=== PATIENT | male | born 1960 | race Two or more races ===

== ENCOUNTER → 2020-02-02 08:39 | Outpatient (BNVA) | payer BC, SELFPAY | PROVIDERS: PCP Family Medicine; Referring Provider Family Medicine; Visit Provider Physician Assistant | DX: Z76.89 Persons encountering health services in other specified circumstances (principal) ==

== ENCOUNTER 2020-03-22 09:52 | Day surgery (SDC) | payer BC, SELFPAY ==
[2020-02-05 10:26] VITALS: BMI 26.4
--- NOTE | 2020-03-21 10:20 | HO.ANESPROP2 ---
Documented by User: Alicia Portillo 03/21/20 10:21 HPI - Anesthesia Eval Consult details Narrative: 59yo M for Upper Endoscopy and Colonoscopy [facility] Past Medical History Medical History Acid reflux Diabetes Dyslipidemia HTN (hypertension) Family History Family History Father No problems noted. Social History Social History Household Members: Children Alcohol intake: never Smoking Status: Never smoker Second Hand Smoke Exposure: No Use of substances other than those prescribed or required for medical reasons: No Advance Directives: No Advance Directives Information Provided: No Advance Directives on File: No Meds Allergies Allergy/AdvReac Type Severity Reaction Status Date / Time No Known Allergies Allergy Unverified 11/19/19 16:14 Home Medications Medication Instructions Recorded Confirmed Type aspirin 81 mg tablet,delayed 81 mg PO DAILY 02/02/20 02/05/20 History release atorvastatin 40 mg tablet 40 mg PO DAILY 02/02/20 02/05/20 History glipizide 10 mg tablet 10 mg PO BID 02/02/20 02/05/20 History hydrochlorothiazide 25 mg tablet 25 mg PO DAILY 02/02/20 02/05/20 History lisinopril 10 mg tablet 10 mg PO DAILY 02/02/20 02/05/20 History metformin 1,000 mg tablet 1,000 mg PO BID 02/02/20 02/05/20 History Exam Exam Date and Time: March 21, 2020 1020 Height,Weight and Vital Signs: Height 5 ft 3 in Weight 67.585 kg Assessment and Plan Assessment Anesthesia Assessment: Chart Reviewed Documented by User: Patricia Fallon 03/22/20 12:11 [facility] Past Medical History Medical History Acid reflux Diabetes Dyslipidemia HTN (hypertension) Family History Family History Father No problems noted. Social History Social History Household Members: Children Alcohol intake: never Smoking Status: Never smoker Second Hand Smoke Exposure: No Use of substances other than those prescribed or required for medical reasons: No Advance Directives: No Advance Directives Information Provided: No Advance Directives on File: No Meds Allergies Allergy/AdvReac Type Severity Reaction Status Date / Time No Known Allergies Allergy Unverified 11/19/19 16:14 Home Medications Medication Instructions Recorded Confirmed Type aspirin 81 mg tablet,delayed 81 mg PO DAILY 02/02/20 02/05/20 History release atorvastatin 40 mg tablet 40 mg PO DAILY 02/02/20 02/05/20 History glipizide 10 mg tablet 10 mg PO BID 02/02/20 02/05/20 History hydrochlorothiazide 25 mg tablet 25 mg PO DAILY 02/02/20 02/05/20 History lisinopril 10 mg tablet 10 mg PO DAILY 02/02/20 02/05/20 History metformin 1,000 mg tablet 1,000 mg PO BID 02/02/20 02/05/20 History Exam Airway Mallampati Class: II TM Dist: >3cm Loose/Missing/Broken Teeth: No Heart: RRR Lungs: CTA Assessment and Plan Assessment Anesthesia Assessment: Anesthesia Plan Discussed and Chart Reviewed Final Anesthetic Review NPO: Yes ASA Class: II Final Preanesthetic Review: Meds/Allgs Chart Reviewed, Consent Obtained/Reviewed and Anes Risks/Benef Reviewed Patient Risk: Low Procedure Risk: Intermediate Anesthetic Plan Anesthetic Plan: MAC:
--- NOTE | 2020-03-22 12:10 | MHC.SHP ---
Pre-Procedural Eval Section B Chief Complaint: Tubular Adenoma Details of Present Illness: CHRONIC GERD/COLON CANCER SCREENING, HX TUBULAR ADENOMA No changes clinical since visit in February. Relevant Family History (Specify if Yes): No Relevant Social History: None Present Medications: see Short Stay Collaborative assessment Medical History: Significant History (GERD, Diabetes, Hypertension) History of Previous Operations: No relevant previous surgery Allergies: Allergies Allergy/AdvReac Type Severity Reaction Status Date / Time No Known Allergies Allergy Unverified 11/19/19 16:14 Review of Systems Sugical H&P ROS: Negative: Constitution, Cardiovascular, Respiratory and Gastrointestinal and Yes, Specify: Endocrine (Diabetes) Exam Surgical H&P Exam: Normal: HEENT, Normal: Heart, Normal: Lungs and Normal: Abdomen Plan Diagnosis/Plan: Unchanged I have reviewed the history and physical and performed a pertinent physical examination on my patient. No changes have occurred unless specified.yes
[2020-03-22 12:18] VITALS: BP 112/63; PULSE 95; RESP 18; TEMP 36.2; O2SAT 99
[2020-03-22] MEDS: Lactated Ringers 1,000 ML 100 ML IVCONT (12:21)
[2020-03-22 13:11] LABS: Glucose, Whole Blood 103 mg/dL (60-115)
[2020-03-22 13:13] VITALS: BP 94/59; PULSE 82; RESP 18; TEMP 36.3; O2SAT 99
--- NOTE | 2020-03-22 13:26 | PM.PROC ---
Brief Operative Note Date of procedure: 03/22/20 Pre-op diagnosis: chronic GERD, Nausea, Rectal bleeding Post-op diagnosis: other (EGD: Hiatal hernia, erosvive duodenitis; Colon poor prep-Internal hemorrhoids.) Procedure: EGD wtih bx, [place]coe to hepatic flexure--poor prep. Anesthesia: MAC (MD Vasyl) Surgeon: Julissa Eubanks Estimated blood loss (mL): 0 Pathology: other (Random gastric bx) Condition: stable Disposition: PACU
[2020-03-22 13:28] VITALS: BP 112/76; PULSE 85; RESP 18; TEMP 36.3; O2SAT 99
--- NOTE | 2020-03-22 14:00 | HO.POSTANES ---
Post Anesthesia Evaluation Post Anesthesia Evaluation Vital Signs: Vital Signs Temp Pulse Resp BP Pulse Ox 03/22/20 13:28 97.4 F 85 18 112/76 99 03/22/20 13:13 97.4 F 82 18 94/59 L 99 03/22/20 12:18 97.1 F 95 18 112/63 99 Anesthesia: Monitored Mental Status: Awake Pain Control: Satisfactory Nausea/Vomiting: None Hydration: Adequate Anesthesia-Related Issues: No Anes. Related Issues
--- NOTE | 2020-03-24 08:31 | OP_ITS ---
SURGEON: Julissa Eubanks MD ESTIMATED BLOOD LOSS: Less than 5 cc. COMPLICATIONS: No complications. ANESTHESIA: Monitored ANESTHESIOLOGIST: Patricia Fallon M.D. ASSISTANTS: No medical assistant supervisor. SPECIMENS: Specimens removed, random gastric. PREOPERATIVE DIAGNOSES: Chronic gastroesophageal reflux disease, evaluate for underlying premalignant condition such as Estrada's. Colon cancer screening. POSTOPERATIVE DIAGNOSES: Erosive duodenitis, hiatal hernia, and history of gastroesophageal reflux disease. Colonoscopy, incomplete to the hepatic flexure, 1+ internal hemorrhoids. STREET CAR MECHANIC: Julissa Eubanks M.D. PROCEDURES PERFORMED: Esophagogastroduodenoscopy with biopsy; Colonoscopy to the level of the hepatic flexure. CONDITION: Postop, stable. ESOPHAGOGASTRODUODENOSCOPY FINDINGS: Video endoscope was introduced without difficulty. It was navigated into the posterior pharynx and into the esophagus. Esophageal mucosa was normal down to the level of the GE junction. Distal to this, was a small hiatal hernia. On entering the stomach, there was no residual dietary fragments present. No blood was visible. Slight bilious tinge to the fluid present. Distal erythema of the antrum. Duodenal bulb and duodenum had generalized erythema, slight friability, and multiple small erosive lesions. Random gastric biopsies were obtained to assess for the presence of H pylori. COLONOSCOPY FINDINGS: On digital rectal exam, prostate was normal to digital palpation. The video colonoscope was introduced without difficulty. From the beginning, the prep was poor with a lot of residual turbid and slightly fibrous material. The left side of the colon was redundant and there was angulation at several levels. At least 700 cc was used to flush the areas observed. Due to the amount of stool containing residue, decision was made to withdraw the scope and re-prep the patient within a 12-month period of time and do colonoscopy as a separate procedure. The patient has had previous exams with suboptimal preps. This is going to be a challenge. However, he has had previous colonoscopy in which a diminutive tubular adenoma had been removed. The patient has been seen in the past by Dr. Gilbert and might best be scheduled with Dr. Gilbert on his followup exam. TYPE OF ANESTHESIA: Monitored. GRAFT OR IMPLANTS: No grafts or implants. Julissa Eubanks MD MEN/MODL / [id number] [place]
== END 2020-03-22 14:21 | disposition home or self-care (01) ==
PROVIDERS: PCP Internal Medicine; Visit Provider Internal Medicine Gastroenterology
PROC: (CPT 45378; principal; 2020-03-22 11:30)
DX: Z12.11 Encounter for screening for malignant neoplasm of colon (principal); Z86.010 Personal history of colon polyps; K64.8 Other hemorrhoids; Q43.8 Other specified congenital malformations of intestine; K21.9 Gastro-esophageal reflux disease without esophagitis; K29.50 Unspecified chronic gastritis without bleeding; K29.80 Duodenitis without bleeding; K44.9 Diaphragmatic hernia without obstruction or gangrene; E11.9 Type 2 diabetes mellitus without complications; I10 Essential (primary) hypertension; Z79.82 Long term (current) use of aspirin; Z79.84 Long term (current) use of oral hypoglycemic drugs; Z79.899 Other long term (current) drug therapy
CPT/HCPCS: 45378; 43239; 82947; 88305; 88342

== ENCOUNTER 2020-04-10 | Outpatient (REF) | payer BC, SELFPAY | END 2020-04-10 00:01 | disposition home or self-care (01) | LOC: HO.LNP | PROVIDERS: Visit Provider Internal Medicine Gastroenterology | DX: Z12.11 Encounter for screening for malignant neoplasm of colon (principal) | CPT/HCPCS: 82274 ==

== ENCOUNTER 2023-03-20 08:56 | Outpatient (REF) | payer BC, SELFPAY ==
[2023-03-20 14:30] LABS: MANUAL DIFF FLAG NO
[2023-03-20 14:34] LABS: Basophils Absolute Auto 0.1 X10*3/uL (0.0-0.2); Eosinophils Absolute Auto 0.3 X10*3/uL (0.0-0.4); Eosinophils Percent Auto 4.8 % (0-4); Hematocrit 43.9 % (42.0-52.0); Hemoglobin 14.2 g/dl (14.0-18.0); Imm Gran Abs Auto 0.01 X10*3/uL (0.00-0.03); Imm Gran Pct Auto 0.2 % (0.0-0.4); Lymphocytes Absolute Auto 1.3 X10*3/uL (1.2-4.9); Lymphocytes Percent Auto 20.7 % (20-40); Mean Corpuscular HGB Conc 32.3 g/dl (31.0-36.0); Mean Corpuscular Hemoglobin 29.5 pg (27.0-33.0); Mean Corpuscular Volume 91.1 fL (80.0-98.0); Mean Platelet Volume 10.7 fL (9.4-12.4); Monocytes Absolute Auto 0.4 X10*3/uL (0.1-1.2); Monocytes Percent Auto 6.4 % (2-11); Neutrophils Absolute Auto 4.1 x10*3/uL (2.0-8.3); Neutrophils Percent Auto 66.9 % (45-73); Platelet Count 342 X10*3/uL (160-400); Red Blood Count 4.82 X10*6/uL (4.60-5.80); Red Cell Distribution Width 11.9 % (11.0-16.0); White Blood Count 6.1 X10*3/uL (4.8-10.8)
[2023-03-20 14:45] LABS: Estimated Average Glucose 206 mg/dL; Hemoglobin A1c % 8.8 % (<6.0)
[2023-03-20 14:50] LABS: Alanine Aminotransferase 14 U/L (0-40); Albumin Level 3.4 g/dL (3.5-5.0); Alkaline Phosphatase 84 U/L (39-117); Anion Gap 14 (12-20); Aspartate Amino Transferase 17 U/L (5-37); Bilirubin Total 0.5 mg/dL (0.0-1.0); Blood Urea Nitrogen 26 mg/dL (9-16); Calcium 9.4 mg/dL (8.4-10.2); Carbon Dioxide 27 mmol/L (22-29); Chloride 105 mmol/L (96-108); Cholesterol 371 mg/dL (<200); Estimated Glomerular Filt Rate 40; Glucose Random 246 mg/dL (60-115); HDL Cholesterol 43 mg/dL (>40); LDL Cholesterol Calculated 291 mg/dL (<100); Potassium 4.6 mmol/L (3.3-5.1); Sodium 141 mmol/L (135-145); Total Protein 7.2 g/dL (6.5-8.0); Triglycerides 186 mg/dL (<150)
[2023-03-20 15:02] LABS: Creatinine Urine 158.88 mg/dL
[2023-03-20 15:04] LABS: Prostate Specific Antigen 0.41 ng/mL (<0.05-4.0)
[2023-03-20 15:11] LABS: TSH reflex Free T4 2.21 uIU/mL (0.32-4.0)
[2023-03-20 15:13] LABS: Microalbum/Creatinine Ratio Ur 1258.8 ug/mg cr (<30); Microalbumin Urine > 2000.0 mg/L
[2023-03-21 04:23] LABS: ~HepC Num1 0.12 S/CO (0.00-0.79); ~Hepatitis C Antibody Nonreactive (Nonreactive)
[2023-03-23 17:13] LABS: HIV RNA PCR Qn Copies Not Detected Copies/mL; HIV RNA PCR Qn Log Copies Not Detected Log cps/mL
== END 2023-03-20 08:57 | disposition home or self-care (01) ==
LOC: HO.CHCLDS 08:56
PROVIDERS: Visit Provider Internal Medicine
DX: Z12.5 Encounter for screening for malignant neoplasm of prostate (principal); I10 Essential (primary) hypertension; E11.9 Type 2 diabetes mellitus without complications
CPT/HCPCS: 36415; 80053; 80061; 82043; 82570; 83036; 84153; 84443; 85025; 86803; 87536; 87900

== ENCOUNTER 2023-06-20 09:51 | Outpatient (REF) | payer BC, SELFPAY ==
[2023-06-20 14:57] LABS: Alanine Aminotransferase 15 U/L (0-40); Albumin Level 3.7 g/dL (3.5-5.0); Alkaline Phosphatase 73 U/L (39-117); Anion Gap 11 (12-20); Aspartate Amino Transferase 21 U/L (5-37); Bilirubin Total 0.6 mg/dL (0.0-1.0); Blood Urea Nitrogen 58 mg/dL (9-16); Calcium 8.8 mg/dL (8.4-10.2); Carbon Dioxide 27 mmol/L (22-29); Chloride 104 mmol/L (96-108); Cholesterol 242 mg/dL (<200); Estimated Glomerular Filt Rate 25; Glucose Random 197 mg/dL (60-115); HDL Cholesterol 39 mg/dL (>40); LDL Cholesterol Calculated 169 mg/dL (<100); Potassium 5.1 mmol/L (3.3-5.1); Sodium 137 mmol/L (135-145); Total Protein 7.4 g/dL (6.5-8.0); Triglycerides 170 mg/dL (<150)
[2023-06-20 16:06] LABS: Estimated Average Glucose 189 mg/dL; Hemoglobin A1c % 8.2 % (<6.0)
== END 2023-06-20 09:52 | disposition home or self-care (01) ==
LOC: HO.CHCLDS 09:51
PROVIDERS: Visit Provider Internal Medicine
DX: E11.9 Type 2 diabetes mellitus without complications (principal); I10 Essential (primary) hypertension
CPT/HCPCS: 36415; 80053; 80061; 83036

== ENCOUNTER 2023-07-08 14:08 | Outpatient (AMB) | payer BC, SELFPAY ==
--- NOTE | 2023-07-08 14:17 | MHC.OFFVIS ---
Vital Signs 07/08/23 14:25 Height 5 ft 1 in Weight 146 lb BMI 27.6 BP 101/55 L Blood Pressure Location Lt brachial Position Sitting Pulse 109 H Intake Visit Reasons: colo screening Intake Note: New consult for 3rd pre colonoscopy screening. Patient cc: acid reflex on and off, denies any otehr GI issues. Nuclear Criticality Safety Engineer Required: No Accompanied by: Self / Same As Patient Allergies No Known Allergies Allergy (Verified 07/08/23 14:22) HPI HPI colo screening: Details: LAST UPPER ENDOSCOPY AND COLONOSCOPY MARCH [address] Eubanks ESOPHAGOGASTRODUODENOSCOPY FINDINGS: Video endoscope was introduced without difficulty. It was navigated into the posterior pharynx and into the esophagus. Esophageal mucosa was normal down to the level of the GE junction. Distal to this, was a small hiatal hernia. On entering the stomach, there was no residual dietary fragments present. No blood was visible. Slight bilious tinge to the fluid present. Distal erythema of the antrum. Duodenal bulb and duodenum had generalized erythema, slight friability, and multiple small erosive lesions. Random gastric biopsies were obtained to assess for the presence of H pylori. COLONOSCOPY FINDINGS: On digital rectal exam, prostate was normal to digital palpation. The video colonoscope was introduced without difficulty. From the beginning, the prep was poor with a lot of residual turbid and slightly fibrous material. The left side of the colon was redundant and there was angulation at several levels. At least 700 cc was used to flush the areas observed. Due to the amount of stool containing residue, decision was made to withdraw the scope and re-prep the patient within a 12-month period of time and do colonoscopy as a separate procedure. The patient has had previous exams with suboptimal preps. This is going to be a challenge. However, he has had previous colonoscopy in which a diminutive tubular adenoma had been removed. The patient has been seen in the past by Dr. Gilbert and might best be scheduled with Dr. Gilbert on his followup exam. 62 year old? female here today for pre colonoscopy screening.? Patient was sent to us by his PCP.? ? Patient denies any gastrointestinal symptoms in the past or at present. However patient does have acid reflux at times depending on what he eats. Denies any personal or family history of gastrointestinal disease, colon polyps, or CRC.? Denies history of difficulty with sedation or anesthesia in the past.? Negative for history of sleep apnea.? Denies any history of cardiac, renal, pulmonary, or hepatic disease.?? No history of infectious? diseases like hepatitis A, B, C, HIV or tuberculosis.? Patient is on low-dose aspirin. Patient no longer is taking omeprazole. His symptoms are controlled with diet. [facility] Medical History (Updated 07/25/23 @ 19:05 by Vivien Pierson [facility]) Dyslipidemia HTN (hypertension) Acid reflux Diabetes Surgical History (Updated 07/08/23 @ 14:27 by Martha Reza) Hx of colonoscopy Hx of appendectomy Family History Father No problems noted. Social History Household Members: Children Alcohol intake: never Second Hand Smoke Exposure: No Review of Systems Const Denies weight gain and Denies weight loss ENT Reports no additional complaints, Denies dysphagia and Denies odynophagia Card Reports no additional complaints Resp Reports no additional complaints GI Denies abdominal pain, Denies belching, Denies melena, Denies bloating, Denies change in bowel habits, Denies dysphagia, Denies excessive flatus, Denies dyspepsia, Reports heartburn (Occasional), Denies diarrhea, Denies loose stools, Denies nausea, Denies odynophagia and Denies vomiting Reports no additional complaints Musc Reports no additional complaints Neuro Reports no additional complaints Psych Reports no additional complaints Endo Reports no additional complaints Physical Exam Vital Signs: Last Vital Signs Pulse 109 H 07/08/23 14:25 BP 101/55 L 07/08/23 14:25 BMI result Body Mass Index 27.6 Const General: healthy appearing, no acute distress and well developed Nutritional Appearance: well nourished Orientation/consciousness: patient oriented x3 Resp Effort & Inspection: normal respiratory effort, able to speak in complete sentences, no tracheal deviation and symmetric chest movement Auscultation: clear to auscultation bilaterally Cardio Rate: regular rate GI Inspection: Yes normal to inspection and No distended Palpation (GI): Soft to palpation, not firm, nontender and No hepatosplenomegaly present Auscultation: normal bowel sounds General: Yes no CVA tenderness Back/Spine/Pelvis Back: no CVA tenderness Skin General skin exam: elasticity normal, turgor normal and dry skin Neuro General: patient oriented x3 Psych Appearance: grossly normal Mental Status: mental status grossly normal Assessment & Plan Assessment & Plan (1) Encounter for screening colonoscopy: Code(s): Z12.11 - Encounter for screening for malignant neoplasm of colon Category: Medical (2) Acid reflux: Code(s): K21.9 - Gastro-esophageal reflux disease without esophagitis Category: Medical Qualifiers: Esophagitis presence: esophagitis presence not specified Qualified Code(s): K21.9 - Gastro-esophageal reflux disease without esophagitis Plan Patient denies any GI, cardiac or respiratory symptoms.? Occasional acid reflux, however patient is trying to control his diet. Denies any issues with anesthesia in the past.? Denies any history of sleep apnea.? No history infectious diseases in the past or present.? Patient is on low-dose aspirin.? No family or personal history of colon cancer or polyps.? Patient denies melena, hematochezia, unintentional weight loss or ribbon like stools.? Discussed at length the pre-procedure,? prep, diet & medications as well as what to expect prior, during and after the procedure.?? Stressed the importance of good bowel prep. ?Recommended the use of Vaseline or Calmoseptine OTC & baby wipes with bowel movements to promote comfort.? ?Patient verbalizes understanding and agrees to plan of care.? He was given the opportunity to ask questions and all questions answered.? We will see him after the procedure.? Medications: New bisacodyl (Dulcolax (bisacodyl)) Start taking 2 tablet every night 7 days before the procedure and 1 day before procedure take 4 tablets at noon time followed by MiraLax prep 10 mg (2 x 5 mg) PO BEDTIME 16 tabs 0RF Z12.11 - Encounter for screening for malignant neoplasm of colon polyethylene glycol 3350 (Miralax) As directed by gastro[facility]ology department at [facility] 238 grams PO ONCE 238 grams 0RF Z12.11 - Encounter for screening for malignant neoplasm of colon Discontinued omeprazole Discontinued Reason: Patient no longer taking 20 mg PO DAILY 30 caps 5RF omeprazole Discontinued Reason: Patient no longer taking 20 mg PO DAILY 30 caps 5RF bisacodyl Take 2 tablets at 12:00pm the day before your procedure, bowel prep Discontinued Reason: Patient no longer taking 10 mg (2 x 5 mg) PO ONCE 1 day 2 tabs 0RF Bowel Preparation Coding Level of Care Code New Pt Level 3 (28624) Diagnoses Encounter for screening colonoscopy Z12.11 Gastroesophageal reflux disease, unspecified whether esophagitis present K21.9 Esophagitis presence: esophagitis presence not specified Time Spent (min) 40 Comment 30 minutes spent with patient and additional 10 minutes spent reviewing his records
[2023-07-08 14:25] VITALS: BP 101/55; PULSE 109; BMI 27.6
== END 2023-07-08 15:23 | disposition home or self-care (01) ==
PROVIDERS: PCP Internal Medicine; Referring Provider Internal Medicine; Visit Provider Nurse Practitioner Family
DX: Z01.818 Encounter for other preprocedural examination (principal); Z12.11 Encounter for screening for malignant neoplasm of colon; K21.9 Gastro-esophageal reflux disease without esophagitis
CPT/HCPCS: S0285

== ENCOUNTER → 2023-07-08 14:08 | Outpatient (BNVA) | payer BC, SELFPAY | PROVIDERS: PCP Internal Medicine; Referring Provider Internal Medicine; Visit Provider Nurse Practitioner Family ==

== ENCOUNTER 2023-07-23 09:01 | Outpatient (REF) | payer BC, SELFPAY ==
[2023-07-23 15:03] LABS: Anion Gap 16 (12-20); Blood Urea Nitrogen 40 mg/dL (9-16); Calcium 9.5 mg/dL (8.4-10.2); Carbon Dioxide 24 mmol/L (22-29); Chloride 106 mmol/L (96-108); Estimated Glomerular Filt Rate 37; Glucose Random 117 mg/dL (60-115); Potassium 4.9 mmol/L (3.3-5.1); Sodium 141 mmol/L (135-145)
== END 2023-07-23 09:02 | disposition home or self-care (01) ==
LOC: HO.CHCLDS 09:01
PROVIDERS: Visit Provider Internal Medicine
DX: E11.9 Type 2 diabetes mellitus without complications (principal)
CPT/HCPCS: 36415; 80048

== ENCOUNTER 2023-08-01 15:19 | Outpatient (AMB) | payer BC, SELFPAY ==
[2023-08-01 15:17] VITALS: BP 118/80; PULSE 110; O2SAT 98; BMI 28.3
--- NOTE | 2023-08-01 15:17 | HO.NEPHOV ---
Vital Signs 08/01/23 15:17 Height 5 ft 1 in Weight 150 lb BMI 28.3 BP 118/80 Blood Pressure Location Lt brachial Position Sitting Pulse 110 H Pulse Source Pulse Oximeter Pulse Oximetry (%) 98 Oxygen Delivery Method Room Air Intake Visit Reasons: CKD STG 3B/ Confirmed Road Test Examiner Required: No Accompanied by: Self / Same As Patient Allergies No Known Allergies Allergy (Verified 08/01/23 15:20) HPI Comments Details: . Jame is a middle-aged man with a history of diabetes mellitus for more than 30 years. He has chronic kidney disease with a baseline creatinine around 2.5 mg/dL. He was found to have significant proteinuria of around 1200 mg and hence this consultation. Currently he is on losartan 100 mg for renal protection. He has history of hypertension and is also on amlodipine. As for the diabetes mellitus he is on Trulicity. He tells me that his blood sugar was poorly controlled in the past while he was in [place]. Today has no specific complaints. No headache nausea vomiting. No shortness of breath. No polyuria polydipsia. No edema no rash no fever. No joint pains. [facility] Medical History (Updated 08/01/23 @ 15:32 by Gene Stout MD) Dyslipidemia HTN (hypertension) Acid reflux Diabetes Surgical History Hx of colonoscopy Hx of appendectomy Family History Father No problems noted. Social History Household Members: Children Alcohol intake: never Second Hand Smoke Exposure: No Physical Exam Vital Signs: Last Vital Signs Pulse 110 H 08/01/23 15:17 BP 118/80 08/01/23 15:17 Pulse Ox 98 08/01/23 15:17 Oxygen Delivery Method Room Air 08/01/23 15:17 BMI result Body Mass Index 28.3 Const General: comfortable Nutritional Appearance: well nourished Orientation/consciousness: patient oriented x3 HEENT Head: No normal to inspection Mouth: moist mucous membranes Neck Neck: Yes supple and Yes no JVD Resp Auscultation: clear to auscultation bilaterally, no rales and rub present Cardio Jugular venous distension: no JVD Palpation: no palpable S3 and no palpable S4 Heart sounds: no rubs GI Palpation (GI): Soft to palpation and nontender Percussion: No Fluid wave present General: Yes no CVA tenderness Back/Spine/Pelvis Back: no CVA tenderness Skin General skin exam: no rashes or lesions noted Neuro General: patient oriented x3 Extrem General: Yes no pedal edema and No clubbing Results Reviewed Nephrology Results: Hgb 14.2 g/dl (14.0-18.0) 03/20/23 WBC 6.1 X10*3/uL (4.8-10.8) 03/20/23 Plt Count 342 X10*3/uL (160-400) 03/20/23 Sodium 141 mmol/L (135-145) 07/23/23 Potassium 4.9 mmol/L (3.3-5.1) 07/23/23 Chloride 106 mmol/L (96-108) 07/23/23 Carbon Dioxide 24 mmol/L (22-29) 07/23/23 BUN 40 mg/dL (9-16) H 07/23/23 Creatinine 1.85 mg/dL (0.5-1.4) H 07/23/23 Calcium 9.5 mg/dL (8.4-10.2) 07/23/23 Urine Creatinine 158.88 mg/dL 03/20/23 Assessment & Plan Assessment & Plan (1) HTN (hypertension): Code(s): I10 - Essential (primary) hypertension Category: Medical (2) CKD (chronic kidney disease) stage 3, GFR 30-59 ml/min: Code(s): N18.30 - Chronic kidney disease, stage 3 unspecified Category: Medical Plan . 62-year-old man with chronic kidney disease in the setting of longstanding diabetes mellitus and hypertension with non nephrotic range proteinuria. 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 The proteinuria is due to underlying diabetic kidney disease. However nondiabetic causes should be considered. Hypertension. Blood pressure is well controlled. He has mild tachycardia. This may be due to reflex tachycardia secondary to the use of amlodipine. Recommendations Ordered baseline workup for the proteinuria to screen for nondiabetic causes. Obtain renal ultrasonogram to assess echogenicity of the kidneys. Agree with KENDRICK inhibition for renal protection. He will benefit from SGLT2 inhibitors. Discussed importance of tight control of blood sugar and blood pressure. Goal A1c of less than 7% and blood pressure less than 130/80 mm Hg. Encouraged him to stand low-sodium diet Increase p.o. fluid intake. Continue overt nephrotoxic agents including NSAIDs. As for the reflex tachycardia I would suggest lowering amlodipine by 50%. Next step would be to add a beta farrah. If needed Once the baseline workup is completed returned to the office. . Orders: Orders US renal BI Today I10 - Essential (primary) hypertension, N18.30 - Chronic kidney disease, stage 3 unspecified Protein Electrophoresis, Serum Today I10 - Essential (primary) hypertension, N18.30 - Chronic kidney disease, stage 3 unspecified Complement C4 Today I10 - Essential (primary) hypertension, N18.30 - Chronic kidney disease, stage 3 unspecified UA and rflx microscopic Today I10 - Essential (primary) hypertension, N18.30 - Chronic kidney disease, stage 3 unspecified Complement C3 Today I10 - Essential (primary) hypertension, N18.30 - Chronic kidney disease, stage 3 unspecified Coding Level of Care Code New Pt Level 4 (26015) Diagnoses HTN (hypertension) I10 CKD (chronic kidney disease) stage 3, GFR 30-59 ml/min N18.30
--- NOTE | 2023-08-01 16:19 | HO.NEPHOV ---
Vital Signs 08/01/23 15:17 Height 5 ft 1 in Weight 150 lb BMI 28.3 BP 118/80 Blood Pressure Location Lt brachial Position Sitting Pulse 110 H Pulse Source Pulse Oximeter Pulse Oximetry (%) 98 Oxygen Delivery Method Room Air Intake Visit Reasons: CKD STG 3B/ Confirmed Allergies No Known Allergies Allergy (Verified 08/01/23 15:20) PFSH Medical History (Updated 08/01/23 @ 15:32 by Gene Stout MD) Dyslipidemia HTN (hypertension) Acid reflux Diabetes Surgical History Hx of colonoscopy Hx of appendectomy Family History Father No problems noted. Social History Household Members: Children Alcohol intake: never Second Hand Smoke Exposure: No Physical Exam Vital Signs: Last Vital Signs Pulse 110 H 08/01/23 15:17 BP 118/80 08/01/23 15:17 Pulse Ox 98 08/01/23 15:17 Oxygen Delivery Method Room Air 08/01/23 15:17 BMI result Body Mass Index 28.3 Results Reviewed Nephrology Results: Hgb 14.2 g/dl (14.0-18.0) 03/20/23 WBC 6.1 X10*3/uL (4.8-10.8) 03/20/23 Plt Count 342 X10*3/uL (160-400) 03/20/23 Sodium 141 mmol/L (135-145) 07/23/23 Potassium 4.9 mmol/L (3.3-5.1) 07/23/23 Chloride 106 mmol/L (96-108) 07/23/23 Carbon Dioxide 24 mmol/L (22-29) 07/23/23 BUN 40 mg/dL (9-16) H 07/23/23 Creatinine 1.85 mg/dL (0.5-1.4) H 07/23/23 Calcium 9.5 mg/dL (8.4-10.2) 07/23/23 Urine Creatinine 158.88 mg/dL 03/20/23 Assessment & Plan Assessment & Plan (1) HTN (hypertension): Code(s): I10 - Essential (primary) hypertension Category: Medical (2) CKD (chronic kidney disease) stage 3, GFR 30-59 ml/min: Code(s): N18.30 - Chronic kidney disease, stage 3 unspecified Category: Medical Orders: Orders US renal BI Today I10 - Essential (primary) hypertension, N18.30 - Chronic kidney disease, stage 3 unspecified Protein Electrophoresis, Serum Today I10 - Essential (primary) hypertension, N18.30 - Chronic kidney disease, stage 3 unspecified Complement C4 Today I10 - Essential (primary) hypertension, N18.30 - Chronic kidney disease, stage 3 unspecified UA and rflx microscopic Today I10 - Essential (primary) hypertension, N18.30 - Chronic kidney disease, stage 3 unspecified Complement C3 Today I10 - Essential (primary) hypertension, N18.30 - Chronic kidney disease, stage 3 unspecified Coding Diagnoses HTN (hypertension) I10 CKD (chronic kidney disease) stage 3, GFR 30-59 ml/min N18.30
== END 2023-08-01 15:36 | disposition home or self-care (01) ==
PROVIDERS: PCP Internal Medicine; Referring Provider Internal Medicine; Visit Provider Internal Medicine Hypertension Specialist
DX: I10 Essential (primary) hypertension (principal); N18.30 Chronic kidney disease, stage 3 unspecified
CPT/HCPCS: 99204

== ENCOUNTER → 2023-08-01 15:19 | Outpatient (BNVA) | payer BC, SELFPAY | PROVIDERS: PCP Internal Medicine; Referring Provider Internal Medicine; Visit Provider Internal Medicine Hypertension Specialist ==

== ENCOUNTER 2023-08-12 13:05 | Outpatient (REF) | payer BC, SELFPAY ==
--- NOTE | ~2023-08-12 | US_ITS ---
EXAMINATION: US RETROPERITONEAL LIMITED (RENAL ONLY) CLINICAL INFORMATION: Chronic kidney disease, stage 3 unspecified. COMPARISON: None available. TECHNIQUE: Real-time ultrasound images of the kidneys. Limited visualization due to bowel gas. FINDINGS: RIGHT KIDNEY: 10.4 x 5.4 x 4.2 cm (SAG x AP x TRV). No hydronephrosis. No renal calculi. Renal cortical thickness is normal. Limited visualization. LEFT KIDNEY: 11.1 x 5.7 x 4.6 cm (SAG x AP x TRV). No hydronephrosis. No renal calculi. Renal cortical thickness is normal. Limited visualization. US/US renal BI IMPRESSION: No hydronephrosis. No renal calculi. Limited visualization.
== END 2023-08-12 13:06 | disposition home or self-care (01) ==
LOC: HO.US 13:05
PROVIDERS: PCP Internal Medicine; Visit Provider Internal Medicine Hypertension Specialist
DX: I12.9 Hypertensive chronic kidney disease with stage 1 through stage 4 chronic kidney disease, or unspecified chronic kidney disease (principal); N18.30 Chronic kidney disease, stage 3 unspecified
CPT/HCPCS: 76775

== ENCOUNTER 2023-08-26 07:17 | Outpatient (REF) | payer BC, SELFPAY ==
[2023-08-26 09:06] LABS: Appearance Urine Clear; Color Urine Yellow; Glucose Urine UA Negative (Negative); Leukocyte Esterase Urine Negative (Negative); Nitrite Urine Negative (Negative); PH 5.5 (5.0-9.0); Specific Gravity - Urine 1.015 (1.005-1.025); UMIC TRIGGER UA YES; Urine Blood Trace (Negative); Urine Ketones Negative (Negative); Urine Protein 300 (3+) mg/dL (Neg-Trace)
[2023-08-26 09:08] LABS: Bacteria Urine None Seen (None Seen); Hyaline Casts Urine 0-2 /LPF (0-2); RBC Urine 0-2 /HPF (0-2); Squamous Epithelial Cell Urine 0-2 /HPF (0-2); WBC Urine 0-5 /HPF (0-5)
[2023-08-27 10:38] LABS: Complement C3 50 mg/dL (82-185)
[2023-08-28 11:33] LABS: Prot Elec - Albumin 4.2 g/dL (3.8-4.8); Prot Elec - Alpha1 0.3 g/dL (0.2-0.3); Prot Elec - Alpha2 0.9 g/dL (0.5-0.9); Prot Elec - Beta 1 0.5 g/dL (0.4-0.6); Prot Elec - Beta 2 0.5 g/dL (0.2-0.5); Prot Elec - Total Protein 7.4 g/dL (6.1-8.1)
== END 2023-08-26 07:18 | disposition home or self-care (01) ==
LOC: HO.LAB 07:17
PROVIDERS: PCP Internal Medicine; Visit Provider Internal Medicine Hypertension Specialist
DX: I12.9 Hypertensive chronic kidney disease with stage 1 through stage 4 chronic kidney disease, or unspecified chronic kidney disease (principal); N18.30 Chronic kidney disease, stage 3 unspecified
CPT/HCPCS: 36415; 81001; 81003; 84165; 86160

== ENCOUNTER 2023-08-29 12:14 | Outpatient (AMB) | payer BC, SELFPAY ==
[2023-08-29 12:14] VITALS: BP 96/72; PULSE 105; O2SAT 98; BMI 28.5
--- NOTE | 2023-08-29 12:14 | HO.NEPHOV_ITS ---
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 Jame is a middle-aged man with a history of diabetes mellitus for more than 30 years. He has chronic kidney disease with a baseline creatinine around 2.5 mg/dL. He was found to have significant proteinuria of around 1200 mg and hence this consultation. Currently he is on losartan 100 mg for renal protection. He has history of hypertension and is also on amlodipine. As for the diabetes mellitus he is on Trulicity. He tells me that his blood sugar was poorly controlled in the past while he was in [place]. Today has no specific complaints. No headache nausea vomiting. No shortness of breath. No polyuria polydipsia. No edema no rash no fever. No joint pains. 08/29/23 Home BP has been good. HR is in the 100s [facility] Medical History (Updated 08/01/23 @ 15:32 by Gene Stout MD) Dyslipidemia HTN (hypertension) Acid reflux Diabetes Surgical History Hx of colonoscopy Hx of appendectomy Family History Father No problems noted. Social History Household Members: Children Alcohol intake: never Second Hand Smoke Exposure: No Physical Exam Vital Signs: Last Vital Signs Pulse 105 H 08/29/23 12:14 BP 96/72 08/29/23 12:14 Pulse Ox 98 08/29/23 12:14 Oxygen Delivery Method Room Air 08/29/23 12:14 BMI result Body Mass Index 28.5 Const General: comfortable; No acute distress Orientation/consciousness: patient oriented x3 Eyes General: appearance normal, both eyes and all related structures Visual Dupont: normal visual dupont by confrontation Neck Neck: Yes supple and Yes no JVD Resp Effort & Inspection: normal respiratory effort and respiratory effort not decreased Auscultation: rhonchi Cardio Palpation: no palpable S3 and no palpable S4 Heart sounds: no rubs GI Inspection: Yes normal to inspection Palpation (GI): Soft to palpation Percussion: Yes normal to percussion Auscultation: normal bowel sounds General: Yes no CVA tenderness Back/Spine/Pelvis Back: no CVA tenderness Skin General skin exam: no petechiae and no purpura Neuro General: patient oriented x3 and no focal motor deficits Extrem General: No clubbing and No edema Results Reviewed Nephrology Results: Hgb 14.2 g/dl (14.0-18.0) 03/20/23 WBC 6.1 X10*3/uL (4.8-10.8) 03/20/23 Plt Count 342 X10*3/uL (160-400) 03/20/23 Sodium 141 mmol/L (135-145) 07/23/23 Potassium 4.9 mmol/L (3.3-5.1) 07/23/23 Chloride 106 mmol/L (96-108) 07/23/23 Carbon Dioxide 24 mmol/L (22-29) 07/23/23 BUN 40 mg/dL (9-16) H 07/23/23 Creatinine 1.85 mg/dL (0.5-1.4) H 07/23/23 Calcium 9.5 mg/dL (8.4-10.2) 07/23/23 Urine Protein 300 (3+) mg/dL (Neg-Trace) H 08/26/23 Urine Creatinine 158.88 mg/dL 03/20/23 Renal US 08/12/23 Assessment & Plan Assessment & Plan (1) HTN (hypertension): Code(s): I10 - Essential (primary) hypertension Category: Medical (2) CKD (chronic kidney disease) stage 3, GFR 30-59 ml/min: Code(s): N18.30 - Chronic kidney disease, stage 3 unspecified Category: Medical Plan . 62-year-old man with chronic kidney disease in the setting of longstanding diabetes mellitus and hypertension with non nephrotic range proteinuria. 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 Creatinine is better The proteinuria is due to underlying diabetic kidney disease. However nondiabetic causes should be considered. Hypertension. Blood pressure is well controlled. He has mild tachycardia. This may be due to reflex tachycardia secondary to the use of amlodipine. Recommendations Continue workup for the proteinuria to screen for nondiabetic causes. C3,C4 were low; SPEP did not show MCGP ordered more serologies Agree with KENDRICK inhibition for renal protection. He will benefit from SGLT2 inhibitors. Discussed importance of tight control of blood sugar and blood pressure. Goal A1c of less than 7% and blood pressure less than 130/80 mm Hg. Encouraged him to stay on a low-sodium diet Increase p.o. fluid intake. Continue to avoid nephrotoxic agents including NSAIDs. As for the reflex tachycardia , IF HR stays > 100/mt ,I would suggest lowering amlodipine by 50%. Next step would be to add a beta farrah. If needed Today the BP was low in office However, home BP was 130/70 He has been taking Amlodipine and Losartan in the morning. I have asked him to take LOSARTAN in the evening , instead of morning. Same dose. . Orders: Orders Myeloperoxidase Antibody 7 Weeks I10 - Essential (primary) hypertension, N18.30 - Chronic kidney disease, stage 3 unspecified Phospholipase A2 Receptor Pnl 7 Weeks I10 - Essential (primary) hypertension, N18.30 - Chronic kidney disease, stage 3 unspecified Total Protein Urine Random 7 Weeks I10 - Essential (primary) hypertension, N18.30 - Chronic kidney disease, stage 3 unspecified UA and rflx microscopic 7 Weeks I10 - Essential (primary) hypertension, N18.30 - Chronic kidney disease, stage 3 unspecified Creatinine Urine 7 Weeks I10 - Essential (primary) hypertension, N18.30 - C hronic kidney disease, stage 3 unspecified ZAKI Reflex Titer and Pattern 7 Weeks I10 - Essential (primary) hypertension, N18.30 - Chronic kidney disease, stage 3 unspecified Anti DNA DS Antibody 7 Weeks I10 - Essential (primary) hypertension, N18.30 - Chronic kidney disease, stage 3 unspecified Neutrophil Cytoplasma Ab 7 Weeks I10 - Essential (primary) hypertension, N18.30 - Chronic kidney disease, stage 3 unspecified Proteinase 3 PR3 Antibodies 7 Weeks I10 - Essential (primary) hypertension, N18.30 - Chronic kidney disease, stage 3 unspecified Basic Metabolic Panel 7 Weeks I10 - Essential (primary) hypertension, N18.30 - Chronic kidney disease, stage 3 unspecified Coding Level of Care Code Est Pt Level 4 (39759) Diagnoses HTN (hypertension) I10 CKD (chronic kidney disease) stage 3, GFR 30-59 ml/min N18.30
== END 2023-08-29 15:41 | disposition home or self-care (01) ==
LOC: HO.HKA 12:14
PROVIDERS: PCP Internal Medicine; Visit Provider Internal Medicine Hypertension Specialist
DX: I10 Essential (primary) hypertension (principal); N18.30 Chronic kidney disease, stage 3 unspecified
CPT/HCPCS: 99214

== ENCOUNTER → 2023-08-29 12:14 | Outpatient (BNVA) | payer BC, SELFPAY | PROVIDERS: PCP Internal Medicine; Visit Provider Internal Medicine Hypertension Specialist ==

== ENCOUNTER 2023-09-19 08:42 | Outpatient (REF) | payer BC, SELFPAY ==
[2023-09-19 14:16] LABS: Estimated Average Glucose 151 mg/dL; Hemoglobin A1c % 6.9 % (<6.0)
[2023-09-19 14:23] LABS: Alanine Aminotransferase 14 U/L (0-40); Albumin Level 4.3 g/dL (3.5-5.0); Alkaline Phosphatase 83 U/L (39-117); Anion Gap 15 (12-20); Aspartate Amino Transferase 18 U/L (5-37); Bilirubin Total 0.7 mg/dL (0.0-1.0); Blood Urea Nitrogen 60 mg/dL (9-16); Calcium 9.9 mg/dL (8.4-10.2); Carbon Dioxide 21 mmol/L (22-29); Chloride 107 mmol/L (96-108); Cholesterol 221 mg/dL (<200); Estimated Glomerular Filt Rate 34; Glucose Random 162 mg/dL (60-115); HDL Cholesterol 40 mg/dL (>40); LDL Cholesterol Calculated 154 mg/dL (<100); Potassium 4.7 mmol/L (3.3-5.1); Sodium 138 mmol/L (135-145); Triglycerides 138 mg/dL (<150)
== END 2023-09-19 08:43 | disposition home or self-care (01) ==
LOC: HO.CHCLDS 08:42
PROVIDERS: Visit Provider Internal Medicine
DX: E11.9 Type 2 diabetes mellitus without complications (principal)
CPT/HCPCS: 36415; 80053; 80061; 83036

== ENCOUNTER 2023-10-30 08:56 | Outpatient (REF) | payer BC, SELFPAY ==
[2023-10-30 10:56] LABS: Appearance Urine Clear; Color Urine Yellow; Glucose Urine UA >=1000 mg/dL (Negative); Leukocyte Esterase Urine Negative (Negative); Nitrite Urine Negative (Negative); UMIC TRIGGER UA YES; Urine Blood Negative (Negative); Urine Ketones Negative (Negative); Urine Protein 100 (2+) mg/dL (Neg-Trace)
[2023-10-30 11:05] LABS: Bacteria Urine None Seen (None Seen); Hyaline Casts Urine 0-2 /LPF (0-2); RBC Urine 0-2 /HPF (0-2); Squamous Epithelial Cell Urine 0-2 /HPF (0-2); WBC Urine 0-5 /HPF (0-5)
[2023-10-30 11:24] LABS: Anion Gap 18 (12-20); Blood Urea Nitrogen 76 mg/dL (9-16); Carbon Dioxide 20 mmol/L (22-29); Chloride 106 mmol/L (96-108); Estimated Glomerular Filt Rate 24; Glucose Random 174 mg/dL (60-115); Potassium 4.5 mmol/L (3.3-5.1); Sodium 139 mmol/L (135-145)
[2023-10-30 11:59] LABS: Creatinine Urine 73.35 mg/dL; Total Protein Urine Random 82 mg/dL (<12)
[2023-11-01 15:04] LABS: Neutrophil Cyto Ab Screen NEGATIVE (NEGATIVE)
[2023-11-04 11:18] LABS: Anti Nuclear Antibody Screen NEGATIVE (NEGATIVE)
[2023-11-05 08:44] LABS: Anti DNA DS Antibody <1 IU/mL; Myeloperoxidase Antibody <1.0 AI; Proteinase 3 PR3 Antibodies <1.0 AI
[2023-11-08 17:58] LABS: Phospholipase A2 IgG ELISA <4 RU/mL; Phospholipase A2 IgG IFA NEGATIVE (NEGATIVE)
== END 2023-10-30 08:57 | disposition home or self-care (01) ==
LOC: HO.LAB 08:56
PROVIDERS: PCP Internal Medicine; Visit Provider Internal Medicine Hypertension Specialist
DX: I12.9 Hypertensive chronic kidney disease with stage 1 through stage 4 chronic kidney disease, or unspecified chronic kidney disease (principal); N18.30 Chronic kidney disease, stage 3 unspecified
CPT/HCPCS: 36415; 80048; 81001; 82570; 83520; 84156; 86021; 86036; 86038; 86225; 86255

== ENCOUNTER 2023-10-31 09:49 | Outpatient (AMB) | payer BC, SELFPAY ==
[2023-10-31 09:52] VITALS: BP 124/88; PULSE 99; O2SAT 97; BMI 28.2
--- NOTE | 2023-10-31 09:52 | HO.NEPHOV_ITS ---
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: No Accompanied by: Self / Same As Patient Allergies No Known Allergies Allergy (Verified 10/31/23 09:54) Medication List - Last Reconciled 10/31/23 by Gene Stout MD amlodipine 10 mg PO DAILY aspirin 81 mg PO DAILY atorvastatin 40 mg PO DAILY bisacodyl (Dulcolax (bisacodyl)) 10 mg (2 x 5 mg) PO BEDTIME brimonidine-timolol 0.2-0.5 % drps ophthalmic (eye) chlorthalidone 25 mg PO DAILY clotrimazole 1% appl topical DAILY dapagliflozin propanediol (Farxiga) 10 mg PO DAILY dulaglutide (Trulicity) mg subcut QWEEK latanoprost 0.005% drps ophthalmic (eye) losartan 100 mg PO .evening HPI Comments Details: . Jame is a middle-aged man with a history of diabetes mellitus for more than 30 years. He has chronic kidney disease with a baseline creatinine around 2.5 mg/dL. He was found to have significant proteinuria of around 1200 mg and hence this consultation. Currently he is on losartan 100 mg for renal protection. He has history of hypertension and is also on amlodipine. As for the diabetes mellitus he is on Trulicity. He tells me that his blood fernandes gar was poorly controlled in the past while he was in [place]. Today has no specific complaints. No headache nausea vomiting. No shortness of breath. No polyuria polydipsia. No edema no rash no fever. No joint pains. 08/29/23 Home BP has been good. HR is in the 100s 10/31/23 Farxiga and Chlorthalidone have been added Creatinine up to 2.6 No new issues [facility] Medical History (Updated 08/01/23 @ 15:32 by Gene Stout MD) Dyslipidemia HTN (hypertension) Acid reflux Diabetes Surgical History Hx of colonoscopy Hx of appendectomy Family History Father No problems noted. Social History Household Members: Children Alcohol intake: never Second Hand Smoke Exposure: No Physical Exam Vital Signs: Last Vital Signs Pulse 99 10/31/23 09:52 BP 124/88 10/31/23 09:52 Pulse Ox 97 10/31/23 09:52 Oxygen Delivery Method Room Air 10/31/23 09:52 BMI result Body Mass Index 28.2 Const General: comfortable; No acute distress Orientation/consciousness: patient oriented x3 Eyes General: appearance normal, both eyes and all related structures Visual Dupont: normal visual dupont by confrontation Neck Neck: Yes supple and Yes no JVD Resp Effort & Inspection: normal respiratory effort and respiratory effort not decreased Auscultation: rhonchi Cardio Palpation: no palpable S3 and no palpable S4 Heart sounds: no rubs GI Inspection: Yes normal to inspection Palpation (GI): Soft to palpation Percussion: Yes normal to percussion Auscultation: normal bowel sounds General: Yes no CVA tenderness Back/Spine/Pelvis Back: no CVA tenderness Skin General skin exam: no petechiae and no purpura Neuro General: patient oriented x3 and no focal motor deficits Extrem General: No clubbing and No edema Results Reviewed Nephrology Results: Hgb 14.2 g/dl (14.0-18.0) 03/20/23 WBC 6.1 X10*3/uL (4.8-10.8) 03/20/23 Plt Count 342 X10*3/uL (160-400) 03/20/23 Sodium 139 mmol/L (135-145) 10/30/23 Potassium 4.5 mmol/L (3.3-5.1) 10/30/23 Chloride 106 mmol/L (96-108) 10/30/23 Carbon Dioxide 20 mmol/L (22-29) L 10/30/23 BUN 76 mg/dL (9-16) H 10/30/23 Creatinine 2.67 mg/dL (0.5-1.4) H 10/30/23 Calcium 10.0 mg/dL (8.4-10.2) 10/30/23 Urine Protein 100 (2+) mg/dL (Neg-Trace) H 10/30/23 Urine Creatinine 73.35 mg/dL 10/30/23 Renal US 08/12/23 Assessment & Plan Assessment & Plan (1) HTN (hypertension): Code(s): I10 - Essential (primary) hypertension Category: Medical (2) CKD (chronic kidney disease) stage 3, GFR 30-59 ml/min: Code(s): N18.30 - Chronic kidney disease, stage 3 unspecified Category: Medical Plan . 62-year-old man with chronic kidney disease in the setting of longstanding diabetes mellitus and hypertension with non nephrotic range proteinuria. 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 Creatinine is better The proteinuria is due to underlying diabetic kidney disease. However nondiabetic causes should be considered. Hypertension. Blood pressure is well controlled. He has mild tachycardia. This may be due to reflex tachycardia secondary to the use of amlodipine. Recommendations Continue workup for the proteinuria to screen for nondiabetic causes. C3,C4 were low; SPEP did not show MCGP ordered more serologies - pending Agree with KENDRICK inhibition for renal protection. He will benefit from SGLT2 inhibitors. Catherinega has been added! Discussed importance of tight control of blood sugar and blood pressure. Goal A1c of less than 7% and blood pressure less than 130/80 mm Hg. Encouraged him to stay on a low-sodium diet Increase p.o. fluid intake. Continue to avoid nephrotoxic agents including NSAIDs. As for the reflex tachycardia , IF HR stays > 100/mt ,I would suggest lowering amlodipine by 50%. Next step would be to add a beta farrah. If needed Bump in BUN and creatinine after adding Chlorthalidone. Recheck and may need to decrease by 50 % IF serologies are positive, i would obtain a kidney biopsy . Orders: Orders Basic Metabolic Panel 6 Weeks N18.30 - Chronic kidney disease, stage 3 unspecified Coding Level of Care Code Est Pt Level 4 (16319) Diagnoses HTN (hypertension) I10 CKD (chronic kidney disease) stage 3, GFR 30-59 ml/min N18.30
== END 2023-10-31 10:10 | disposition home or self-care (01) ==
LOC: HO.HKA 09:50
PROVIDERS: PCP Internal Medicine; Visit Provider Internal Medicine Hypertension Specialist
DX: I10 Essential (primary) hypertension (principal); N18.30 Chronic kidney disease, stage 3 unspecified
CPT/HCPCS: 99214

== ENCOUNTER → 2023-10-31 09:49 | Outpatient (BNVA) | payer BC, SELFPAY | PROVIDERS: PCP Internal Medicine; Visit Provider Internal Medicine Hypertension Specialist ==

== ENCOUNTER 2023-11-19 07:52 | Day surgery (SDC) | payer BC, SELFPAY ==
[2023-11-15 15:40] VITALS: BMI 28.2
--- NOTE | 2023-11-18 13:01 | HO.ANESPROP2 ---
HPI - Anesthesia Eval Consult details Narrative: 63yo M for Colonoscopy Follows [facility] Nephro for CKD. Baseline creat ~ 2.5 Anesthesia Pre-Procedure Meds Is the patient on any of the following meds?: GLP1/DPP4 and SGLT2 Inhib PMFSH Active Problems Active Problems: All Active Problems CKD (chronic kidney disease) stage 3, GFR 30-59 ml/min (Acute) Dyslipidemia (Acute) HTN (hypertension) (Acute) Acid reflux (Acute) Encounter for screening colonoscopy (Acute) Diabetes (Acute) Past Medical History Medical History Dyslipidemia HTN (hypertension) Acid reflux Diabetes Family History Family History Father No problems noted. Surgical History Surgical History Hx of colonoscopy Hx of appendectomy Social History Social History Household Members: Children Alcohol intake: never Patient Tobacco Use Status: Never used Tobacco Second Hand Smoke Exposure: No Meds Allergies Allergy/AdvReac Type Severity Reaction Status Date / Time No Known Allergies Allergy Verified 10/31/23 09:54 Home Medications ?Medication ?Instructions ?Recorded ?Confirmed ?Last Taken ?Type aspirin 81 mg tablet,delayed 81 mg PO DAILY 02/02/20 10/31/23 Unknown History release atorvastatin 40 mg tablet 40 mg PO DAILY 02/02/20 10/31/23 Unknown History amlodipine 10 mg tablet 10 mg PO DAILY 08/01/23 10/31/23 Unknown History brimonidine 0.2 %-timolol 0.5 % drp ophthalmic (eye) 08/01/23 10/31/23 Unknown History eye drops clotrimazole 1 % topical cream appl topical DAILY 08/01/23 10/31/23 Unknown History dulaglutide 0.75 mg/0.5 mL mg subcut QWEEK 08/01/23 10/31/23 11/10/23 History subcutaneous pen injector (Trulicity) latanoprost 0.005 % eye drops drp ophthalmic (eye) 08/01/23 10/31/23 Unknown History losartan 100 mg tablet 100 mg PO .evening 08/29/23 10/31/23 Unknown History chlorthalidone 25 mg tablet 25 mg PO DAILY 10/31/23 10/31/23 Unknown History dapagliflozin propanediol 10 mg 10 mg PO DAILY 10/31/23 10/31/23 11/16/23 History tablet ([facility]) Exam Height,Weight and Vital Signs: Height 5 ft 1 in Weight 67.585 kg Assessment and Plan Assessment Anesthesia Assessment: Chart Reviewed
[2023-11-19 08:36] VITALS: BP 121/77; PULSE 110; RESP 18; TEMP 37.1; O2SAT 97; BMI 28.0
--- NOTE | 2023-11-19 08:50 | HO.ANESPROP2 ---
[facility] Active Problems Active Problems: All Active Problems CKD (chronic kidney disease) stage 3, GFR 30-59 ml/min (Acute) Dyslipidemia (Acute) HTN (hypertension) (Acute) Acid reflux (Acute) Encounter for screening colonoscopy (Acute) Diabetes (Acute) Past Medical History Medical History Dyslipidemia HTN (hypertension) Acid reflux Diabetes Functional capacity: independent ambulation Family History Family History Father No problems noted. Family history of problems with anesthesia: No Surgical History Surgical History Hx of colonoscopy Hx of appendectomy History of Problems with Anesthesia: No Social History Social History Household Members: Children Alcohol intake: never Second Hand Smoke Exposure: No Advance Directives: No Advance Directives Information Provided: Yes Meds Allergies Allergy/AdvReac Type Severity Reaction Status Date / Time No Known Allergies Allergy Verified 10/31/23 09:54 Active Medications: Current Medications Lactated Ringer's (Lr) 1,000 mls @ 100 mls/hr IVCONT .Q10H MARK Home Medications ?Medication ?Instructions ?Recorded ?Confirmed ?Last Taken ?Type aspirin 81 mg tablet,delayed 81 mg PO DAILY 02/02/20 10/31/23 Unknown History release atorvastatin 40 mg tablet 40 mg PO DAILY 02/02/20 10/31/23 Unknown History amlodipine 10 mg tablet 10 mg PO DAILY 08/01/23 10/31/23 Unknown History brimonidine 0.2 %-timolol 0.5 % drp ophthalmic (eye) 08/01/23 10/31/23 Unknown History eye drops clotrimazole 1 % topical cream appl topical DAILY 08/01/23 10/31/23 Unknown History dulaglutide 0.75 mg/0.5 mL mg subcut QWEEK 08/01/23 10/31/23 11/10/23 History subcutaneous pen injector (Trulicity) latanoprost 0.005 % eye drops drp ophthalmic (eye) 08/01/23 10/31/23 Unknown History losartan 100 mg tablet 100 mg PO .evening 08/29/23 10/31/23 Unknown History chlorthalidone 25 mg tablet 25 mg PO DAILY 10/31/23 10/31/23 Unknown History dapagliflozin propanediol 10 mg 10 mg PO DAILY 10/31/23 10/31/23 11/16/23 History tablet (Farxiga) Exam Height,Weight and Vital Signs: Height 5 ft 1 in Weight 67.585 kg Airway Mallampati Class: II TM Dist: >3cm Neck ROM: Full Heart: RRR Lungs: CTA Assessment and Plan Assessment Anesthesia Assessment: Anesthesia Plan Discussed Final Anesthetic Review Family History of Problems with Anesthesia: No History of Problems with Anesthesia: No NPO: Yes ASA Class: II Final Preanesthetic Review: Meds/Allgs Chart Reviewed, Consent Obtained/Reviewed and Anes Risks/Benef Reviewed Patient Risk: Low Procedure Risk: Low Anesthetic Plan Anesthetic Plan: MAC: Disposition: Standard PACU
[2023-11-19 08:53] LABS: Glucose, Whole Blood 108 mg/dL (60-115)
[2023-11-19] MEDS: Lactated Ringers 1,000 ML 100 ML IVCONT (08:56)
--- NOTE | 2023-11-19 08:59 | P.HPSUR_ITS ---
Pre-Procedural Eval Section A - 24 Hr Update-Section A only Date of Service: 11/19/23 Section B - Complete if H&P > 30 days Chief Complaint: screening Relevant Family History (Specify if Yes): No Relevant Social History: None Present Medications: see Short Stay Collaborative assessment Medical History: Significant History (Dyslipidemia HTN (hypertension) Acid reflux Diabetes) History of Previous Operations: Relevant previous surgery/procedure and date(s) (Hx of colonoscopy Hx of appendectomy) Allergies: Allergies Allergy/AdvReac Type Severity Reaction Status Date / Time No Known Allergies Allergy Verified 10/31/23 09:54 Review of Systems Sugical H&P ROS: Negative: Constitution, Cardiovascular, Respiratory, Neurological, Psychiatric, Hem-Onc, Allergic/Immunologic, Gastrointestinal, Genitourinary, Musculoskeletal, Integumentary, Endocrine and Eyes /Ears/Nose/Throat Exam Surgical H&P Exam: Normal: HEENT, Normal: Heart, Normal: Lungs, Normal: Extremities, Normal: Abdomen, Normal: Skin and Normal: Neurological Plan Diagnosis/Plan: Unchanged I have reviewed the history and physical and performed a pertinent physical examination on my patient. No changes have occurred unless specified. Time Spent With Patient Time: Total time managing care of this patient today ____ minutes.
--- NOTE | 2023-11-19 09:30 | P.OP_ITS ---
Operative Note Operative Note Date of Service: 11/19/23 Narrative: Operative Information Procedure Description: Colonoscopy Indication: screening Anesthesia: MAC COLONOSCOPY Instrument: Olympus variable stiffness pediatric scope 190L Colonoscopy Monitoring: Vital signs and clinical assessment, continuous EKG monitoring, Pulse oximetry, Carbon Dioxide monitoring and blood pressure monitoring were done throughout the procedure. Colon withdrawal time was 6 minutes. Procedure: The patient was placed in the left lateral decubitis position and pre-procedure medications were administered. After a digital rectal examination of the ano-rectum, the video colonoscope was inserted into the rectum and advanced through the colon to the cecum/TI. The colonoscope was slowly withdrawn in a retrograde panoramic fashion and the colon mucosa was carefully examined including a retroflexed view of the rectum. Findings and interventions are described below. Procedure Difficulty: moderate due to tortuous colon Findings: Terminal Ileum-not intubated due to looping Cecum:normal Ascending Colon: normal Transverse Colon -normal Descending Colon:normal Sigmoid Colon: normal Rectum: Retroflexion with small internal hemorrhoids seen, grade I Anorectum - normal Intervention: none Colon preparation: [place] Bowel Preparation Scale Right colon; 2 Transverse colon: 2 Left colon; 1-2 (0 = Unprepared colon segment with mucosa not seen due to solid stool that cannot be cleared. 1 = Portion of mucosa of the colon segment seen, but other areas of the colon segment not well seen due to staining, residual stool and/or opaque liquid. 2 = Minor amount of residual staining, small fragments of stool and/or opaque liquid, but mucosa of colon segment seen well. 3 = Entire mucosa of colon segment seen well with no residual staining, small fragments of stool or opaque liquid) Impression and Post Procedure Diagnosis: tortuous colon internal hemorrhoids Plan: High fiber diet leaflet Avoid straining at stool, epsom salts and sitz bath, anusol supps or cream Repeat Colonoscopy in 1-2 years due to fair left sided prep or earlier if clinically indicated --next time use adult scope Above findings were reviewed with the patient and relevant handouts were provided if indicated.
[2023-11-19 10:05] VITALS: BP 86/45; PULSE 86; RESP 16; TEMP 36; O2SAT 95
[2023-11-19 10:20] VITALS: BP 94/41; PULSE 86; RESP 18; TEMP 36.1; O2SAT 99
--- NOTE | 2023-11-19 14:33 | HO.POSTANES ---
Post Anesthesia Evaluation Post Anesthesia Evaluation Date of Service: 11/19/23 Vital Signs: Vital Signs Temp Pulse Resp BP Pulse Ox O2 Del Method 11/19/23 10:20 97 F 86 18 94/41 L 99 Room Air 11/19/23 10:05 96.8 F 86 16 86/45 L 95 Room Air 11/19/23 08:36 98.7 F 110 H 18 121/77 97 Room Air Anesthesia: Monitored Mental Status: Awake Pain Control: Satisfactory Nausea/Vomiting: None Hydration: Adequate Anesthesia-Related Issues: No Anes. Related Issues
== END 2023-11-19 10:56 | disposition home or self-care (01) ==
PROVIDERS: PCP Internal Medicine; Visit Provider Internal Medicine Gastroenterology
PROC: 0DJD8ZZ Inspection of Lower Intestinal Tract, Via Natural or Artificial Opening Endoscopic (ICD-10-PCS; CPT 45378; principal; 2023-11-19 09:40)
DX: Z12.11 Encounter for screening for malignant neoplasm of colon (principal); K56.2 Volvulus; K64.0 First degree hemorrhoids; E11.9 Type 2 diabetes mellitus without complications; I10 Essential (primary) hypertension; E78.5 Hyperlipidemia, unspecified; Z79.02 Long term (current) use of antithrombotics/antiplatelets; Z79.82 Long term (current) use of aspirin; Z79.85 Long-term (current) use of injectable non-insulin antidiabetic drugs; Z79.899 Other long term (current) drug therapy
CPT/HCPCS: 45378; 82947; J2704

== ENCOUNTER → 2023-11-19 07:52 | Outpatient (BNV) | payer BC, SELFPAY | PROVIDERS: PCP Internal Medicine; Visit Provider Internal Medicine Gastroenterology | DX: Z12.11 Encounter for screening for malignant neoplasm of colon (principal); K64.8 Other hemorrhoids; K63.89 Other specified diseases of intestine | CPT/HCPCS: 45378 ==

== ENCOUNTER 2023-12-09 08:20 | Outpatient (REF) | payer BC, SELFPAY ==
[2023-12-09 09:23] LABS: Appearance Urine Clear; Color Urine Yellow; Glucose Urine UA >=1000 mg/dL (Negative); Leukocyte Esterase Urine Negative (Negative); Nitrite Urine Negative (Negative); PH 5.5 (5.0-9.0); Specific Gravity - Urine 1.025 (1.005-1.025); UMIC TRIGGER UA YES; Urine Blood Negative (Negative); Urine Ketones Negative (Negative); Urine Protein 100 (2+) mg/dL (Neg-Trace)
[2023-12-09 09:27] LABS: Bacteria Urine None Seen (None Seen); Hyaline Casts Urine 0-2 /LPF (0-2); RBC Urine 0-2 /HPF (0-2); Squamous Epithelial Cell Urine 0-2 /HPF (0-2); WBC Urine 0-5 /HPF (0-5)
[2023-12-09 09:47] LABS: Anion Gap 12 (12-20); Blood Urea Nitrogen 49 mg/dL (9-16); Calcium 9.7 mg/dL (8.4-10.2); Carbon Dioxide 27 mmol/L (22-29); Chloride 103 mmol/L (96-108); Estimated Glomerular Filt Rate 28; Glucose Random 242 mg/dL (60-115); Potassium 4.6 mmol/L (3.3-5.1); Sodium 137 mmol/L (135-145)
== END 2023-12-09 08:21 | disposition home or self-care (01) ==
LOC: HO.LAB 08:20
PROVIDERS: PCP Internal Medicine; Visit Provider Internal Medicine Hypertension Specialist
DX: N18.30 Chronic kidney disease, stage 3 unspecified (principal)
CPT/HCPCS: 36415; 80048; 81001

== ENCOUNTER 2023-12-13 11:04 | Outpatient (AMB) | payer BC, SELFPAY ==
--- NOTE | 2023-12-13 11:03 | HO.NEPHOV ---
Vital Signs 12/13/23 11:04 12/13/23 11:32 12/13/23 11:33 Height 5 ft 1 in Weight 148 lb BMI 28.0 BP 130/90 H 120/80 100/50 L Blood Pressure Location Rt brachial Rt brachial Lt brachial Position Sitting Sitting Sitting Pulse 112 H Pulse Source Pulse Oximeter Pulse Oximetry (%) 99 Oxygen Delivery Method Room Air Intake Visit Reasons: CKD Accompanied by: Self / Same As Patient Allergies No Known Allergies Allergy (Verified 12/13/23 11:11) Medication List - Last Reconciled 12/13/23 by Gene Stout MD amlodipine 10 mg PO DAILY aspirin 81 mg PO DAILY atorvastatin 40 mg PO DAILY bisacodyl (Dulcolax (bisacodyl)) 10 mg (2 x 5 mg) PO BEDTIME brimonidine-timolol 0.2-0.5 % drps ophthalmic (eye) chlorthalidone 25 mg PO DAILY clotrimazole 1% appl topical DAILY dapagliflozin propanediol (Farxiga) 10 mg PO DAILY dulaglutide (Trulicity) mg subcut QWEEK latanoprost 0.005% drps ophthalmic (eye) losartan 100 mg PO .evening HPI Comments Details: . Jame is a middle-aged man with a history of diabetes mellitus for more than 30 years. He has chronic kidney disease with a baseline creatinine around 2.5 mg/dL. He was found to have significant proteinuria of around 1200 mg and hence this consultation. Currently he is on losartan 100 mg for renal protection. He has history of hypertension and is also on amlodipine. As for the diabetes mellitus he is on Trulicity. He tells me that his blood sugar was poorly controlled in the past while he was in [place]. Today has no specific complaints. No headache nausea vomiting. No shortness of breath. No polyuria polydipsia. No edema no rash no fever. No joint pains. 08/29/23 Home BP has been good. HR is in the 100s 10/31/23 Farxiga and Chlorthalidone have been added Creatinine up to 2.6 No new issues 12/13/23 Doing well differential BP in both [facility] Medical History Dyslipidemia HTN (hypertension) Acid reflux Diabetes Surgical History Hx of colonoscopy Hx of appendectomy Family History Father No problems noted. Social History Household Members: Children Alcohol intake: never Patient Tobacco Use Status: Never used Tobacco Second Hand Smoke Exposure: No Physical Exam Vital Signs: Last Vital Signs Pulse 112 H 12/13/23 11:04 BP 130/90 H 12/13/23 11:04 Pulse Ox 99 12/13/23 11:04 Oxygen Delivery Method Room Air 12/13/23 11:04 BMI result Body Mass Index 28.0 Awake. Comfortable. Neck is supple. Mucosa moist. Lungs AE equal Heart S1-S2 heard no gallop. Abdomen soft. Extremities no edema. No involuntary movements. No myoclonus. Results Reviewed Nephrology Results: Sodium 137 mmol/L (135-145) 12/09/23 Potassium 4.6 mmol/L (3.3-5.1) 12/09/23 Chloride 103 mmol/L (96-108) 12/09/23 Carbon Dioxide 27 mmol/L (22-29) 12/09/23 BUN 49 mg/dL (9-16) H 12/09/23 Creatinine 2.35 mg/dL (0.5-1.4) H 12/09/23 Calcium 9.7 mg/dL (8.4-10.2) 12/09/23 Urine Protein 100 (2+) mg/dL (Neg-Trace) H 12/09/23 Urine Creatinine 73.35 mg/dL 10/30/23 Renal US 08/12/23 Assessment & Plan Assessment & Plan (1) HTN (hypertension): Code(s): I10 - Essential (primary) hypertension Category: Medical (2) CKD (chronic kidney disease) stage 3, GFR 30-59 ml/min: Code(s): N18.30 - Chronic kidney disease, stage 3 unspecified Category: Medical Plan . 62-year-old man with chronic kidney disease in the setting of longstanding diabetes mellitus and hypertension with non nephrotic range proteinuria. 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 Creatinine is better The proteinuria is due to underlying diabetic kidney disease. However nondiabetic causes should be considered. Hypertension. Blood pressure is well controlled. He has mild tachycardia. This may be due to reflex tachycardia secondary to the use of amlodipine. Recommendations Continue workup for the proteinuria to screen for nondiabetic causes. C3,C4 were low; SPEP did not show MCGP ordered more serologies - pending Agree with KENDRICK inhibition for renal protection. He will benefit from SGLT2 inhibitors. Darleen has been added! Discussed importance of tight control of blood sugar and blood pressure. Goal A1c of less than 7% and blood pressure less than 130/80 mm Hg. Encouraged him to stay on a low-sodium diet Increase p.o. fluid intake. Continue to avoid nephrotoxic agents including NSAIDs. As for the reflex tachycardia ,Stop amlodipine Start Diltiazem ER 180 mg QD and titrate dose . Bump in BUN and creatinine after adding Chlorthalidone. and has now improved and stabilized Serologies are unremarkable- will hold off on kidney biopsy . Medications: New diltiazem HCl CD 180 mg PO DAILY 90 caps 1RF Coding Level of Care Code Est Pt Level 4 (56226) Diagnoses HTN (hypertension) I10 CKD (chronic kidney disease) stage 3, GFR 30-59 ml/min N18.30
[2023-12-13 11:04] VITALS: BP 130/90; PULSE 112; O2SAT 99; BMI 28.0
[2023-12-13 11:32] VITALS: BP 120/80
[2023-12-13 11:33] VITALS: BP 100/50
== END 2023-12-13 11:41 | disposition home or self-care (01) ==
PROVIDERS: PCP Internal Medicine; Visit Provider Internal Medicine Hypertension Specialist
DX: I12.9 Hypertensive chronic kidney disease with stage 1 through stage 4 chronic kidney disease, or unspecified chronic kidney disease (principal); E11.22 Type 2 diabetes mellitus with diabetic chronic kidney disease; N18.30 Chronic kidney disease, stage 3 unspecified
CPT/HCPCS: 99213

== ENCOUNTER → 2023-12-13 11:04 | Outpatient (BNVA) | payer BC, SELFPAY | PROVIDERS: PCP Internal Medicine; Visit Provider Internal Medicine Hypertension Specialist ==

== ENCOUNTER 2024-01-28 13:55 | Outpatient (AMB) | payer BC, SELFPAY ==
--- NOTE | 2024-01-28 14:12 | HO.NEPHOV ---
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 Jame is a middle-aged man with a history of diabetes mellitus for more than 30 years. He has chronic kidney disease with a baseline creatinine around 2.5 mg/dL. He was found to have significant proteinuria of around 1200 mg and hence this consultation. Currently he is on losartan 100 mg for renal protection. He has history of hypertension and is also on amlodipine. As for the diabetes mellitus he is on Trulicity. He tells me that his blood sugar was poorly controlled in the past while he was in [place]. Today has no specific complaints. No headache nausea vomiting. No shortness of breath. No polyuria polydipsia. No edema no rash no fever. No joint pains. 08/29/23 Home BP has been good HR is in the 100s 10/31/23 Farxiga and Chlorthalidone have been added Creatinine up to 2.6 ; No new issues 12/13/23 Doing well;differential BP in both UE 01/28/2024. Tolerating diltiazem. No edema PFSH Medical History Dyslipidemia HTN (hypertension) Acid reflux Diabetes Surgical History Hx of colonoscopy Hx of appendectomy Family History Father No problems noted. Social History Household Members: Children Alcohol intake: never Patient Tobacco Use Status: Never used Tobacco Second Hand Smoke Exposure: No Physical Exam Vital Signs: Last Vital Signs Pulse 97 01/28/24 14:13 BP 142/92 H 01/28/24 14:13 Pulse Ox 94 01/28/24 14:13 Oxygen Delivery Method Room Air 01/28/24 14:13 BMI result Body Mass Index 28.5 Results Reviewed Nephrology Results: Sodium 137 mmol/L (135-145) 12/09/23 Potassium 4.6 mmol/L (3.3-5.1) 12/09/23 Chloride 103 mmol/L (96-108) 12/09/23 Carbon Dioxide 27 mmol/L (22-29) 12/09/23 BUN 49 mg/dL (9-16) H 12/09/23 Creatinine 2.35 mg/dL (0.5-1.4) H 12/09/23 Calcium 9.7 mg/dL (8.4-10.2) 12/09/23 Urine Protein 100 (2+) mg/dL (Neg-Trace) H 12/09/23 Urine Creatinine 73.35 mg/dL 10/30/23 Renal US 08/12/23 Assessment & Plan Assessment & Plan (1) HTN (hypertension): Code(s): I10 - Essential (primary) hypertension Category: Medical (2) CKD (chronic kidney disease) stage 3, GFR 30-59 ml/min: Code(s): N18.30 - Chronic kidney disease, stage 3 unspecified Category: Medical Plan . 62-year-old man with chronic kidney disease in the setting of longstanding diabetes mellitus and hypertension with non nephrotic range proteinuria. 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 Creatinine is better The proteinuria is due to underlying diabetic kidney disease. However nondiabetic causes should be considered. Hypertension. Blood pressure is well controlled. He has mild tachycardia. This may be due to reflex tachycardia secondary to the use of amlodipine. Recommendations Continue workup for the proteinuria to screen for nondiabetic causes. C3,C4 were low; SPEP did not show MCGP ordered more serologies - pending Agree with KENDRICK inhibition for renal protection. He will benefit from SGLT2 inhibitors. Darleen has been added! Discussed importance of tight control of blood sugar and blood pressure. Goal A1c of less than 7% and blood pressure less than 130/80 mm Hg. Encouraged him to stay on a low-sodium diet Increase p.o. fluid intake. Continue to avoid nephrotoxic agents including NSAIDs. As for the reflex tachycardia ,Stopped amlodipine Started Diltiazem ER 180 mg QD in dec 2023 Increase to 240 mg ( 01/28/24) . Bump in BUN and creatinine after adding Chlorthalidone. and has now improved and stabilized Serologies are unremarkable- will hold off on kidney biopsy . Orders: Orders Basic Metabolic Panel 6 Weeks N18.30 - Chronic kidney disease, stage 3 unspecified Medications: Changed From diltiazem HCl CD 180 mg PO DAILY 90 caps 1RF To diltiazem HCl CD 240 mg PO DAILY 90 caps 1RF Coding Level of Care Code Est Pt Level 4 (32189) Diagnoses HTN (hypertension) I10 CKD (chronic kidney disease) stage 3, GFR 30-59 ml/min N18.30
[2024-01-28 14:13] VITALS: BP 142/92; PULSE 97; O2SAT 94; BMI 28.5
== END 2024-01-28 14:29 | disposition home or self-care (01) ==
PROVIDERS: PCP Internal Medicine; Visit Provider Internal Medicine Hypertension Specialist
DX: I12.9 Hypertensive chronic kidney disease with stage 1 through stage 4 chronic kidney disease, or unspecified chronic kidney disease (principal); N18.30 Chronic kidney disease, stage 3 unspecified
CPT/HCPCS: 99214

== ENCOUNTER 2024-03-09 09:47 | Outpatient (REF) | payer OTHER, SELFPAY ==
[2024-03-09 11:27] LABS: Anion Gap 13 (12-20); Blood Urea Nitrogen 52 mg/dL (9-16); Calcium 9.7 mg/dL (8.4-10.2); Carbon Dioxide 29 mmol/L (22-29); Chloride 102 mmol/L (96-108); Estimated Glomerular Filt Rate 31; Glucose Random 230 mg/dL (60-115); Sodium 140 mmol/L (135-145)
== END 2024-03-09 09:48 | disposition home or self-care (01) ==
LOC: HO.LAB 09:47
PROVIDERS: PCP Internal Medicine; Visit Provider Internal Medicine Hypertension Specialist
DX: N18.30 Chronic kidney disease, stage 3 unspecified (principal)
CPT/HCPCS: 36415; 80048

== ENCOUNTER 2024-03-16 11:14 | Outpatient (AMB) | payer BC, SELFPAY ==
[2024-03-16 11:32] VITALS: BP 124/86; PULSE 124; O2SAT 98; BMI 27.6
--- NOTE | 2024-03-16 11:32 | HO.NEPHOV ---
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 Jame is a middle-aged man with a history of diabetes mellitus for more than 30 years. He has chronic kidney disease with a baseline creatinine around 2.5 mg/dL. He was found to have significant proteinuria of around 1200 mg and hence this consultation. Currently he is on losartan 100 mg for renal protection. He has history of hypertension and is also on amlodipine. As for the diabetes mellitus he is on Trulicity. He tells me that his blood sugar was poorly controlled in the past while he was in [place]. Today has no specific complaints. No headache nausea vomiting. No shortness of breath. No polyuria polydipsia. No edema no rash no fever. No joint pains. 08/29/23 Home BP has been good HR is in the 100s 10/31/23 Farxiga and Chlorthalidone have been added Creatinine up to 2.6 ; No new issues 12/13/23 Doing well;differential BP in both UE 01/28/2024. Tolerating diltiazem. No edema PFSH Medical History Dyslipidemia HTN (hypertension) Acid reflux Diabetes Surgical History Hx of colonoscopy Hx of appendectomy Family History Father No problems noted. Social History Household Members: Children Alcohol intake: never Patient Tobacco Use Status: Never used Tobacco Second Hand Smoke Exposure: No Physical Exam Vital Signs: Last Vital Signs Pulse 124 H 03/16/24 11:32 BP 124/86 03/16/24 11:32 Pulse Ox 98 03/16/24 11:32 Oxygen Delivery Method Room Air 03/16/24 11:32 BMI result Body Mass Index 27.6 Comfortable Neck supple no JVD. Lungs entry equal no rales. Heart S1-S2 heard no gallop or rub. Abdomen soft nontender. Neuro alert awake oriented. No asterixis. Extremities no edema. Results Reviewed Nephrology Results: Sodium 140 mmol/L (135-145) 03/09/24 Potassium 4.0 mmol/L (3.3-5.1) 03/09/24 Chloride 102 mmol/L (96-108) 03/09/24 Carbon Dioxide 29 mmol/L (22-29) 03/09/24 BUN 52 mg/dL (9-16) H 03/09/24 Creatinine 2.15 mg/dL (0.5-1.4) H 03/09/24 Calcium 9.7 mg/dL (8.4-10.2) 03/09/24 Urine Protein 100 (2+) mg/dL (Neg-Trace) H 12/09/23 Urine Creatinine 73.35 mg/dL 10/30/23 Assessment & Plan Assessment & Plan (1) HTN (hypertension): Code(s): I10 - Essential (primary) hypertension Category: Medical (2) CKD (chronic kidney disease) stage 3, GFR 30-59 ml/min: Code(s): N18.30 - Chronic kidney disease, stage 3 unspecified Category: Medical Plan . 62-year-old man with chronic kidney disease in the setting of longstanding diabetes mellitus and hypertension with non nephrotic range proteinuria. 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 Creatinine is better The proteinuria is due to underlying diabetic kidney disease. However nondiabetic causes should be considered. Hypertension. Blood pressure is well controlled. He has mild tachycardia. This may be due to reflex tachycardia secondary to the use of amlodipine. Recommendations Continue workup for the proteinuria to screen for nondiabetic causes. C3,C4 were low; SPEP did not show MCGP ordered more serologies - pending Agree with KENDRICK inhibition for renal protection. He will benefit from SGLT2 inhibitors. Darleen has been added! Discussed importance of tight control of blood sugar and blood pressure. Goal A1c of less than 7% and blood pressure less than 130/80 mm Hg. Encouraged him to stay on a low-sodium diet Increase p.o. fluid intake. Continue to avoid nephrotoxic agents including NSAIDs. As for the reflex tachycardia ,Stopped amlodipine Started Diltiazem ER 180 mg QD in dec 2023 Increased to 240 mg ( 01/28/24) . Bump in BUN and creatinine after adding Chlorthalidone. and has now improved and stabilized Cr is better at 2.1 Serologies are unremarkable- will hold off on kidney biopsy BP is better controlled HR is at 104 and asymptomatic. . Coding Level of Care Code Est Pt Level 4 (69801) Diagnoses HTN (hypertension) I10 CKD (chronic kidney disease) stage 3, GFR 30-59 ml/min N18.30
[2024-03-16 11:39] VITALS: PULSE 108
== END 2024-03-16 11:43 | disposition home or self-care (01) ==
PROVIDERS: PCP Internal Medicine; Visit Provider Internal Medicine Hypertension Specialist
DX: I12.9 Hypertensive chronic kidney disease with stage 1 through stage 4 chronic kidney disease, or unspecified chronic kidney disease (principal); N18.30 Chronic kidney disease, stage 3 unspecified
CPT/HCPCS: 99214

== ENCOUNTER 2024-06-18 09:42 | Outpatient (AMB) | payer OTHER, SELFPAY ==
[2024-06-18 10:16] VITALS: BP 120/80; PULSE 95; O2SAT 97; BMI 26.6
--- NOTE | 2024-06-18 10:16 | HO.NEPHOV_ITS ---
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 Accompanied by: Self / Same As Patient Allergies No Known Allergies Allergy (Verified 06/18/24 10:18) Medication List - Last Reconciled 06/18/24 by Gene Stout MD aspirin 81 mg PO DAILY atorvastatin 40 mg PO DAILY bisacodyl (Dulcolax (bisacodyl)) 10 mg (2 x 5 mg) PO BEDTIME brimonidine-timolol 0.2-0.5 % drps ophthalmic (eye) chlorthalidone 25 mg PO DAILY clotrimazole 1% appl topical DAILY dapagliflozin propanediol (Farxiga) 10 mg PO DAILY diltiazem HCl CD 240 mg PO DAILY dulaglutide (Trulicity) mg subcut QWEEK latanoprost 0.005% drps ophthalmic (eye) losartan 100 mg PO .evening Do you need a note to return to daycare/school/sports/work: No HPI Comments Details: . Jame is a middle-aged man with a history of diabetes mellitus for more than 30 years. He has chronic kidney disease with a baseline creatinine around 2.5 mg/dL. He was found to have significant proteinuria of around 1200 mg and hence this consultation. Currently he is on losartan 100 mg for renal protection. He has history of hypertension and is also on amlodipine. As for the diabetes mellitus he is on Trulicity. He tells me that his blood sugar was poorly controlled in the past while he was in [place]. Today has no specific complaints. No headache nausea vomiting. No shortness of breath. No polyuria polydipsia. No edema no rash no fever. No joint pains. 08/29/23;Home BP has been good ;HR is in the 100s 10/31/23 ;Farxiga and Chlorthalidone have been added ;Creatinine up to 2.6 ; No new issues 12/13/23 ;Doing well;differential BP in both UE 01/28/2024. Tolerating diltiazem. No edema 06/18/24 : Overall doing well. No new issues [facility] Medical History Dyslipidemia HTN (hypertension) Acid reflux Diabetes Surgical History Hx of colonoscopy Hx of appendectomy Family History Father No problems noted. Social History Household Members: Children Alcohol intake: never Patient Tobacco Use Status: Never used Tobacco Second Hand Smoke Exposure: No Physical Exam Vital Signs: Last Vital Signs Pulse 95 06/18/24 10:16 BP 120/80 06/18/24 10:16 Pulse Ox 97 06/18/24 10:16 Oxygen Delivery Method Room Air 06/18/24 10:16 BMI result Body Mass Index 26.6 Comfortable Neck supple no JVD. Lungs entry equal no rales. Heart S1-S2 heard no gallop or rub. Abdomen soft nontender. Neuro alert awake oriented. No asterixis. Extremities no edema. Results Reviewed Nephrology Results: Sodium 140 mmol/L (135-145) 03/09/24 Potassium 4.0 mmol/L (3.3-5.1) 03/09/24 Chloride 102 mmol/L (96-108) 03/09/24 Carbon Dioxide 29 mmol/L (22-29) 03/09/24 BUN 52 mg/dL (9-16) H 03/09/24 Creatinine 2.15 mg/dL (0.5-1.4) H 03/09/24 Calcium 9.7 mg/dL (8.4-10.2) 03/09/24 Urine Protein 100 (2+) mg/dL (Neg-Trace) H 12/09/23 Urine Creatinine 73.35 mg/dL 10/30/23 Assessment & Plan Assessment & Plan (1) HTN (hypertension): Code(s): I10 - Essential (primary) hypertension Category: Medical (2) CKD (chronic kidney disease) stage 3, GFR 30-59 ml/min: Code(s): N18.30 - Chronic kidney disease, stage 3 unspecified Category: Medical Plan . 62-year-old man with chronic kidney disease in the setting of longstanding diabetes mellitus and hypertension with non nephrotic range proteinuria. 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 Creatinine is better The proteinuria is due to underlying diabetic kidney disease. However nondiabetic causes should be considered. Hypertension. Blood pressure is well controlled. He has mild tachycardia. This may be due to reflex tachycardia secondary to the use of amlodipine. Recommendations Continue workup for the proteinuria to screen for nondiabetic causes. C3,C4 were low; SPEP did not show MCGP ordered more serologies - pending Agree with KENDRICK inhibition for renal protection. He will benefit from SGLT2 inhibitors. Farxiga has been added! Discussed importance of tight control of blood sugar and blood pressure. Goal A1c of less than 7% and blood pressure less than 130/80 mm Hg. Encouraged him to stay on a low-sodium diet Increase p.o. fluid intake. Continue to avoid nephrotoxic agents including NSAIDs. As for the reflex tachycardia ,Stopped amlodipine Started Diltiazem ER 180 mg QD in dec 2023 Increased to 240 mg ( 01/28/24) . Bump in BUN and creatinine after adding Chlorthalidone. and has now improved and stabilized Cr is better at 2.1 Serologies are unremarkable- will hold off on kidney biopsy BP is better controlled HR is at 94 and asymptomatic. . Orders: Orders Basic Metabolic Panel Today N18.30 - Chronic kidney disease, stage 3 unspecified Total Protein Urine Random Today N18.30 - Chronic kidney disease, stage 3 unspecified Creatinine Urine Today N18.30 - Chronic kidney disease, stage 3 unspecified UA and rflx microscopic Today N18.30 - Chronic kidney disease, stage 3 unspecified Coding Level of Care Code Est Pt Level 4 (96686) Diagnoses HTN (hypertension) I10 CKD (chronic kidney disease) stage 3, GFR 30-59 ml/min N18.30
--- OUTSIDE RECORDS SUMMARY | 2024-06-18 11:09 | XMS_ITS | Encounter Summary ---
Author Organization [employer] Address [address] [place] [address] Care Team Providers Care Drapery Head Former Name Role Phone Tanmay Gore MD Primary Care Prov ider Reason for Visit * Reason Comments Med Refill Encounter Details Date Type Department Care Team ([facility] st Contact Info) Description 02/27/2024 Refill [facility] [address] [place], [place] [phone] Tanmay Gore MD [address] [place] [address] Social History Tobacco Use Types Packs/Day Years Used Date Smoking Tobacco: Former Cigarettes 0.3 20 1 981 - 2000 Smokeless Tobacco: Never Alcohol Use Standard Drinks/Week Comments Yes 0 (1 standard drink = 0.6 oz pur e alcohol) social beer Housing Stability Answer Date Recorded What is your housing situation today? I have ronald anand 06/06/[address] you li ve. Do you have problems with any of the following? None of the above 06/06/2023 Food Insecurity Answer Date Recorded Within the past 12 months, y ou worried that your food would run out before you got money to buy more: Never True 06/06/2023 Within the past 12 months,th e food you bought just didn't last and you didn't have enough money to get more: Never True 06/2023 Transportation Answer Date Recorded In the past 12 months, has l ack of transportation kept you from medical appts, meetings, work or from getting things needed for daily living? No 06/06/2023 Utilities Answer Date Recorded In the past 12 months, has t he electric, gas, oil or water company threatened to shut off services in your home? No 06/06/2023 Depression Answer Date Recorded Patient Health Questionnaire-2 Score 0 04/17/2023 Sex and Gender Information Value Date Recorded Sex Assigned at Male 01/01/2022 10:18 AM EDT Legal Sex Male 10:18 AM EDT Gender Identity Male 03/19/2023 9:09 AM EST Sexual Orientation Don't know 03/19/2023 9: 09 AM EST documented as of this encounter Plan of Treatment Not on file documented as of this encounter Visit Diagnoses Not on filedocumented in this encounter Care Teams Drapery Head Former Relationship Specialty Start Date End Date Tanmay Gore MD [address] [place] [id number] PCP - General Internal Medicine 03/19/23 documented as of this encounter
--- OUTSIDE RECORDS SUMMARY | 2024-06-18 11:09 | XMS_ITS | Encounter Summary ---
Author Organization [employer] Address [address] [place] [address] [address] [place] [address] Care Team Providers Care Honing Job Setter Name Role Phone Tanmay Gore MD Primary Care Prov ider Tanmay Gore MD Primary Care Prov ider Reason for Visit * Reason Comments Med Refill Encounter Details Date Type Department Care Team (Late st Contact Info) Description 06/12/2022 Refill [facility] [address] [place] [address] Tanmay Gore MD [address] [place] [address] Social History Tobacco Use Types Packs/Day Years Used Date Smoking Tobacco: Never Assessed Sex and Gender Information Value Date Recorded Sex Assigned at Male 01/01/2022 10:18 AM EDT Legal Sex Male 10:18 AM EDT Gender Identity Male 03/19/2023 9:09 AM EST Sexual Orientation Don't know 03/19/2023 9: 09 AM EST documented as of this encounter Plan of Treatment Not on file documented as of this encounter Visit Diagnoses Not on filedocumented in this encounter Care Teams Honing Job Setter Relationship Specialty Start Date End Date Tanmay Gore MD [address] [place] [address] PCP - General Internal Medicine 07/29/19 03/10/23 Tanmay Gore MD [address] [place] [address] PCP - General Internal Medicine 03/19/23 documented as of this encounter
--- OUTSIDE RECORDS SUMMARY | 2024-06-18 11:09 | XMS_ITS | Encounter Summary ---
Author Organization [employer] Address [address] [place] [address] Care Team Providers Care Pressure Tester Operator Name Role Phone Tanmay Gore MD Primary Care Prov ider Reason for Visit * Reason Onset Date Comments Medication Question 01/13/2024 Encounter Details Date Type Department Care Team ([facility] st Contact Info) Description 01/13/2024 Telephone [facility] MEDICINE [address] [place] [address] Tanmay Gore MD [address] [place], [place] [phone] Medication Question Social History Tobacco Use Types Packs/Day Years Used Date Smoking Tobacco: Former Cigarettes 0.3 20 1 981 - 2000 Smokeless Tobacco: Never Alcohol Use Standard Drinks/Week Comments Yes 0 (1 standard drink = 0.6 oz pur e alcohol) social beer Housing Stability Answer Date Recorded What is your housing situation today? I have [employer] 06/06/[address] you [...] the past 12 months, has t he [employer], gas, oil or water company threatened to [...] AM EST documented as of this encounter Miscellaneous Notes * Telephone Encounter - Asad Manriquez - 01/13/2024 8:56 AM EST Tc from surendra with [facility] stating that pt would like to switch med dulaglutide (Trulicity) 3 MG/0.5ML solution pen-injector for a alternative Cheaper option the med Victoza. If any questions Contact Surendra at documented in this encounter Plan of Treatment Not on file documented as of this encounter Visit Diagnoses Not on filedocumented in this encounter Care Teams Pressure Tester Operator Relationship Specialty Start Date End Date Tanmay Gore MD [address] [place] [phone] PCP - General Internal Medicine 03/19/23 documented as of this encounter
--- OUTSIDE RECORDS SUMMARY | 2024-06-18 11:09 | XMS_ITS | Encounter Summary ---
Author Organization [employer] Address [address] [place] [address] Care Team Providers Care Aircraft Fuselage Framer Name Role Phone Tanmay Gore MD Primary Care Prov ider Reason for Visit * Reason Onset Date Comments Medication Problem 06/11/2023 Encounter Details Date Type Department Care Team ([facility] st Contact Info) Description 06/11/2023 Telephone [facility] MEDICINE [address] [place] [address] Tanmay Gore MD [address] [place], [place] [phone] Medication Problem Social History Tobacco Use Types Packs/Day Years [...] the past 12 months, has t he [employer], gas, oil or water company threatened to [...] encounter Miscellaneous Notes * Telephone Encounter - Olivia Guadarrama RN - 06/19/2023 9:39 AM EDT Noted. Thank you. * Telephone Encounter - Shanti Toure - 06/18/2023 1:25 PM EDT Tc from pt calling again in regards below... * Telephone Encounter - Jabari Franco - 06/11/2023 4:40 PM EDT Tc from pt calling in regards to message prior stating he spoke with insurance and they let him know that they cannot cover script for 30 days they're only able to cover scripts for 90 days. * Telephone Encounter - Wing Suraj RN - 06/11/2023 12:28 PM EDT Tc to pt regarding Trulicity. Called prescribing pharmacy who stated that the cost was $285 for co-pay. Called [facility] to see if there was a way to reduce the cost. Stated pt needed to call insurance to deduce reason for co-pay cost. Explained to pt that he should contact insurance to obtain reason for high co-pay and that this messaged would be forwards to PCP to see if there are alternatives. Pt verbalized understanding and agreement with plan. * Telephone Encounter - Shanti Toure - 06/11/2023 10:32 AM EDT Tc from pt requesting help with dulaglutide (Trulicity) 0.75 MG/0.5ML solution pen-injector stated in pharmacy they told him will cost $500 documented in this encounter Plan of Treatment Not on file documented as of this encounter Visit Diagnoses Not on filedocumented in this encounter Care Teams Aircraft Fuselage Framer Relationship Specialty Start Date End Date Tanmay Gore MD [address] [place] [phone] PCP - General Internal Medicine 03/19/23 documented as of this encounter
--- OUTSIDE RECORDS SUMMARY | 2024-06-18 11:09 | XMS_ITS | Encounter Summary ---
Author Organization [employer] Address [address] [place] [address] Care Team Providers Care Forming Department End Finder Name Role Phone Tanmay Gore MD Primary Care Prov ider Reason for Visit * Reason Comments Med Refill Encounter Details Date Type Department Care Team ([facility] st Contact Info) Description 02/22/2024 Refill [facility]S [address] [place], [place] [phone] Tanmay Gore MD [address] [place] [address] Social History Tobacco Use Types Packs/Day Years [...] on filedocumented in this encounter Care Teams Forming Department End Finder Relationship Specialty Start Date End Date Tanmay Gore MD [address] [place] [phone] PCP - General Internal Medicine 03/19/23 documented as of this encounter
--- OUTSIDE RECORDS SUMMARY | 2024-06-18 11:09 | XMS_ITS | Clinical Summary ---
Author Organization [employer] Address [address] 7[address] [place] [address] Care Team Providers Care Centrifugal Supervisor Name Role Phone Tanmay Gore MD Primary Care Prov ider Allergies No known active allergies Medications aspirin 81 MG EC tablet take 1 tablet by oral route every day 05/04/2021 Active Blood Glucose Monitoring Suppl (FreeStyle Lite) w/Device kit 1 kit in the morning. 1 kit 04/17/2023 Active glucose blood (FREESTYLE LITE) test strip USE TO TEST BLOOD SUGAR TWICE A DAY 100 strip 12 04/17/2023 Active dapagliflozin (Farxiga) 10 MG Take 1 tablet (10 mg) by mouth Once per day. 90 tablet 3 09/18/2023 5 Active chlorthalidone (Hygroton) 25 MG tablet Take 1 tablet (25 mg) by mouth Once per day. 90 tablet 3 09/18/2023 5 Active dulaglutide (Trulicity) 3 MG/0.5ML solution pen-injector Inject 3 mg under the skin 1 (one) time per week. 6 mL 3 09/18/2023 5 Active dilTIAZem CD (Cardizem CD) 120 MG 24 hr capsule Take 120 mg by mouth Once per day. Active Dulaglutide (Trulicity) 4.5 MG/0.5ML solution auto-injectorIn dications:Type 2 diabetes mellitus with diabetic microalbuminuri a, without long-term current use of insulin ([facility]) Inject 0.5 mL (4.5 mg) under the skin 1 (one) time per week. 3 mL 3 01/22/2024 Active Continuous Glucose Lead Driver (FreeStyle Antionette 2 [place]) device Scan sensor every 8 hours 1 each 01/22/2024 Active Continuous Glucose Sensor (FreeStyle Antionette 2 Sensor) mis Apply 1 sensor every 14 days 2 each 3 01/22/2024 Active losartan (Cozaar) 100 MG tablet TAKE 1 TABLET BY MOUTH EVERY DAY IN THE MORNING 90 tablet 3 04/03/2024 Active atorvastatin (Lipitor) 40 MG tablet TAKE 1 TABLET BY MOUTH EVERY DAY IN THE MORNING 90 tablet 3 05/15/2024 Active Active Problems Problem Noted Date Diagnosed Date Stage 3b chronic kidney disease 07/18/2023 Assessment & Plan (07/18/2023 2:57 PM EDT): 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 due to DM/poor hypertension control, he is on ARB and SGLT, will refer to nephrology for evaluation Mixed hyperlipidemia 06/06/2023 Assessment & Plan (09/18/2023 10:02 AM EDT): On atorvastatin 40mg, new labs will be ordered for guidance of therapy Assessment & Plan (06/06/2023 10:28 AM EDT): On atorvastatin 40mg, new labs will be ordered Type 2 diabetes mellitus wit h diabetic microalbuminuria, without long-term current use of insulin 03/19/2023 Assessment & Plan (01/22/2024 11:01 AM EST): Will increase trulicity to 4.5, continue farxiga, keep low carb/no sugar diet, follow up in 3 months Assessment & Plan (09/18/2023 10:01 AM EDT): Will increase trulicity to 3mg, continue farxiga for renal protection, new labs ordered Eye exam done 09/2023 Assessment & Plan (07/18/2023 2:56 PM EDT): Improving, A1c not at target, will increase trulicity to 1.5, follow up in 2 months Eye exam done Assessment & Plan (06/06/2023 10:22 AM EDT): Improving, he was not able to get the empagliflozin (not covered by insurance), will send cody to our pharmacy, continue trulicity, refers has been ranging from 98-142. New labs will be ordered Assessment & Plan (05/20/2023 10:37 PM EDT): Will start on trulicity and jardiance, continue low carb/no sugar diet, follow up in 1 month Will refer for eye exam Foot exam unremarkable, no lesions, no callous Assessment & Plan (03/19/2023 10:05 AM EST): Has been off medication for over 6 months, will order labs and will follow up in 2 weeks Primary hypertension 03/19/2023 Assessment & Plan (01/22/2024 11:00 AM EST): Controlled, on losartan/chlorthalidone and diltiazem, no changes will be done, keep low sodium diet and exercise as tolerated Assessment & Plan (09/18/2023 10:00 AM EDT): Will decrease amlodipine due to tachycardia and will add chlorthalidone, continue losartan 100mg, target <130/80. Assessment & Plan (07/18/2023 2:54 PM EDT): Not at target, will increase amlodipine to 10mg continue with rest of treatment, target bp <130/80, will follow up in 2 months Assessment & Plan (06/06/2023 10:20 AM EDT): Not at target, will add amlodipine, cotninue losartan, low sodium diet, follow up in 1 month Assessment & Plan (05/20/2023 10:36 PM EDT): Not at target, will increase losartan to 100mg daily, keep bp log, follow up in 1 month Assessment & Plan (03/19/2023 10:04 AM EST): Has bp monitor at home, he used to be taking bp control meds, he has been off medication for over 6 months, will follow up in 2 weeks with bp log and labs Screening for malignant neoplasm of prostate Assessment & Plan (03/19/2023 10:04 AM EST): Will send prostate cancer screenign Screening for colon cancer 03/19/2023 Assessment & Plan (04/17/2023 11:05 AM EST): Screening colon cancer Assessment & Plan (03/19/2023 10:03 AM EST): Will place refer for screening colonoscopy, last was poor prep Encounters Date Type Department Care Team Description 05/15/2024 Refill [facility] [address] [place] [address] Tanmay Gore MD 04/03/2024 Refill [facility] [address] [place] [address] Tanmay Gore MD from Last 3 Months Immunizations Name Administration Dates Next Due Pneumococcal Conjugate PCV 20 04/17/2023 Family History Medical History Relation Name Comments Diabetes Brother Diabetes Father Hypertension Father Hyperlipidemia Mother Stroke Mother Relation Name Status Comments Brother Father Mother Social History Tobacco Use Types Packs/Day Years [...] Don't know 03/19/2023 9: 09 AM EST Last Filed Vital Signs Vital Sign Reading Time Taken Comments Blood Pressure 135/85 01/22/2024 9:47 AM EST Pulse 100 09/18/2023 9:32 AM EDT Temperature 36.4 ??C (97.5 ??F) 04/17/2023 10:[address] Respiratory Rate 20 04/17/2023 10:30 AM EST Oxygen Saturation - - Inhaled Oxygen Concentration - - Weight 67.6 kg (149 lb) 04/17/2023 10:30 AM EST Height 160 cm (5' 3 ) 04/17/2023 10:30 AM EST Body Mass Index 26.39 04/17/2023 10:30 AM EST Plan of Treatment Health Maintenance Due Date Last Done Comments CT Colonography 1960 FIT DNA/Cologuard 1960 FOBT 1960 Sigmoidoscopy 1960 Alcohol/Substance Use Screening 1972 RSV Patients and Patients Aged 60 years or older (1 - Risk 60-74 years 1-dose series) 2020 FIT 04/10/2021 04/10/2020 Zoster Vaccines (2 of 2) 06/18/2022 04/23/2022 COVID-19 Vaccine ( season) 2023 08/09/2020, 07/19/2020 Diabetes: Hemoglobin A1C 03/21/2024 024, 06/20/2023, 03/20/2023, Additional history exists Depression Screening 04/17/2024 04/17/2023, 04/17/19 24 Diabetes: Foot Exam 04/17/2024 04/17/2023, 04/17/2023, 04/17/2023, Additional history exists SDOH Screening 06/05/2024 06/06/2023 Eye Exam 06/12/2024 Tobacco Screening 09/17/2024 09/18/2023 Lipid Panel 09/18/2024 09/19/2023, 06/02, 03/20/2023 DTaP/Tdap/Td Vaccines (3 - Td or Tdap) 06/11/2027 06/10/2017, 07/19/2014 HIV Screening 03/20/2033 Colonoscopy 11/18/2033 Colorectal Cancer Screening 11/18/2033 Hepatitis C Screening Completed 03/20/2023 Pneumococcal Vaccine: 50+ Years Completed 04/17/2023, 06/10/2017 Influenza Vaccine Completed 10/16/2023, , 12/06/2021, Additional history exists HIB Vaccines Aged Out No longer eligi ble based on patient's age to complete this topic HPV Vaccines Aged Out No longer eligi ble based on patient's age to complete this topic Hepatitis A Vaccines Aged Out No long er eligible based on patient's age to complete this topic Hepatitis B Vaccines Aged Out No long er eligible based on patient's age to complete this topic IPV Vaccines Aged Out No longer eligi ble based on patient's age to complete this topic Meningococcal Vaccine Aged Out No chacorta matthias eligible based on patient's age to complete this topic RSV under 20 months Aged Out No longe r eligible based on patient's age to complete this topic Rotavirus Vaccines Aged Out No longer eligible based on patient's age to complete this topic Procedures Procedure Name Priority Date/Time Associated Diagnosis Comments HEMOGLOBIN A1C Routine 09/19/2023 12:00 AM EDT Type 2 diabetes mellitus without complication, without long-term current use of insulin (CMS/HCC) LIPID PANEL, STANDARD Routine 09/19/2023 12:00 AM EDT Type 2 diabetes mellitus without complication, without long-term current use of insulin (CMS/HCC) HEPATITIS C AB W/REFL TO HCV RNA, QN, PCR Routine 03/20/2023 9:00 AM EST Primary hypertension ZZZ HISTORICAL FECAL IMMUNOCHEMICAL TEST X1 (FIT) Routine 04/10/2020 10:58 AM EST from Last 3 Months or Most Recently Relevant to Health Maintenance Results * (ABNORMAL) Hemoglobin A1c (09/19/2023 12:00 AM EDT) Hemoglobin A1c 6.9(H) <6.0 % [facility] Comment:Hemoglobin A1C Refer ence Range Adults: 4.8 - 6.0 % Non diabetic: < 6.0 % Goal: < 7.0 %Additional Action Suggested: > 8.0 %Note: Hemoglobin A1c results are invalid for patients with abnormal amounts of HbF. Blood transfusions may impact the HbA1c concentration in the patient sample. Estimated Average Glucose 151 mg/dL [facility] Comment:eAG = Estimated ave rage glucose which is %A1C expressed asaverage glucose, using the formula of the [id number] Glucose study (ADAG), Diabetes Care, Vol.31,#8,Oct. 2007 Blood Venous blood specimen / Unknown 09/19/2023 09/19/2023 us Tanmay Mello MD LAB BLOOD ORDERABL ES Final Result [facility] [address] [place] [phone] * (ABNORMAL) Lipid Panel, Standard (09/19/2023 12:00 AM EDT) Triglycerides 138 <150 mg/dL [facility] Comment:Desirable Triglyceri de: less than 150 mg/dLBorderline High Triglyceride 150-199 mg/dLHigh Triglyceride: 200-499 mg/dLVery High Triglyceride: greater than or equal to 5OO mg/dL Cholesterol 221(H) <200 mg/dL [facility] Comment:Desirable Cholestero l: less than 200 mg/dLBorderline High Cholesterol: 200-239 mg/dLHigh Cholesterol: greater than 239 mg/dL LDL Cholesterol Calculated 154(H) <100 mg/dL [facility] Comment:Desirable LDL: less than 100 mg/dLNear Optimal/Above Optimal LDL: 110- 129 mg/dLBorderline High LDL: 130-159 mg/dLHigh LDL: 160-189 mg/dLVery High LDL: greater than or equal to 190 mg/dL HDL Cholesterol 40(L) >40 mg/dL [facility] Comment:Desirable HDL: great er than 40 mg/dL Note: This HDL assay may give artificially low results in patients with liver disease. Blood Venous blood specimen / Unknown 09/19/2023 09/19/2023 Tanmay Mello MD LAB BLOOD ORDERABL ES Final Result Performing Organization Address [facility] Co de Phone Number [facility] [address] [place] [phone] * Hepatitis C Antibody with Reflex to HCV, RNA, Quantitative, Real-Time PCR (03/20/2023 9:00 AM EST) Hepatitis C Antibody Nonreactive Nonreactive [facility] Comment:Antibodies to HCV no t detected; does not exclude early acuteHCV infection. Blood Venous blood specimen / Unknown 03/20/2023 9:00 AM EST 03/20/2023 2:26 PM EST Tanmay Mello MD LAB BLOOD ORDERABL ES Final Result Performing Organization Address [facility] de Phone Number [facility] [address] [place] [phone] * Fecal immunochemical test x1 (FIT) (04/10/2020 10:58 AM EST) FIT Date 1 [facility] FIT Date 2 [facility] FIT Lot [facility] FIT1 TNP NEGATIVE [facility] Comment:NO SPECIMEN ON CARD FIT2 TNP NEGATIVE [facility] 04/10/2020 10:5 8 AM EST Renu Early MD HISTORICAL/NON ORDERABLE LABS Final Result Performing Organization Address City/[facility]/ZIP Co de Phone Number [facility] [address] [place] [address], from Last 3 Months or Most Recently Relevant to Health Maintenance Insurance [employer] * Guarantor: Ricardo Jame Account Type Relation to Patient Date of Phone Billing Address Personal/Family Self [facility] [address] [address] Care Teams Centrifugal Supervisor Relationship Specialty Start Date End Date Tanmay Gore MD [address] [place] [phone] PCP - General Internal Medicine 03/19/23
== END 2024-06-18 10:33 | disposition home or self-care (01) ==
PROVIDERS: PCP Internal Medicine; Visit Provider Internal Medicine Hypertension Specialist
DX: I10 Essential (primary) hypertension (principal); N18.30 Chronic kidney disease, stage 3 unspecified
CPT/HCPCS: 99214

== ENCOUNTER → 2024-06-18 09:42 | Outpatient (BNVA) | payer OTHER, SELFPAY | PROVIDERS: PCP Internal Medicine; Visit Provider Internal Medicine Hypertension Specialist ==

== ENCOUNTER 2024-07-31 13:49 | Outpatient (REF) | payer OTHER, SELFPAY ==
--- OUTSIDE RECORDS SUMMARY | 2024-07-31 13:57 | XMS_ITS | Encounter Summary ---
Author Organization [employer] Address [address]t [place] [address] Care Team Providers Care Physicist Cryogenics Name Role Phone Tanmay Gore MD Primary Care Prov ider Reason for Visit * Reason Comments Med Refill Encounter Details Date Type Department Care Team ([facility] st Contact Info) Description 02/22/2024 Refill [facility]S [address] [place], [place] [phone] Tanmay Gore MD [address] [place] [address] Social History Tobacco Use Types Packs/Day Years [...] on filedocumented in this encounter Care Teams Physicist Cryogenics Relationship Specialty Start Date End Date Tanmay Gore MD [address] [place] [phone] PCP - General Internal Medicine 03/19/23 documented as of this encounter
[2024-07-31 17:02] LABS: MANUAL DIFF FLAG NO
[2024-07-31 17:20] LABS: Basophils Percent Auto 0.4 % (0-2); Eosinophils Percent Auto 0.3 % (0-4); Hematocrit 53.4 % (42.0-52.0); Hemoglobin 18.3 g/dl (14.0-18.0); Imm Gran Abs Auto 0.05 X10*3/uL (0.00-0.03); Imm Gran Pct Auto 0.5 % (0.0-0.4); Lymphocytes Absolute Auto 1.1 X10*3/uL (1.2-4.9); Lymphocytes Percent Auto 10.1 % (20-40); Mean Corpuscular HGB Conc 34.3 g/dl (31.0-36.0); Mean Corpuscular Hemoglobin 29.6 pg (27.0-33.0); Mean Corpuscular Volume 86.4 fL (80.0-98.0); Mean Platelet Volume 11.2 fL (9.4-12.4); Monocytes Absolute Auto 0.5 X10*3/uL (0.1-1.2); Monocytes Percent Auto 4.4 % (2-11); Neutrophils Absolute Auto 9.3 x10*3/uL (2.0-8.3); Neutrophils Percent Auto 84.3 % (45-73); Platelet Count 371 X10*3/uL (160-400); Red Blood Count 6.18 X10*6/uL (4.60-5.80); Red Cell Distribution Width 11.8 % (11.0-16.0); White Blood Count 11.1 X10*3/uL (4.8-10.8)
[2024-07-31 17:52] LABS: Amylase 133 U/L (28-100)
[2024-07-31 18:24] LABS: Alanine Aminotransferase 15 U/L (0-40); Albumin Level 4.2 g/dL (3.5-5.0); Alkaline Phosphatase 158 U/L (39-117); Anion Gap 23 (12-20); Aspartate Amino Transferase 23 U/L (5-37); Bilirubin Total 1.2 mg/dL (0.0-1.0); Blood Urea Nitrogen 49 mg/dL (9-16); Calcium 12.1 mg/dL (8.4-10.2); Carbon Dioxide 30 mmol/L (22-29); Chloride 89 mmol/L (96-108); Estimated Glomerular Filt Rate 19; Glucose Random 396 mg/dL (60-115); Potassium 5.6 mmol/L (3.3-5.1); Sodium 136 mmol/L (135-145); Total Protein 8.8 g/dL (6.5-8.0)
== END 2024-07-31 13:50 | disposition home or self-care (01) ==
LOC: HO.HHCL 13:49
PROVIDERS: Internal Medicine Hypertension Specialist; Visit Provider Nurse Practitioner Family
DX: R10.9 Unspecified abdominal pain (principal); R11.10 Vomiting, unspecified
CPT/HCPCS: 36415; 80053; 82150; 85025

== ENCOUNTER 2024-07-31 19:07 | Emergency (ER) | payer OTHER, SELFPAY ==
[2024-07-31 19:09] VITALS: BP 125/93; PULSE 132; RESP 16; TEMP 36.2; O2SAT 97; BMI 23.9
--- NOTE | 2024-07-31 19:12 | ECG_ITS ---
Test Reason : HYPERKALEMIA Blood Pressure : */* mmHG Vent. Rate : 129 BPM Atrial Rate : 129 BPM P-R Int : 142 ms QRS Dur : 82 ms QT Int : 308 ms P-R-T Axes : 56 -22 124 degrees QTcB Int : 451 ms Sinus tachycardia Left ventricular hypertrophy with repolarization abnormality ( R in aVL ) Inferior infarct , age undetermined Abnormal ECG No previous ECGs available Referred By: Andrés Bower Electronically Signed By: JIN ARNOLD MD
--- NOTE | 2024-07-31 19:15 | ED_ITS ---
HPI - General Adult General Chief complaint: Recheck/Abnormal Lab/Rx Stated complaint: Kidney check, sent by [facility] Time Seen by Provider: 07/31/24 20:37 Source: patient Mode of arrival: ambulatory Limitations: no limitations History of Present Illness ED Provider: HPI narrative: 63-year-old male with history of stage III kidney disease, states that for the past 2 days he has had nausea and vomiting, went to see for this complaint blood work was obtained and he was told to come to the ER for abnormal blood work. He denies abdominal pain he states prior to that he has had left lower quadrant pain it was quick on quick cough and has since subsided. No chest pain or shortness of breath Reported, no dysuria, no diarrhea. Related Data Home Medications ?Medication ?Instructions ?Recorded ?Confirmed aspirin 81 mg tablet,delayed 81 mg PO DAILY 02/02/20 06/18/24 release atorvastatin 40 mg tablet 40 mg PO DAILY 02/02/20 06/18/24 brimonidine 0.2 %-timolol 0.5 % drp ophthalmic (eye) 08/01/23 06/18/24 eye drops clotrimazole 1 % topical cream appl topical DAILY 08/01/23 06/18/24 dulaglutide 0.75 mg/0.5 mL mg subcut QWEEK 08/01/23 06/18/24 [facility] latanoprost 0.005 % eye drops drp ophthalmic (eye) 08/01/23 06/18/24 losartan 100 mg tablet 100 mg PO .evening 08/29/23 06/18/24 chlorthalidone 25 mg tablet 25 mg PO DAILY 10/31/23 06/18/24 dapagliflozin propanediol 10 mg 10 mg PO DAILY 10/31/23 06/18/24 tablet (Farxiga) Previous Rx's ?Medication ?Instructions ?Recorded bisacodyl 5 mg tablet,delayed 10 mg (2 x 5 mg) PO BEDTIME #16 07/08/23 release (Dulcolax (bisacodyl)) tabs spironolactone 25 mg tablet 25 mg PO DAILY #90 tabs 06/18/24 diltiazem HCl 240 mg 240 mg PO DAILY #90 caps 07/13/24 capsule,extended release 24 hr Allergies Allergy/AdvReac Type Severity Reaction Status Date / Time No Known Allergies Allergy Verified 07/31/24 19:13 Review of Systems 2 Constitutional: Constitutional: Reports as per [facility] Past Medical History Medical History Dyslipidemia HTN (hypertension) Acid reflux Diabetes Surgical History Hx of colonoscopy Hx of appendectomy Family History Family History Father No problems noted. Social History Social History Household Members: Children Alcohol intake: never Patient Tobacco Use Status: Never used Tobacco Smoked in Last 30 Days: No Second Hand Smoke Exposure: No Use of substances other than those prescribed or required for medical reasons: No Advance Directives: No Advance Directives Information Provided: Yes Do you have a plan to hurt others: No Plan Physical Exam ED Vital Signs: Vital Signs - 24 hr 08/01/24 00:13 08/01/24 01:04 08/01/24 02:33 Temperature 0 F L Pulse Rate 116 H 115 H 115 H Respiratory Rate 14 14 Blood Pressure 159/105 H 167/108 H 167/108 H Pulse Oximetry 95 95 Oxygen Delivery Method Room Air BMI result Body Mass Index 23.9 Const Other: ? Gen: Overall well-appearing patient ? HEENT: no scleral icterus, dry oral mucosa ? Neck: Supple, no LAD ? CV: fasting regular rhythm no obvious murmurs appreciated ? Resp: No wheezing rales rhonchi no stridor moving air well ? Abd: Bowel sounds are present, no tenderness no rebound no rigidity, no CVA tenderness ? MSK: FROM, strength 5/5 all extremities ? Skin: Warm, dry, intact, ? Neuro: Alert and oriented x3, moving upper and lower extremities symmetrically, no obvious facial asymmetry noted Course Course Course Narrative: RME: 63-year-old male presents to ED for abnormal labs. Patient was sent for hyperkalemia and increasing creatinine. Potassium 5.6 creatinine 3.35. Patient also states abdominal pain will do repeat labs including EKG and troponin. Medications Administered Discontinued Medications Generic Name Dose Route Start Last Admin Trade Name Freq PRN Reason Stop Dose Admin Diltiazem HCl 240 mg 07/31/24 23:53 08/01/24 00:13 Diltiazem Hcl Cd 240 Mg Cap.Er.Deg PO 07/31/24 23:54 240 mg ONCE ONE Administration Protocol Lactated Ringer's 1,000 mls @ 999 mls/hr 07/31/24 20:45 08/01/24 00:58 Lr IV 07/31/24 21:45 Infused .Q1H1M MARK Infusion Wide Open Sodium Chloride 1,000 mls @ 999 mls/hr 07/31/24 21:00 08/01/24 00:58 Ns IV 07/31/24 22:00 Infused .Q1H1M MARK Infusion Insulin Human Regular 5 unit 07/31/24 21:38 07/31/24 21:42 Insulin Regular, Human 100 Unit/Ml 10 Ml Vial IVPUSH 07/31/24 21:39 5 unit ONCE ONE Administration Ondansetron HCl 4 mg 07/31/24 20:49 07/31/24 21:44 Ondansetron Hcl 4 Mg/2 Ml Vial IVPUSH 07/31/24 20:50 4 mg ONCE ONE Administration Sodium Zirconium Cyclosilicate 5 gm 07/31/24 20:45 07/31/24 21:44 Sodium Zirconium Cyclosilicate 5 Gm Powd.Pack PO 07/31/24 20:46 5 gm ONCE ONE Administration Medical Decision Making Medical Decision Making [facility] Narrative: patient is presenting with worsening renal function and hyperkalemia without EKG changes, potassium 5.6, no EKG changes, however he is tachycardic, I do not feel further imaging such as CT is indicated he has a overall benign abdominal exam, we will provide fluids as his baseline creatinine 2.5 he is up to 3.6, we will provide insulin which will help with hypoglycemia as well as hyperkalemia. We will repeat creatinine and a potassium just to make sure he is moving in a right direction and anticipating discharge unless something else changes In his presentation. He did not have any chest pain or palpitations or PE risk factors elicit at the suspect the tachycardia is related to underlying cardiac dysrhythmia or PE. 1153: Patient's heart rate remained elevated I went to reexamine him, he still has no complaints but I reviewed his medications and he is supposed to be on Cardizem and he states that he did not take his medication today so he is going to get his dosage. Differential Diagnosis Differential Diagnoses: The differential diagnosis associated with the presentation includes gastroenteritis, pancreatitis, cholecystitis, SBO, diverticulitis, colitis, DKA Admission/Observation Consideration of admission/observation: Escalation of care including admission/observation considered Lab Data MDM Lab Attestation statement: I reviewed the patient's lab results. 07/31/24 19:21 08/01/24 01:08 Labs: Lab Results 07/31/24 07/31/24 07/31/24 Range/Units 19:21 21:04 23:44 WBC 11.9 H (4.8-10.8) X10*3/uL RBC 5.92 H (4.60-5.80) X10*6/uL Hgb 17.7 (14.0-18.0) g/dl Hct 50.3 (42.0-52.0) % MCV 85.0 (80.0-98.0) fL MCH 29.9 (27.0-33.0) pg MCHC 35.2 (31.0-36.0) g/dl RDW 11.7 (11.0-16.0) % Plt Count 372 (160-400) X10*3/uL MPV 10.0 (9.4-12.4) fL Immature Gran % (Auto) 0.3 (0.0-0.4) % Neut % (Auto) 80.8 H (45-73) % Lymph % (Auto) 13.0 L (20-40) % [place] % (Auto) 5.4 (2-11) % Eos % (Auto) 0.2 (0-4) % Baso % (Auto) 0.3 (0-2) % Lymph # (Auto) 1.5 (1.2-4.9) X10*3/uL [place] # (Auto) 0.6 (0.1-1.2) X10*3/uL Eos # (Auto) 0.0 (0.0-0.4) X10*3/uL Baso # (Auto) 0.0 (0.0-0.2) X10*3/uL Abs Immat Gran (auto) 0.03 (0.00-0.03) X10*3/uL Absolute Neuts (auto) 9.6 H (2.0-8.3) x10*3/uL Absolute Nucleated RBC 0.000 (0.0-0.012) X10*3/uL Nucleated RBC % (auto) 0.0 (0.0-0.2) /100WBC PT 11.1 (10.9-12.4) SEC INR 1.0 (0.9-1.1) APTT 30.8 (26.0-36.8) SEC Sodium 136 (135-145) mmol/L Potassium 5.5 H (3.3-5.1) mmol/L Chloride 88 L (96-108) mmol/L Carbon Dioxide 34 H (22-29) mmol/L Anion Gap 20 (12-20) BUN 54 H (9-16) mg/dL Creatinine 3.66 H (0.5-1.4) mg/dL Estim Creat Clear Calc 16.6 Estimated GFR 17 POC Glucose 366 H* 298 H (60-115) mg/dL Random Glucose 403 H* (60-115) mg/dL Calcium 11.5 H (8.4-10.2) mg/dL Total Bilirubin 1.1 H (0.0-1.0) mg/dL AST 25 (5-37) U/L ALT 15 (0-40) U/L Alkaline Phosphatase 156 H (39-117) U/L Troponin I High Sens 20.6 (<3.5-35.0) ng/L Total Protein 8.5 H (6.5-8.0) g/dL Albumin 4.0 (3.5-5.0) g/dL Lipase 232 H (8-78) U/L 08/01/24 Range/Units 01:08 WBC (4.8-10.8) X10*3/uL RBC (4.60-5.80) X10*6/uL Hgb (14.0-18.0) g/dl Hct (42.0-52.0) % MCV (80.0-98.0) fL MCH (27.0-33.0) pg MCHC (31.0-36.0) g/dl RDW (11.0-16.0) % Plt Count (160-400) X10*3/uL MPV (9.4-12.4) fL Immature Gran % (Auto) (0.0-0.4) % Neut % (Auto) (45-73) % Lymph % (Auto) (20-40) % [place] % (Auto) (2-11) % Eos % (Auto) (0-4) % Baso % (Auto) (0-2) % Lymph # (Auto) (1.2-4.9) X10*3/uL [place] # (Auto) (0.1-1.2) X10*3/uL Eos # (Auto) (0.0-0.4) X10*3/uL Baso # (Auto) (0.0-0.2) X10*3/uL Abs Immat Gran (auto) (0.00-0.03) X10*3/uL Absolute Neuts (auto) (2.0-8.3) x10*3/uL Absolute Nucleated RBC (0.0-0.012) X10*3/uL Nucleated RBC % (auto) (0.0-0.2) /100WBC PT (10.9-12.4) SEC INR (0.9-1.1) APTT (26.0-36.8) SEC Sodium (135-145) mmol/L Potassium 4.1 D (3.3-5.1) mmol/L Chloride (96-108) mmol/L Carbon Dioxide (22-29) mmol/L Anion Gap (12-20) BUN (9-16) mg/dL Creatinine 2.80 H (0.5-1.4) mg/dL Estim Creat Clear Calc 21.7 Estimated GFR 23 POC Glucose (60-115) mg/dL Random Glucose (60-115) mg/dL Calcium (8.4-10.2) mg/dL Total Bilirubin (0.0-1.0) mg/dL AST (5-37) U/L ALT (0-40) U/L Alkaline Phosphatase (39-117) U/L Troponin I High Sens (<3.5-35.0) ng/L Total Protein (6.5-8.0) g/dL Albumin (3.5-5.0) g/dL Lipase (8-78) U/L Independent Interpretation I performed an independent interpretation of an: EKG ( 129 sinus tachycardia, no changes consistent with hyperkalemia) Discharge Plan Discharge Clinical Impression: Acute kidney injury superimposed on chronic kidney disease, Acute hyperkalemia, Poorly controlled diabetes mellitus Patient Disposition: Home, Self-Care Additional Instructions: Please make sure to take her medications regular basis, you received fluids, medications for potassium, your kidney function improved and potassium went down, continue staying well hydrated, will follow up with the PCP, any other issues or concerns come back to the ER. Prescriptions: No Action diltiazem HCl 240 mg capsule,extended release 24hr 240 mg PO DAILY Qty: 90 1RF atorvastatin 40 mg tablet 40 mg PO DAILY aspirin 81 mg tablet,delayed release (DR/EC) 81 mg PO DAILY spironolactone 25 mg tablet 25 mg PO DAILY Qty: 90 0RF bisacodyl [Dulcolax (bisacodyl)] 5 mg tablet,delayed release (DR/EC) 10 mg PO BEDTIME Qty: 16 0RF Rx Instructions: Start taking 2 tablet every night 7 days before the procedure and 1 day before procedure take 4 tablets at noon time followed by MiraLax prep Trulicity 0.75 mg/0.5 mL pen injector subcut QWEEK clotrimazole 1 % cream topical DAILY brimonidine-timolol 0.2-0.5 % drops ophthalmic (eye) latanoprost 0.005 % drops ophthalmic (eye) losartan 100 mg tablet 100 mg PO .evening chlorthalidone 25 mg tablet 25 mg PO DAILY dapagliflozin propanediol [Farxiga] 10 mg tablet 10 mg PO DAILY Interventions: ED Discharge Assessment Last Done: 08/01/24 02:33 Discharge Date/Time: 08/01/24 02:51 Print Language: Malay
[2024-07-31 19:33] LABS: MANUAL DIFF FLAG NO
[2024-07-31 19:34] LABS: Basophils Percent Auto 0.3 % (0-2); Eosinophils Percent Auto 0.2 % (0-4); Hematocrit 50.3 % (42.0-52.0); Hemoglobin 17.7 g/dl (14.0-18.0); Imm Gran Abs Auto 0.03 X10*3/uL (0.00-0.03); Imm Gran Pct Auto 0.3 % (0.0-0.4); Lymphocytes Absolute Auto 1.5 X10*3/uL (1.2-4.9); Mean Corpuscular HGB Conc 35.2 g/dl (31.0-36.0); Mean Corpuscular Hemoglobin 29.9 pg (27.0-33.0); Monocytes Absolute Auto 0.6 X10*3/uL (0.1-1.2); Monocytes Percent Auto 5.4 % (2-11); Neutrophils Absolute Auto 9.6 x10*3/uL (2.0-8.3); Neutrophils Percent Auto 80.8 % (45-73); Platelet Count 372 X10*3/uL (160-400); Red Blood Count 5.92 X10*6/uL (4.60-5.80); Red Cell Distribution Width 11.7 % (11.0-16.0); White Blood Count 11.9 X10*3/uL (4.8-10.8)
[2024-07-31 19:46] LABS: Prothrombin Time 11.1 SEC (10.9-12.4)
[2024-07-31 19:49] LABS: Partial Thromboplastin Time 30.8 SEC (26.0-36.8)
[2024-07-31 19:54] LABS: Troponin-I High Sensitivity 20.6 ng/L (<3.5-35.0)
[2024-07-31 19:57] LABS: Alanine Aminotransferase 15 U/L (0-40); Alkaline Phosphatase 156 U/L (39-117); Anion Gap 20 (12-20); Aspartate Amino Transferase 25 U/L (5-37); Bilirubin Total 1.1 mg/dL (0.0-1.0); Blood Urea Nitrogen 54 mg/dL (9-16); Calcium 11.5 mg/dL (8.4-10.2); Carbon Dioxide 34 mmol/L (22-29); Chloride 88 mmol/L (96-108); Creatinine Clr Calc Pharmacy 16.6; Estimated Glomerular Filt Rate 17; Lipase 232 U/L (8-78); Potassium 5.5 mmol/L (3.3-5.1); Sodium 136 mmol/L (135-145); Total Protein 8.5 g/dL (6.5-8.0)
[2024-07-31 20:41] VITALS: BP 146/107; PULSE 128; RESP 16; TEMP 36.3; O2SAT 96
[2024-07-31 21:07] LABS: Glucose, Whole Blood 366 mg/dL (60-115)
[2024-07-31] MEDS: Lactated Ringers 1,000 ML 999 ML IV (21:36)
[2024-07-31] MEDS: Insulin Regular, Human 100 UNIT/ML 10 ML VIAL IVPUSH (21:42)
[2024-07-31] MEDS: ondansetron HCL 4 MG/2 ML VIAL IVPUSH (21:44)
[2024-07-31] MEDS: Sodium Zirconium Cyclosilicate 5 GM POWD.PACK PO (21:44)
--- NOTE | 2024-07-31 21:49 | PC.NURSE ---
delay in medication admin due to difficult iv placement. this rn , additional rn, and dr patterson attempt with multiple failed attempts. final placement 20g L hand pt medicated according to mar
[2024-07-31 22:00] VITALS: BP 154/107; PULSE 123; RESP 19; TEMP 36.6; O2SAT 96
[2024-07-31] MEDS: 0.9 % Sodium Chloride 1,000 ML 999 ML IV (22:45)
[2024-07-31 23:31] LABS: Glucose Random 403 mg/dL (60-115)
[2024-07-31 23:48] LABS: Glucose, Whole Blood 298 mg/dL (60-115)
[2024-08-01 00:13] VITALS: BP 159/105; PULSE 116
[2024-08-01] MEDS: dilTIAZem HCL CD 240 MG CAP.ER.DEG PO (00:13)
[2024-08-01 01:04] VITALS: BP 167/108; PULSE 115; RESP 14; O2SAT 95
--- NOTE | 2024-08-01 01:04 | PC.NURSE ---
late entry- this rn made dr turner aware of hr continuing in 120s rn and md to bedside per pt did not take home diltiazem. pt medicated according to mar
--- NOTE | 2024-08-01 01:07 | PC.NURSE ---
ivf infused integrated circuit design engineer drawing repeat labs at thistime
[2024-08-01 01:32] LABS: Creatinine Clr Calc Pharmacy 21.7; Estimated Glomerular Filt Rate 23; Potassium 4.1 mmol/L (3.3-5.1)
[2024-08-01 02:33] VITALS: BP 167/108; PULSE 115; RESP 14; TEMP -17.7; TEMP 0; O2SAT 95
== END 2024-08-01 02:51 | disposition home or self-care (01) ==
PROVIDERS: Physician Assistant; Emergency Provider Emergency Medicine
DX: N17.9 Acute kidney failure, unspecified (principal); E11.22 Type 2 diabetes mellitus with diabetic chronic kidney disease; I12.9 Hypertensive chronic kidney disease with stage 1 through stage 4 chronic kidney disease, or unspecified chronic kidney disease; N18.30 Chronic kidney disease, stage 3 unspecified; E87.5 Hyperkalemia; R11.2 Nausea with vomiting, unspecified; R00.0 Tachycardia, unspecified; Z79.899 Other long term (current) drug therapy
CPT/HCPCS: 36415; 80053; 82565; 82947; 83690; 84132; 84484; 85025; 85610; 85730; 93005; 96361; 96374; 96375; 99285; J2405; J7120

== ENCOUNTER → 2024-07-31 19:12 | Outpatient (BNV) | payer OTHER, SELFPAY | PROVIDERS: Emergency Provider Emergency Medicine; Visit Provider Internal Medicine Cardiovascular Disease | DX: I51.7 Cardiomegaly (principal); R00.0 Tachycardia, unspecified | CPT/HCPCS: 93010 ==

== ENCOUNTER 2024-08-06 09:15 | Outpatient (REF) | payer OTHER, SELFPAY ==
[2024-08-06 14:45] LABS: Anion Gap 11 (12-20); Blood Urea Nitrogen 39 mg/dL (9-16); Calcium 9.7 mg/dL (8.4-10.2); Carbon Dioxide 27 mmol/L (22-29); Chloride 105 mmol/L (96-108); Cholesterol 246 mg/dL (<200); Estimated Glomerular Filt Rate 34; Glucose Random 138 mg/dL (60-115); HDL Cholesterol 42 mg/dL (>40); LDL Cholesterol Calculated 168 mg/dL (<100); Potassium 4.2 mmol/L (3.3-5.1); Sodium 139 mmol/L (135-145); Triglycerides 181 mg/dL (<150)
[2024-08-06 14:49] LABS: Estimated Average Glucose 324 mg/dL; Hemoglobin A1c % 12.9 % (<6.0); Total Hemoglobin (HGBA1C) 3742.6961 umol/L
[2024-08-06 14:57] LABS: Appearance Urine Clear; Color Urine Yellow; Glucose Urine UA 250 mg/dL (Negative); Leukocyte Esterase Urine Negative (Negative); Nitrite Urine Negative (Negative); PH 6.5 (5.0-9.0); Urine Blood Negative (Negative); Urine Ketones Negative (Negative); Urine Protein >=1000 (4+) mg/dL (Neg-Trace)
[2024-08-06 17:19] LABS: Total Protein Urine Random 726 mg/dL (<12)
== END 2024-08-06 09:16 | disposition home or self-care (01) ==
LOC: HO.CHCLDS 09:15
PROVIDERS: PCP Internal Medicine; Referring Provider Internal Medicine Hypertension Specialist; Visit Provider Internal Medicine
DX: I12.9 Hypertensive chronic kidney disease with stage 1 through stage 4 chronic kidney disease, or unspecified chronic kidney disease (principal); N18.30 Chronic kidney disease, stage 3 unspecified; E78.2 Mixed hyperlipidemia; E11.29 Type 2 diabetes mellitus with other diabetic kidney complication; R80.9 Proteinuria, unspecified
CPT/HCPCS: 36415; 80048; 80061; 81003; 82570; 83036; 84156

== ENCOUNTER 2024-09-03 09:47 | Outpatient (AMB) | payer OTHER, SELFPAY ==
--- NOTE | 2024-09-03 09:55 | HO.NEPHOV_ITS ---
Vital Signs 09/03/24 09:58 Height 5 ft 3 in Weight 146 lb 2 oz BMI 25.9 BP 110/80 Blood Pressure Location Rt brachial Position Sitting Pulse 95 Pulse Source Pulse Oximeter Pulse Oximetry (%) 100 Oxygen Delivery Method Room Air Intake Visit Reasons: FU-Conf Bundle Tier And Labeler Required: No Accompanied by: Self / Same As Patient Allergies No Known Allergies Allergy (Verified 09/03/24 09:58) Medication List - Last Reconciled 09/03/24 by Gene Stout MD aspirin 81 mg PO DAILY atorvastatin 80 mg PO QAM brimonidine 0.2% 1 drp ophthalmic (eye) BID chlorthalidone 25 mg PO DAILY clotrimazole 1% appl topical DAILY dapagliflozin propanediol (Farxiga) 10 mg PO DAILY diltiazem HCl CD 240 mg PO DAILY dulaglutide (Trulicity) mg subcut QWEEK glipizide 10 mg PO BID latanoprost 0.005% drps ophthalmic (eye) losartan 100 mg PO .evening omeprazole 20 mg PO DAILY spironolactone 25 mg PO DAILY timolol maleate 0.5% 1 drp ophthalmic (eye) BID HPI Comments Details: . Jame is a middle-aged man with a history of diabetes mellitus for more than 30 years. He has chronic kidney disease with a baseline creatinine around 2.5 mg/dL. He was found to have significant proteinuria of around 1200 mg and hence this consultation. Currently he is on losartan 100 mg for renal protection. He has history of hypertension and is also on amlodipine. As for the diabetes mellitus he is on Trulicity. He tells me that his blood sugar was poorly controlled in the past while he was in [place]. Today has no specific complaints. No headache nausea vomiting. No shortness of breath. No polyuria polydipsia. No edema no rash no fever. No joint pains. 08/29/23;Home BP has been good ;HR is in the 100s 10/31/23 ;Farxiga and Chlorthalidone have been added ; Creatinine up to 2.6 ; No new issues 12/13/23 ;Doing well;differential BP in both UE 01/28/2024. Tolerating diltiazem. No edema 06/18/24 : Overall doing well. No new issues 09/03/24_ recently hospitalzied. Sustained ORACIO due to hypoperfusion ORACIO resolved PFS Medical History Dyslipidemia HTN (hypertension) Acid reflux Diabetes Surgical History Hx of colonoscopy Hx of appendectomy Family History Father No problems noted. Social History Household Members: Children Alcohol intake: never Patient Tobacco Use Status: Never used Tobacco Second Hand Smoke Exposure: No Physical Exam Vital Signs: Last Vital Signs Pulse 95 09/03/24 09:58 BP 110/80 09/03/24 09:58 Pulse Ox 100 09/03/24 09:58 Oxygen Delivery Method Room Air 09/03/24 09:58 BMI result Body Mass Index 25.9 Comfortable Neck supple no JVD. Lungs entry equal no rales. Heart S1-S2 heard no gallop or rub. Abdomen soft nontender. Neuro alert awake oriented. No asterixis. Extremities no edema. Results Reviewed Nephrology Results: Hgb, (14.0-18.0) 17.7 g/dl 07/31/24 WBC, (4.8-10.8) 11.9 X10*3/uL H 07/31/24 Plt Count, (160-400) 372 X10*3/uL 07/31/24 Sodium, (135-145) 139 mmol/L 08/06/24 Potassium, (3.3-5.1) 4.2 mmol/L 08/06/24 Chloride, (96-108) 105 mmol/L 08/06/24 Carbon Dioxide, (22-29) 27 mmol/L 08/06/24 BUN, (9-16) 39 mg/dL H 08/06/24 Creatinine, (0.5-1.4) 1.99 mg/dL H 08/06/24 Calcium, (8.4-10.2) 9.7 mg/dL Δ 08/06/24 Urine Protein, (Neg-Trace) >=1000 (4+) mg/dL H 08/06/24 Urine Creatinine 117.80 mg/dL 08/06/24 Renal US 08/12/23 Assessment & Plan Assessment & Plan (1) HTN (hypertension): Code(s): I10 - Essential (primary) hypertension Category: Medical (2) CKD (chronic kidney disease) stage 3, GFR 30-59 ml/min: Code(s): N18.30 - Chronic kidney disease, stage 3 unspecified Category: Medical Plan 64-year-old man with chronic kidney disease in the setting of longstanding diabetes mellitus and hypertension with non nephrotic range proteinuria. 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 Creatinine is better - down to 1.9 The proteinuria is due to underlying diabetic kidney disease. However nondiabetic causes should be considered. Hypertension. Blood pressure is well controlled. He has mild tachycardia. This may be due to reflex tachycardia secondary to the use of amlodipine. Recommendations Continue workup for the proteinuria to screen for nondiabetic causes. C3,C4 were low; SPEP did not show MCGP ordered more serologies - pending Agree with KENDRICK inhibition for renal protection. He will benefit from SGLT2 inhibitors. Darleen has been added! Discussed importance of tight control of blood sugar and blood pressure. Goal A1c of less than 7% and blood pressure less than 130/80 mm Hg. Encouraged him to stay on a low-sodium diet Increase p.o. fluid intake. Continue to avoid nephrotoxic agents including NSAIDs. As for the reflex tachycardia ,Stopped amlodipine Started Diltiazem ER 180 mg QD in dec 2023 Increased to 240 mg ( 01/28/24) . Bump in BUN and creatinine after adding Chlorthalidone. and has now improved and stabilized Cr is better at 2.1 Serologies are unremarkable- will hold off on kidney biopsy BP is better controlled HR is at 95 and asymptomatic. Serologies negative thus far. Repeat C3/C4 Oredered prior to next visit . Orders: Orders Hepatitis B Surface Antibody 3 Months N18.30 - Chronic kidney disease, stage 3 unspecified Hepatitis B Core Antibody 3 Months N18.30 - Chronic kidney disease, stage 3 unspecified Complement C4 3 Months N18.30 - Chronic kidney disease, stage 3 unspecified Complement C3 3 Months N18.30 - Chronic kidney disease, stage 3 unspecified Basic Metabolic Panel 3 Months N18.30 - Chronic kidney disease, stage 3 un specified Hepatitis C Antibody Reflex 3 Months N18.30 - Chronic kidney disease, stage 3 unspecified Hepatitis B Surface Antigen 3 Months N18.30 - Chronic kidney disease, stage 3 unspecified Coding Level of Care Code Est Pt Level 4 (21915) Diagnoses HTN (hypertension) I10 CKD (chronic kidney disease) stage 3, GFR 30-59 ml/min N18.30
[2024-09-03 09:58] VITALS: BP 110/80; PULSE 95; O2SAT 100; BMI 25.9
--- OUTSIDE RECORDS SUMMARY | 2024-09-03 10:18 | XMS_ITS | Encounter Summary ---
Author Organization [employer] Address [address] [facility] [address] [place] [address] Care Team Providers Care Bar Assistant Name Role Phone Tanmay Gore MD Primary Care Prov ider Reason for Visit * Reason Comments Med Refill Encounter Details Date Type Department Care Team ([facility] st Contact Info) Description 02/22/2024 Refill [facility] CH[facility] MED & PEDS [address] [place], [place] [phone] Tanmay Gore MD [address] [place] [address] Social History Tobacco Use Types Packs/Day Years [...] as of this encounter Plan of Treatment Upcoming Encounters Date Type Department Care Team (Late st Contact Info) Description 10/12/2024 8:45 AM EDT Telemedicine [facility] MED & PEDS [address] [place] [address] Tanmay Gore MD [address] [place] [address] documented as of this encounter Visit Diagnoses Not on filedocumented in this encounter Care Teams Bar Assistant Relationship Specialty Start Date End Date Tanmay Gore MD [address] [place] [address] PCP - General Internal Medicine 03/19/23 documented as of this encounter
== END 2024-09-03 10:06 | disposition home or self-care (01) ==
LOC: HO.HKA 09:47
PROVIDERS: PCP Internal Medicine; Visit Provider Internal Medicine Hypertension Specialist
DX: I10 Essential (primary) hypertension (principal); N18.30 Chronic kidney disease, stage 3 unspecified
CPT/HCPCS: 99214

== ENCOUNTER 2024-11-30 13:11 | Outpatient (REF) | payer OTHER, SELFPAY ==
--- OUTSIDE RECORDS SUMMARY | 2024-11-30 14:29 | XMS_ITS | Encounter Summary ---
Author Organization [employer] Address [address] [facility] [address] [place] [address] Care Team Providers Care Technology Analyst Name Role Phone Tanmay Gore MD Primary Care Prov ider Reason for Visit * Reason Comments Med Refill Encounter Details Date Type Department Care Team ([facility] Contact Info) Description 02/27/2024 Refill [facility] CHC MED & PEDS [address] [place], [place] [phone] Tanmay Gore MD [address] [place] [address] Social History Tobacco Use Types Packs/Day Years [...] Care Team (Late st Contact Info) Description 02/23/2025 1:00 PM EST Telemedicine [facility] MED & PEDS [address] [place] [address] Tanmay Gore MD [address] [place] [address] documented as of this encounter Visit Diagnoses Not on filedocumented in this encounter Care Teams Technology Analyst Relationship Specialty Start Date End Date Tanmay Gore MD [address] [place] [address] PCP - General Internal Medicine 03/19/23 documented as of this encounter
--- OUTSIDE RECORDS SUMMARY | 2024-11-30 14:29 | XMS_ITS | Encounter Summary ---
Author Organization [employer] Address [address] [facility] [address] [place] [address] Care Team Providers Care Paper Stripper Name Role Phone Tanmay Gore MD Primary Care Prov ider Tanmay Gore MD Primary Care Prov ider Reason for Visit * Reason Comments Med Refill Encounter Details Date Type Department Care Team (Late Contact Info) Description 06/12/2022 Refill [facility] CHC MED & PEDS [address] [place] [address] Tanmay Gore MD [address] [place] [address] Social History Tobacco Use Types Packs/Day Years [...] Upcoming Encounters Date Type Department Care Team ([facility] Contact Info) Description 02/23/2025 1:00 PM EST Telemedicine [facility] CHC MED & PEDS [address] [place] [address] Tanmay Gore MD [address] [place] [address] documented as of this encounter Visit Diagnoses Not on filedocumented in this encounter Care Teams Paper Stripper Relationship Specialty Start Date End Date Tanmay Gore MD [address] [place] [address] PCP - General Internal Medicine 07/29/19 03/10/23 Tanmay Gore MD [address] [place] [address] PCP - General Internal Medicine 03/19/23 documented as of this encounter
--- OUTSIDE RECORDS SUMMARY | 2024-11-30 14:29 | XMS_ITS | Encounter Summary ---
Author Organization [employer] Address [address] [facility] [address] [place] [address] Care Team Providers Care Anesthesiologists' Assistant Name Role Phone Tanmay Gore MD Primary Care Prov ider Reason for Visit * Reason Comments Med Refill Encounter Details Date Type Department Care Team ([facility] Contact Info) Description 02/22/2024 Refill [facility] CHC MED & PEDS [address] [place], [place] [phone] Tanmay Gore MD [address] [place] [address] Social History Tobacco Use Types Packs/Day Years [...] Info) Description 02/23/2025 1:00 PM EST Telemedicine [facility] MED & PEDS [address] [place] [address] Tanmay Gore MD [address] [place] [address] documented as of this encounter Visit Diagnoses Not on filedocumented in this encounter Care Teams Anesthesiologists' Assistant Relationship Specialty Start Date End Date Tanmay Gore MD [address] [place] [address] PCP - General Internal Medicine 03/19/23 documented as of this encounter
--- OUTSIDE RECORDS SUMMARY | 2024-11-30 14:29 | XMS_ITS | Encounter Summary ---
Author Organization [employer] Address [address] [facility] [address] [place] [address] Care Team Providers Care Finance Controller Name Role Phone Tanmay Gore MD Primary Care Prov ider Reason for Visit * Reason Onset Date Comments Medication Problem 06/11/2023 Encounter Details Date Type Department Care Team (Late st Contact Info) Description 06/11/2023 Telephone [facility] MEDICINE [address] [place] [address] Tanmay Gore MD [address] [place], [place] [phone] Medication Problem Social History Tobacco Use Types [...] the past 12 months, has t he [employer], [employer], oil [id number] threatened to shut off services in your [...] documented in this encounter Plan of Treatment Upcoming Encounters Date Type Department Care Team (Late st Contact Info) Description 02/23/2025 1:00 PM EST Telemedicine [facility] MED & PEDS [address] [place] [address] Tanmay Gore MD [address] [place] [address] documented as of this encounter Visit Diagnoses Not on filedocumented in this encounter Care Teams Finance Controller Relationship Specialty Start Date End Date Tanmay Gore MD [address] [place] [address] PCP - General Internal Medicine 03/19/23 documented as of this encounter
--- OUTSIDE RECORDS SUMMARY | 2024-11-30 14:29 | XMS_ITS | Encounter Summary ---
Author Organization [employer] Address [address] [facility] 7t [place] [address] Care Team Providers Care Television Production Clerk Name Role Phone Tanmay Gore MD Primary Care Prov ider Reason for Visit * Reason Comments Med Refill Encounter Details Date Type Department Care Team ([facility] st Contact Info) Description 11/24/[address] [facility] [address] [place], [place] [phone] Otilia Mancia FNP [address] [place] [address] Social History Tobacco Use Types Packs/Day Years Used Date Smoking Tobacco: Former Cigarettes 0.3 20 1 981 - 2000 Smokeless Tobacco: Never Alcohol Use Standard Drinks/Week Comments Yes 0 (1 standard drink = 0.6 oz pur e alcohol) social beer Depression Answer Date Recorded Patient Health Questionnaire-9 Score 0 10/12/2024 Patient Health Questionnaire-9 Score 0 10/12/2024 Last PHQ-9: Questionnaire Data Not on file 0 10/12/2024 Housing Stability Answer Date Recorded What is your housing situation today? I have ronald anand 10/12/[address] you li ve. Do you have problems with any of the following? None of the above 10/12/2024 Food Insecurity Answer Date Recorded Within the past 12 months, y ou worried that your food would run out before you got money to buy more: Never True 10/12/2024 Within the past 12 months,th e food you bought just didn't last and you didn't have enough money to get more: Never True 01/2025 Transportation Answer Date Recorded In the past 12 months, has l ack of transportation kept you from medical appts, meetings, work or from getting things needed for daily living? No 10/12/2024 Utilities Answer Date Recorded In the past 12 months, has t he electric, gas, oil or water company threatened to shut off services in your home? No 10/12/2024 Depression Answer Date Recorded Patient Health Questionnaire-2 Score 0 10/12/2024 Internet Access Answer Date Recorded Internet Access Q1 Yes 10/12/2024 Internet Access Q2 Not on file 10/12/2024 Sex and Gender Information Value Date Recorded Sex Assigned at Male 01/01/2022 10:18 AM EDT Legal Sex Male 10:18 AM EDT Gender Identity Male 03/19/2023 9:09 AM EST Sexual Orientation Don't know 03/19/2023 9: 09 AM EST documented as of this encounter Plan of Treatment Upcoming Encounters Date Type Department Care Team ([facility] st Contact Info) Description 02/23/2025 1:00 PM EST Telemedicine [facility] [address] [place] [address] Tanmay Gore MD [address] [place] [address] documented as of this encounter Visit Diagnoses Not on filedocumented in this encounter Additional Health Concerns Assessment Noted Time PHQ-9 Depression Total Score: 0 10/13/19 25 8:53 AM EDT documented as of this encounter Care Teams Television Production Clerk Relationship Specialty Start Date End Date Tanmay Gore MD [address] [place] [address] PCP - General Internal Medicine 03/19/23 documented as of this encounter
--- OUTSIDE RECORDS SUMMARY | 2024-11-30 14:29 | XMS_ITS | Encounter Summary ---
Author Organization [employer] Address [address] [facility] [address] 7[address] [place] [address] Care Team Providers Care Wan Support Specialist Name Role Phone Tanmay Gore MD Primary Care Prov ider Reason for Visit * Reason Onset Date Comments Medication Question 01/13/2024 Encounter Details Date Type Department Care Team (Late st Contact Info) Description 01/13/2024 Telephone [facility] [address] [place] [address] Tanmay Gore MD [address] [place], [place] [phone] Medication Question Social History Tobacco Use Types [...] the past 12 months, has t he [email or web address], [employer], oil or water company threatened to shut [...] Info) Description 02/23/2025 1:00 PM EST Telemedicine [facility] [address] [place] [address] Tanmay Gore MD [address] [place] [address] documented as of this encounter Visit Diagnoses Not on filedocumented in this encounter Care Teams Wan Support Specialist Relationship Specialty Start Date End Date Tanmay Gore MD [address] [place] [address] PCP - General Internal Medicine 03/19/23 documented as of this encounter
--- OUTSIDE RECORDS SUMMARY | 2024-11-30 14:29 | XMS_ITS | Clinical Summary ---
Author Organization [employer] Address [address] [facility] 7[address] [place] [address] Care Team Providers Care Grounds Caretaker Name Role Phone Tanmay Gore MD Primary Care Prov ider Allergies No known active allergies Medications aspirin 81 MG EC tablet take 1 tablet by oral route every day 05/05/19 22 Active Blood Glucose Monitoring Suppl (FreeStyle Lite) w/Device kit 1 kit in the morning. 1 kit 04/17/19 24 Active glucose blood (FREESTYLE LITE) test strip USE TO TEST BLOOD SUGAR TWICE A DAY 100 strip 12 04/17/19 24 Active dapagliflozin (Farxiga) 10 MG Take 1 tablet (10 mg) by mouth Once per day. 90 tablet 3 09/18/19 24 Active dilTIAZem CD (Cardizem CD) 120 MG 24 hr capsule Take 240 mg by mouth Once per day. Active losartan (Cozaar) 100 MG tablet TAKE 1 TABLET BY MOUTH EVERY DAY IN THE MORNING 90 tablet 3 04/03/19 25 Active empagliflozin (Jardiance) 25 MG Take 1 tablet (25 mg) by mouth Once per day. 30 tablet 08/06/192025 Active Dulaglutide (Trulicity) 4.5 MG/0.5ML solution auto-injector Indications:T ype 2 diabetes mellitus with diabetic microalbuminu wayne, without long-term current use of insulin (HCC) Inject 4.5 mg under the skin 1 (one) time per week. 3 mL 08/06/19 25 Active glipiZIDE (Glucotrol) 10 MG tablet Take 1 tablet (10 mg) by mouth before breakfast and before evening meal. 60 tablet 11 06/13/20 25 06/13/ 2026 Active Insulin Syringe 31G X 5/16 0.3 ML misc For administering insulin daily 100 each 1 08/15/19 25 Active atorvastatin (Lipitor) 80 MG tablet Take 1 tablet (80 mg) by mouth in the morning. 90 tablet 1 08/28/19 25 Active Continuous Glucose Library Clerk [employer] (FreeStyle Antionette 3 Campus) device 1 each Once per day. Use as directed for CGM 1 each 09/08/19 25 Active Continuous Glucose Sensor (FreeStyle Antionette 3 Plus Sensor) misc 1 each every 15 days. Apply 1 every 15 days as directed for CGM 2 each 09/08/19 25 Active omeprazole (PriLOSEC) [address] capsuleIndica tions:Abdomin al pain with vomiting TAKE 1 CAPSULE BY MOUTH EVERY DAY 30 capsule 2 11/18/19 25 Active chlorthalidon e (Hygroton) 25 MG tablet TAKE 1 TABLET BY MOUTH EVERY DAY 30 tablet 2 11/26/19 25 Active traZODone (Desyrel) 50 MG tablet TAKE 1 TABLET BY MOUTH AT BEDTIME 30 tablet 2 11/26/19 25 Active Insulin Glargine-yfgn 100 UNIT/ML solution Inject 30 Units under the skin Once per day. 3 mL 11/25/19 25 Active omeprazole (PriLOSEC) [address] capsuleIndica tions:Abdomin al pain with vomiting TAKE 1 CAPSULE BY MOUTH ONCE A DAY 90 capsule 08/25/19 25 2024 Discontinued traZODone (Desyrel) 50 MG tablet TAKE 1 TABLET BY MOUTH AT BEDTIME 90 tablet 09/01/19 25 2024 Discontinued(R eorder (will not trigger notification to Pharmacy)) chlorthalidon e (Hygroton) 25 MG tablet TAKE 1 TABLET BY MOUTH EVERY DAY 90 tablet 09/01/19 25 2024 Discontinued Insulin Glargine-yfgn 100 UNIT/ML solution Inject 20 Units under the skin Once per day. 3 mL 10/13/19 25 2024 Discontinued Active Problems Problem Noted Date Diagnosed Date Abdominal pain with vomiting 07/31/2024 Assessment & Plan (08/01/2024 5:47 PM EDT): Pt endorses vague intermittent upper abdominal pain with associated acid symptoms and nausea. Reviewed low acid diet, resume omeprazole. Will order lab work due to hx of pain and emesis, monitor renal function and check pancreatic enzymes Update: critical labs, pt advised to go to ER at time of call pt had been contacted by technical publications writer team and was en route to er Stage 3b chronic kidney disease (CMS/HCC) 2023 Assessment & Plan (07/18/2023 2:57 PM EDT): 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 due to DM/poor hypertension control, he is on ARB and SGLT, will refer to nephrology for evaluation Mixed hyperlipidemia 06/06/2023 Assessment & Plan (10/12/2024 9:33 AM EDT): On statin therapy, no side effect reported, will continue current treatment Assessment & Plan (08/27/2024 12:37 PM EDT): Not at target, will increase atorvastatin to 80mg, keep low cholesterol diet, exercise as tolerated, follow up in 3 months Assessment & Plan (08/05/2024 3:23 PM EDT): On atorvastatin, new labs ordered for guidance of therapy Assessment & Plan (09/18/2023 10:02 AM EDT): On atorvastatin 40mg, new labs will be ordered for guidance of therapy Assessment & Plan (06/06/2023 10:28 AM EDT): On atorvastatin 40mg, new labs will be ordered Type 2 diabetes mellitus wit h diabetic microalbuminuria, without long-term current use of insulin 03/19/2023 Assessment & Plan (11/24/2024 5:32 PM EDT): Not at target , will increase lantus to 30 units, continue with glipizide, encouraged lifestyle modifications Assessment & Plan (10/12/2024 9:34 AM EDT): Not at target, will increase lantus to 20 units, keep low carb/no sugar diet Assessment & Plan (08/27/2024 12:46 PM EDT): Improving, he has not picked up lantus, he is doing glipizide, not on trulicity or sglt2 ( not covered by insurance), he understand the risk. Assessment & Plan (08/05/2024 3:24 PM EDT): On trulicity 4.5mg, will add jardiance for renal protection, he refers farxiga was denied Assessment & Plan (01/22/2024 11:01 AM EST): [...] empagliflozin (not covered by insurance), will send farxiga to our pharmacy, continue trulicity, refers has [...] weeks Primary hypertension 03/19/2023 Assessment & Plan (10/12/2024 9:34 AM EDT): Controlled, keep low sodium diet and exercise as tolerated, keep bp log Assessment & Plan (08/27/2024 12:37 PM EDT): Controlled although today was on the lower end, he is asyptomatic, told to keep bp log, will follow up in 3 months Assessment & Plan (08/05/2024 3:25 PM EDT): Controlled, refers at home has remained below 140/90, followed by nephrology, on losartan chlorthalidone and amlodipine Assessment & Plan (08/01/2024 5:43 PM EDT): Above goal today, Will repeat bp at home Assessment & Plan (01/22/2024 11:00 AM EST): [...] Encounters Date Type Department Care Team Description 11/24/2024 3:30 PM EDT Office Visit [facility] [address] [place] [address] Tanmay Gore MD Chest pain, unspecified type (Primary Dx); Type 2 diabetes mellitus with diabetic microalbuminuria, without long-term current use of insulin (CMS/[facility]) 11/24/2024 Travel 11/24/2024 Refill [facility] [address] [place] [address] Otilia Mancia FNP 11/24/2024 Refill [facility] [address] [place] [address] Tanmay Gore MD 11/23/2024 Telephone [facility] [address] [place] [address] Tanmay Gore MD chart prep 11/14/2024 Refill [facility] [address] [place] [address] Tanmay Gore MD Abdominal pain with vomiting 10/12/2024 8:45 AM EDT Telemedicine [facility] [address] [place] [address] Tanmay Gore MD Mixed hyperlipidemia (Primary Dx); Primary hypertension; Type 2 diabetes mellitus with diabetic microalbuminuria, without long-term current use of insulin (CMS/HCC) 10/12/2024 Travel 09/07/2024 Orders Only [facility] [address] [place] [address] Tanmay Gore MD 09/02/2024 Telephone [facility] [address] [place] [address] Tanmay Gore MD Durable Medical Equipment 08/31/2024 Refill [facility] [address] [place] [address] Tanmay Gore MD from Last 3 Months Immunizations Immunization Administration Dates Next Due Pneumococcal Conjugate PCV 20 04/17/2023 Family History Medical History Relation Name Comments Diabetes Brother Diabetes Father Hypertension Father Hyperlipidemia Mother Stroke Mother Relation Name Status Comments Brother Father Mother Social History Tobacco Use Types Packs/Day Years Used Date Smoking Tobacco: Former Cigarettes 0.3 20 1 981 - 1999 Smokeless Tobacco: Never Alcohol Use Standard Drinks/Week [...] Sign Reading Time Taken Comments Blood Pressure 122/76 11/24/2024 3:18 PM EDT Pulse 96 11/24/2024 3:18 PM EDT Temperature 36.8 C (98.3 F) 11/24/2024 3:18 PM EDT Respiratory Rate 20 11/24/2024 3:18 PM EDT Oxygen Saturation 98% 07/31/2024 1:00 PM EDT Inhaled Oxygen Concentration - - Weight 68 kg (150 lb) 11/24/2024 3:18 PM EDT Height 160 cm (5' 3 ) 11/24/2024 3:18 PM EDT Body Mass Index 26.57 11/24/2024 3:18 PM EDT Plan of Treatment Upcoming Encounters Date Type Department Care Team (Late st Contact Info) Description 02/23/2025 1:00 PM EST Telemedicine [facility] [address] [place] [address] Tanmay Gore MD [address] [place] [address] Health Maintenance Due Date Last Done Comments CT Colonography 1960 FIT DNA/Cologuard 1960 FOBT 1960 Sigmoidoscopy 1960 Disability Screening 1960 RSV Patients and Patients Aged 60 years or older (1 - Risk 60-74 years 1-dose series) 2020 FIT 04/10/2021 04/10/2020 Zoster Vaccines (2 of 2) 06/18/2022 04/23/2022 Diabetes: Foot Exam 04/17/2024 04/17/2023, 04/17/2023, 04/17/2023, Additional history exists Eye Exam 06/12/2024 Tobacco Screening 09/17/2024 09/18/2023 COVID-19 Vaccine (3 season) 2024 08/09/2020, 07/19/2020 Influenza Vaccine (#1) 2024 , 11/15/2022, 12/06/2021, Additional history exists Diabetes: Hemoglobin A1C 02/23/2025 025, 08/06/2024, 09/19/2023, Additional history exists Lipid Panel 08/06/2025 08/06/2024, 09/01, 06/20/2023, Additional history exists Alcohol/Substance Use Screening 10/12/2025 10/12/2024 Depression Screening 10/12/2025 10/12/2024, 10/13/19 25 SDOH Screening 10/12/2025 10/12/2024 Colonoscopy 11/18/2025 11/19/2023 Colorectal Cancer Screening 11/18/2025 DTaP/Tdap/Td Vaccines (3 - Td or Tdap) 06/11/2027 06/10/2017, 07/19/2014 HIV Screening 03/20/2033 Hepatitis C Screening Completed 03/20/2023 Pneumococcal Vaccine: 50+ Years Completed 04/17/2023, 06/10/2017 HIB Vaccines Aged Out No longer eligi [...] patient's age to complete this topic Meningococcal B Vaccine Aged Out No l onger eligible based on patient's age to complete [...] Procedure Name Priority Date/Time Associated Diagnosis Comments POCT GLYCATED HEMOGLOBIN, TOTAL Routine 11/24/2024 3:29 PM EDT Type 2 diabetes mellitus with diabetic microalbuminuria, without long-term current use of insulin (CMS/HCC) POCT GLUCOSE Routine 11/24/2024 3:28 PM EDT Type 2 diabetes mellitus with diabetic microalbuminuria, without long-term current use of insulin (CMS/HCC) LIPID PANEL, STANDARD Routine 08/06/2024 9:21 AM EDT Mixed hyperlipidemia HM COLONOSCOPY Routine 11/19/2023 HEPATITIS C AB W/REFL TO HCV RNA, QN, PCR Routine 03/20/2023 9:00 AM EST Primary hypertension ZZZ HISTORICAL FECAL IMMUNOCHEMICAL TEST X1 (FIT) Routine 04/10/2020 10:58 AM EST from Last 3 Months or Most Recently Relevant to Health Maintenance Results * (ABNORMAL) POCT Hgb A1c (11/24/2024 3:29 PM EDT) Pathologist [facility] Hemoglobin A1C 8.8(A) 4.0 - 5.7 % QC Media Lot # [id number] Lot# Expiration Date Blood 11/24/2024 3:29 PM EDT Tanmay Mello MD POINT OF CARE TEST ENTER/EDIT ORDERABLES Final Result * POCT Glucose (11/24/2024 3:28 PM EDT) Pathologist [facility] Glucose Blood, POC 131 60 - 200 mg/dL QC Media Lot # [id number] Lot# Expiration Date Blood Capillary blood specimen / Unknown 11/24/2024 3:28 PM EDT Tanmay Mello MD POINT OF CARE TEST ENTER/EDIT ORDERABLES Final Result * (ABNORMAL) Lipid Panel, Standard (08/06/2024 9:21 AM EDT) Triglycerides 181(H) <150 mg/dL [facility] Comment:Desirable Triglyceri de: less than 150 mg/dLBorderline High Triglyceride 150-199 mg/dLHigh Triglyceride: 200-499 mg/dLVery High Triglyceride: greater than or equal to 5OO mg/dL Cholesterol 246(H) <200 mg/dL [facility] Comment:Desirable Cholestero l: less than 200 mg/dLBorderline High Cholesterol: 200-239 mg/dLHigh Cholesterol: greater than 239 mg/dL LDL Cholesterol Calculated 168(H) <100 mg/dL [facility] Comment:Desirable LDL: less than 100 mg/dLNear Optimal/Above Optimal LDL: 110- 129 mg/dLBorderline High LDL: 130-159 mg/dLHigh LDL: 160-189 mg/dLVery High LDL: greater than or equal to 190 mg/dL HDL Cholesterol 42 >40 mg/dL [facility] Comment:Desirable HDL: great er than 40 mg/dL Note: This HDL assay may give artificially low results in patients with liver disease. Blood Venous blood specimen / Unknown 08/06/2024 9:21 AM EDT 08/06/2024 2:08 PM EDT Tanmay Mello MD LAB BLOOD ORDERABL ES Final Result [facility] [address] [place] [phone] * Colonoscopy (11/19/2023) Pathologist [facility] Colonoscopy Normal Normal Narrative Radha Angela - 11/19/2023 Colonoscopy order added per GI office note Repeat Colonoscopy in 1-2 years due to fair left sided prep or earlier if clinically indicated --next time use adult scope Renu Provider HEALTH MAINTENANCE Final Result * Hepatitis C Antibody with Reflex to HCV, RNA, Quantitative, Real-Time PCR (03/20/2023 9:00 AM EST) Pathologist [facility] Hepatitis C Antibody Nonreactive Nonreactive [facility] Comment:Antibodies to HCV no t detected; does not exclude early acuteHCV infection. Blood Venous blood specimen / Unknown 03/20/2023 9:00 AM EST 03/20/2023 2:26 PM EST us Tanmay Mello MD LAB BLOOD ORDERABL ES Final Result [facility] [address] [place] [address] [phone] * Fecal immunochemical test x1 (FIT) (04/10/2020 10:58 AM EST) FIT Date 1 [facility] FIT Date 2 [facility] FIT Lot [facility] FIT1 [facility] Comment:NO SPECIMEN ON CARD FIT2 [facility] 04/10/2020 10:5 8 AM EST us Historical Provider HISTORICAL/NON ORDERABLE LABS Final Result [facility] [address] from Last 3 Months or Most Recently Relevant to Health Maintenance Insurance [id number] CHOICE * Guarantor: Jame Silva Account Type Relation to Patient Date of Phone Billing Address Personal/Family Self [address] [id number] Care Teams Grounds Caretaker Relationship Specialty Start Date End Date KeithTanmay Cantrell MD [address] [place] [phone] PCP - General Internal Medicine 03/19/23
[2024-11-30 14:40] LABS: Alanine Aminotransferase 24 U/L (0-40); Albumin Level 4.7 g/dL (3.5-5.0); Alkaline Phosphatase 122 U/L (39-117); Anion Gap 17 (12-20); Aspartate Amino Transferase 27 U/L (5-37); Blood Urea Nitrogen 60 mg/dL (9-16); Calcium 10.1 mg/dL (8.4-10.2); Carbon Dioxide 26 mmol/L (22-29); Chloride 107 mmol/L (96-108); Cholesterol 290 mg/dL (<200); Estimated Glomerular Filt Rate 24; HDL Cholesterol 37 mg/dL (>40); Potassium 4.8 mmol/L (3.3-5.1); Sodium 145 mmol/L (135-145); Total Protein 8.7 g/dL (6.5-8.0); Triglycerides 208 mg/dL (<150)
[2024-12-01 05:53] LABS: HBS Num1 0.93 mIU/mL (0-7.99); HBc Num1 0.13 S/CO (0.00-0.79); HBsAGNum1 0.38 S/CO (0.00-0.99); Hepatitis B Surface Antigen Negative (Negative); ~HepC Num1 0.14 S/CO (0.00-0.79); ~Hepatitis B Surface Antibody NONREACTIVE (Nonreactive); ~Hepatitis C Antibody Nonreactive (Nonreactive)
== END 2024-11-30 13:12 | disposition home or self-care (01) ==
LOC: HO.CHCLDS 13:11
PROVIDERS: PCP Internal Medicine; Visit Provider Internal Medicine Hypertension Specialist
DX: E11.22 Type 2 diabetes mellitus with diabetic chronic kidney disease (principal); N18.30 Chronic kidney disease, stage 3 unspecified; E11.29 Type 2 diabetes mellitus with other diabetic kidney complication; R80.9 Proteinuria, unspecified
CPT/HCPCS: 36415; 80053; 80061; 86160; 86704; 86706; 86803; 87340

== ENCOUNTER → 2024-12-03 10:50 | Outpatient (AMB) | payer OTHER, SELFPAY ==
[2024-12-03 10:55] VITALS: BP 98/74; PULSE 72; O2SAT 98; BMI 27.1
--- NOTE | 2024-12-03 10:55 | HO.NEPHOV_ITS ---
Vital Signs 12/03/24 10:55 Height 5 ft 3 in Weight 153 lb BMI 27.1 BP 98/74 Blood Pressure Location Rt brachial Position Sitting Pulse 72 Pulse Source Pulse Oximeter Pulse Oximetry (%) 98 Oxygen Delivery Method Room Air Intake Visit Reasons: 3mon follow-up w/labs Packing Room Inspector Required: No Accompanied by: Self / Same As Patient Allergies No Known Allergies Allergy (Verified 12/03/24 10:57) Medication List - Last Reconciled 12/03/24 by Gene Stout MD aspirin 81 mg PO DAILY atorvastatin 80 mg PO QAM brimonidine 0.2% 1 drp ophthalmic (eye) BID chlorthalidone 25 mg PO DAILY clotrimazole 1% appl topical DAILY dapagliflozin propanediol (Farxiga) 10 mg PO DAILY diltiazem HCl CD 240 mg PO DAILY dulaglutide (Trulicity) mg subcut QWEEK glipizide 10 mg PO BID latanoprost 0.005% drps ophthalmic (eye) losartan 100 mg PO .evening omeprazole 20 mg PO DAILY spironolactone 25 mg PO DAILY timolol maleate 0.5% 1 drp ophthalmic (eye) BID HPI Comments Details: . Jame is a middle-aged man with a history of diabetes mellitus for more than 30 years. He has chronic kidney disease with a baseline creatinine around 2.5 mg/dL. He was found to have significant proteinuria of around 1200 mg and hence this consultation. Currently he is on losartan 100 mg for renal protection. He has history of hypertension and is also on amlodipine. As for the diabetes mellitus he is on Trulicity. He tells me that his blood sugar was poorly controlled in the past while he was in [place]. Today has no specific complaints. No headache nausea vomiting. No shortness of breath. No polyuria polydipsia. No edema no rash no fever. No joint pains. 08/29/23;Home BP has been good ;HR is in the 100s 10/31/23 ;Farxiga and Chlorthalidone have been added ; Creatinine up to 2.6 ; No new issues 12/13/23 ;Doing well;differential BP in both UE 01/28/2024. Tolerating diltiazem. No edema 06/18/24 : Overall doing well. No new issues 09/03/24_ recently hospitalzied. Sustained ORACIO due to hypoperfusion ORACIO resolved 12/03/24 - The patient is a 64-year-old male presenting with chronic kidney disease. - Significant proteinuria noted, possibly related to diabetes mellitus. - Recent labs showed 7,000 mg of proteinuria, - Experiencing hypotension, likely due to chlorthalidone, PFSH Medical History Dyslipidemia HTN (hypertension) Acid reflux Diabetes Surgical History Hx of colonoscopy Hx of appendectomy Family History Father No problems noted. Social History Household Members: Children Alcohol intake: never Patient Tobacco Use Status: Never used Tobacco Second Hand Smoke Exposure: No Physical Exam Vital Signs: Last Vital Signs Pulse 72 12/03/24 10:55 BP 98/74 12/03/24 10:55 Pulse Ox 98 12/03/24 10:55 Oxygen Delivery Method Room Air 12/03/24 10:55 BMI result Body Mass Index 27.1 Comfortable Neck supple no JVD. Lungs entry equal no rales. Heart S1-S2 heard no gallop or rub. Abdomen soft nontender. Neuro alert awake oriented. No asterixis. Extremities no edema. Results Reviewed Nephrology Results: Hgb, (14.0-18.0) 17.7 g/dl 07/31/24 WBC, (4.8-10.8) 11.9 X10*3/uL H 07/31/24 Plt Count, (160-400) 372 X10*3/uL 07/31/24 Sodium, (135-145) 145 mmol/L 11/30/24 Potassium, (3.3-5.1) 4.8 mmol/L 11/30/24 Chloride, (96-108) 107 mmol/L 11/30/24 Carbon Dioxide, (22-29) 26 mmol/L 11/30/24 BUN, (9-16) 60 mg/dL H 11/30/24 Creatinine, (0.5-1.4) 2.66 mg/dL H 11/30/24 Calcium, (8.4-10.2) 10.1 mg/dL 11/30/24 Urine Protein, (Neg-Trace) >=1000 (4+) mg/dL H 08/06/24 Urine Creatinine 117.80 mg/dL 08/06/24 Renal US 08/12/23 Assessment & Plan Assessment & Plan (1) HTN (hypertension): Code(s): I10 - Essential (primary) hypertension Category: Medical (2) CKD (chronic kidney disease) stage 3, GFR 30-59 ml/min: Code(s): N18.30 - Chronic kidney disease, stage 3 unspecified Category: Medical Plan 64-year-old man with chronic kidney disease in the setting of longstanding diabetes mellitus and hypertension with non nephrotic range proteinuria. 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 Creatinine bumped up to 2.66 ? due to hypoperfsuion form LOW BP STOP Chlorthalidone ( 12/03/24) The proteinuria is due to underlying diabetic kidney disease. However nondiabetic causes should be ruled out Will arrange for kidney biopsy due to significant protienuria h/o Hypertension. As for the reflex tachycardia ,Stopped amlodipine Started Diltiazem ER 180 mg QD in dec 2023 Increased to 240 mg ( 01/28/24) Blood pressure is rather low today- DC Chlorthalidone Agree with KENDRICK inhibition for renal protection. He will benefit from SGLT2 inhibitors. Darleen has been added! Discussed importance of tight control of blood sugar and blood pressure. Goal A1c of less than 7% and blood pressure less than 130/80 mm Hg. Encouraged him to stay on a low-sodium diet Increase p.o. fluid intake. Continue to avoid nephrotoxic agents including NSAIDs. . Orders: Orders Prothrombin Time INR Today N18.30 - Chronic kidney disease, stage 3 unspecified Partial Thromboplastin Time Today N18.30 - Chronic kidney disease, stage [address] biopsy renal RT Today N18.30 - Chronic kidney disease, stage 3 unspecified Complete Blood Count Auto Diff 6 Weeks N18.30 - Chronic kidney disease, stage 3 unspecified Basic Metabolic Panel Today N18.30 - Chronic kidney disease, stage 3 unspecified Protein Electrophoresis, Serum Today N18.30 - Chronic kidney disease, stage 3 unspecified Complete Blood Count Auto Diff Today N18.30 - Chronic kidney disease, stage 3 unspecified Coding Level of Care Code Est Pt Level 4 (42310) Diagnoses HTN (hypertension) I10 CKD (chronic kidney disease) stage 3, GFR 30-59 ml/min N18.30
--- OUTSIDE RECORDS SUMMARY | 2024-12-03 12:44 | XMS_ITS | Clinical Summary ---
Author Organization [employer] Address [address] [facility] [address] [place] [address] Care Team Providers Care Automotive Technician Instructor Name Role Phone Tanmay Gore MD Primary [...] tablet 1 08/28/19 25 Active Continuous Glucose Capacity Planning Engineer (FreeStyle Antionette 3 [place]) device 1 each Once per day. Use [...] of call pt had been contacted by sales agent pest control service team and was en route to er [...] Encounters Date Type Department Care Team Description 11/30/2024 Orders Only GENERIC EXTERNAL DATA DEPARTMENT Provider, Generic External Data 11/24/2024 3:30 PM EDT Office Visit [facility] [address] [place] [address] Tanmay Gore MD Chest pain, unspecified type (Primary Dx); Type 2 diabetes mellitus with diabetic microalbuminuria, without long-term current use of insulin (CMS/HCC) 11/24/2024 Travel 11/24/2024 Refill [facility] [address] [place] [address] Otilia Mancia FNP 11/24/2024 Refill [facility] [address] [place] [address] Tanmay Gore MD 11/23/2024 Telephone [facility] [address] [place] [address] Tanmay Gore MD chart prep 11/14/2024 Refill [facility] [address] [place] [address] Tanmay Gore MD Abdominal pain with vomiting 10/12/2024 8:45 AM EDT Telemedicine [facility] [address] [place] [address] Tanmay Gore MD Mixed hyperlipidemia (Primary Dx); Primary hypertension; Type 2 diabetes mellitus with diabetic microalbuminuria, without long-term current use of insulin (CMS/HCC) 10/12/2024 Travel 09/07/2024 Orders Only [facility] [address] [place] [address] Tanmay Gore MD 09/02/2024 Telephone [facility] [address] [place] [address] Tanmay Gore MD Durable Medical Equipment from Last 3 Months Immunizations Immunization Administration [...] Info) Description 02/23/2025 1:00 PM EST Telemedicine [facility] [address] [place] [address] Tanmay Gore MD [address] [place] [address] Health Maintenance Due Date Last Done Comments [...] 06/12/2024 Tobacco Screening 09/17/2024 09/18/2023 COVID-19 Vaccine ( season) 2024 08/09/2020, 07/19/2020 Influenza Vaccine (#1) 2024 , 11/15/2022, 12/06/2021, Additional history exists Diabetes: Hemoglobin A1C 02/23/2025 025, 08/06/2024, 09/19/2023, Additional history exists Alcohol/Substance Use Screening 10/12/2025 10/12/2024 Depression Screening 10/12/2025 10/12/2024, 10/13/19 25 SDOH Screening 10/12/2025 10/12/2024 Colonoscopy 11/18/2025 11/19/2023 Colorectal Cancer Screening 11/18/2025 Lipid Panel 11/30/2025 11/30/2024, 07/2024, 09/19/2023, Additional history exists DTaP/Tdap/Td Vaccines (3 - Td or Tdap) 06/11/2027 06/10/2017, 07/19/2014 HIV Screening 03/20/2033 Pneumococcal Vaccine: 50+ Years Completed 04/17/2023, 06/10/2017 Hepatitis C Screening Completed 11/30/2024, 024 HIB Vaccines Aged Out No longer eligi [...] Procedure Name Priority Date/Time Associated Diagnosis Comments COMPLEMENT COMPONENT C4C Routine 11/30/2024 1:19 PM EDT COMPLEMENT COMPONENT C3C Routine 11/30/2024 1:19 PM EDT HEPATITIS B SURFACE ANTIGEN, EIA Routine 11/30/2024 1:19 PM EDT HEPATITIS C AB W/REFL TO HCV RNA, QN, PCR Routine 11/30/2024 1:19 PM EDT HEPATITIS B CORE AB TOTAL Routine 11/30/2024 1:19 PM EDT HEPATITIS B SURFACE ANTIBODY, QUALITATIVE Routine 11/30/2024 1:19 PM EDT LIPID PANEL, STANDARD Routine 11/30/2024 1:19 PM EDT Type 2 diabetes mellitus with diabetic microalbuminuria, without long-term current use of insulin (CMS/HCC) COMPREHENSIVE METABOLIC PANEL Routine 11/30/2024 1:19 PM EDT Type 2 diabetes mellitus with diabetic microalbuminuria, without long-term current use of insulin (CMS/HCC) POCT GLYCATED HEMOGLOBIN, TOTAL Routine 11/24/2024 3:29 PM EDT Type 2 diabetes mellitus with diabetic microalbuminuria, without long-term current use of insulin (CMS/HCC) POCT GLUCOSE Routine 11/24/2024 3:28 PM EDT Type 2 diabetes mellitus with diabetic microalbuminuria, without long-term current use of insulin (CMS/HCC) HM COLONOSCOPY Routine 11/19/2023 ZZZ HISTORICAL FECAL IMMUNOCHEMICAL TEST X1 (FIT) Routine 04/10/2020 10:58 AM EST from Last 3 Months or Most Recently Relevant to Health Maintenance Results * Hepatitis C Antibody with Reflex to HCV, RNA, Quantitative, Real-Time PCR (11/30/2024 1:19 PM EDT) Hepatitis C Antibody Nonreactive Nonreactive [facility] Comment:Antibodies to HCV no t detected; does not exclude early acuteHCV infection. 11/30/2024 1:19 PM EDT 11/30/2024 5:32 PM EDT Generic External Data Provider LAB BLOOD ORDERAB LES Final Result Performing Organization Address [facility] [facility] Co de Phone Number [facility] [address] [place] [phone] * Hepatitis B surface antigen, EIA (11/30/2024 1:19 PM EDT) Hepatitis B Surface Ag Negative Negative [facility] 11/30/2024 1:19 PM EDT 11/30/2024 5:32 PM EDT Generic External Data Provider LAB BLOOD ORDERAB LES Final Result Performing Organization Address [facility] Co de Phone Number [facility] [address] [place] [phone] * Hepatitis B Core Antibody, Total (11/30/2024 1:19 PM EDT) Hepatitis B Core Antibody Nonreactive Nonreactive [facility] 11/30/2024 1:19 PM EDT 11/30/2024 5:32 PM EDT Generic External Data Provider LAB BLOOD ORDERAB LES Final Result Performing Organization Address [facility] Co de Phone Number [facility] [address] [place] [phone] * Hepatitis B Surface Antibody, Qualitative (11/30/2024 1:19 PM EDT) ~Hepatitis B Surface Antibody NONREACTIVE Nonreactive [facility] Comment:Nonreactive: < 8.00 mIU/mL 11/30/2024 1:19 PM EDT 11/30/2024 5:32 PM EDT Generic External Data Provider LAB BLOOD ORDERAB LES Final Result Performing Organization Address City/[facility] Co de Phone Number [facility] [address] [place] [phone] * (ABNORMAL) Complement Component C3c (11/30/2024 1:19 PM EDT) Complement C3 194(A) 82 - 185 mg/dL [facility] Comment:THIS TEST WAS PERFOR MED AT:[facility] [address] [id number] ALFORD MD 11/30/2024 1:19 PM EDT 11/30/2024 5:32 PM EDT Generic External Data Provider LAB BLOOD ORDERAB LES Final Result Performing Organization Address [facility] Co de Phone Number [facility] [address] [place] [phone] * Complement Component C4c (11/30/2024 1:19 PM EDT) Complement C4 44 15 - 53 mg/dL [facility] Comment:THIS TEST WAS PERFOR MED AT:[facility] [address] [id number] ALFORD MD 11/30/2024 1:19 PM EDT 11/30/2024 5:32 PM EDT us Generic External Data Provider LAB BLOOD ORDERAB LES Final Result Performing Organization Address [facility] Co de Phone Number [facility] [address] [place] [address] [phone] * (ABNORMAL) Lipid Panel, Standard (11/30/2024 1:19 PM EDT) Triglycerides 208(H) <150 mg/dL [facility] Comment:Desirable Triglyceri de: less than 150 mg/dLBorderline High Triglyceride 150-199 mg/dLHigh Triglyceride: 200-499 mg/dLVery High Triglyceride: greater than or equal to 5OO mg/dL Cholesterol 290(H) <200 mg/dL [facility] Comment:Desirable Cholestero l: less than 200 mg/dLBorderline High Cholesterol: 200-239 mg/dLHigh Cholesterol: greater than 239 mg/dL LDL Cholesterol Calculated 212(H) <100 mg/dL [facility] Comment:Desirable LDL: less than 100 mg/dLNear Optimal/Above Optimal LDL: 110- 129 mg/dLBorderline High LDL: 130-159 mg/dLHigh LDL: 160-189 mg/dLVery High LDL: greater than or equal to 190 mg/dL HDL Cholesterol 37(L) >40 mg/dL [facility] Comment:Desirable HDL: great er than 40 mg/dL Note: This HDL assay may give artificially low results in patients with liver disease. Blood Venous blood specimen / Unknown 11/30/2024 1:19 PM EDT 11/30/2024 2:07 PM EDT Tanmay Mello MD LAB BLOOD ORDERABL ES Final Result [facility] [address] [place] [address] [phone] * (ABNORMAL) Comprehensive Metabolic Panel (11/30/2024 1:19 PM EDT) Sodium 145 135 - 145 mmol/L [facility] Potassium 4.8 3.3 - 5.1 mmol/L [facility] Chloride 107 96 - 108 mmol/L [facility] Carbon Dioxide 26 22 - 29 mmol/L [facility] Anion Gap 17 12 - 20 [facility] Urea Nitrogen (BUN) 60(H) 9 - 16 mg/dL [facility] Creatinine, Serum 2.66(H) 0.5 - 1.4 mg/dL [facility] Estimated Glomerular Filt Rate 24 [facility] Comment:Chronic Kidney Disea se: Estimated GFR < 60 mL/min/[id number] Kidney Disease: Estimated GFR < 15 mL/min/1.73m2 Glucose 138(H) 60 - 115 mg/dL [facility] Calcium 10.1 8.4 - 10.2 mg/dL [facility] Bilirubin, Total 0.8 0.0 - 1.0 mg/dL [facility] Aspartate Amino Transferase 27 5 - 37 U/L [facility] Alanine Aminotransferase 24 0 - 40 U/L [facility] Total Protein 8.7(H) 6.5 - 8.0 g/dL [facility] Albumin Level 4.7 3.5 - 5.0 g/dL [facility] Alkaline Phosphatase 122(H) 39 - 117 U/L [facility] Blood Venous blood specimen / Unknown 11/30/2024 1:19 PM EDT 11/30/2024 2:07 PM EDT Tanmay Mello MD LAB BLOOD ORDERABL ES Final Result Performing Organization Address City/State/[facility] Co de Phone Number [facility] [address] [place] [phone] * (ABNORMAL) POCT Hgb A1c (11/24/2024 3:29 PM EDT) Hemoglobin A1C 8.8(A) 4.0 - 5.7 % QC Media Lot # [id number] Lot# Expiration Date Blood 11/24/2024 3:29 PM EDT Tanmay Mello MD POINT OF CARE TEST ENTER/EDIT ORDERABLES Final Result * POCT Glucose (11/24/2024 3:28 PM EDT) Glucose Blood, POC 131 60 - 200 mg/dL QC Media Lot # [id number] Lot# Expiration Date Blood Capillary blood specimen / Unknown 11/24/2024 3:28 PM EDT Tanmay Mello MD POINT OF CARE TEST ENTER/EDIT ORDERABLES Final Result * Hm Colonoscopy (11/19/2023) Colonoscopy Normal Normal Narrative Radha Angela - 11/19/2023 Colonoscopy order added per GI office note Repeat Colonoscopy in 1-2 years due to fair left sided prep or earlier if clinically indicated --next time use adult scope us Historical Provider HEALTH MAINTENANCE Final Result * Fecal immunochemical test x1 (FIT) (04/10/2020 10:58 AM EST) FIT Date 1 [facility] FIT Date 2 [facility] FIT Lot [facility] FIT1 [facility]NP NE[facility]IVE [facility] Comment:NO SPECIMEN ON CARD FIT2 [facility]NP NEGATIVE [facility] 04/10/2020 10:5 8 AM EST us Historical Provider HISTORICAL/NON ORDERABLE LABS Final Result Performing Organization Address City/State/[facility] de Phone Number [facility] [address] from Last 3 Months or Most Recently Relevant to [place] [id number] Care Teams Automotive Technician Instructor Relationship Specialty Start Date End Date Tanmay Gore MD [address] [place] [phone] PCP - General Internal Medicine 03/19/23
--- OUTSIDE RECORDS SUMMARY | 2024-12-03 12:44 | XMS_ITS | Encounter Summary ---
Author Organization [employer] Address [address] [facility] [address] [place] [address] Care Team Providers Care Document Manager Name Role Phone Tanmay Gore MD Primary Care Prov ider Reason for Visit * Reason Comments Med Refill Encounter Details Date Type Department Care Team ([facility] Contact Info) Description 02/27/2024 Refill [facility] [address] [place], [place] [phone] Tanmay Gore MD [address] [place] [address] Social History Tobacco Use Types Packs/Day Years [...] Info) Description 02/23/2025 1:00 PM EST Telemedicine [facility] [address] [place] [address] Tanmay Gore MD [address] [place] [address] documented as of this encounter Visit Diagnoses Not on filedocumented in this encounter Care Teams Document Manager Relationship Specialty Start Date End Date Tanmay Gore MD [address] [place] [address] PCP - General Internal Medicine 03/19/23 documented as of this encounter
--- OUTSIDE RECORDS SUMMARY | 2024-12-03 12:44 | XMS_ITS | Encounter Summary ---
Author Organization [employer] Address [address] [facility] [address] [place] [address] Care Team Providers Care Glass Forming Engineer Name Role Phone Tanmay Gore MD Primary Care Prov ider Reason for Visit * Reason Onset Date Comments Medication Question 01/13/2024 Encounter Details Date Type Department Care Team (Late st Contact Info) Description 01/13/2024 Telephone [facility] [address] [place] [address] Tanmay Gore MD [address] [place], [place] [phone] Medication Question Social History Tobacco Use Types [...] the past 12 months, has t he [employer], oil or water company threatened to shut [...] Info) Description 02/23/2025 1:00 PM EST Telemedicine [facility] [address] [place] [address] Tanmay Gore MD [address] [place] [address] documented as of this encounter Visit Diagnoses Not on filedocumented in this encounter Care Teams Glass Forming Engineer Relationship Specialty Start Date End Date Tanmay Gore MD [address] [place] [address] PCP - General Internal Medicine 03/19/23 documented as of this encounter
--- OUTSIDE RECORDS SUMMARY | 2024-12-03 12:44 | XMS_ITS | Encounter Summary ---
Author Organization [employer] Address [address] [facility] [address] [place] [address] Care Team Providers Care Sport Intern Name Role Phone Tanmay Gore MD Primary Care Prov ider Reason for Visit * Reason Comments Med Refill Encounter Details Date Type Department Care Team ([facility] Contact Info) Description 02/22/2024 Refill [facility] [address] [place], [place] [phone] Tanmay Gore MD [address] [place] [address] Social History Tobacco Use Types Packs/Day Years [...] [facility] [address] [place] [address] Tanmay Gore MD [address] [place] [address] documented as of this encounter Visit Diagnoses Not on filedocumented in this encounter Care Teams Sport Intern Relationship Specialty Start Date End Date Tanmay Goer MD [address] [place] [address] PCP - General Internal Medicine 03/19/23 documented as of this encounter
--- OUTSIDE RECORDS SUMMARY | 2024-12-03 12:44 | XMS_ITS | Encounter Summary ---
Author Organization [employer] Address [address] 7[address] [place] [address] Care Team Providers Care Funeral Workers Name Role Phone Tanmay Gore MD Primary Care Prov ider Encounter Details Date Type Department Care Team (Late st Contact Info) Description 11/30/2024 Orders Only GENERIC EXTERNAL DATA DEPARTMENT Provider, Generic External Data Social History Tobacco Use Types Packs/Day Years [...] Info) Description 02/23/2025 1:00 PM EST Telemedicine [facility] MED & PEDS [address] [place] [address] Tanmay Gore MD [address] [place] [address] documented as of this encounter Procedures Procedure Name Priority Date/Time Associated Diagnosis Comments HEPATITIS C AB W/REFL TO HCV RNA, QN, PCR Routine 11/30/2024 1:19 PM EDT HEPATITIS B SURFACE ANTIGEN, EIA Routine 11/30/2024 1:19 PM EDT HEPATITIS B CORE AB TOTAL Routine 11/30/2024 1:19 PM EDT HEPATITIS B SURFACE ANTIBODY, QUALITATIVE Routine 11/30/2024 1:19 PM EDT COMPLEMENT COMPONENT C3C Routine 11/30/2024 1:19 PM EDT COMPLEMENT COMPONENT C4C Routine 11/30/2024 1:19 PM EDT documented in this encounter Results * Complement Component C4c (11/30/2024 1:19 PM EDT) Complement C4 44 15 - 53 mg/dL [facility] Comment:THIS TEST WAS PERFOR MED AT:[facility] [place] [id number] ALFORD MD 11/30/2024 1:19 PM EDT 11/30/2024 5:32 PM EDT Generic External Data Provider LAB BLOOD ORDERAB LES Final Result Performing Organization Address [facility] Co de Phone Number [facility] [address] [place] [phone] * (ABNORMAL) Complement Component C3c (11/30/2024 1:19 PM EDT) Complement C3 194(A) 82 - 185 mg/dL [facility] Comment:THIS TEST WAS PERFOR MED AT:[facility] [place] [id number] ALFORD MD 11/30/2024 1:19 PM EDT 11/30/2024 5:32 PM EDT Generic External Data Provider LAB BLOOD ORDERAB LES Final Result Performing Organization Address [facility] Co de Phone Number [facility] [address] [place] [phone] * Hepatitis B surface antigen, EIA (11/30/2024 1:19 PM EDT) Pathologist [facility] Hepatitis B Surface Ag Negative Negative [facility] 11/30/2024 1:19 PM EDT 11/30/2024 5:32 PM EDT Generic External Data Provider LAB BLOOD ORDERAB LES Final Result Performing Organization Address [facility] Co de Phone Number [facility] [address] [place] [phone] * Hepatitis C Antibody with Reflex to HCV, RNA, Quantitative, Real-Time PCR (11/30/2024 1:19 PM EDT) Hepatitis C Antibody Nonreactive Nonreactive [facility] Comment:Antibodies to HCV no t detected; does not exclude early acuteHCV infection. 11/30/2024 1:19 PM EDT 11/30/2024 5:32 PM EDT us Generic External Data Provider LAB BLOOD ORDERAB LES Final Result Performing Organization Address [facility]/ZIP Co de Phone Number [facility] [address] [place] [phone] [phone] * Hepatitis B Core Antibody, Total (11/30/2024 1:19 PM EDT) Hepatitis B Core Antibody Nonreactive Nonreactive [facility] 11/30/2024 1:19 PM EDT 11/30/2024 5:32 PM EDT Generic External Data Provider LAB BLOOD ORDERAB LES Final Result Performing Organization Address [facility] Co de Phone Number [facility] [address] [place] [phone] * Hepatitis B Surface Antibody, Qualitative (11/30/2024 1:19 PM EDT) ~Hepatitis B Surface Antibody NONREACTIVE Nonreactive [facility] Comment:Nonreactive: < 8.00 mIU/mL 11/30/2024 1:19 PM EDT 11/30/2024 5:32 PM EDT Generic External Data Provider LAB BLOOD ORDERAB LES Final Result Performing Organization Address [facility] Co de Phone Number [facility] [address] [place] [phone] documented in this encounter Visit Diagnoses Not on filedocumented in this encounter Additional Health Concerns Assessment Noted Time PHQ-9 Depression Total Score: 0 10/13/19 25 8:53 AM EDT documented as of this encounter Care Teams Funeral Workers Relationship Specialty Start Date End Date Tanmay Gore MD [address] [place] [phone] PCP - General Internal Medicine 03/19/23 documented as of this encounter
--- OUTSIDE RECORDS SUMMARY | 2024-12-03 12:44 | XMS_ITS | Encounter Summary ---
Author Organization [employer] Address [address] [facility] 7t [place] [address] Care Team Providers Care Bid Manager Name Role Phone Tanmay Gore MD Primary Care Prov ider Tanmay Gore MD Primary Care Prov ider Reason for Visit * Reason Comments Med Refill Encounter Details Date Type Department Care Team (Late Contact Info) Description 06/12/2022 Refill [facility] MED & PEDS [address] [place] [address] Tanmay Gore MD 505 [place] [address] Social History Tobacco Use Types Packs/Day Years [...] Upcoming Encounters Date Type Department Care Team ([facility] Contact Info) Description 02/23/2025 1:00 PM EST Telemedicine [facility] MED & PEDS [address] [place] [address] Tanmay Gore MD 505 [place] [address] documented as of this encounter Visit Diagnoses Not on filedocumented in this encounter Care Teams Bid Manager Relationship Specialty Start Date End Date Tanmay Gore MD 505 [place] [address] PCP - General Internal Medicine 07/29/19 03/10/23 Tanmay Gore MD 505 [place] [address] PCP - General Internal Medicine 03/19/23 documented as of this encounter
--- OUTSIDE RECORDS SUMMARY | 2024-12-03 12:44 | XMS_ITS | Encounter Summary ---
Author Organization [employer] Address [address] [place] [address] Care Team Providers Care Roguer Name Role Phone Tanmay Gore MD Primary Care Prov ider Reason for Visit * Reason Onset Date Comments Medication Problem 06/11/2023 Encounter Details Date Type Department Care Team (Late st Contact Info) Description 06/11/2023 Telephone [facility] MEDICINE [address] [place] [address] Tanmay Gore MD 505 [place], [place] [phone] Medication Problem Social History Tobacco Use Types [...] the past 12 months, has t he [employer], [employer], oil or water [employer] threatened to shut off services in your [...] Info) Description 02/23/2025 1:00 PM EST Telemedicine [facility] MED & PEDS 505 [place] [address] Tanmay Gore MD 505 [place] [address] documented as of this encounter Visit Diagnoses Not on filedocumented in this encounter Care Teams Roguer Relationship Specialty Start Date End Date Tanmay Gore MD 505 [place] [address] PCP - General Internal Medicine 03/19/23 documented as of this encounter
== END ==
LOC: HO.HKA 10:51
PROVIDERS: PCP Internal Medicine; Visit Provider Internal Medicine Hypertension Specialist
DX: I10 Essential (primary) hypertension (principal); N18.30 Chronic kidney disease, stage 3 unspecified
CPT/HCPCS: 99214

== ENCOUNTER 2024-12-29 08:55 | Day surgery (SDC) | payer OTHER, SELFPAY ==
--- OUTSIDE RECORDS SUMMARY | 2024-12-18 16:14 | XMS_ITS | Encounter Summary ---
Author Organization [employer] Address [address] [facility] 7t [place] [address] Care Team Providers Care Magnetic Prospecting Operator Name Role Phone Tanmay Gore MD Primary Care Prov ider Reason for Visit * Reason Comments Med Refill Encounter Details Date Type Department Care Team ([facility] Contact Info) Description 02/22/2024 Refill [facility] MED & PEDS [address] [place], [place] [phone] Tanmay Gore MD [address] [place] [address] Social History Tobacco Use Types Packs/Day Years [...] Info) Description 02/23/2025 1:00 PM EST Telemedicine [facility] MED & PEDS [address] [place] [address] Tanmay Gore MD [address] [place] [address] documented as of this encounter Visit Diagnoses Not on filedocumented in this encounter Care Teams Magnetic Prospecting Operator Relationship Specialty Start Date End Date Tanmay Gore MD [address] [place] [address] PCP - General Internal Medicine 03/19/23 documented as of this encounter
--- OUTSIDE RECORDS SUMMARY | 2024-12-18 16:15 | XMS_ITS | Encounter Summary ---
Author Organization [employer] Address [address] 7[address] [place] [address] Care Team Providers Care Preflight Inspector Name Role Phone Tanmay Gore MD Primary Care Prov ider Reason for Visit * Reason Onset Date Comments Medication Question 01/13/2024 Encounter Details Date Type Department Care Team (Late st Contact Info) Description 01/13/2024 Telephone [facility] MEDICINE [address] [place] [address] Tanmay Gore MD [address] [place], [place] [phone] Medication Question Social History Tobacco Use Types [...] the past 12 months, has t he [employer], [employer], oil or water company threatened to shut [...] Info) Description 02/23/2025 1:00 PM EST Telemedicine [facility] MED & PEDS [address] [place] [address] Tanmay Gore MD [address] [place] [address] documented as of this encounter Visit Diagnoses Not on filedocumented in this encounter Care Teams Preflight Inspector Relationship Specialty Start Date End Date Tanmay Gore MD 505 [place] [address] PCP - General Internal Medicine 03/19/23 documented as of this encounter
--- OUTSIDE RECORDS SUMMARY | 2024-12-18 16:15 | XMS_ITS | Encounter Summary ---
Author Organization [employer] Address [address] [facility] 7t [place] [address] Care Team Providers Care Public Relations Specialist Name Role Phone Tanmay Gore MD Primary Care Prov ider Tanmay Gore MD Primary Care Prov ider Reason for Visit * Reason Comments Med Refill Encounter Details Date Type Department Care Team (Late Contact Info) Description 06/12/2022 Refill [facility] MED & PEDS 505 [place] [address] Tanmay Gore MD 505 [place] [address] Social History Tobacco Use Types Packs/Day Years [...] Upcoming Encounters Date Type Department Care Team ([facility] Contact Info) Description 02/23/2025 1:00 PM EST Telemedicine [facility] MED & PEDS [address] [place] [address] Tanmay Gore MD 505 [place] [address] documented as of this encounter Visit Diagnoses Not on filedocumented in this encounter Care Teams Public Relations Specialist Relationship Specialty Start Date End Date Tanmay Gore MD 505 [place] [address] PCP - General Internal Medicine 07/29/19 03/10/23 Tanmay Gore MD [address] [place] [address] PCP - General Internal Medicine 03/19/23 documented as of this encounter
--- OUTSIDE RECORDS SUMMARY | 2024-12-18 16:15 | XMS_ITS | Encounter Summary ---
Author Organization [employer] Address [address] [facility] 7t [place] [address] Care Team Providers Care Web Engineer Name Role Phone Tanmay Gore MD Primary Care Prov ider Reason for Visit * Reason Comments Med Refill Encounter Details Date Type Department Care Team ([facility] Contact Info) Description 02/27/2024 Refill [facility] CHC MED & PEDS [address] [place], [place] [phone] Tanmay Gore MD 505 [place] [address] Social History Tobacco Use Types Packs/Day Years Used Date Smoking Tobacco: Former Cigarettes 0.3 20 1 981 - 2000 Smokeless Tobacco: Never Alcohol Use Standard Drinks/Week Comments Yes 0 (1 standard drink = 0.6 oz pur e alcohol) social beer Housing Stability Answer Date Recorded What is your housing situation today? I have ronald annad 06/06/[address] you li [...] Info) Description 02/23/2025 1:00 PM EST Telemedicine [facility] MED & PEDS [address] [place] [address] Tanmay Gore MD 505 [place] [address] documented as of this encounter Visit Diagnoses Not on filedocumented in this encounter Care Teams Web Engineer Relationship Specialty Start Date End Date Tanmay Gore MD 505 [place] [address] PCP - General Internal Medicine 03/19/23 documented as of this encounter
--- OUTSIDE RECORDS SUMMARY | 2024-12-18 16:15 | XMS_ITS | Encounter Summary ---
Author Organization [employer] Address [address] [place] [address] Care Team Providers Care Maintenance Planning Clerk Name Role Phone Tanmay Gore MD Primary Care Prov ider Reason for Visit * Reason Onset Date Comments Medication Problem 06/11/2023 Encounter Details Date Type Department Care Team (Late st Contact Info) Description 06/11/2023 Telephone [facility] MEDICINE [address] [place] [address] Tanmay Gore MD [address] [place], [place] [phone] Medication Problem Social History Tobacco Use Types [...] the past 12 months, has t he [employer], oil or water [employer] threatened to shut off services in your [...] Info) Description 02/23/2025 1:00 PM EST Telemedicine [facility] MED & PEDS [address] [place] [address] Tanmay Gore MD [address] [place] [address] documented as of this encounter Visit Diagnoses Not on filedocumented in this encounter Care Teams Maintenance Planning Clerk Relationship Specialty Start Date End Date Tanmay Gore MD [address] [place] [address] PCP - General Internal Medicine 03/19/23 documented as of this encounter
--- OUTSIDE RECORDS SUMMARY | 2024-12-18 16:15 | XMS_ITS | Clinical Summary ---
Author Organization [employer] Address [address] [facility] 7t [place] [address] Care Team Providers Care Palletizer Operator Name Role Phone Tanmay Gore MD [...] tablet 1 08/28/19 25 Active Continuous Glucose County Health Officer (FreeStyle Antionette [address] [place]) device 1 each Once per day. Use as directed for CGM 1 each 09/08/19 25 Active Continuous Glucose Sensor (FreeStyle Antionette 3 Plus Sensor) misc 1 each every 15 days. Apply 1 every 15 days as directed for CGM 2 each 09/08/19 25 Active omeprazole (PriLOSEC) [address] Venegas tions:Abdomin al pain with vomiting TAKE 1 [...] per day. 3 mL 11/25/19 25 Active traZODone (Desyrel) 50 MG tablet TAKE 1 TABLET BY MOUTH AT BEDTIME 90 tablet 09/01/19 25 2024 Discontinued(R armander (will not trigger notification to Pharmacy)) chlorthalidon [...] of call pt had been contacted by motion graphics artist team and was en route to er [...] add jardiance for renal protection, he refers cody was denied Assessment & Plan (01/22/2024 11:01 [...] Encounters Date Type Department Care Team Description 12/09/2024 Telephone [facility] MED & PEDS [address] [place] [address] Tanmay Gore MD Med Refill 12/09/2024 Refill [facility] MED & PEDS [address] [place] [address] Tanmay Gore MD 11/30/2024 Orders Only GENERIC EXTERNAL DATA DEPARTMENT Provider, Generic External Data 11/24/2024 3:30 PM EDT Office Visit [facility] MED & PEDS [address] [place] [address] Tanmay Gore MD Chest pain, unspecified type (Primary Dx); Type 2 diabetes mellitus with diabetic microalbuminuria, without long-term current use of insulin ([facility]) 11/24/2024 Travel 11/24/2024 Refill [facility] MED & PEDS [address] [place] [address] Otilia Mancia FNP 11/24/2024 Refill [facility] MED & PEDS [address] [place] [address] Tanmay Gore MD 11/23/2024 Telephone [facility] MED & PEDS [address] [place] [address] Tanmay Gore MD chart prep 11/14/2024 Refill [facility] [address] [place] [address] Tanmay Gore MD Abdominal pain with vomiting 10/12/2024 8:45 AM EDT Telemedicine [facility] MED & PEDS [address] [place] [address] Tanmay Gore MD Mixed hyperlipidemia (Primary Dx); Primary hypertension; Type 2 diabetes mellitus with diabetic microalbuminuria, without long-term current use of insulin ([facility]) 10/12/2024 Travel from Last 3 Months Immunizations Immunization Administration [...] Info) Description 02/23/2025 1:00 PM EST Telemedicine [facility] MED & PEDS [address] [place] [address] Tanmay Gore MD 505 [place] [address] Health Maintenance Due Date Last Done Comments [...] Tobacco Screening 09/17/2024 09/18/2023 COVID-19 Vaccine (3 - season) 2024 08/09/2020, 07/19/2020 Influenza Vaccine (#1) 2024 , 11/15/2022, 12/06/2021, Additional history exists Diabetes: Hemoglobin A1C 02/23/2025 025, 08/06/2024, 09/19/2023, Additional history exists Alcohol/Substance Use Screening 10/12/2025 10/12/2024 Depression Screening 10/12/2025 10/12/2024, 10/13/19 25 SDOH Screening 10/12/2025 10/12/2024 Colonoscopy 11/18/2025 11/19/2023 Colorectal Cancer Screening 11/18/2025 Lipid Panel 11/30/2025 11/30/2024, 06/0 07/2024, 09/19/2023, Additional history exists DTaP/Tdap/Td Vaccines [...] PM EDT) Hepatitis C Antibody Nonreactive Nonreactive [facility] Comment:Antibodies to HCV no t detected; does not exclude early acuteHCV infection. 11/30/2024 1:19 PM EDT 11/30/2024 5:32 PM EDT us Generic External Data Provider LAB BLOOD ORDERAB LES Final Result Performing Organization Address City/[facility]/ZIP Co de Phone Number [facility] [address] [place] [phone] * Hepatitis B surface antigen, EIA (11/30/2024 1:19 PM EDT) Hepatitis B Surface Ag Negative Negative [facility] 11/30/2024 1:19 PM EDT 11/30/2024 5:32 PM EDT Generic External Data Provider LAB BLOOD ORDERAB LES Final Result Performing Organization Address [facility] Co de Phone Number [facility] [address] [place] [address] [phone] * Hepatitis B Core Antibody, Total (11/30/2024 1:19 PM EDT) Pathologist [facility] Hepatitis B Core Antibody Nonreactive Nonreactive [facility] 11/30/2024 1:19 PM EDT 11/30/2024 5:32 PM EDT Generic External Data Provider LAB BLOOD ORDERAB LES Final Result Performing Organization Address [facility] Co de Phone Number [facility] [address] [place] [address] [phone] * Hepatitis B Surface Antibody, Qualitative (11/30/2024 1:19 PM EDT) ~Hepatitis B Surface Antibody NONREACTIVE Nonreactive [facility] Comment:Nonreactive: < 8.00 mIU/mL 11/30/2024 1:19 PM EDT 11/30/2024 5:32 PM EDT Generic External Data Provider LAB BLOOD ORDERAB LES Final Result Performing Organization Address [facility] Co de Phone Number [facility] [address] [place] [phone] * (ABNORMAL) Complement Component C3c (11/30/2024 1:19 PM EDT) Complement C3 194(A) 82 - 185 mg/dL [facility] Comment:THIS TEST WAS PERFOR MED AT:[facility] [facility] [place] [id number] ALFORD MD 11/30/2024 1:19 PM EDT 11/30/2024 5:32 PM EDT Generic External Data Provider LAB BLOOD ORDERAB LES Final Result Performing Organization Address City/[facility]/ZIP Co de Phone Number [facility] [address] [place] [phone] * Complement Component C4c (11/30/2024 1:19 PM EDT) Complement C4 44 15 - 53 mg/dL [facility] Comment:THIS TEST WAS PERFOR MED AT:[facility] [place] [id number] ALFORD MD 11/30/2024 1:19 PM EDT 11/30/2024 5:32 PM EDT Generic External Data Provider LAB BLOOD ORDERAB LES Final Result Performing Organization Address City/[facility] Co de Phone Number [facility] [address] [place] [phone] * (ABNORMAL) Lipid Panel, Standard (11/30/2024 1:19 PM EDT) Triglycerides 208(H) <150 mg/dL [facility] Comment:Desirable Triglyceri de: less than 150 mg/dLBorderline High Triglyceride 150-199 mg/dLHigh Triglyceride: 200-499 mg/dLVery High Triglyceride: greater than or equal to 5OO mg/dL Cholesterol 290(H) <200 mg/dL [facility] Comment:Desirable Cholestero l: less than 200 mg/dLBorderline High Cholesterol: 200-239 mg/dLHigh Cholesterol: greater than 239 mg/dL LDL Cholesterol Calculated 212(H) <100 mg/dL [facility] Comment:Desirable LDL: less than 100 mg/dLNear Optimal/Above Optimal LDL: 110- 129 mg/dLBorderline High LDL: 130-159 mg/dLHigh LDL: 160-189 mg/dLVery High LDL: greater than or equal to 190 mg/dL HDL Cholesterol 37(L) >40 mg/dL [facility] Comment:Desirable HDL: great er than 40 mg/dL Note: This HDL assay may give artificially low results in patients with liver disease. Blood Venous blood specimen / Unknown 11/30/2024 1:19 PM EDT 11/30/2024 2:07 PM EDT us Tanmay Mello MD LAB BLOOD ORDERABL ES Final Result [facility] [address] [place] [phone] * (ABNORMAL) Comprehensive Metabolic Panel (11/30/2024 1:19 PM EDT) Sodium 145 135 - 145 mmol/L [facility] Potassium 4.8 3.3 - 5.1 mmol/L [facility] Chloride 107 96 - 108 mmol/L [facility] Carbon Dioxide 26 22 - 29 mmol/L [facility] Anion Gap 17 12 - 20 [facility] Urea Nitrogen (BUN) 60(H) 9 - 16 mg/dL [facility] Creatinine, Serum 2.66(H) 0.5 - 1.4 mg/dL [facility] Estimated Glomerular Filt Rate 24 [facility] Comment:Chronic Kidney Disea se: Estimated GFR < 60 mL/min/1.38n6Huvkat Kidney Disease: Estimated GFR < 15 mL/min/1.73m2 Glucose 138(H) 60 - 115 mg/dL [facility] Calcium 10.1 8.4 - 10.2 mg/dL [facility] Bilirubin, Total 0.8 0.0 - 1.0 mg/dL [facility] Aspartate Amino Transferase 27 5 - 37 U/L [facility] Alanine Aminotransferase 24 0 - 40 U/L [facility] Total Protein 8.7(H) 6.5 - 8.0 g/dL [facility] Albumin Level 4.7 3.5 - 5.0 g/dL [facility] Alkaline Phosphatase 122(H) 39 - 117 U/L [facility] Blood Venous blood specimen / Unknown 11/30/2024 1:19 PM EDT 11/30/2024 2:07 PM EDT Tanmay Mello MD LAB BLOOD ORDERABL ES Final Result [facility] [address] [place] [phone] * (ABNORMAL) POCT Hgb A1c (11/24/2024 [...] CARE TEST ENTER/EDIT ORDERABLES Final Result * Colonoscopy (11/19/2023) Colonoscopy Normal Normal Narrative Radha [...] ORDERABLE LABS Final Result Performing Organization Address City/State/[facility] Co de Phone Number [facility] [address] [place] [address], from Last 3 Months or Most Recently Relevant to Health Maintenance Insurance [facility] CHOICE [facility] [employer] SAVERS Care Teams Palletizer Operator Relationship Specialty Start Date End Date Tanmay Gore MD [address] [place] [phone] PCP - General Internal Medicine 03/19/23
--- OUTSIDE RECORDS SUMMARY | 2024-12-18 16:15 | XMS_ITS | Encounter Summary ---
Author Organization [employer] Address [address] [facility] [address] [place] [address] Care Team Providers Care Process Control Engineer Name Role Phone Tanmay Gore MD Primary Care Prov ider Reason for Visit * Reason Comments Med Change Request Encounter Details Date Type Department Care Team ([facility] Contact Info) Description 12/09/2024 Refill [facility] [address] [place], [place] [phone] Tanmay Gore MD [address] [place] [address] Social History Tobacco Use Types Packs/Day Years [...] Upcoming Encounters Date Type Department Care Team ([facility] st Contact Info) Description 02/23/2025 1:00 PM EST Telemedicine [facility] MED & PEDS [address] [place] [address] Tanmay Gore MD [address] [place] [address] documented as of this encounter Visit Diagnoses Not on filedocumented in this encounter Additional Health Concerns Assessment Noted Time PHQ-9 Depression Total Score: 0 10/13/19 25 8:53 AM EDT documented as of this encounter Care Teams Process Control Engineer Relationship Specialty Start Date End Date Tanmay Gore MD [address] [place] [address] PCP - General Internal Medicine 03/19/23 documented as of this encounter
--- NOTE | 2024-12-22 16:25 | PC.NURSE ---
Called pt about holding ASA x 5days. PT understood the importance and will hold x 5 days..LD 12/23/24. Pt stated, he got a call from the MD office about this, but could not remember which md's office called him.
[2024-12-29] VITALS (14 sets, daily range): BP systolic 92–174; BP diastolic 57–92; PULSE 75–99; RESP 12–19; TEMP 36.3–36.9; O2SAT 95–100; BMI 27.3; BMI 27.5
--- NOTE | ~2024-12-29 | CT_ITS ---
PROCEDURE: CT GUIDED BIOPSY, KIDNEY CLINICAL INFORMATION: Right kidney disease, stage III COMPARISON: Ultrasound kidney 08/12/2023 TECHNIQUE: Following explaining CT fluoroscopy guided kidney biopsy procedure, benefits and risk, a written consent was obtained. Patient was placed prone on CT fluoroscopy table and preliminary CT imaging was obtained. An optimal axial slice was selected and markers placed overlying the right posterior abdomen. Repeat imaging was performed and lead marker was selected and marked on the skin. The marked site was cleaned and draped in usual sterile manner. 1% lidocaine was applied at the puncture site. Through a small skin incision a 18-gauge guide needle was advanced from the skin into the lower pole cortex right kidney . Coaxially a second needle was advanced and a 3 pass core biopsy of lower pole right kidney was performed. Post biopsy Gelfoam was introduced and the guide needle and needle withdrawn. Complete hemostasis was achieved at puncture site. Patient tolerated procedure extremely well. Conscious sedation was administered during the exam and patient monitored by IR nursing and IR physician. This CT examination was performed using dose optimization techniques as appropriate, variously including the following: *Automated exposure control *Adjustment of mA and/or kV according to patient size (this includes techniques or standardized protocols for targeted exams where dose is matched to indication/reason for exam; i.e. extremities or head) *Use of iterative reconstruction technique FINDINGS: On coronary CT imaging the lung bases are clear. Visualized liver, gallbladder, spleen, pancreas and bilateral adrenal glands are unremarkable. There are no radiopaque renal calculi or hydronephrosis. Successful CT fluoroscopy guided right renal lower pole core biopsy performed . Postprocedure imaging revealed no hematoma. CT/CT biopsy renal RT IMPRESSION: Successful CT fluoroscopy guided right renal lower pole core biopsy performed. Dose: 3 0 9 mg/centimeters square. Sedation time: 20 minutes Electronically signed by: Augie Aquino MD 12/30/2024 12:17 PM EDT
[2024-12-29 09:28] LABS: MANUAL DIFF FLAG NO
[2024-12-29 09:34] LABS: Hematocrit 40.0 % (42.0-52.0); Hemoglobin 13.3 g/dl (14.0-18.0); Imm Gran Abs Auto 0.05 X10*3/uL (0.00-0.03); Imm Gran Pct Auto 0.6 % (0.0-0.4); Lymphocytes Absolute Auto 2.1 X10*3/uL (1.2-4.9); Mean Corpuscular HGB Conc 33.3 g/dl (31.0-36.0); Mean Corpuscular Hemoglobin 30.5 pg (27.0-33.0); Mean Corpuscular Volume 91.7 fL (80.0-98.0); NRBC Abs Auto 0.000 X10*3/uL (0.0-0.012); NRBC Pct Auto 0.0 /100WBC (0.0-0.2); Platelet Count 366 X10*3/uL (160-400); Red Blood Count 4.36 X10*6/uL (4.60-5.80)
[2024-12-29 09:37] LABS: INTERNATIONAL NORM RATIO 0.9 (0.9-1.1); Prothrombin Time 10.6 SEC (10.9-12.4)
[2024-12-29 09:38] LABS: White Blood Count 8.6 X10*3/uL (4.8-10.8)
[2024-12-29 09:40] LABS: Partial Thromboplastin Time 31.6 SEC (26.7-34.1)
[2024-12-29 09:42] LABS: Anion Gap 16 (12-20); Blood Urea Nitrogen 52 mg/dL (9-16); Calcium 9.1 mg/dL (8.4-10.2); Carbon Dioxide 23 mmol/L (22-29); Chloride 107 mmol/L (96-108); Creatinine Clr Calc Pharmacy 26.3; Estimated Glomerular Filt Rate 26; Potassium 4.9 mmol/L (3.3-5.1); Sodium 141 mmol/L (135-145)
== END 2024-12-29 13:16 | disposition home or self-care (01) ==
PROVIDERS: Radiology Diagnostic Radiology; PCP Internal Medicine; Visit Provider Internal Medicine Hypertension Specialist
DX: E11.22 Type 2 diabetes mellitus with diabetic chronic kidney disease (principal); I12.9 Hypertensive chronic kidney disease with stage 1 through stage 4 chronic kidney disease, or unspecified chronic kidney disease; N18.30 Chronic kidney disease, stage 3 unspecified; R80.9 Proteinuria, unspecified; E78.5 Hyperlipidemia, unspecified; Z79.84 Long term (current) use of oral hypoglycemic drugs; Z79.85 Long-term (current) use of injectable non-insulin antidiabetic drugs; Z79.82 Long term (current) use of aspirin; Z79.899 Other long term (current) drug therapy; K21.9 Gastro-esophageal reflux disease without esophagitis
CPT/HCPCS: 36415; 50200; 77012; 80048; 85025; 85610; 85730; 86850; 86900; 86901; 88305; 99152; J2003; J2250; J3010

== ENCOUNTER → 2024-12-29 10:30 | Outpatient (BNV) | payer OTHER, SELFPAY | PROVIDERS: PCP Internal Medicine; Visit Provider Radiology Diagnostic Radiology | DX: N18.30 Chronic kidney disease, stage 3 unspecified (principal) | CPT/HCPCS: 50200; 77012 ==

== ENCOUNTER → 2025-01-12 09:26 | Outpatient (REF) | payer OTHER, SELFPAY ==
--- NOTE | 2025-01-12 09:34 | CA_ITS ---
Acquisition Time: 2025-01-12 10:12:31 Total Exercise Time: 00:04:03 Test Indications: Abnormal ECG Medications: Protocol: HUSSEIN Max HR: 155 BPM 99% of Pred: 156 BPM Max BP: 168/88 mmHG Max Work Load: 5.8 METS Exercise stress test with exercise 4 mins 3 secs of Hussein Protocol, achieving 98% MPHR, with reports of SOB, no chest pain, without any arrythmias, with normotensive response to exercise. With baseline ST- T wave abnormlaities inferolaterally and with exercise, ST- T wave abnormalities more prominent with ST depression in anerolateral leads, meeting criteria for ischemia. Will request PCP for an echo and Cardiology referral. Test reviewed with Dr. Hernández. Referred By: Tanmay Mello Electronically Signed By: Dane Peterson
--- OUTSIDE RECORDS SUMMARY | 2025-01-12 10:16 | XMS_ITS | Encounter Summary ---
Author Organization [employer] Address [address] [place] [address] Care Team Providers Care Guinea Pig Breeder Name Role Phone Tanmay Gore MD Primary Care Prov ider Reason for Visit * Reason Onset Date Comments Medication Problem 06/11/2023 Encounter Details Date Type Department Care Team (Late st Contact Info) Description 06/11/2023 Telephone [facility] [address] [place] [address] Tanmay Gore MD [address] [place], [place] [phone] Medication Problem Social History Tobacco Use Types [...] the past 12 months, has t he [employer], oil or [employer] threatened to shut off services in your [...] Info) Description 02/23/2025 1:00 PM EST Telemedicine [facility] MED & PEDS [address] [place] [address] Tanmay Gore MD [address] [place] [address] documented as of this encounter Visit Diagnoses Not on filedocumented in this encounter Care Teams Guinea Pig Breeder Relationship Specialty Start Date End Date Tanmay Gore MD [address] [place] [address] PCP - General Internal Medicine 03/19/23 documented as of this encounter
--- OUTSIDE RECORDS SUMMARY | 2025-01-12 10:16 | XMS_ITS | Clinical Summary ---
Author Organization [employer] Address [address] [place] [address] Care Team Providers Care Lithostripper Name Role Phone Tanmay Gore MD Primary [...] misc For administering insulin daily 100 each 08/15/19 Active atorvastatin (Lipitor) 80 MG tablet Take 1 tablet (80 mg) by mouth in the morning. 90 tablet 1 08/28/19 25 Active omeprazole (PriLOSEC) [address] capsuleIndica tions:Abdomin al pain with vomiting TAKE 1 CAPSULE BY MOUTH EVERY DAY 30 capsule 2 11/18/19 Active chlorthalidon e (Hygroton) 25 MG tablet TAKE 1 TABLET BY MOUTH EVERY DAY 30 tablet 2 11/26/19 25 Active traZODone (Desyrel) 50 MG tablet TAKE 1 TABLET BY MOUTH AT BEDTIME 30 tablet 2 11/26/19 Active Insulin Glargine-yfgn 100 UNIT/ML solution Inject 30 Units under the skin Once per day. 3 mL 11/25/19 Active Continuous Glucose Web Portal Developer (FreeStyle Antionette 3 [place]) device 1 each Once per day. Use as directed for CGM 1 each 12/24/19 Active Continuous Glucose Sensor (FreeStyle Antionette 3 Plus Sensor) misc 1 each every 15 days. Apply 1 every 15 days as directed for CGM 2 each 12/24/19 Active Continuous Glucose Web Portal Developer (FreeStyle Antionette 3 [place]) device 1 each Once per day. Use as directed for CGM 1 each 09/08/19 25 2024 Discontinued(R eorder (will not trigger notification to Pharmacy)) Continuous Glucose Sensor (FreeStyle Antionette 3 Plus Sensor) misc 1 each every 15 days. Apply 1 every 15 days as directed for CGM 2 each 09/08/19 25 2024 Discontinued(R eorder (will not trigger notification to Pharmacy)) Active Problems Problem Noted Date Diagnosed Date [...] of call pt had been contacted by planning consultant team and was en route to er [...] add jardiance for renal protection, he refers kileyxiga was denied Assessment & Plan (01/22/2024 11:01 [...] Encounters Date Type Department Care Team Description 01/06/2025 Refill [facility] [address] [place] [address] Tanmay Gore MD 12/29/2024 Orders Only GENERIC EXTERNAL DATA DEPARTMENT Provider, Generic External Data 12/23/2024 Orders Only [facility] [address] [place] [address] Tanmay Gore MD 12/09/2024 Telephone [facility] [address] [place] [address] Tanmay Gore MD Med Refill 12/09/2024 Refill [facility] [address] [place] [address] Tamnay Gore MD 11/30/2024 Orders Only GENERIC EXTERNAL DATA DEPARTMENT Provider, Generic External Data 11/24/2024 3:30 PM EDT Office Visit [facility] [address] [place] [address] Tanmay Gore MD Chest pain, unspecified type (Primary Dx); Type 2 diabetes mellitus with diabetic microalbuminuria, without long-term current use of insulin ([facility]) 11/24/2024 Travel 11/24/2024 Refill [facility] [address] [place] [address] Otilia Mancia FNP 11/24/2024 Refill [facility] [address] [place] [address] Tanmay Gore MD 11/23/2024 Telephone [facility] [address] [place] [address] Tanmay Gore MD chart prep 11/14/2024 Refill [facility] [address] [place] [address] Tanmay Gore MD Abdominal pain with vomiting 10/12/2024 8:45 AM EDT Telemedicine [facility] [address] [place] [address] Tanmay Gore MD Mixed hyperlipidemia (Primary Dx); Primary hypertension; Type 2 diabetes mellitus with diabetic microalbuminuria, without long-term current use of insulin ([facility]) 10/12/2024 Travel from Last 3 Months Immunizations [...] 02/23/2025 1:00 PM EST Telemedicine [facility] [address] [place] [address] Tanmay Gore MD [address] [place] [address] Health Maintenance Due Date Last Done Comments CT Colonography 1960 FIT DNA/Cologuard 1960 FOBT 1960 Sigmoidoscopy 1960 Disability Screening 1960 RSV Patients and Patients Aged 60 years or older (1 - Risk 60-74 years 1-dose series) 2020 FIT 04/10/2021 04/10/2020 Zoster Vaccines (2 of 2) 06/18/2022 04/23/2022 Diabetes: Foot Exam 04/17/2024 04/17/2023, 04/17/2023, 04/17/2023, Additional history exists Eye Exam 06/12/2024 COVID-19 Vaccine (3 - season) 2024 08/09/2020, 07/19/2020 Influenza Vaccine (#1) 2024 , 11/15/2022, 12/06/2021, Additional history exists Diabetes: Hemoglobin A1C 02/23/2025 025, 08/06/2024, 09/19/2023, Additional history exists Alcohol/Substance Use Screening 10/12/2025 10/12/2024 Depression Screening 10/12/2025 10/12/2024, 10/13/19 25 SDOH Screening 10/12/2025 10/12/2024 Colonoscopy 11/18/2025 11/19/2023 Colorectal Cancer Screening 11/18/2025 Lipid Panel 11/30/2025 11/30/2024, 06/0 07/2024, 09/19/2023, Additional history exists Tobacco Screening 12/30/2025 12/30/2024 DTaP/Tdap/Td Vaccines (3 - Td or Tdap) [...] Procedure Name Priority Date/Time Associated Diagnosis Comments HEMATOXYLIN AND EOSIN STAIN Routine 12/29/2024 11:[address] GUIDED PERCUTANEOUS BIOPSY RENAL RIGHT Routine 12/29/2024 10:31 AM EDT TYPE AND SCREEN Routine 12/29/2024 9:19 AM EDT BASIC METABOLIC PANEL Routine 12/29/2024 9:19 AM EDT CBC WITH AUTO DIFFERENTIAL Routine 12/29/2024 9:19 AM EDT COMPLEMENT COMPONENT C4C Routine 11/30/2024 1:19 [...] microalbuminuria, without long-term current use of insulin ([facility]) HM COLONOSCOPY Routine 11/19/2023 ZZZ HISTORICAL FECAL IMMUNOCHEMICAL TEST X1 (FIT) Routine 04/10/2020 10:58 AM EST from Last 3 Months or Most Recently Relevant to Health Maintenance Results * Hematoxylin and Eosin Stain (12/29/2024 11:01 AM EDT) 12/29/2024 11:0 1 AM EDT 12/29/2024 11:40 AM EDT [facility] - 12/30/2024 11:33 AM EDT ----- ------- Name: Jame Silva Age/Sex: 64/M : 1960 Unit#: [id number] Attend Dr: Gene Stout MD Re12/29/24 Status: [facility] Location: [facility] Disch: ----- ------- SPEC : [id number] RECD: 12/29/24 STATUS: DANIA IBRAHIM NUM: [id number] CESIA: 12/29/[address]: Augie Aquino MD ENTERED: 12/29/24 SP TYPE: Surgical OTHR DR: Gene Stout MD, Benjamin MD ORDERED: HE Stain/2, Gross Micro L4 Diagnosis Kidney, right cortex lower pole, core biopsy: Sent to [facility] for light microscopy, immunofluorescence, and electron microscopy. Their report is pending; addendum to follow. Clinical History CRF Material Received Right kidney cortex lower pole Gross Description Received fresh, on ice, on saline dampened Telfa, labeled right kidney cortex, lower pole are 4 cylindrical pieces of pink-rock soft tissue measuring 0.5, 0.7, 0.8 and 2.1 cm in length all with a diameter of 0.02 cm. The specimen is entirely forwarded to [facility] for further analysis. No sections taken. ([facility]) IHC S/NG Disclaimer NOTE: Unless otherwise stated, all tissue is formalin-fixed and paraffin-embedded. Some or all of the immunohistochemical tests reported herein may have been developed and their performance characteristics determined by [facility]. They have not been cleared or approved by the U.S. Food and Drug Administration (FDA). However, the FDA has determined that such clearance or approval is not necessary. This laboratory is certified under the Clinical Laboratory Improvement Amendments of 1988 (CLIA) as qualified to perform high complexity clinical laboratory testing. Copies To: Gene Stout MD [facility] [address] [place] [address] Dr [address] [place] [address] [email or web address] CONTINUED ON NEXT PAGE ----- ------- Name: Jame Silva Age/Sex: 64/M : 1960 Unit#: [id number] Attend Dr: Gene Stout MD Re12/29/24 Status: [facility] Location: [facility] Disch: ----- ------- SPEC : [id number] RECD: 12/29/24 STATUS: DANIA IBRAHIM NUM: [id number] CESIA: 12/29/24 [facility] DR: Augie Aquino MD ENTERED: 12/29/24 SP TYPE: Surgical OTHR DR: Gene Stout MD, Benjamin MD ORDERED: HE Stain/2, Gross Micro L4 Copies To: (Continued) Tanmay oGre MD [address] [id number] Augie Aquino MD [address] [place] [id number] ----- ------- Signed (signature on file) Azalia Amarillo 12/30/24 1133 ----- ------- END OF REPORT Generic External Data Provider LAB BLOOD ORDERAB LES Final Result Performing Organization Address [facility]/State/ZIP Co de Phone Number [facility] [address] [place] [phone] * CT Guided Percutaneous Biopsy renal Right (12/29/2024 10:31 AM EDT) Anatomical Region Laterality Modality Kidney Right Computed Tomogra phy 12/29/2024 10:3 1 AM EDT Narrative 12/30/2024 12:20 PM EDT [address] [address] [address] Scan Report Signed Patient: Jame Silva MR#: [id number] 1 : 1960 Acct:[id number] Age/Sex: 64 / M ADM Date: 12/29/24 Loc: [facility] Attending Dr: Gene Stout MD Ordering Physician: Gene Stout MD Date of Service: 12/29/24 Procedure(s): CT biopsy renal RT Accession Number(s): [id number] cc: Gene Stout MD; Tanmay Gore MD Report Number: [id number]: Total DLP = 309.00 mGy-cm Reason for Exam: N18.30 - Chronic kidney disease, stage 3 unspecified PROCEDURE: CT GUIDED BIOPSY, KIDNEY CLINICAL INFORMATION: Right kidney disease, stage III COMPARISON: Ultrasound kidney 08/12/2023 TECHNIQUE: Following explaining CT fluoroscopy guided kidney biopsy procedure, benefits and risk, a written consent was obtained. Patient was placed prone on CT fluoroscopy table and preliminary CT imaging was obtained. An optimal axial slice was selected and markers placed overlying the right posterior abdomen. Repeat imaging was performed and lead marker was selected and marked on the skin. The marked site was cleaned and draped in usual sterile manner. 1% lidocaine was applied at the puncture site. Through a small skin incision a 18-gauge guide needle was advanced from the skin into the lower pole cortex right kidney . Coaxially a second needle was advanced and a 3 pass core biopsy of lower pole right kidney was performed. Post biopsy Gelfoam was introduced and the guide needle and needle withdrawn. Complete hemostasis was achieved at puncture site. Patient tolerated procedure extremely well. Conscious sedation was administered during the exam and patient monitored by IR nursing and IR physician. This CT examination was performed using dose optimization techniques as appropriate, variously including the following: *Automated exposure control *Adjustment of mA and/or kV according to patient size (this includes techniques or standardized protocols for targeted exams where dose is matched to indication/reason for exam; i.e. extremities or head) *Use of iterative reconstruction technique FINDINGS: On coronary CT imaging the lung bases are clear. Visualized liver, gallbladder, spleen, pancreas and bilateral adrenal glands are unremarkable. There are no radiopaque renal calculi or hydronephrosis. Successful CT fluoroscopy guided right renal lower pole core biopsy performed . Postprocedure imaging revealed no hematoma. CT/CT biopsy renal RT IMPRESSION: Successful CT fluoroscopy guided right renal lower pole core biopsy performed. Dose: 3 0 9 mg/centimeters square. Sedation time: 20 minutes Electronically signed by: Augie Aquino MD 12/30/2024 12:17 PM EDT RP Dictated By: Augie Aquino MD Signed By: <Electronically signed by Augie Aquino MD in OV> 12/30/24 1217 DD/ 1031 TD/TT: 12/29/24 1135 Child Care Attendant: [facility] Procedure Note Donotuseinterpreter, Image - 12/30/[address] [place] [address] [address] Scan Report Signed Patient: Gillian Silva#: [id number] 1 : 1960cct:[id number] Age/Sex: 64 / MADM Date: 12/29/24 Loc: [facility] Attending Dr: Gene Stout MD Ordering Physician: Gene Stout MD Date of Service: 12/29/24 Procedure(s): CT biopsy renal RT Accession Number(s): [id number] cc: Gene Stout MD; Tanmay Gore MD Report Number: [id number]: Total DLP = 309.00 mGy-cm Reason for Exam: N18.30 - Chronic kidney disease, stage 3 unspecified PROCEDURE: CT GUIDED BIOPSY, KIDNEY CLINICAL INFORMATION: Right kidney disease, stage III COMPARISON: Ultrasound kidney 08/12/2023 TECHNIQUE: Following explaining CT fluoroscopy guided kidney biopsy procedure, benefits and risk, a written consent was obtained. Patient was placed prone on CT fluoroscopy table and preliminary CT imaging was obtained. An optimal axial slice was selected and markers placed overlying the right posterior abdomen. Repeat imaging was performed and lead marker was selected and marked on the skin. The marked site was cleaned and draped in usual sterile manner. 1% lidocaine was applied at the puncture site. Through a small skin incision a 18-gauge guide needle was advanced from the skin into the lower pole cortex right kidney . Coaxially a second needle was advanced and a 3 pass core biopsy of lower pole right kidney was performed. Post biopsy Gelfoam was introduced and the guide needle and needle withdrawn. Complete hemostasis was achieved at puncture site. Patient tolerated procedure extremely well. Conscious sedation was administered during the exam and patient monitored by IR nursing and IR physician. This CT examination was performed using dose optimization techniques as appropriate, variously including the following: *Automated exposure control *Adjustment of mA and/or kV according to patient size (this includes techniques or standardized protocols for targeted exams where dose is matched to indication/reason for exam; i.e. extremities or head) *Use of iterative reconstruction technique FINDINGS: On coronary CT imaging the lung bases are clear. Visualized liver, gallbladder, spleen, pancreas and bilateral adrenal glands are unremarkable. There are no radiopaque renal calculi or hydronephrosis. Successful CT fluoroscopy guided right renal lower pole core biopsy performed . Postprocedure imaging revealed no hematoma. CT/CT biopsy renal RT IMPRESSION: Successful CT fluoroscopy guided right renal lower pole core biopsy performed. Dose: 3 0 9 mg/centimeters square. Sedation time: 20 minutes Electronically signed by: Augie Aquino MD 12/30/2024 12:17 PM EDT RP Dictated By: Augie Aquino MD Signed By: <Electronically signed by Augie Aquino MD in OV> 12/30/24 1217 DD/ 1031 TD/TT: 12/29/24 1135 Child Care Attendant: [facility] External Provider IM CT PROCEDURES Final Result * (ABNORMAL) CBC auto differential (12/29/2024 9:19 AM EDT) White Blood Count 8.6 4.8 - 10.8 X10*3/uL [facility] Comment:CBC was verified by repeat analysis. Red Blood Count 4.36(L) 4.60 - 5.80 X10*6/uL [facility] Hemoglobin 13.3(L) 14.0 - 18.0 g/dl [facility] Hematocrit 40.0(L) 42.0 - 52.0 % [facility] Mean Corpuscular Volume 91.7 80.0 - 98.0 fL [facility] Mean Corpuscular Hemoglobin 30.5 27.0 - 33.0 pg [facility] Mean Corpuscular HGB Conc 33.3 31.0 - 36.0 g/dl [facility] Red Cell Distribution Width 11.9 11.0 - 16.0 % [facility] Platelet Count 366 160 - 400 X10*3/uL [facility] Mean Platelet Volume 10.0 9.4 - 12.4 fL [facility] Neutrophils Percent Auto 62.2 45 - 73 % [facility] Imm Gran Pct Auto 0.6(H) 0.0 - 0.4 % [facility] Lymphocytes Percent Auto 24.3 20 - 40 % [facility] Monocytes Percent Auto 7.3 2 - 11 % [facility] Eosinophils Percent Auto 5.0(H) 0 - 4 % [facility] Basophils Percent Auto 0.6 0 - 2 % [facility] NRBC Pct Auto 0.0 0.0 - 0.2 /100WBC [facility] Neutrophils Absolute Auto 5.3 2.0 - 8.3 x10*3/uL [facility] Imm Gran Abs Auto 0.05(H) 0.00 - 0.03 X10*3/uL [facility] Lymphocytes Absolute Auto 2.1 1.2 - 4.9 X10*3/uL [facility] Monocytes Absolute Auto 0.6 0.1 - 1.2 X10*3/uL [facility] Eosinophils Absolute Auto 0.4 0.0 - 0.4 X10*3/uL [facility] Basophils Absolute Auto 0.1 0.0 - 0.2 X10*3/uL [facility] NRBC Abs Auto 0.000 0.0 - 0.012 X10*3/uL [facility] 12/29/2024 9:19 AM EDT 12/29/2024 9:26 AM EDT us Generic External Data Provider LAB BLOOD ORDERAB LES Final Result Performing Organization Address [facility]/ZIP Co de Phone Number [facility] [address] [place] [phone] * Type and screen (12/29/2024 9:19 AM EDT) Blood Type ABP [facility] Antibody Screen NEGATIVE [facility] 12/29/2024 9:19 AM EDT 12/29/2024 9:29 AM EDT Generic External Data Provider LAB BLOOD BANK TE ST ORDERABLES Final Result Performing Organization Address [facility] Co de Phone Number [facility] [address] [place] [phone] * (ABNORMAL) Basic Metabolic Panel (12/29/2024 9:19 AM EDT) Sodium 141 135 - 145 mmol/L [facility] Potassium 4.9 3.3 - 5.1 mmol/L [facility] Chloride 107 96 - 108 mmol/L [facility] Carbon Dioxide 23 22 - 29 mmol/L [facility] Anion Gap 16 12 - 20 [facility] Urea Nitrogen (BUN) 52(H) 9 - 16 mg/dL [facility] Creatinine, Serum 2.50(H) 0.5 - 1.4 mg/dL [facility] Creatinine Clr Calc Pharmacy 26.3 [facility] Comment:eGFR (calculated fro m the MDRD study equation) and eCrCl(calculated from the Cockcroft-Gault equation) are based ondifferent parameters and may not yield comparable results.If eCrCl result is absurd, please check patient'sheight/weight. Estimated Glomerular Filt Rate 26 [facility] Comment:Chronic Kidney Disea se: Estimated GFR < 60 mL/min/1.56d9Bopyqw Kidney Disease: Estimated GFR < 15 mL/min/1.73m2 Glucose 141(H) 60 - 115 mg/dL [facility] Calcium 9.1 8.4 - 10.2 mg/dL [facility] 12/29/2024 9:19 AM EDT 12/29/2024 9:26 AM EDT Generic External Data Provider LAB BLOOD ORDERAB LES Final Result Performing Organization Address [facility] Co de Phone Number [facility] [address] [place] [phone] * Hepatitis C Antibody with Reflex to HCV, RNA, Quantitative, Real-Time PCR (11/30/2024 1:19 PM EDT) Hepatitis C Antibody Nonreactive Nonreactive [facility] Comment:Antibodies to HCV no t detected; does not exclude early acuteHCV infection. 11/30/2024 1:19 PM EDT 11/30/2024 5:32 PM EDT Generic External Data Provider LAB BLOOD ORDERAB LES Final Result Performing Organization Address [facility] Co de Phone Number [facility] [address] [place] [phone] * Hepatitis B surface antigen, EIA (11/30/2024 1:19 PM EDT) Hepatitis B Surface Ag Negative Negative [facility] 11/30/2024 1:19 PM EDT 11/30/2024 5:32 PM EDT us Generic External Data Provider LAB BLOOD ORDERAB LES Final Result Performing Organization Address [facility] Co de Phone Number [facility] [address] [place] [phone] * Hepatitis B Core Antibody, Total (11/30/2024 1:19 PM EDT) Hepatitis B Core Antibody Nonreactive Nonreactive [facility] 11/30/2024 1:19 PM EDT 11/30/2024 5:32 PM EDT Generic External Data Provider LAB BLOOD ORDERAB LES Final Result Performing Organization Address [facility] Co de Phone Number [facility] [address] [place] [phone] * Hepatitis B Surface Antibody, Qualitative (11/30/2024 1:19 PM EDT) ~Hepatitis B Surface Antibody NONREACTIVE Nonreactive [facility] Comment:Nonreactive: < 8.00 mIU/mL 11/30/2024 1:19 PM EDT 11/30/2024 5:32 PM EDT Generic External Data Provider LAB BLOOD ORDERAB LES Final Result Performing Organization Address [facility] Co de Phone Number [facility] [address] [place] [phone] * (ABNORMAL) Complement Component C3c (11/30/2024 1:19 PM EDT) Complement C3 194(A) 82 - 185 mg/dL [facility] Comment:THIS TEST WAS PERFOR MED AT:[facility] [place] [phone] ALFORD MD 11/30/2024 1:19 PM EDT 11/30/2024 5:32 PM EDT us Generic External Data Provider LAB BLOOD ORDERAB LES Final Result Performing Organization Address City/[facility]/ZIP Co de Phone Number [facility] [address] [place] [phone] * Complement Component C4c (11/30/2024 1:19 PM EDT) Complement C4 44 15 - 53 mg/dL [facility] Comment:THIS TEST WAS PERFOR MED AT:[facility] [place] [phone] ALFORD MD 11/30/2024 1:19 PM EDT 11/30/2024 5:32 PM EDT Generic External Data Provider LAB BLOOD ORDERAB LES Final Result Performing Organization Address [facility] Co de Phone Number [facility] [address] [place] [phone] * (ABNORMAL) Lipid Panel, Standard (11/30/2024 1:19 PM EDT) Triglycerides 208(H) <150 mg/dL [facility] Comment:Desirable Triglyceri de: less than 150 mg/dLBorderline High Triglyceride 150-199 mg/dLHigh Triglyceride: 200-499 mg/dLVery High Triglyceride: greater than or equal to 5OO mg/dL Cholesterol 290(H) <200 mg/dL [facility] Comment:Desirable Cholestero l: less than 200 mg/dLBorderline High Cholesterol: 200-239 mg/dLHigh Cholesterol: greater than 239 mg/dL LDL Cholesterol Calculated 212(H) <100 mg/dL [facility] Comment:Desirable LDL: less than 100 mg/dLNear Optimal/Above Optimal LDL: 110- 129 mg/dLBorderline High LDL: 130-159 mg/dLHigh LDL: 160-189 mg/dLVery High LDL: greater than or equal to 190 mg/dL HDL Cholesterol 37(L) >40 mg/dL [facility] Comment:Desirable HDL: great er than 40 mg/dL Note: This HDL assay may give artificially low results in patients with liver disease. Blood Venous blood specimen / Unknown 11/30/2024 1:19 PM EDT 11/30/2024 2:07 PM EDT us Tanmay Mello MD LAB BLOOD ORDERABL ES Final Result [facility] [address] [place] [phone] * (ABNORMAL) Comprehensive Metabolic Panel (11/30/2024 1:19 PM EDT) Sodium 145 135 - 145 mmol/L [facility] Potassium 4.8 3.3 - 5.1 mmol/L [facility] Chloride 107 96 - 108 mmol/L [facility] Carbon Dioxide 26 22 - 29 mmol/L [facility] Anion Gap 17 12 - 20 [facility] Urea Nitrogen (BUN) 60(H) 9 - 16 mg/dL [facility] Creatinine, Serum 2.66(H) 0.5 - 1.4 mg/dL [facility] Estimated Glomerular Filt Rate 24 [facility] Comment:Chronic Kidney Disea se: Estimated GFR < 60 mL/min/1.14t2Uvbgug Kidney Disease: Estimated GFR < 15 mL/min/1.73m2 Glucose 138(H) 60 - 115 mg/dL [facility] Calcium 10.1 8.4 - 10.2 mg/dL [facility] Bilirubin, Total 0.8 0.0 - 1.0 mg/dL [facility] Aspartate Amino Transferase 27 5 - 37 U/L [facility] Alanine Aminotransferase 24 0 - 40 U/L [facility] Total Protein 8.7(H) 6.5 - 8.0 g/dL [facility] Albumin Level 4.7 3.5 - 5.0 g/dL [facility] Alkaline Phosphatase 122(H) 39 - 117 U/L [facility] Blood Venous blood specimen / Unknown 11/30/2024 1:19 PM EDT 11/30/2024 2:07 PM EDT Tanmay Mello MD LAB BLOOD ORDERABL ES Final Result [facility] [address] [place] [phone] * (ABNORMAL) POCT Hgb A1c (11/24/2024 3:29 PM EDT) [facility] Hemoglobin A1C 8.8(A) 4.0 - 5.7 % QC Media Lot # [id number] Lot# Expiration Date Blood 11/24/2024 3:29 PM EDT Tanmay Mello MD POINT OF CARE TEST ENTER/EDIT ORDERABLES Final Result * POCT Glucose (11/24/2024 3:28 PM EDT) [facility] Glucose Blood, POC 131 60 - 200 mg/dL QC Media Lot # [id number] Lot# Expiration Date Blood Capillary blood specimen / Unknown 11/24/2024 3:28 PM EDT Tanmay Mello MD POINT OF CARE TEST ENTER/EDIT ORDERABLES Final Result * Hm Colonoscopy (11/19/2023) [facility] Colonoscopy Normal Normal Narrative Radha Angela - 11/19/2023 Colonoscopy order added per GI office note Repeat Colonoscopy in 1-2 years due to fair left sided prep or earlier if clinically indicated --next time use adult scope Renu Early MD HEALTH MAINTENANCE Final Result * Fecal immunochemical test x1 (FIT) (04/10/2020 10:58 AM EST) [facility] FIT Date 1 [facility] FIT Date 2 [facility] FIT Lot [facility] FIT1 [facility] Comment:NO SPECIMEN ON CARD FIT2 [facility] 04/10/2020 10:5 8 AM EST us Historical Provider HISTORICAL/NON ORDERABLE LABS Final Result [facility] [address] [place] [address], from Last 3 Months or Most Recently Relevant to Health [place] [address] [facility] [place] [address] [facility] Care Teams Lithostripper Relationship Specialty Start Date End Date Tanmay Gore MD [address] [place] [address] PCP - General Internal Medicine 03/19/23
--- OUTSIDE RECORDS SUMMARY | 2025-01-12 10:16 | XMS_ITS | Encounter Summary ---
Author Organization [employer] Address [address] [facility] 7t [place] [address] Care Team Providers Care Metal Bench Patternmaker Name Role Phone Tanmay Gore MD Primary Care Prov ider Reason for Visit * Reason Comments Med Refill Encounter Details Date Type Department Care Team ([facility] Contact Info) Description 02/27/2024 Refill [facility] MED & PEDS [address] [place], [place] [phone] Tanmay Gore MD [address] [place] [address] Social History Tobacco Use Types Packs/Day Years [...] Description 02/23/2025 1:00 PM EST Telemedicine [facility] MED & PEDS [address] [place] [address] Tanmay Gore MD [address] [place] [address] documented as of this encounter Visit Diagnoses Not on filedocumented in this encounter Care Teams Metal Bench Patternmaker Relationship Specialty Start Date End Date Tanmay Gore MD [address] [place] [address] PCP - General Internal Medicine 03/19/23 documented as of this encounter
--- OUTSIDE RECORDS SUMMARY | 2025-01-12 10:16 | XMS_ITS | Encounter Summary ---
Author Organization [employer] Address [address] [facility] 7t [place] [address] Care Team Providers Care Principal Systems Engineer Name Role Phone Tanmay Gore MD Primary Care Prov ider Tanmay Gore MD Primary Care Prov ider Reason for Visit * Reason Comments Med Refill Encounter Details Date Type Department Care Team (Late Contact Info) Description 06/12/2022 Refill [facility] CH[facility] MED & PEDS [address] [place] [address] Tanmay Gore MD [address] [place] [address] Social History Tobacco Use Types Packs/Day Years [...] Upcoming Encounters Date Type Department Care Team ([facility] Contact Info) Description 02/23/2025 1:00 PM EST Telemedicine [facility] MED & PEDS [address] [place] [address] Tanmay Gore MD [address] [place] [address] documented as of this encounter Visit Diagnoses Not on filedocumented in this encounter Care Teams Principal Systems Engineer Relationship Specialty Start Date End Date Tanmay Gore MD [address] [place] [address] PCP - General Internal Medicine 07/29/19 03/10/23 Tanmay Gore MD [address] [place] [address] PCP - General Internal Medicine 03/19/23 documented as of this encounter
--- OUTSIDE RECORDS SUMMARY | 2025-01-12 10:16 | XMS_ITS | Encounter Summary ---
Author Organization [employer] Address [address] [facility] 7t [place] [address] Care Team Providers Care Interactive Video Technician Name Role Phone Tanmay Gore MD Primary Care Prov ider Reason for Visit * Reason Comments Med Refill Encounter Details Date Type Department Care Team ([facility] Contact Info) Description 02/22/2024 Refill [facility] CH[facility] MED & PEDS [address] [place], [place] [phone] Tanmay Gore MD [address] [place] [address] Social History Tobacco Use Types Packs/Day Years [...] Info) Description 02/23/2025 1:00 PM EST Telemedicine [facility] MED & PEDS [address] [place] [address] Tanmay Gore MD [address] [place] [address] documented as of this encounter Visit Diagnoses Not on filedocumented in this encounter Care Teams Interactive Video Technician Relationship Specialty Start Date End Date Tanmay Gore MD [address] [place] [address] PCP - General Internal Medicine 03/19/23 documented as of this encounter
--- OUTSIDE RECORDS SUMMARY | 2025-01-12 10:16 | XMS_ITS | Encounter Summary ---
Author Organization [employer] Address [address] [facility] 7t [place] [address] Care Team Providers Care Motor Expert Name Role Phone Tanmay Gore MD Primary Care Prov ider Reason for Visit * Reason Comments Med Change Request Encounter Details Date Type Department Care Team ([facility] Contact Info) Description 12/09/2024 Refill [facility] CHC MED & PEDS [address] [place], [place] [phone] Tanmay Gore MD [address] [place] [address] Social History Tobacco Use Types Packs/Day Years [...] Upcoming Encounters Date Type Department Care Team ([facility] st Contact Info) Description 02/23/2025 1:00 PM EST Telemedicine [facility] MED & PEDS [address] [place] [address] Tanmay Gore MD [address] [place] [address] documented as of this encounter Visit Diagnoses Not on filedocumented in this encounter Additional Health Concerns Assessment Noted Time PHQ-9 Depression Total Score: 0 10/13/19 25 8:53 AM EDT documented as of this encounter Care Teams Motor Expert Relationship Specialty Start Date End Date Tanmay Gore MD [address] [place] [address] PCP - General Internal Medicine 03/19/23 documented as of this encounter
--- OUTSIDE RECORDS SUMMARY | 2025-01-12 10:16 | XMS_ITS | Encounter Summary ---
Author Organization [employer] Address [address] [facility] 7t [place] [address] Care Team Providers Care Baker Second Name Role Phone Tanmay Gore MD Primary Care Prov ider Reason for Visit * Reason Comments Med Change Request Encounter Details Date Type Department Care Team ([facility] Contact Info) Description 01/06/2025 Refill [facility] CHC MED & PEDS [address] [place], [place] [phone] Tanmay Gore MD [address] [place] [address] Social History Tobacco Use Types Packs/Day Years [...] Upcoming Encounters Date Type Department Care Team ([facility] st Contact Info) Description 02/23/2025 1:00 PM EST Telemedicine [facility] MED & PEDS [address] [place] [address] Tanmay Gore MD [address] [place] [address] documented as of this encounter Visit Diagnoses Not on filedocumented in this encounter Additional Health Concerns Assessment Noted Time PHQ-9 Depression Total Score: 0 10/13/19 25 8:53 AM EDT documented as of this encounter Care Teams Baker Second Relationship Specialty Start Date End Date Tanmay Gore MD [address] [place] [address] PCP - General Internal Medicine 03/19/23 documented as of this encounter
--- OUTSIDE RECORDS SUMMARY | 2025-01-12 10:16 | XMS_ITS | Encounter Summary ---
Author Organization [employer] Address [address] [facility] [address] 7[address] [place] [address] Care Team Providers Care Tail Dogger Name Role Phone Tanmay Gore MD Primary Care Prov ider Reason for Visit * Reason Onset Date Comments Medication Question 01/13/2024 Encounter Details Date Type Department Care Team (Late st Contact Info) Description 01/13/2024 Telephone [facility] [address] [place] [address] Tanmay Gore MD [address] [place], [place] [phone] Medication Question Social History Tobacco Use Types [...] the past 12 months, has t he [employer] oil or water company threatened to shut [...] Info) Description 02/23/2025 1:00 PM EST Telemedicine [facility] MED & PEDS [address] [place] [address] Tanmay Gore MD [address] [place] [address] documented as of this encounter Visit Diagnoses Not on filedocumented in this encounter Care Teams Tail Dogger Relationship Specialty Start Date End Date Tanmay Gore MD [address] [place] [address] PCP - General Internal Medicine 03/19/23 documented as of this encounter
== END ==
LOC: HO.CARD 09:26
PROVIDERS: PCP Internal Medicine; Visit Provider Internal Medicine
DX: R07.9 Chest pain, unspecified (principal)
CPT/HCPCS: 93017

== ENCOUNTER → 2025-01-12 09:34 | Outpatient (BNV) | payer OTHER, SELFPAY | PROVIDERS: PCP Internal Medicine | DX: R06.02 Shortness of breath (principal) | CPT/HCPCS: 93016; 93018 ==

== ENCOUNTER → 2025-01-13 12:37 | Outpatient (REF) | payer OTHER, SELFPAY ==
--- NOTE | 2025-01-13 12:41 | CA_ITS ---
Transthoracic Echocardiogram Patient (Last, First, Middle): Jame Silva, Gender: M Date of : 1960 Age: 64 Procedure Date: 01/13/2025 Procedure Type: Transthoracic Echocardiogram Location: OP Height: 157.48 cm Weight: 67.13 kg BSA: 1.68 m2 Heart Rate: 103 bpm Fur Repairer: CRYSTAL Referring MD: Tanmay Mello MD Horse Breeder: Fidel Hernández MD Symptoms: CHEST PAIN Study Quality: Adequate w contrast ECG Rhythm: Tachycardia Conclusions: - 1. Low normal LV ejection fraction 50 to 55% with regional wall motion abnormality in RCA territory with impaired relaxation filling pattern 2. Normal cardiac valvular Dopplers 3. Small pericardial effusion near the left ventricle Findings Procedure Information Contrast agent, definity, is being given per protocol without apparent complications. Left Ventricle Normal left ventricular cavity size. There is normal left ventricular wall thickness. The left ventricular systolic function is low normal. The visually estimated ejection fraction is between 50-55%. Spectral Doppler is indicative of an impaired relaxation filling pattern. E/E prime ratio is <8, consistent with normal filling pressures. There is mild septal asymmetric hypertrophy. Wall Motion Rest Echo Findings The inferoseptal wall and basal inferior segment are hypokinetic. All other scored wall segments showed normal motion. Right Ventricle Normal right ventricular cavity size and systolic function. Atria Both atria are normal in size. There is no evidence of interatrial shunt. Aortic Valve Normal aortic valve structure and function. There is no aortic valve stenosis. There is no aortic valve regurgitation. Mitral Valve There is mild anterior and posterior mitral leaflet thickening. There is trace mitral valve regurgitation. There is no mitral valve stenosis. Pulmonic Valve The pulmonic valve is likely normal. Tricuspid Valve Normal tricuspid valve structure. Tricuspid regurgitation envelope is inadequate for calculation of right ventricular systolic pressure. Normal right atrial pressure. Great Vessels All visible segments of the aorta are normal in size. The pulmonary artery was not well visualized. There is no dilatation of the ascending aorta measuring 3.10 cm. Venous The inferior vena cava is normal in size and collapses greater than 50% with inspiration. Pericardium/Pleural There is a small loculated pericardial effusion overlying the left ventricle. Prior Study Comparison No prior study available for comparison. Measurements 2D Linear Measurements IVSd: 1.19 0.6-0.9/0.6-1.0 cm LVIDd: 4.11 3.9-5.3/4.2-5.9 cm LVIDd Index: 2.45 2.4-3.2/2.2-3.1 cm/m2 LVIDs: 2.88 2.0-3.6 cm LVPWd: 0.66 0.7-1.1 cm LA Diam: 3.80 2.7-3.8/3.0-4.0 cm LAIDs Index: 2.26 1.5-2.3 cm/m2 LV Mass: 148.08 67-162/88-224 g LV Mass Index: 88.15 43-95/49-115 g/m2 LVOT Diam: 2.00 3.0+(-)1.3 cm 2D Systolic Function EF 4C: 49.10 >55% EF 2C: 51.70 >55% EF BiP: 49.90 >55% Mitral Valve MV Pk E: 0.48 MV PK A: 0.88 E/A: 0.50 E'Lateral: 7.40 E/E' Lat: 6.40 Aortic Valve AoV Pk Sergei: 0.92 AoV Pk Grad: 3.00 CRYS: 2.08 LVOT LVOT Pk Sergei: 0.61 LVOT Mn Sergei: 0.41 LVOT VTI: 0.10 LVOT Pk Grad: 1.00 LVOT Mn Grad: 1.00 LVOT Diam: 2.00 LVOT Area: 3.14 Diastolic Function MV Pk E: 0.48 MV Pk A: 0.88 E/A: 0.50 E' Laterial: 7.40 E/E' Lat: 6.40 Right Ventricle TAPSE (mm): 17.40 TVS' Sergei: 10.40 Tricuspid Valve RA Press: 3.00 Great Vessels Aorta Sinus of Valsalva: 3.00 2.0-3.5 cm Ao Asc: 3.10 2.1-3.4 cm Ao Arch: 2.50 Pulmonary Veins Pulm Vein S/D 2.20 Pulmonary Valve PV Pk Sergei: 0.77 Peak PV Grad: 2.00 Updated in Other Vendor System with Status of Final Fidel Hernández MD electronically signed on 01/13/2025 3:15:48 PM with status of Final
--- OUTSIDE RECORDS SUMMARY | 2025-01-13 15:14 | XMS_ITS | Encounter Summary ---
Author Organization [employer] Address [address] [place] [address], [place] [address] Care Team Providers Care Byproducts Extractor Name Role Phone Tanmay Gore MD Primary Care Prov ider Reason for Referral * Consultation (STAT) - Authorized Specialty Diagnoses / Procedures Referred By Ricardo alan Referred To Contact Cardiology Diagnoses Chest pain, unspecified type Tanmay Gore MD [address] [place] [address] Phone: tel: fax: Fidel Hernández MD [address] [place] [address] Phone: tel: fax: Referral ID Status Reason Start Date Expiration Date Visits Requested Visits Authorized [id number] Authorized Specialty Services Required 5 01/12/2026 1 1 * Imaging (STAT) - Authorized Specialty Diagnoses / Procedures Referred By Ricardo alan Referred To Contact Cardiology Diagnoses Chest pain, unspecified type Procedures Transthoracic Echo (TTE) Complete Tanmay Gore MD [address] [place] [address] Phone: tel: fax: [address] Phone: tel: fax: Referral ID Status Reason Start Date Expiration Date Visits Requested Visits Authorized [id number] Authorized Perform Procedure 5 01/12/2026 1 1 Encounter Details Date Type Department Care Team (Late st Contact Info) Description 01/12/2025 Orders Only [facility] MED & PEDS [address] [place] [address] Tanmay Gore MD [address] [place] [address] Chest pain, unspecified type (Primary Dx) Social History Tobacco Use Types Packs/Day Years [...] Description 02/23/2025 1:00 PM EST Telemedicine [facility] MED & PEDS [address] [place] [address] Tanmay Gore MD [address] [place] [address] Scheduled Orders Name Type Priority Associated Diagnoses Orde r Schedule Transthoracic Echo (TTE) Complete Echocardiography STAT Chest pain, unspecified type Expected: 01/12/2025 (Approximate), Expires: 01/12/2027 Scheduled Referrals Name Type Priority Associated Diagnoses Orde r Schedule Referral to Cardiology Outpatient Referral STAT Chest pain, unspecified type Expected: 01/12/2025 (Approximate), Expires: 01/12/2026 documented as of this encounter Visit Diagnoses Diagnosis Chest pain, unspecified type- Primary documented in this encounter Additional Health Concerns Assessment Noted Time PHQ-9 Depression Total Score: 0 10/13/19 25 8:53 AM EDT documented as of this encounter Care Teams Byproducts Extractor Relationship Specialty Start Date End Date Tanmay Gore MD [address] [place] [address] PCP - General Internal Medicine 03/19/23 documented as of this encounter
--- OUTSIDE RECORDS SUMMARY | 2025-01-13 15:14 | XMS_ITS | Encounter Summary ---
Author Organization [employer] Address [address] [facility] [address] [place] [address] Care Team Providers Care Rubber Attacher Name Role Phone Tanmay Gore MD Primary Care Prov ider Reason for Visit * Reason Comments Med Refill Encounter Details Date Type Department Care Team ([facility] Contact Info) Description 02/22/2024 Refill [facility] MED & PEDS [address] [place], [place] [phone] Tanmay Gore MD [address] [place] [address] Social History Tobacco Use Types Packs/Day Years [...] Description 02/23/2025 1:00 PM EST Telemedicine [facility] MED & PEDS [address] [place] [address] Tanmay Gore MD [address] [place] [address] documented as of this encounter Visit Diagnoses Not on filedocumented in this encounter Care Teams Rubber Attacher Relationship Specialty Start Date End Date Tanmay Gore MD [address] [place] [address] PCP - General Internal Medicine 03/19/23 documented as of this encounter
--- OUTSIDE RECORDS SUMMARY | 2025-01-13 15:14 | XMS_ITS | Encounter Summary ---
Author Organization [employer] Address [address] [facility] [facility] [address] [place] [address] Care Team Providers Care Job Developer Name Role Phone Tanmay Gore MD Primary Care Prov ider Reason for Visit * Reason Onset Date Comments Medication Problem 06/11/2023 Encounter Details Date Type Department Care Team (Late st Contact Info) Description 06/11/2023 Telephone [facility] [address] [place] [address] Tanmay Gore MD [address] [place], [place] [phone] Medication Problem Social History Tobacco Use Types [...] the past 12 months, has t he [employer] threatened to shut off services in your [...] Description 02/23/2025 1:00 PM EST Telemedicine [facility] MED & PEDS [address] [place] [address] Tanmay Gore MD [address] [place] [address] documented as of this encounter Visit Diagnoses Not on filedocumented in this encounter Care Teams Job Developer Relationship Specialty Start Date End Date Tanmay Gore MD [address] [place] [address] PCP - General Internal Medicine 03/19/23 documented as of this encounter
--- OUTSIDE RECORDS SUMMARY | 2025-01-13 15:14 | XMS_ITS | Encounter Summary ---
Author Organization [employer] Address [address] [facility] [address] [place] [address] Care Team Providers Care Cmo & President Name Role Phone Tanmay Gore MD Primary Care Prov ider Reason for Visit * Reason Comments Med Change Request Encounter Details Date Type Department Care Team ([facility] Contact Info) Description 01/06/[address] [facility] MED & PEDS [address] [place], [place] [phone] Tanmay Gore MD [address] [place] [address] Social History Tobacco Use Types Packs/Day Years [...] Upcoming Encounters Date Type Department Care Team ([facility] st Contact Info) Description 02/23/2025 1:00 PM EST Telemedicine [facility] MED & PEDS [address] [place] [address] Tanmay Gore MD [address] [place] [address] documented as of this encounter Visit Diagnoses Not on filedocumented in this encounter Additional Health Concerns Assessment Noted Time PHQ-9 Depression Total Score: 0 10/13/19 25 8:53 AM EDT documented as of this encounter Care Teams Cmo & President Relationship Specialty Start Date End Date Tanmay Gore MD [address] [place] [address] PCP - General Internal Medicine 03/19/23 documented as of this encounter
--- OUTSIDE RECORDS SUMMARY | 2025-01-13 15:14 | XMS_ITS | Encounter Summary ---
Author Organization [employer] Address [address] [facility] [address] [place] [address] Care Team Providers Care Procurement Professional Logistics Name Role Phone Tanmay Gore MD Primary Care Prov ider Reason for Visit * Reason Comments Med Refill Encounter Details Date Type Department Care Team ([facility] Contact Info) Description 02/27/2024 Refill [facility] MED & PEDS [address] [place], [place] [phone] Tanmay Gore MD [address] [place] [address] Social History Tobacco Use Types Packs/Day Years [...] 02/23/2025 1:00 PM EST Telemedicine [facility] MED & PEDS [address] [place] [address] Tanmay Gore MD [address] [place] [address] documented as of this encounter Visit Diagnoses Not on filedocumented in this encounter Care Teams Procurement Professional Logistics Relationship Specialty Start Date End Date Tanmay Gore MD [address] [place] [address] PCP - General Internal Medicine 03/19/23 documented as of this encounter
--- OUTSIDE RECORDS SUMMARY | 2025-01-13 15:14 | XMS_ITS | Encounter Summary ---
Author Organization [employer] Address [address] [facility] [address] [place] [address] Care Team Providers Care Real Estate Salesperson Name Role Phone Tanmay Gore MD Primary Care Prov ider Reason for Visit * Reason Comments Med Change Request Encounter Details Date Type Department Care Team ([facility] Contact Info) Description 12/09/2024 Refill [facility] CH[facility] MED & PEDS [address] [place], [place] [phone] Tanmay Gore MD [address] [place] [address] Social History Tobacco Use Types Packs/Day Years [...] Upcoming Encounters Date Type Department Care Team ([facility] st Contact Info) Description 02/23/2025 1:00 PM EST Telemedicine [facility] MED & PEDS [address] [place] [address] Tanmay Gore MD [address] [place] [address] documented as of this encounter Visit Diagnoses Not on filedocumented in this encounter Additional Health Concerns Assessment Noted Time PHQ-9 Depression Total Score: 0 10/13/19 25 8:53 AM EDT documented as of this encounter Care Teams Real Estate Salesperson Relationship Specialty Start Date End Date Tanmay Gore MD [address] [place] [address] PCP - General Internal Medicine 03/19/23 documented as of this encounter
--- OUTSIDE RECORDS SUMMARY | 2025-01-13 15:14 | XMS_ITS | Clinical Summary ---
Author Organization [employer] Address [address] [facility] 7t [place] [address] Care Team Providers Care Talent Solutions Manager Name Role Phone Tanmay Goer MD Primary Care Prov ider Allergies No [...] day. 3 mL 11/25/19 Active Continuous Glucose Enrollment Counselor (FreeStyle Antionette 3 [place]) device 1 each Once per day. Use as directed for CGM 1 each 12/24/19 Active Continuous Glucose Sensor (FreeStyle Antionette 3 Plus Sensor) misc 1 each every 15 days. Apply 1 every 15 days as directed for CGM 2 each 12/24/19 Active Continuous Glucose Enrollment Counselor (FreeStyle Antionette 3 [place]) device 1 each Once per day. Use [...] of call pt had been contacted by manager collection team and was en route to er [...] Encounters Date Type Department Care Team Description 01/12/2025 Orders Only [facility] [address] [place] [address] Tanmay Gore MD Chest pain, unspecified type (Primary Dx) 01/06/2025 Refill [facility] [address] [place] [address] Tanmay Gore MD 12/29/2024 Orders Only GENERIC EXTERNAL DATA DEPARTMENT Provider, Generic External Data 12/23/2024 Orders Only [facility] [address] [place] [address] Tanmay Gore MD 12/09/2024 Telephone [facility] [address] [place] [address] Tanmay Gore MD Med Refill 12/09/2024 Refill [facility] [address] [place] [address] Tanmay Gore MD 11/30/2024 Orders Only GENERIC EXTERNAL DATA DEPARTMENT Provider, Generic External Data 11/24/2024 3:30 PM EDT Office Visit [facility] [address] [place] [address] Tanmay Gore MD Chest pain, unspecified type (Primary Dx); Type 2 diabetes mellitus with diabetic microalbuminuria, without long-term current use of insulin ([facility]) 11/24/2024 Travel 11/24/2024 Refill [facility] [address] [place] [address] Otilia Mancia FNP 11/24/2024 Refill [facility] [address] [place] [address] Tanmay Gore MD 11/23/2024 Telephone [facility] [address] [place] [address] Tanmay Gore MD chart prep 11/14/2024 Refill [facility] [address] [facility] [address] Tanmay Gore MD Abdominal pain with vomiting from Last 3 Months Immunizations Immunization Administration [...] your housing situation today? I have ronald kika 10/12/[address] you li [...] Info) Description 02/23/2025 1:00 PM EST Telemedicine [facility] [address] [place] [address] Tanmay Gore MD [address] [place] [address] Health Maintenance Due Date Last Done Comments CT Colonography 1960 FIT DNA/Cologuard 1960 FOBT 1960 Sigmoidoscopy 1960 Disability Screening 1960 HIB Vaccines (1 of 1 - Risk 1-dose series) 11/13/1961 Meningococcal Vaccine (1 - Risk 2-dose series) 1962 Meningococcal B Vaccine (1 of 4 - Increased Risk) 1970 RSV Patients and Patients Aged 60 years or older (1 - Risk 50-74 years 1-dose series) 2010 FIT 04/10/2021 04/10/2020 Zoster Vaccines (2 of 2) 06/18/2022 04/23/2022 Diabetes: Foot Exam 04/17/2024 04/17/2023, 04/17/2023, 04/17/2023, Additional history exists Eye Exam 06/12/2024 COVID-19 Vaccine ( season) 2024 08/09/2020, 07/19/2020 [...] 06/10/2017 Hepatitis C Screening Completed 11/30/2024, 024 HPV Vaccines Aged Out No longer eligi [...] Procedure Name Priority Date/Time Associated Diagnosis Comments OTHER REF TEST - MISC Routine 12/29/2024 11:01 AM EDT HEMATOXYLIN AND EOSIN STAIN Routine 12/29/2024 11:01 [...] microalbuminuria, without long-term current use of insulin ([facility]) HM COLONOSCOPY Routine 11/19/2023 ZZZ HISTORICAL FECAL IMMUNOCHEMICAL TEST X1 (FIT) Routine 04/10/2020 10:58 AM EST from Last 3 Months or Most Recently Relevant to Health Maintenance Results * Other Reference Test - Misc (12/29/2024 11:01 AM EDT) Other Ref Test Misc See Note [facility] Comment:See the report from [facility] scanned into thePathology reports section of the EMR. 12/29/2024 11:0 1 AM EDT 12/29/2024 11:42 AM EDT [facility] - 01/13/2025 8:45 AM EST RIGHT KIDNEY CORETX LOWER POLE SENT TO [facility] us Generic External Data Provider LAB BLOOD ORDERAB LES Final Result [facility] [address] [place] [phone] * Hematoxylin and Eosin Stain (12/29/2024 11:01 AM EDT) 12/29/2024 11:0 1 AM EDT 12/29/2024 11:40 AM EDT [facility] - 12/30/2024 11:33 AM EDT ----- ------- Name: Mimi Silvaibal Age/Sex: 64/M : 1960 Unit#: [id number] Attend Dr: Gene Stout MD Re12/29/24 Status: [facility] Location: [facility] Disch: ----- ------- SPEC : [id number] RECD: 12/29/24 STATUS: DANIA IBRAHIM NUM: [id number] CESIA: 12/29/[address] [facility] [address]: Augie Aquino MD ENTERED: 12/29/24 SP TYPE: Surgical OTHR DR: Gene Stout MD, Benjamin MD ORDERED: HE Stain/2, Gross Micro L4 Diagnosis Kidney, right cortex lower pole, core biopsy: Sent to [facility] for light microscopy, immunofluorescence, and electron [...] cm. The specimen is entirely forwarded to [facility] for further analysis. No sections taken. ([facility]) IHC S/NG Disclaimer NOTE: Unless otherwise stated, all tissue is formalin-fixed and paraffin-embedded. Some or all of the immunohistochemical tests reported herein may have been developed and their performance characteristics determined by [facility]. They have not been cleared or approved by the U.S. Food and Drug Administration (FDA). However, the FDA has determined that such clearance or approval is not necessary. This laboratory is certified under the Clinical Laboratory Improvement Amendments of 1988 (CLIA) as qualified to perform high complexity clinical laboratory testing. Copies To: Gene Sotut MD [facility] [address] [place] [address] Dr [address] [place] [address] [email or web address] CONTINUED ON NEXT PAGE ----- ------- Name: Jame Silva Age/Sex: 64/M : 1960 Unit#: [id number] Attend Dr: Gene Stout MD Re12/29/24 Status: [facility] Location: [facility] Disch: ----- ------- SPEC : [id number] RECD: 12/29/24 STATUS: DANIA PATRICE NUM: [id number] CESIA: 12/29/[address] [facility] [facility] [address]: Augie Aquino MD ENTERED: 12/29/24 SP TYPE: Surgical OTHR DR: Gene Stout MD, Benjamin MD ORDERED: HE Stain/2, Gross Micro L4 Copies To: (Continued) Tanmay Gore MD [address] [phone] Augie Aquino MD [address] [place] [phone] ----- ------- Signed (signature on file) Azalia Amagon 12/30/24 1133 ----- ------- END OF REPORT us Generic External Data Provider LAB BLOOD ORDERAB LES Final Result Performing Organization Address City/State/[facility] Co de Phone Number [facility] [address] [place] [address] [phone] * CT Guided Percutaneous Biopsy renal Right (12/29/2024 10:31 AM EDT) Anatomical Region Laterality Modality Kidney Right Computed Tomogra phy 12/29/2024 10:3 1 AM EDT Narrative 12/30/2024 12:20 PM EDT [place] [address] [address] Scan Report Signed Patient: Jame Silva MR#: [id number] 1 : 1960 Acct:[id number] Age/Sex: 64 / M ADM Date: 12/29/24 Loc: [facility] Attending Dr: Gene Stout MD Ordering Physician: Gene Stout MD Date of Service: 12/29/24 Procedure(s): CT biopsy renal RT Accession Number(s): [id number] cc: Gene Stout MD; Tanmay Gore MD Report Number: [id number]: Total DLP = 309.00 mGy-cm Reason for [...] Augie Aquino MD 12/30/2024 12:17 PM EDT Dictated By: Augie Aquino MD Signed By: <Electronically signed by Augie Aquino MD in OV> 12/30/24 1217 DD/ 1031 TD/TT: 12/29/24 1135 Liquor Runner: [facility] Procedure Note Donotuseinterpreter, Image - 12/30/[address] [address] [address] Scan Report Signed Patient: Gillian Silva#: [id number] 1 : 1960cct:[id number] Age/Sex: 64 / MADM Date: 12/29/24 Loc: [facility] Attending Dr: Gene Stout MD Ordering Physician: Gene Stout MD Date of Service: 12/29/24 Procedure(s): CT biopsy renal RT Accession Number(s): [id number] cc: Gene Stout MD; Tanmay Gore MD Report Number: [id number]: Total DLP = 309.00 mGy-cm Reason for [...] 12/30/24 1217 DD/ 1031 TD/TT: 12/29/24 1135 Liquor Runner: [facility] External Provider IMG CT PROCEDURES Final Result * (ABNORMAL) CBC auto differential (12/29/2024 9:19 AM EDT) White Blood Count 8.6 4.8 - 10.8 X10*3/uL [facility] Comment:CBC was verified by repeat analysis. Red Blood Count 4.36(L) 4.60 - 5.80 X10*6/uL [facility] Hemoglobin 13.3(L) 14.0 - 18.0 g/dl [facility] Hematocrit 40.0(L) 42.0 - 52.0 % [facility] Mean Corpuscular Volume 91.7 80.0 - 98.0 fL [facility] Mean Corpuscular Hemoglobin 30.5 27.0 - 33.0 pg [facility] Mean Corpuscular HGB Conc 33.3 31.0 - 36.0 g/dl [facility] Red Cell Distribution Width 11.9 11.0 - 16.0 % [facility] Platelet Count 366 160 - 400 X10*3/uL [facility] Mean Platelet Volume 10.0 9.4 - 12.4 fL [facility] Neutrophils Percent Auto 62.2 45 - 73 % [facility] Imm Gran Pct Auto 0.6(H) 0.0 - 0.4 % [facility] Lymphocytes Percent Auto 24.3 20 - 40 % [facility] Monocytes Percent Auto 7.3 2 - 11 % [facility] Eosinophils Percent Auto 5.0(H) 0 - 4 % [facility] Basophils Percent Auto 0.6 0 - 2 % [facility] NRBC Pct Auto 0.0 0.0 - 0.2 /100WBC [facility] Neutrophils Absolute Auto 5.3 2.0 - 8.3 x10*3/uL [facility] Imm Gran Abs Auto 0.05(H) 0.00 - 0.03 X10*3/uL [facility] Lymphocytes Absolute Auto 2.1 1.2 - 4.9 X10*3/uL [facility] Monocytes Absolute Auto 0.6 0.1 - 1.2 X10*3/uL [facility] Eosinophils Absolute Auto 0.4 0.0 - 0.4 X10*3/uL [facility] Basophils Absolute Auto 0.1 0.0 - 0.2 X10*3/uL [facility] NRBC Abs Auto 0.000 0.0 - 0.012 X10*3/uL [facility] 12/29/2024 9:19 AM EDT 12/29/2024 9:26 AM EDT us Generic External Data Provider LAB BLOOD ORDERAB LES Final Result Performing Organization Address [facility]ZIP Co de Phone Number [facility] [address] [place] [phone] * Type and screen (12/29/2024 9:19 AM EDT) Blood Type ABP [facility] Antibody Screen NEGATIVE [facility] 12/29/2024 9:19 AM EDT 12/29/2024 9:29 AM EDT us Generic External Data Provider LAB BLOOD BANK TE ST ORDERABLES Final Result Performing Organization Address [facility] Co de Phone Number [facility] [address] [place] [address] [phone] * (ABNORMAL) Basic Metabolic Panel (12/29/2024 9:19 AM EDT) Sodium 141 135 - 145 mmol/L [facility] Potassium 4.9 3.3 - 5.1 mmol/L [facility] Chloride 107 96 - 108 mmol/L [facility] Carbon Dioxide 23 22 - 29 mmol/L [facility] Anion Gap 16 12 - 20 [facility] Urea Nitrogen (BUN) 52(H) 9 - 16 mg/dL [facility] Creatinine, Serum 2.50(H) 0.5 - 1.4 mg/dL [facility] Creatinine Clr Calc Pharmacy 26.3 [facility] Comment:eGFR (calculated fro m the MDRD study equation) and eCrCl(calculated from the Cockcroft-Gault equation) are based ondifferent parameters and may not yield comparable results.If eCrCl result is absurd, please check patient'sheight/weight. Estimated Glomerular Filt Rate 26 [facility] Comment:Chronic Kidney Disea se: Estimated GFR < 60 mL/min/1.71k7Ipaegy Kidney Disease: Estimated GFR < 15 mL/min/1.73m2 Glucose 141(H) 60 - 115 mg/dL [facility] Calcium 9.1 8.4 - 10.2 mg/dL [facility] 12/29/2024 9:19 AM EDT 12/29/2024 9:26 AM EDT us Generic External Data Provider LAB BLOOD ORDERAB LES Final Result [facility] [address] [place] [phone] [phone] * Hepatitis C Antibody with Reflex to HCV, RNA, Quantitative, Real-Time PCR (11/30/2024 1:19 PM EDT) Hepatitis C Antibody Nonreactive Nonreactive [facility] Comment:Antibodies to HCV no t detected; does not exclude early acuteHCV infection. 11/30/2024 1:19 PM EDT 11/30/2024 5:32 PM EDT us Generic External Data Provider LAB BLOOD ORDERAB LES Final Result Performing Organization Address [facility] Co de Phone Number [facility] [address] [place] [phone] * Hepatitis B surface antigen, EIA (11/30/2024 1:19 PM EDT) Hepatitis B Surface Ag Negative Negative [facility] 11/30/2024 1:19 PM EDT 11/30/2024 5:32 PM EDT us Generic External Data Provider LAB BLOOD ORDERAB LES Final Result Performing Organization Address [facility] Co de Phone Number [facility] [address] [place] [phone] * Hepatitis B Core Antibody, Total (11/30/2024 1:19 PM EDT) Hepatitis B Core Antibody Nonreactive Nonreactive [facility] 11/30/2024 1:19 PM EDT 11/30/2024 5:32 PM EDT us Generic External Data Provider LAB BLOOD ORDERAB LES Final Result Performing Organization Address [facility] Co de Phone Number [facility] [address] [place] [phone] * Hepatitis B Surface Antibody, Qualitative (11/30/2024 1:19 PM EDT) ~Hepatitis B Surface Antibody NONREACTIVE Nonreactive [facility] Comment:Nonreactive: < 8.00 mIU/mL 11/30/2024 1:19 PM EDT 11/30/2024 5:32 PM EDT us Generic External Data Provider LAB BLOOD ORDERAB LES Final Result Performing Organization Address [facility] Co de Phone Number [facility] [address] [place] [address] [phone] * (ABNORMAL) Complement Component C3c (11/30/2024 1:19 PM EDT) Complement C3 194(A) 82 - 185 mg/dL [facility] Comment:THIS TEST WAS PERFOR MED AT:[facility] [place] [id number] ALFORD MD 11/30/2024 1:19 PM EDT 11/30/2024 5:32 PM EDT Generic External Data Provider LAB BLOOD ORDERAB LES Final Result Performing Organization Address [facility] Co de Phone Number [facility] [address] [place] [phone] * Complement Component C4c (11/30/2024 1:19 PM EDT) Complement C4 44 15 - 53 mg/dL [facility] Comment:THIS TEST WAS PERFOR MED AT:[facility] [place] [phone] ALFORD MD 11/30/2024 1:19 PM EDT 11/30/2024 5:32 PM EDT Generic External Data Provider LAB BLOOD ORDERAB LES Final Result Performing Organization Address [facility] Co de Phone Number [facility] [address] [place] [address] [phone] * (ABNORMAL) Lipid Panel, Standard (11/30/2024 1:19 PM EDT) Triglycerides 208(H) <150 mg/dL [facility] Comment:Desirable Triglyceri de: less than 150 mg/dLBorderline High Triglyceride 150-199 mg/dLHigh Triglyceride: 200-499 mg/dLVery High Triglyceride: greater than or equal to 5OO mg/dL Cholesterol 290(H) <200 mg/dL [facility] Comment:Desirable Cholestero l: less than 200 mg/dLBorderline High Cholesterol: 200-239 mg/dLHigh Cholesterol: greater than 239 mg/dL LDL Cholesterol Calculated 212(H) <100 mg/dL [facility] Comment:Desirable LDL: less than 100 mg/dLNear Optimal/Above Optimal LDL: 110- 129 mg/dLBorderline High LDL: 130-159 mg/dLHigh LDL: 160-189 mg/dLVery High LDL: greater than or equal to 190 mg/dL HDL Cholesterol 37(L) >40 mg/dL [facility] Comment:Desirable HDL: great er than 40 mg/dL Note: This HDL assay may give artificially low results in patients with liver disease. Blood Venous blood specimen / Unknown 11/30/2024 1:19 PM EDT 11/30/2024 2:07 PM EDT Tanmay Mello MD LAB BLOOD ORDERABL ES Final Result [facility] [address] [place] [phone] * (ABNORMAL) Comprehensive Metabolic Panel (11/30/2024 1:19 PM EDT) Sodium 145 135 - 145 mmol/L [facility] Potassium 4.8 3.3 - 5.1 mmol/L [facility] Chloride 107 96 - 108 mmol/L [facility] Carbon Dioxide 26 22 - 29 mmol/L [facility] Anion Gap 17 12 - 20 [facility] Urea Nitrogen (BUN) 60(H) 9 - 16 mg/dL [facility] Creatinine, Serum 2.66(H) 0.5 - 1.4 mg/dL [facility] Estimated Glomerular Filt Rate 24 [facility] Comment:Chronic Kidney Disea se: Estimated GFR < 60 mL/min/1.42x4[place]ouwa Kidney Disease: Estimated GFR < 15 mL/min/1.73m2 Glucose 138(H) 60 - 115 mg/dL [facility] Calcium 10.1 8.4 - 10.2 mg/dL [facility] Bilirubin, Total 0.8 0.0 - 1.0 mg/dL [facility] Aspartate Amino Transferase 27 5 - 37 U/L [facility] Alanine Aminotransferase 24 0 - 40 U/L [facility] Total Protein 8.7(H) 6.5 - 8.0 g/dL [facility] Albumin Level 4.7 3.5 - 5.0 g/dL [facility] Alkaline Phosphatase 122(H) 39 - 117 U/L [facility] Blood Venous blood specimen / Unknown 11/30/2024 1:19 PM EDT 11/30/2024 2:07 PM EDT Tanmay Mello MD LAB BLOOD ORDERABL ES Final Result Performing Organization Address City/State/[facility] Co de Phone Number [facility] [address] [place] [phone] * (ABNORMAL) POCT Hgb A1c (11/24/2024 [...] LAB SYSTEM 04/10/2020 10:5 8 AM EST Historical Provider HISTORICAL/NON ORDERABLE LABS Final Result Performing Organization Address City/State/[facility] de Phone Number [facility] [address] from Last 3 Months or Most Recently Relevant to Health Maintenance Insurance [facility] [employer] [facility] Care Teams Talent Solutions Manager Relationship Specialty Start Date End Date Tanmay Gore MD [address] [place] [phone] PCP - General Internal Medicine 03/19/23
--- OUTSIDE RECORDS SUMMARY | 2025-01-13 15:14 | XMS_ITS | Encounter Summary ---
Author Organization [employer] Address [address] [facility] 7t [place] [address] Care Team Providers Care Airborne Sensor Specialist Name Role Phone Tanmay Gore MD Primary Care Prov ider Tanmay Gore MD Primary Care Prov ider Reason for Visit * Reason Comments Med Refill Encounter Details Date Type Department Care Team (Late Contact Info) Description 06/12/2022 Refill [facility] [address] [place] [address] Tanmay Gore MD [address] [place] [address] Social History Tobacco Use Types Packs/Day Years [...] Upcoming Encounters Date Type Department Care Team ([facility] Contact Info) Description 02/23/2025 1:00 PM EST Telemedicine [facility] [address] [place] [address] Tanmay Gore MD [address] [place] [address] documented as of this encounter Visit Diagnoses Not on filedocumented in this encounter Care Teams Airborne Sensor Specialist Relationship Specialty Start Date End Date Tanmay Gore MD [address] [place] [address] PCP - General Internal Medicine 07/29/19 03/10/23 Tanmay Gore MD [address] [place] [address] PCP - General Internal Medicine 03/19/23 documented as of this encounter
--- OUTSIDE RECORDS SUMMARY | 2025-01-13 15:14 | XMS_ITS | Encounter Summary ---
Author Organization [employer] Address [address] [place] [address] Care Team Providers Care Clinical Laboratory Assistant Name Role Phone Tanmay Gore MD Primary Care Prov ider Reason for Visit * Reason Onset Date Comments Medication Question 01/13/2024 Encounter Details Date Type Department Care Team (Late st Contact Info) Description 01/13/2024 Telephone [facility] [address] [place] [address] Tanmay Gore MD [address] [place], [place] [phone] Medication Question Social History Tobacco Use Types [...] the past 12 months, has t he [employer], oil or water company threatened to [...] [facility] [address] [place] [address] Tanmay Gore MD [address] [place] [address] documented as of this encounter Visit Diagnoses Not on filedocumented in this encounter Care Teams Clinical Laboratory Assistant Relationship Specialty Start Date End Date Tanmay Gore MD [address] [place] [address] PCP - General Internal Medicine 03/19/23 documented as of this encounter
[2025-01-13 15:53] LABS: MANUAL DIFF FLAG NO
[2025-01-13 16:36] LABS: Hematocrit 39.5 % (42.0-52.0); Hemoglobin 13.3 g/dl (14.0-18.0); Imm Gran Abs Auto 0.04 X10*3/uL (0.00-0.03); Imm Gran Pct Auto 0.4 % (0.0-0.4); Lymphocytes Absolute Auto 1.5 X10*3/uL (1.2-4.9); Mean Corpuscular HGB Conc 33.7 g/dl (31.0-36.0); Mean Corpuscular Hemoglobin 30.5 pg (27.0-33.0); Mean Corpuscular Volume 90.6 fL (80.0-98.0); NRBC Abs Auto 0.000 X10*3/uL (0.0-0.012); NRBC Pct Auto 0.0 /100WBC (0.0-0.2); Platelet Count 393 X10*3/uL (160-400); Red Blood Count 4.36 X10*6/uL (4.60-5.80); White Blood Count 9.0 X10*3/uL (4.8-10.8)
[2025-01-13 16:40] LABS: INTERNATIONAL NORM RATIO 1.0 (0.9-1.1); Prothrombin Time 12.8 SEC (11.2-13.5)
[2025-01-13 16:43] LABS: Partial Thromboplastin Time 32.0 SEC (26.7-34.1)
[2025-01-13 17:00] LABS: Anion Gap 13 (12-20); Blood Urea Nitrogen 58 mg/dL (9-16); Calcium 9.5 mg/dL (8.4-10.2); Carbon Dioxide 25 mmol/L (22-29); Chloride 107 mmol/L (96-108); Estimated Glomerular Filt Rate 21; Potassium 5.3 mmol/L (3.3-5.1); Sodium 140 mmol/L (135-145)
[2025-01-18 22:43] LABS: Prot Elec - Albumin 4.3 g/dL (3.8-4.8); Prot Elec - Alpha1 0.3 g/dL (0.2-0.3); Prot Elec - Alpha2 1.1 g/dL (0.5-0.9); Prot Elec - Beta 1 0.5 g/dL (0.4-0.6); Prot Elec - Beta 2 0.6 g/dL (0.2-0.5); Prot Elec - Gamma 1.1 g/dL (0.8-1.7); Prot Elec - Total Protein 7.9 g/dL (6.1-8.1)
== END ==
LOC: HO.CARD 12:37
PROVIDERS: Internal Medicine Hypertension Specialist; Absent Provider Internal Medicine Cardiovascular Disease; PCP Internal Medicine; Visit Provider Internal Medicine
DX: I20.0 Unstable angina (principal); R07.9 Chest pain, unspecified; N18.30 Chronic kidney disease, stage 3 unspecified
CPT/HCPCS: 36415; 80048; 84165; 85025; 85610; 85730; 93005; 93306; Q9957

== ENCOUNTER 2025-01-13 14:52 | Outpatient (AMB) | payer OTHER, SELFPAY ==
--- NOTE | 2025-01-13 14:57 | A.OFFVIS_ITS ---
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[employer]/ Valentina/ abn stress perTN Intake Note: Sales Account Executive/ Valentina/ jose stress perTN Marketing Intelligence Manager Required: No Marketing Intelligence Manager Services: Marketing Intelligence Manager Offered & Declined Accompanied by: Self / Same As Patient Allergies No Known Allergies Allergy (Verified 01/13/25 15:03) Medication List - Last Reconciled 01/13/25 by Fidel Hernández MD aspirin 81 mg PO DAILY atorvastatin 80 mg PO QAM brimonidine 0.2% 1 drp ophthalmic (eye) BID clotrimazole 1% appl topical DAILY dapagliflozin propanediol (Farxiga) 10 mg PO DAILY diltiazem HCl CD 240 mg PO DAILY glipizide 10 mg PO BID latanoprost 0.005% drps ophthalmic (eye) losartan 100 mg PO .evening spironolactone 25 mg PO DAILY timolol maleate 0.5% 1 drp ophthalmic (eye) BID HPI Comments Details: Thank you for referring Jame in cardiology consultation today for recent onset chest discomfort with exertion. He is a 64-year-old male with prior history of chronic kidney disease, hypertension, diabetes, hyperlipidemia. He said for about 2 months whenever he goes walking he develops chest tightness which she describes as pressure which makes him stop exercising and has to rest. Symptoms then subside and 5 minutes. He denies any significant symptoms at rest although he says sometimes at nighttime he feels this pressure in his chest although he does not pay much attention to it. Patient has not come to the emergency room for the symptoms. He was referred for a stress test. His baseline EKGs abnormal suggestive of possibly hypertensive heart disease versus ischemia and with treadmill stress test she developed shortness of breath and within 2nd stage of Suman protocol at significant ST-depression suggestive of ischemia. Stress test was stopped and he was referred here for further evaluation. Patient has been taking aspirin [id number]. He was started on metoprolol after stress test which she has not taken as yet. Takes high-intensity statin therapy at 80 mg daily. He has longstanding history of hypertension. He does have family history of brother having similar issues at his age requiring stenting. He has never had prior myocardial infarction. Denies any heart failure symptoms. Denies any prolonged palpitation irregular heartbeat. [facility] Medical History Dyslipidemia HTN (hypertension) Acid reflux Diabetes Surgical History Hx of colonoscopy Hx of appendectomy Family History Father No problems noted. Brother Heart attack Paternal Uncle Heart attack Social History Household Members: Children Alcohol intake: current Alcohol intake frequency: holidays/special occasions only Patient Tobacco Use Status: Never used Tobacco Second Hand Smoke Exposure: No Review of Systems Const Denies daytime sleepiness, Denies difficulty sleeping, Denies snoring, Denies stops breathing during sleep and Denies weakness Card Denies chest pain, Denies rapid heart rate, Denies irregular heart rhythm, Denies claudication, Denies leg edema, Denies lightheadedness, Denies palpitations, Denies dyspnea, Denies dyspnea on exertion, Denies orthopnea, Denies paroxysmal nocturnal dyspnea and Denies slow heart rate Resp Denies cough, Denies dyspnea, Denies dyspnea on exertion and Denies snoring GI Reports no additional complaints, Denies hematochezia, Denies change in stool character and Denies dyspepsia Musc Denies abnormal gait, Denies muscle weakness and Denies numbness Neuro Denies abnormal gait, Denies numbness and Denies weakness Endo Denies palpitations Physical Exam Vital Signs: Last Vital Signs Pulse 107 H 01/13/25 14:58 BP 110/54 L 01/13/25 14:58 BMI result Body Mass Index 27.6 Const General: cooperative, comfortable, no acute distress, well developed, alert and awake Nutritional Appearance: well nourished and overweight Orientation/consciousness: patient oriented x3 Limitations: no limitations HEENT Head: Yes normocephalic and Yes atraumatic Neck Neck: Yes trachea midline, Yes supple and Yes no JVD Resp Effort & Inspection: normal respiratory effort Auscultation: clear to auscultation bilaterally Cardio Jugular venous distension: no JVD Palpation: normal PMI Rate: regular rate Rhythm: regular rhythm Heart sounds: S1 normal heart sound present, S2 normal heart sound present, no click, no gallops, no murmurs and no rubs GI Auscultation: normal bowel sounds Skin General skin exam: no rashes or lesions noted Neuro General: patient oriented x3 and no focal motor deficits Extrem General: Yes no clubbing, cyanosis or edema Psych Appearance: grossly normal Office Procedures EKG Details: EKG shows sinus tachycardia with diffuse ST-T wave changes which could represent ischemia versus repolarization abnormality with suggestive of LVH 22240-[id number], Complete Assessment & Plan Assessment & Plan (1) Crescendo angina: Code(s): I20.0 - Unstable angina Category: Medical Plan: Patient with significant risk factors for obstructive coronary artery disease including family history, diabetes, hypertension, hyperlipidemia as well as chronic kidney disease with recent onset progressive symptoms of chest discomfort suggestive of angina with significantly abnormal stress test suggestive of multivessel coronary artery disease. Patient is having some symptoms at rest although he is not very clear about it. I have advised him to stop any strenuous activity. He is currently on good medical therapy and I have advised him to start metoprolol therapy as prescribed. We discussed about need for cardiac catheterization to evaluate coronary anatomy to further direct care. Likelihood of severe and significant three-vessel coronary artery disease is high and this was discussed with him. Potential outcomes and management plan was discussed with him. He will need to hold his Farxiga prior to the cardiac catheterization if necessary from that perspective. He is advised to seek emergency care for sudden-onset severe chest pain at rest which is not relieved. He has underlying kidney disease and mild hyperkalemia and have asked Nephrology to help us with optimizing him prior to cardiac catheterization. Cardiac catheterization will be scheduled in near future. Will follow up in the clinic after cardiac catheterization. Thank you for allowing me to partake in his care Orders: Orders Prothrombin Time INR Today I20.0 - Unstable angina Complete Blood Count no Diff Today I20.0 - Unstable angina Basic Metabolic Panel Today I20.0 - Unstable angina Cardiac Cath LT w PCI 4 Days I20.0 - Unstable angina Coding Level of Care Code New Pt Level 4 (79896) Complex EM visit Add On G2211 Diagnoses Crescendo angina I20.0 CPT Codes EKG - CPT: 98174-[id number], Complete ([id number])
[2025-01-13 14:58] VITALS: BP 110/54; PULSE 107; BMI 27.6
== END 2025-01-13 15:32 | disposition home or self-care (01) ==
LOC: HO.HCS 14:53
PROVIDERS: PCP Internal Medicine; Visit Provider Internal Medicine Cardiovascular Disease
DX: I20.0 Unstable angina (principal); I42.2 Other hypertrophic cardiomyopathy
CPT/HCPCS: 93010; 93306; 99214; G2211

== ENCOUNTER 2025-01-14 13:40 | Outpatient (AMB) | payer OTHER, SELFPAY ==
[2025-01-14 13:51] VITALS: BP 90/64; PULSE 110; O2SAT 94; BMI 27.8
--- NOTE | 2025-01-14 13:51 | HO.NEPHOV_ITS ---
Vital Signs 01/14/25 13:51 Height 5 ft 3 in Weight 157 lb BMI 27.8 BP 90/64 Blood Pressure Location Rt brachial Position Sitting Pulse 110 H Pulse Source Pulse Oximeter Pulse Oximetry (%) 94 Oxygen Delivery Method Room Air Intake Visit Reasons: Biopsy Results Freelance Art Director Required: No Accompanied by: Self / Same As Patient Allergies No Known Allergies Allergy (Verified 01/14/25 13:52) Medication List - Last Reconciled 01/14/25 by Gene Stout MD aspirin 81 mg PO DAILY atorvastatin 80 mg PO QAM brimonidine 0.2% 1 drp ophthalmic (eye) BID clotrimazole 1% appl topical DAILY dapagliflozin propanediol (Farxiga) 10 mg PO DAILY diltiazem HCl CD 240 mg PO DAILY glipizide 10 mg PO BID latanoprost 0.005% drps ophthalmic (eye) losartan 100 mg PO .evening spironolactone 25 mg PO DAILY timolol maleate 0.5% 1 drp ophthalmic (eye) BID HPI Comments Details: . Jame is a middle-aged man with a history of diabetes mellitus for more than 30 years. He has chronic kidney disease with a baseline creatinine around 2.5 mg/dL. He was found to have significant proteinuria of around 1200 mg and hence this consultation. Currently he is on losartan 100 mg for renal protection. He has history of hypertension and is also on amlodipine. As for the diabetes mellitus he is on Trulicity. He tells me that his blood sugar was poorly controlled in the past while he was in [place]. Today has no specific complaints. No headache nausea vomiting. No shortness of breath. No polyuria polydipsia. No edema no rash no fever. No joint pains. 08/29/23;Home BP has been good ;HR is in the 100s 10/31/23 ;Farxiga and Chlorthalidone have been added ; Creatinine up to 2.6 ; No new issues 12/13/23 ;Doing well;differential BP in both UE 01/28/2024. Tolerating diltiazem. No edema 06/18/24 : Overall doing well. No new issues 09/03/24_ recently hospitalzied. Sustained ORACIO due to hypoperfusion ORACIO resolved 12/03/24 - The patient is a 64-year-old male presenting with chronic kidney disease. - Significant proteinuria noted, possibly related to diabetes mellitus. - Recent labs showed 7,000 mg of proteinuria, - Experiencing hypotension, likely due to chlorthalidone, 01/14/25 The patient is a 64-year-old male presenting with chronic kidney disease. diabetic nephropathy,- based on recent kidney biopsy showing significant damage and scarring due to diabetes. The patient has been recently evaluated by cardiology, and a coronary angiogram is planned The patient has a history of hypertension, with recent blood pressure readings noted to be very low at 90/60 mmHg, The patient is currently on losartan and spironolactone, The patient also has a history of diabetes mellitus, with recent blood sugar levels reported to be around 90 mg/dL in the morning. The patient is managing diabetes with medication and monitoring blood sugar levels regularly. [facility] Medical History Dyslipidemia HTN (hypertension) Acid reflux Diabetes Surgical History Hx of colonoscopy Hx of appendectomy Family History Father No problems noted. Brother Heart attack Paternal Uncle Heart attack Social History Household Members: Children Alcohol intake: current Alcohol intake frequency: holidays/special occasions only Patient Tobacco Use Status: Never used Tobacco Second Hand Smoke Exposure: No Physical Exam Vital Signs: Last Vital Signs Pulse 110 H 01/14/25 13:51 BP 90/64 01/14/25 13:51 Pulse Ox 94 01/14/25 13:51 Oxygen Delivery Method Room Air 01/14/25 13:51 BMI result Body Mass Index 27.8 Comfortable Neck supple no JVD. Lungs entry equal no rales. Heart S1-S2 heard no gallop or rub. Abdomen soft nontender. Neuro alert awake oriented. No asterixis. Extremities no edema. Results Reviewed Results Reviewed: Kidney Biopsy -Nodular mesangial (diabetic) glomerulosclerosis. -Moderately advanced chronic changes. -Global glomerulosclerosis: 67 % -Tubular atrophy/interstitial fibrosis: 50-60 % -Vascular sclerosis: Moderate, with arteriolar hyalinosis Note: There is significant nephron loss along with glomerular alterations indicative of diabetic renal involvement. A clear secondary proteinuric etiology is not present. ___ Nephrology Results: Hgb, (14.0-18.0) 13.3 g/dl L 01/13/25 WBC, (4.8-10.8) 9.0 X10*3/uL 01/13/25 Plt Count, (160-400) 393 X10*3/uL 01/13/25 Sodium, (135-145) 140 mmol/L 01/13/25 Potassium, (3.3-5.1) 5.3 mmol/L H 01/13/25 Chloride, (96-108) 107 mmol/L 01/13/25 Carbon Dioxide, (22-29) 25 mmol/L 01/13/25 BUN, (9-16) 58 mg/dL H 01/13/25 Creatinine, (0.5-1.4) 3.08 mg/dL H 01/13/25 Calcium, (8.4-10.2) 9.5 mg/dL 01/13/25 Urine Protein, (Neg-Trace) >=1000 (4+) mg/dL H 08/06/24 Urine Creatinine 117.80 mg/dL 08/06/24 Renal US 08/12/23 Assessment & Plan Assessment & Plan (1) HTN (hypertension): Code(s): I10 - Essential (primary) hypertension Category: Medical (2) CKD (chronic kidney disease) stage 3, GFR 30-59 ml/min: Code(s): N18.30 - Chronic kidney disease, stage 3 unspecified Category: Medical Plan 64-year-old man with chronic kidney disease in the setting of longstanding diabetes mellitus and hypertension with non nephrotic range proteinuria. Chronic kidney disease most likely due to diabetic nephropathy based on biopsy REnal functino has worsened Creatinine has incread from 1.99 in [place] to 2.5 in December nad currently at 3.08 mg/dL ? due to hypoperfsuion form LOW BP HOLD Losartan and Spironolactone due to low BP And ORACIO Currently he is at a high risk for ORACIO due to contrast nepropathy Will recheck renal function in 1 week- after holding Losartan and Spironolactone- Risk explained to patient RTC in 1 week and will revaluate. . Orders: Orders Basic Metabolic Panel 1 Week N18.30 - Chronic kidney disease, stage 3 unspecified Complete Blood Count Auto Diff 1 Week N18.30 - Chronic kidney disease, stage 3 unspecified Medications: On Hold spironolactone Hold Comment: Doctor's Order 25 mg PO DAILY 30 tabs 2RF Coding Level of Care Code Est Pt Level 4 (33775) Diagnoses HTN (hypertension) I10 CKD (chronic kidney disease) stage 3, GFR 30-59 ml/min N18.30
--- OUTSIDE RECORDS SUMMARY | 2025-01-14 17:01 | XMS_ITS | Encounter Summary ---
Author Organization [employer] Address [address] [place] [address] Care Team Providers Care Animal Husbandry Teacher Name Role Phone Tanmay Gore MD Primary Care Prov ider Reason for Visit * Reason Onset Date Comments Medication Problem 06/11/2023 Encounter Details Date Type Department Care Team (Late st Contact Info) Description 06/11/2023 Telephone [facility] [address] [place] [address] Tanmay Gore MD [address] [place], [place] [phone] Medication Problem Social History Tobacco Use Types [...] the past 12 months, has t he [employer], oil or [employer] threatened to shut off services in your [...] [facility] [address] [place] [address] Tanmay Gore MD [address] [place] [address] documented as of this encounter Visit Diagnoses Not on filedocumented in this encounter Care Teams Animal Husbandry Teacher Relationship Specialty Start Date End Date Tanmay Gore MD [address] [place] [address] PCP - General Internal Medicine 03/19/23 documented as of this encounter
--- OUTSIDE RECORDS SUMMARY | 2025-01-14 17:01 | XMS_ITS | Encounter Summary ---
Author Organization [employer] Address [address] [facility] [address] [place] [address] Care Team Providers Care Mental Health Practitioner Name Role Phone Tanmay Gore MD Primary Care Prov ider Reason for Visit * Reason Comments Med Change Request Encounter Details Date Type Department Care Team ([facility] Contact Info) Description 12/09/2024 Refill [facility] MED & PEDS [address] [place], [place] [phone] Tanmay Gore MD [address] [place] [address] Social History Tobacco Use Types Packs/Day Years [...] Upcoming Encounters Date Type Department Care Team ([facility] st Contact Info) Description 02/23/2025 1:00 PM EST Telemedicine [facility] [address] [place] [address] Tanmay Gore MD [address] [place] [address] documented as of this encounter Visit Diagnoses Not on filedocumented in this encounter Additional Health Concerns Assessment Noted Time PHQ-9 Depression Total Score: 0 10/13/19 25 8:53 AM EDT documented as of this encounter Care Teams Mental Health Practitioner Relationship Specialty Start Date End Date Tanmay Gore MD [address] [place] [address] PCP - General Internal Medicine 03/19/23 documented as of this encounter
--- OUTSIDE RECORDS SUMMARY | 2025-01-14 17:01 | XMS_ITS | Encounter Summary ---
Author Organization [employer] Address [address] [facility] [address] [place] [address] Care Team Providers Care Bacteriology Technician Name Role Phone Tanmay Gore MD Primary Care Prov ider Reason for Visit * Reason Comments Med Refill Encounter Details Date Type Department Care Team ([facility] Contact Info) Description 02/27/2024 Refill [facility] & PEDS [address] [place], [place] [phone] Tanmay Gore MD [address] [place] [address] Social History Tobacco Use Types Packs/Day Years [...] Info) Description 02/23/2025 1:00 PM EST Telemedicine [facility] MED [facility] PED[facility] [address] [place] [address] Tanmay Gore MD [address] [place] [address] documented as of this encounter Visit Diagnoses Not on filedocumented in this encounter Care Teams Bacteriology Technician Relationship Specialty Start Date End Date Tanmay Gore MD [address] [place] [address] PCP - General Internal Medicine 03/19/23 documented as of this encounter
--- OUTSIDE RECORDS SUMMARY | 2025-01-14 17:01 | XMS_ITS | Encounter Summary ---
Author Organization [employer] Address [address] [facility] [address] [place] [address] Care Team Providers Care Rack Washer Name Role Phone Tanmay Gore MD Primary Care Prov ider Tanmay Gore MD Primary Care Prov ider Reason for Visit * Reason Comments Med Refill Encounter Details Date Type Department Care Team (Late Contact Info) Description 06/12/2022 Refill [facility] MED & PEDS [address] [place] [address] Tanmay Gore MD [address] [place] [address] Social History Tobacco Use Types Packs/Day Years [...] Upcoming Encounters Date Type Department Care Team ([facility] Contact Info) Description 02/23/2025 1:00 PM EST Telemedicine [facility] MED & PEDS [address] [place] [address] Tanmay Gore MD [address] [place] [address] documented as of this encounter Visit Diagnoses Not on filedocumented in this encounter Care Teams Rack Washer Relationship Specialty Start Date End Date Tanmay Gore MD [address] [place] [address] PCP - General Internal Medicine 07/29/19 03/10/23 Tanmay Gore MD [address] [place] [address] PCP - General Internal Medicine 03/19/23 documented as of this encounter
--- OUTSIDE RECORDS SUMMARY | 2025-01-14 17:01 | XMS_ITS | Encounter Summary ---
Author Organization [employer] Address [address] [place] [address] Care Team Providers Care Hotel Sales Manager Name Role Phone Tanmay Gore MD Primary Care Prov ider Reason for Referral * Consultation (STAT) - Authorized Specialty Diagnoses / Procedures Referred By Ricardo alan Referred To Contact Cardiology Diagnoses Chest pain, unspecified type Tanmay Gore MD [address] [place] [address] Phone: tel: fax: Fidel Hernández MD [address] [place] [address] Phone: tel: fax: Referral ID Status Reason Start Date Expiration Date Visits Requested Visits Authorized [id number] Authorized Specialty Services Required 5 01/12/2026 1 1 * Imaging (STAT) - Authorized Specialty Diagnoses / Procedures Referred By Ricardo alan Referred To Contact Cardiology Diagnoses Chest pain, unspecified type Procedures Transthoracic Echo (TTE) Complete Tanmay Gore MD [address] [place] [address] Phone: tel: fax: [address] Phone: tel: fax: Referral ID Status Reason Start Date Expiration Date Visits Requested Visits Authorized [id number] Authorized Perform Procedure 5 01/12/2026 1 1 Encounter Details Date Type Department Care Team (Late st Contact Info) Description 01/12/2025 Orders Only [facility] MED & PEDS [address] [place] [address] Tanmay Gore MD [address] [place] [address] Chest pain, unspecified type (Primary Dx) Social [...] [facility] [address] [place] [address] Tanmay Gore MD [address] [place] [address] Scheduled Orders Name Type Priority Associated Diagnoses [...] documented as of this encounter Care Teams Hotel Sales Manager Relationship Specialty Start Date End Date Tanmay Gore MD [address] [place] [address] PCP - General Internal Medicine 03/19/23 documented as of this encounter
--- OUTSIDE RECORDS SUMMARY | 2025-01-14 17:01 | XMS_ITS | Encounter Summary ---
Author Organization [employer] Address [address] [facility] [address] [place] [address] Care Team Providers Care Tenoner Operator Name Role Phone Tanmay Gore MD Primary Care Prov ider Reason for Visit * Reason Comments Med Change Request Encounter Details Date Type Department Care Team ([facility] Contact Info) Description 01/06/2025 Refill [facility] MED & PEDS [address] [place], [place] [phone] Tanmay Gore MD [address] [place] [address] Social History Tobacco Use Types Packs/Day Years [...] Upcoming Encounters Date Type Department Care Team ([facility] st Contact Info) Description 02/23/2025 1:00 PM EST Telemedicine [facility] MED & PEDS [address] [place] [address] Tanmay Gore MD [address] [place] [address] documented as of this encounter Visit Diagnoses Not on filedocumented in this encounter Additional Health Concerns Assessment Noted Time PHQ-9 Depression Total Score: 0 10/13/19 25 8:53 AM EDT documented as of this encounter Care Teams Tenoner Operator Relationship Specialty Start Date End Date Tanmay Gore MD [address] [place] [address] PCP - General Internal Medicine 03/19/23 documented as of this encounter
--- OUTSIDE RECORDS SUMMARY | 2025-01-14 17:01 | XMS_ITS | Encounter Summary ---
Author Organization [employer] Address [address] [facility] [address] [place] [address] Care Team Providers Care Merchandise Stocker Name Role Phone Tanmay Gore MD Primary Care Prov ider Reason for Visit * Reason Comments Med Refill Encounter Details Date Type Department Care Team ([facility] Contact Info) Description 02/22/2024 Refill [facility] CH[facility] MED & PEDS [address] [place], [place] [phone] Tanmay Gore MD [address] [place] [address] Social History Tobacco Use Types Packs/Day Years [...] [facility] [address] [place] [address] Tanmay Gore MD [address] [place] [address] documented as of this encounter Visit Diagnoses Not on filedocumented in this encounter Care Teams Merchandise Stocker Relationship Specialty Start Date End Date Tanmay Gore MD [address] [place] [address] PCP - General Internal Medicine 03/19/23 documented as of this encounter
--- OUTSIDE RECORDS SUMMARY | 2025-01-14 17:01 | XMS_ITS | Clinical Summary ---
Author Organization [employer] Address [address] [facility] [address] [place] [address] Care Team Providers Care Qa Developer Name Role Phone Tanmay Gore MD [...] day. 3 mL 11/25/19 Active Continuous Glucose Toll Mechanic (FreeStyle Antionette 3 Green Sea) device 1 each Once per day. Use as directed for CGM 1 each 12/24/19 Active Continuous Glucose Sensor (FreeStyle Antionette 3 Plus Sensor) misc 1 each every 15 days. Apply 1 every 15 days as directed for CGM 2 each 12/24/19 Active Continuous Glucose Toll Mechanic (FreeStyle Antionette 3 Green Sea) device 1 each Once per day. Use [...] of call pt had been contacted by correspondence dictator team and was en route to er [...] Encounters Date Type Department Care Team Description 01/13/2025 Orders Only GENERIC EXTERNAL DATA DEPARTMENT Provider, Generic External Data 01/12/2025 Orders Only [facility] [address] [place] [address] Tanmay Gore MD Chest pain, unspecified type (Primary Dx) 01/06/2025 Refill [facility] [address] [place] [address] Tanmay Gore MD 12/29/2024 Orders Only GENERIC EXTERNAL DATA DEPARTMENT Provider, Generic External Data 12/23/2024 Orders Only [facility] [address] [place] [address] Tanmay Gore MD 12/09/2024 Telephone [facility] [address] [place] [address] Tanmay Gore MD Med Refill 12/09/2024 Refill [facility] [address] [place] [address] Tanmay Gore MD 11/30/2024 Orders Only GENERIC EXTERNAL DATA DEPARTMENT Provider, Generic External Data 11/24/2024 3:30 PM EDT Office Visit [facility] [address] [place] [address] Tanmay Gore MD Chest pain, unspecified type (Primary Dx); Type 2 diabetes mellitus with diabetic microalbuminuria, without long-term current use of insulin ([facility]) 11/24/2024 Travel 11/24/2024 Refill [facility] [address] [place] [address] Otilia Mancia FNP 11/24/2024 Refill [facility] [address] [place] [address] Tanmay Gore MD 11/23/2024 Telephone [facility] [address] [place] [address] Tanmay Gore MD chart prep 11/14/2024 Refill [facility] [address] [place] [address] Tanmay Gore MD Abdominal pain with vomiting [...] Info) Description 02/23/2025 1:00 PM EST Telemedicine [facility] [address] [place], [place] [phone] Tanmay Gore MD [address] [place] [address] Health Maintenance Due Date Last Done Comments [...] Eye Exam 06/12/2024 COVID-19 Vaccine (3 - 5-26 season) 2024 08/09/2020, 07/19/2020 Influenza Vaccine (#1) [...] Procedure Name Priority Date/Time Associated Diagnosis Comments BASIC METABOLIC PANEL Routine 01/13/2025 3:51 PM EST APTT Routine 01/13/2025 3:51 PM EST PROTHROMBIN TIME-INR Routine 01/13/2025 3:51 PM EST CBC WITH AUTO DIFFERENTIAL Routine 01/13/2025 3:51 PM EST OTHER REF TEST - MISC Routine 12/29/2024 [...] microalbuminuria, without long-term current use of insulin ([facility]) POCT GLYCATED HEMOGLOBIN, TOTAL Routine 11/24/2024 3:29 PM EDT Type 2 diabetes mellitus with diabetic microalbuminuria, without long-term current use of insulin ([facility]) POCT GLUCOSE Routine 11/24/2024 3:28 PM EDT Type 2 diabetes mellitus with diabetic microalbuminuria, without long-term current use of insulin ([facility]) HM COLONOSCOPY Routine 11/19/2023 ZZZ HISTORICAL FECAL IMMUNOCHEMICAL TEST X1 (FIT) Routine 04/10/2020 10:58 AM EST from Last 3 Months or Most Recently Relevant to Health Maintenance Results * (ABNORMAL) CBC auto differential (01/13/2025 3:51 PM EST) Only the most recent of2 resultswithin the time period is included. White Blood Count 9.0 4.8 - 10.8 X10*3/uL [facility] Red Blood Count 4.36(L) 4.60 - 5.80 X10*6/uL [facility] Hemoglobin 13.3(L) 14.0 - 18.0 g/dl [facility] Hematocrit 39.5(L) 42.0 - 52.0 % [facility] Mean Corpuscular Volume 90.6 80.0 - 98.0 fL [facility] Mean Corpuscular Hemoglobin 30.5 27.0 - 33.0 pg [facility] Mean Corpuscular HGB Conc 33.7 31.0 - 36.0 g/dl [facility] Red Cell Distribution Width 11.9 11.0 - 16.0 % [facility] Platelet Count 393 160 - 400 X10*3/uL [facility] Mean Platelet Volume 10.2 9.4 - 12.4 fL [facility] Neutrophils Percent Auto 74.4(H) 45 - 73 % [facility] Imm Gran Pct Auto 0.4 0.0 - 0.4 % [facility] Lymphocytes Percent Auto 16.2(L) 20 - 40 % [facility] Monocytes Percent Auto 4.7 2 - 11 % [facility] Eosinophils Percent Auto 3.7 0 - 4 % [facility] Basophils Percent Auto 0.6 0 - 2 % [facility] NRBC Pct Auto 0.0 0.0 - 0.2 /100WBC [facility] Neutrophils Absolute Auto 6.7 2.0 - 8.3 x10*3/uL [facility] Imm Gran Abs Auto 0.04(H) 0.00 - 0.03 X10*3/uL [facility] Lymphocytes Absolute Auto 1.5 1.2 - 4.9 X10*3/uL [facility] Monocytes Absolute Auto 0.4 0.1 - 1.2 X10*3/uL [facility] Eosinophils Absolute Auto 0.3 0.0 - 0.4 X10*3/uL [facility] Basophils Absolute Auto 0.1 0.0 - 0.2 X10*3/uL [facility] NRBC Abs Auto 0.000 0.0 - 0.012 X10*3/uL [facility] 01/13/2025 3:51 PM EST 01/13/2025 3:51 PM EST us Generic External Data Provider LAB BLOOD ORDERAB LES Final Result [facility] [address] [place] [address] [phone] * Partial Thromboplastin Time, Activated (APTT) (01/13/2025 3:51 PM EST) Partial Thromboplastin Time 32.0 26.7 - 34.1 SEC [facility] 01/13/2025 3:51 PM EST 01/13/2025 3:51 PM EST Generic External Data Provider LAB BLOOD ORDERAB LES Final Result Performing Organization Address [facility] Co de Phone Number [facility] [address] [place] [phone] * Prothrombin Time-INR (01/13/2025 3:51 PM EST) Prothrombin Time 12.8 11.2 - 13.5 SEC [facility] INTERNATIONAL NORM RATIO 1.0 0.9 - 1.1 [facility] Comment:INTERNATIONAL NORMAL IZED RATIO (INR) REFERENCE RANGES Reference RangeFor patients not on anticoagulant therapy: 0.9 - 1.1INR ranges for oral anticoagulanttherapy:For prevention and treatment of venous thrombosis and pulmonary embolism: 2.0 - 3.0For acute myocardial infarction with aspirin therapy: 2.0 - 3.0For acute myocardial infarction without aspirin therapy: 3.0 - 4.0For patients with mechanical prosthetic heart valves: 2.5 - 3.5 01/13/2025 3:51 PM EST 01/13/2025 3:51 PM EST Generic External Data Provider LAB BLOOD ORDERAB LES Final Result Performing Organization Address [facility] de Phone Number [facility] [address] [place] [phone] * (ABNORMAL) Basic Metabolic Panel (01/13/2025 3:51 PM EST) Only the most recent of2 resultswithin the time period is included. Sodium 140 135 - 145 mmol/L [facility] Potassium 5.3(H) 3.3 - 5.1 mmol/L [facility] Chloride 107 96 - 108 mmol/L [facility] Carbon Dioxide 25 22 - 29 mmol/L [facility] Anion Gap 13 12 - 20 [facility] Urea Nitrogen (BUN) 58(H) 9 - 16 mg/dL [facility] Creatinine, Serum 3.08(H) 0.5 - 1.4 mg/dL [facility] Estimated Glomerular Filt Rate 21 [facility] Comment:Chronic Kidney Disea se: Estimated GFR < 60 mL/min/1.41p6Yybhor Kidney Disease: Estimated GFR < 15 mL/min/1.73m2 Glucose 251(H) 60 - 115 mg/dL [facility] Calcium 9.5 8.4 - 10.2 mg/dL [facility] 01/13/2025 3:51 PM EST 01/13/2025 3:51 PM EST Generic External Data Provider LAB BLOOD ORDERAB LES Final Result Performing Organization Address City/[facility] Co de Phone Number [facility] [address] [place] [phone] * Other Reference Test - Misc (12/29/2024 11:01 AM EDT) Other Ref Test Misc See Note [facility] Comment:See the report from [facility] scanned into thePathology reports section of the EMR. 12/29/2024 11:0 1 AM EDT 12/29/2024 11:42 AM EDT Narrative [facility] - 01/13/2025 8:45 AM EST RIGHT KIDNEY CORETX LOWER POLE SENT TO [facility] Generic External Data Provider LAB BLOOD ORDERAB LES Final Result Performing Organization Address [facility] Co de Phone Number [facility] [address] [place] [phone] * Hematoxylin and Eosin Stain (12/29/2024 11:01 AM EDT) 12/29/2024 11:0 1 AM EDT 12/29/2024 11:40 AM EDT Narrative [facility] - 01/13/2025 5:31 PM EST ----- ------- Name: Jame Silva Age/Sex: 64/M : 1960 Unit#: [id number] Attend Dr: Gene Stout MD Re12/29/24 Status: [facility] Location: [facility] Disch: ----- ------- SPEC : [id number] RECD: 12/29/24 STATUS: DIANEPorsper PATRICE NUM: [id number] CESIA: 12/29/[address] [facility] [address]: Augie Aquino MD ENTERED: 12/29/24 SP TYPE: Surgical OTHR DR: Gene Stout MD, Benjamin MD ORDERED: HE Stain/2, Gross Micro L4 Addendum Addendum 1 Entered: 01/13/25 Kidney, right, core biopsy: Diagnosis by [facility] Department of Pathology: -Nodular mesangial (diabetic) glomerulosclerosis. -Moderately advanced chronic changes. -Global glomerulosclerosis: 67 % -Tubular atrophy/interstitial fibrosis: 50-60 % -Vascular sclerosis: Moderate, with arteriolar hyalinosis Note: There is significant nephron loss along with glomerular alterations indicative of diabetic renal involvement. A clear secondary proteinuric etiology is not present. See the report in its entirety in the EMR - reports/pathology section as a scanned report. Addendum Signed (signature on file) Azalia Ponce 01/13/251730 ----- ------- Diagnosis Kidney, right cortex lower pole, core biopsy: Sent to [facility] for light microscopy, immunofluorescence, and electron microscopy. Their report is pending; addendum to follow. Clinical History CRF Material Received Right kidney cortex lower pole CONTINUED ON NEXT PAGE ----- ------- Name: Jame Silva Age/Sex: 64/M : 1960 Unit#: [id number] Attend Dr: Gene Stout MD Re12/29/24 Status: [facility] Location: [facility] Disch: ----- ------- SPEC : [id number] RECD: 12/29/24 STATUS: DIANEProsper PATRICE NUM: [id number] CESIA: 12/29/[address] [facility] [address]: Augie Aquino MD ENTERED: 12/29/24 SP TYPE: Surgical OTHR DR: Gene Stout MD, Benjamin MD ORDERED: HE Stain/2, Gross Micro L4 Gross Description Received fresh, on ice, on saline dampened Telfa, labeled right kidney cortex, lower pole are 4 cylindrical pieces of pink-rock soft tissue measuring 0.5, 0.7, 0.8 and 2.1 cm in length all with a diameter of 0.02 cm. The specimen is entirely forwarded to [facility] for further analysis. No sections taken. ([facility]) IHC S/NG Disclaimer NOTE: Unless otherwise stated, all tissue is formalin-fixed and paraffin-embedded. Some or all of the immunohistochemical tests reported herein may have been developed and their performance characteristics determined by [facility]. They have not been cleared or approved by the U.S. Food and Drug Administration (FDA). However, the FDA has determined that such clearance or approval is not necessary. This laboratory is certified under the Clinical Laboratory Improvement Amendments of 1988 (CLIA) as qualified to perform high complexity clinical laboratory testing. Copies To: Gene Stout MD [facility] [address] [place] [address] Dr [address] [place] [address] [email or web address] Tanmay Gore MD [address] [phone] Augie Aquino MD [address] [place] [phone] ----- ------- Signed (signature on file) Azalia Ponce 12/30/24 1133 ----- ------- END OF REPORT us Generic External Data Provider LAB BLOOD ORDERAB LES Final Result [facility] [address] [place] [phone] * CT Guided Percutaneous Biopsy renal Right (12/29/2024 10:31 AM EDT) Anatomical Region Laterality Modality Kidney Right Computed Tomogra phy 12/29/2024 10:3 1 AM EDT Narrative 12/30/2024 12:20 PM EDT [address] [address] [address] Scan Report Signed Patient: Jame Silva MR#: [id number] 1 : 1960 Acct:[id number] Age/Sex: 64 / M ADM Date: 12/29/24 Loc: [facility] Attending Dr: Gene Stout MD Ordering Physician: Gene Stout MD Date of Service: 12/29/24 Procedure(s): CT biopsy renal RT Accession Number(s): [id number] cc: Gene Stout MD; Tanmay Gore MD Report Number: [id number]: Total DLP = 309.00 mGy-cm Reason for [...] 12/30/24 1217 DD/ 1031 TD/TT: 12/29/24 1135 Vamp Cut Out Worker: [facility] Procedure Note Donotuseinterpreter, Image - 12/30/[address] [place] [address] [address] Scan Report Signed Patient: Gillian Silva#: [id number] 1 : 1960cct:[id number] Age/Sex: 64 / MADM Date: 12/29/24 Loc: [facility] Attending Dr: Gene Stout MD Ordering Physician: Gene Stout MD Date of Service: 12/29/24 Procedure(s): CT biopsy renal RT Accession Number(s): [id number] cc: Gene Stout MD; Tanmay Gore MD Report Number: [id number]: Total DLP = 309.00 mGy-cm Reason for [...] 12/30/24 1217 DD/ 1031 TD/TT: 12/29/24 1135 Vamp Cut Out Worker: MSM us [facility] External Provider IMG CT PROCEDURES Final Result * Type and screen (12/29/2024 9:19 AM EDT) Blood Type ABP [facility] Antibody Screen NEGATIVE [facility] 12/29/2024 9:19 AM EDT 12/29/2024 9:29 AM EDT Generic External Data Provider LAB BLOOD BANK TE ST ORDERABLES Final Result Performing Organization Address [facility]/ZIP Co de Phone Number [facility] [address] [place] [phone] * Hepatitis C Antibody with Reflex to HCV, RNA, Quantitative, Real-Time PCR (11/30/2024 1:19 PM EDT) Hepatitis C Antibody Nonreactive Nonreactive [facility] Comment:Antibodies to HCV no t detected; does not exclude early acuteHCV infection. 11/30/2024 1:19 PM EDT 11/30/2024 5:32 PM EDT Generic External Data Provider LAB BLOOD ORDERAB LES Final Result Performing Organization Address [facility] Co de Phone Number [facility] [address] [place] [phone] * Hepatitis B surface antigen, EIA (11/30/2024 1:19 PM EDT) Hepatitis B Surface Ag Negative Negative [facility] 11/30/2024 1:19 PM EDT 11/30/2024 5:32 PM EDT Generic External Data Provider LAB BLOOD ORDERAB LES Final Result Performing Organization Address [facility] Co de Phone Number [facility] [address] [place] [phone] * Hepatitis B Core Antibody, Total (11/30/2024 1:19 PM EDT) Hepatitis B Core Antibody Nonreactive Nonreactive [facility] 11/30/2024 1:19 PM EDT 11/30/2024 5:32 PM EDT us Generic External Data Provider LAB BLOOD ORDERAB LES Final Result Performing Organization Address [facility]/ZIP Co de Phone Number [facility] [address] [place] [phone] * Hepatitis B Surface Antibody, Qualitative (11/30/2024 1:19 PM EDT) ~Hepatitis B Surface Antibody NONREACTIVE Nonreactive [facility] Comment:Nonreactive: < 8.00 mIU/mL 11/30/2024 1:19 PM EDT 11/30/2024 5:32 PM EDT Generic External Data Provider LAB BLOOD ORDERAB LES Final Result Performing Organization Address [facility] Co de Phone Number [facility] [address] [place] [phone] * (ABNORMAL) Complement Component C3c (11/30/2024 1:19 PM EDT) Pathologist [facility] Complement C3 194(A) 82 - 185 mg/dL [facility] Comment:THIS TEST WAS PERFOR MED AT:[employer] [address] [phone] ALFORD MD 11/30/2024 1:19 PM EDT 11/30/2024 5:32 PM EDT Generic External Data Provider LAB BLOOD ORDERAB LES Final Result Performing Organization Address [facility] Co de Phone Number [facility] [address] [place] [phone] * Complement Component C4c (11/30/2024 1:19 PM EDT) Complement C4 44 15 - 53 mg/dL [facility] Comment:THIS TEST WAS PERFOR MED AT:[email or web address] [place] [phone] ALFORD MD 11/30/2024 1:19 PM EDT 11/30/2024 5:32 PM EDT us Generic External Data Provider LAB BLOOD ORDERAB LES Final Result Performing Organization Address City/[facility]/ZIP Co de Phone Number [facility] [address] [place] [address] [phone] * (ABNORMAL) Lipid Panel, Standard (11/30/2024 1:19 PM EDT) Triglycerides 208(H) <150 mg/dL [facility] Comment:Desirable Triglyceri de: less than 150 mg/dLBorderline High Triglyceride 150-199 mg/dLHigh Triglyceride: 200-499 mg/dLVery High Triglyceride: greater than or equal to 5OO mg/dL Cholesterol 290(H) <200 mg/dL [facility] Comment:Desirable Cholestero l: less than 200 mg/dLBorderline High Cholesterol: 200-239 mg/dLHigh Cholesterol: greater than 239 mg/dL LDL Cholesterol Calculated 212(H) <100 mg/dL [facility] Comment:Desirable LDL: less than 100 mg/dLNear Optimal/Above Optimal LDL: 110- 129 mg/dLBorderline High LDL: 130-159 mg/dLHigh LDL: 160-189 mg/dLVery High LDL: greater than or equal to 190 mg/dL HDL Cholesterol 37(L) >40 mg/dL [facility] Comment:Desirable HDL: great er than 40 mg/dL Note: This HDL assay may give artificially low results in patients with liver disease. Blood Venous blood specimen / Unknown 11/30/2024 1:19 PM EDT 11/30/2024 2:07 PM EDT us Tanmay Mello MD LAB BLOOD ORDERABL ES Final Result [facility] [address] [place] [phone] * (ABNORMAL) Comprehensive Metabolic Panel (11/30/2024 1:19 PM EDT) Sodium 145 135 - 145 mmol/L [facility] Potassium 4.8 3.3 - 5.1 mmol/L [facility] Chloride 107 96 - 108 mmol/L [facility] Carbon Dioxide 26 22 - 29 mmol/L [facility] Anion Gap 17 12 - 20 [facility] Urea Nitrogen (BUN) 60(H) 9 - 16 mg/dL [facility] Creatinine, Serum 2.66(H) 0.5 - 1.4 mg/dL [facility] Estimated Glomerular Filt Rate 24 [facility] Comment:Chronic Kidney Disea se: Estimated GFR < 60 mL/min/1.24q8Rmnruo Kidney Disease: Estimated GFR < 15 mL/min/1.73m2 Glucose 138(H) 60 - 115 mg/dL [facility] Calcium 10.1 8.4 - 10.2 mg/dL [facility] Bilirubin, Total 0.8 0.0 - 1.0 mg/dL [facility] Aspartate Amino Transferase 27 5 - 37 U/L [facility] Alanine Aminotransferase 24 0 - 40 U/L [facility] Total Protein 8.7(H) 6.5 - 8.0 g/dL [facility] Albumin Level 4.7 3.5 - 5.0 g/dL [facility] Alkaline Phosphatase 122(H) 39 - 117 U/L [facility] Blood Venous blood specimen / Unknown 11/30/2024 1:19 PM EDT 11/30/2024 2:07 PM EDT us Tanmay Mello MD LAB BLOOD ORDERABL ES Final Result Performing Organization Address [facility]/ZIP Co de Phone Number [facility] [address] [place] [phone] * (ABNORMAL) POCT Hgb A1c (11/24/2024 3:29 PM EDT) [facility] Hemoglobin A1C 8.8(A) 4.0 - 5.7 % QC Media Lot # [id number] Lot# Expiration Date Blood 11/24/2024 3:29 PM EDT Tanmay Mello MD POINT OF CARE TEST ENTER/EDIT ORDERABLES Final Result * POCT Glucose (11/24/2024 3:28 PM EDT) [facility] Glucose Blood, POC 131 60 - 200 mg/dL QC Media Lot # [id number] Lot# Expiration Date Blood Capillary blood specimen / Unknown 11/24/2024 3:28 PM EDT Tanmay Mello MD POINT OF CARE TEST ENTER/EDIT ORDERABLES Final Result * Colonoscopy (11/19/2023) [facility] Colonoscopy Normal Normal Narrative Radha Angela - 11/19/2023 Colonoscopy order added per GI office note Repeat Colonoscopy in 1-2 years due to fair left sided prep or earlier if clinically indicated --next time use adult scope Historical [facility] Final Result * Fecal immunochemical test x1 (FIT) (04/10/2020 10:58 AM EST) [facility] FIT Date 1 [facility] FIT Date 2 [facility] FIT Lot [facility] FIT1 [facility]NP NEGATIVE [facility] Comment:NO SPECIMEN ON CARD FIT2 TNP NEGATIVE [facility] 04/10/2020 10:5 8 AM EST Historical Provider HISTORICAL/NON ORDERABLE LABS Final Result [facility] [address] from Last 3 Months or Most Recently Relevant to Health Maintenance Insurance [id number] CHOICE [facility] [employer] Care Teams Qa Developer Relationship Specialty Start Date End Date Tanmay Gore MD [address] [place] [phone] PCP - General Internal Medicine 03/19/23
--- OUTSIDE RECORDS SUMMARY | 2025-01-14 17:01 | XMS_ITS | Encounter Summary ---
Author Organization [employer] Address [address] [facility] [address] [place] [address] Care Team Providers Care Reverse Logistics Analyst Name Role Phone Tanmay Gore MD Primary Care Prov ider Reason for Visit * Reason Onset Date Comments Medication Question 01/13/2024 Encounter Details Date Type Department Care Team (Late st Contact Info) Description 01/13/2024 Telephone [facility] MED[facility] [address] [place] [address] Tanmay Gore MD [address], [place] [phone] Medication Question Social History Tobacco Use Types [...] the past 12 months, has t he [employer] [employer], [employer], oil or water company threatened to shut [...] Info) Description 02/23/2025 1:00 PM EST Telemedicine [facility] [address] [place] [phone] Tanmay Gore MD [address] [place] [phone] documented as of this encounter Visit Diagnoses Not on filedocumented in this encounter Care Teams Reverse Logistics Analyst Relationship Specialty Start Date End Date Tanmay Gore MD [address] [place] [address] PCP - General Internal Medicine 03/19/23 documented as of this encounter
--- OUTSIDE RECORDS SUMMARY | 2025-01-14 17:01 | XMS_ITS | Encounter Summary ---
Author Organization [employer] Address [address] [place] [address] Care Team Providers Care Solid Waste Facility Supervisor Name Role Phone Tanmay Gore MD Primary Care Prov ider Encounter Details Date Type Department Care Team (Late st Contact Info) Description 01/13/2025 Orders Only GENERIC EXTERNAL DATA [...] 02/23/2025 1:00 PM EST Telemedicine [facility] [address] [place] [address] Tanmay Gore MD [address] [place] [address] documented as of this encounter Procedures Procedure Name Priority Date/Time Associated Diagnosis Comments CBC WITH AUTO DIFFERENTIAL Routine 01/13/2025 3:51 PM EST APTT Routine 01/13/2025 3:51 PM EST PROTHROMBIN TIME-INR Routine 01/13/2025 3:51 PM EST BASIC METABOLIC PANEL Routine 01/13/2025 3:51 PM EST documented in this encounter Results * (ABNORMAL) Basic Metabolic Panel (01/13/2025 3:51 PM EST) Sodium 140 135 - 145 mmol/L [facility] Potassium 5.3(H) 3.3 - 5.1 mmol/L [facility] Chloride 107 96 - 108 mmol/L [facility] Carbon Dioxide 25 22 - 29 mmol/L [facility] Anion Gap 13 12 - 20 [facility] Urea Nitrogen (BUN) 58(H) 9 - 16 mg/dL [facility] Creatinine, Serum 3.08(H) 0.5 - 1.4 mg/dL [facility] Estimated Glomerular Filt Rate 21 [facility] Comment:Chronic Kidney Disea se: Estimated GFR < 60 mL/min/1.06j3Nsipoy Kidney Disease: Estimated GFR < 15 mL/min/1.73m2 Glucose 251(H) 60 - 115 mg/dL [facility] Calcium 9.5 8.4 - 10.2 mg/dL [facility] 01/13/2025 3:51 PM EST 01/13/2025 3:51 PM EST Generic External Data Provider LAB BLOOD ORDERAB LES Final Result Performing Organization Address [facility] Co de Phone Number [facility] [address] [place] [phone] * Partial Thromboplastin Time, Activated (APTT) (01/13/2025 3:51 PM EST) Partial Thromboplastin Time 32.0 26.7 - 34.1 SEC [facility] 01/13/2025 3:51 PM EST 01/13/2025 3:51 PM EST Generic External Data Provider LAB BLOOD ORDERAB LES Final Result Performing Organization Address [facility] Phone Number [facility] [address] [place] [phone] * Prothrombin Time-INR (01/13/2025 3:51 PM EST) Prothrombin Time 12.8 11.2 - 13.5 SEC [facility] INTERNATIONAL NORM RATIO 1.0 0.9 - 1.1 [facility] Comment:INTERNATIONAL NORMAL IZED RATIO (INR) REFERENCE [...] Provider LAB BLOOD ORDERAB LES Final Result [facility] [address] [place] [phone] * (ABNORMAL) CBC auto differential (01/13/2025 3:51 PM EST) White Blood Count 9.0 4.8 - 10.8 X10*3/uL [facility] Red Blood Count 4.36(L) 4.60 - 5.80 X10*6/uL [facility] Hemoglobin 13.3(L) 14.0 - 18.0 g/dl [facility] Hematocrit 39.5(L) 42.0 - 52.0 % [facility] Mean Corpuscular Volume 90.6 80.0 - 98.0 fL [facility] Mean Corpuscular Hemoglobin 30.5 27.0 - 33.0 pg [facility] Mean Corpuscular HGB Conc 33.7 31.0 - 36.0 g/dl [facility] Red Cell Distribution Width 11.9 11.0 - 16.0 % [facility] Platelet Count 393 160 - 400 X10*3/uL [facility] Mean Platelet Volume 10.2 9.4 - 12.4 fL [facility] Neutrophils Percent Auto 74.4(H) 45 - 73 % [facility] Imm Gran Pct Auto 0.4 0.0 - 0.4 % [facility] Lymphocytes Percent Auto 16.2(L) 20 - 40 % [facility] Monocytes Percent Auto 4.7 2 - 11 % [facility] Eosinophils Percent Auto 3.7 0 - 4 % [facility] Basophils Percent Auto 0.6 0 - 2 % [facility] NRBC Pct Auto 0.0 0.0 - 0.2 /100WBC [facility] Neutrophils Absolute Auto 6.7 2.0 - 8.3 x10*3/uL [facility] Imm Gran Abs Auto 0.04(H) 0.00 - 0.03 X10*3/uL [facility] Lymphocytes Absolute Auto 1.5 1.2 - 4.9 X10*3/uL [facility] Monocytes Absolute Auto 0.4 0.1 - 1.2 X10*3/uL [facility] Eosinophils Absolute Auto 0.3 0.0 - 0.4 X10*3/uL [facility] Basophils Absolute Auto 0.1 0.0 - 0.2 X10*3/uL [facility] NRBC Abs Auto 0.000 0.0 - 0.012 X10*3/uL [facility] 01/13/2025 3:51 PM EST 01/13/2025 3:51 PM EST us Generic External Data Provider LAB BLOOD ORDERAB LES Final Result Performing Organization Address City/State/[facility] Co de Phone Number [facility] [address] [place] [phone] documented in this encounter Visit Diagnoses Not on filedocumented in this encounter Additional Health Concerns Assessment Noted Time PHQ-9 Depression Total Score: 0 10/13/19 25 8:53 AM EDT documented as of this encounter Care Teams Solid Waste Facility Supervisor Relationship Specialty Start Date End Date Tanmay Gore MD [address] [place] [phone] PCP - General Internal Medicine 03/19/23 documented as of this encounter
== END 2025-01-14 14:06 | disposition home or self-care (01) ==
LOC: HO.HKA 13:40
PROVIDERS: PCP Internal Medicine; Visit Provider Internal Medicine Hypertension Specialist
DX: I10 Essential (primary) hypertension (principal); N18.30 Chronic kidney disease, stage 3 unspecified
CPT/HCPCS: 99214

== ENCOUNTER → 2025-01-21 23:59 | Outpatient (BNV) | payer OTHER, SELFPAY | PROVIDERS: PCP Internal Medicine; Visit Provider Internal Medicine Cardiovascular Disease | DX: I20.0 Unstable angina (principal) | CPT/HCPCS: 93458; 99152 ==

== ENCOUNTER 2025-01-25 11:47 | Outpatient (AMB) | payer OTHER, SELFPAY ==
--- OUTSIDE RECORDS SUMMARY | 2025-01-21 14:00 | XMS_ITS | Continuity of Care Document ---
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 Name Role Phone Not on Staff, PCP Primary Care Physician Unavail able [place] [facility] [place] - 01/21/[address] [address] Discharge Disposition: A-D/C Home Attending Physician: Jeovany Jurado MD Admitting Physician: Jeovany Jurado MD Referring Physician: Fidel Hernández MD Encounter Type: Disch Daystay Allergies, Adverse Reactions, Alerts No Known Allergies Immunizations Given and Recorded Vaccine Date Status Refusal Reason tetanus/diphtheria/pertussis, acel(Tdap) 07/19/14 Given influenza virus vaccine, inactivated 12/02/13 Give n Medications aspirin 81 mg oral tablet 1 tablet = 81 mg, By Mouth, Daily, # 30 tablet, 0 Refills, Maintenance, 07/19/14 4:07:03 PM EDT, Tablet Start Date: 07/19/14 Stop Date: 08/18/14 Status: Ordered Medication Dispense Status: Completed Quantity: 30.0 Unit: tablet Total Allowed Fills: 1 Fills Dispensed: 0 Colace sodium 100 mg oral capsule 200 mg, 2, capsule, By Mouth, 2 times a day, # 120 capsule, Refills 0, Tot. Refills 0, Maintenance,02/26/18 10:58:22 AM EST, Print Requisition Start Date: 02/26/18 Status: Ordered Medication Dispense Status: Completed Quantity: 120.0 Unit: capsule Total Allowed Fills: 1 Fills Dispensed: 0 DilTIAZem (Eqv-Cardizem CD) 240 mg/24 hours oral capsule, extended release 1 capsule = 240 mg, By Mouth, Daily, 0 Refills, Maintenance, 01/21/25 12:00:00 PM EST, Partial fillupon patient request if the prescription is for a schedule II opioid drug. Start Date: 01/21/25 Status: Ordered Medication Dispense Status: Completed Total Allowed Fills: 1 Fills Dispensed: 0 Farxiga 10 mg oral tablet 1 tablet = 10 mg, By Mouth, Daily, # 30 tablet, 0 Refills, Maintenance, 01/21/25 10:50:00 AM EST, Tablet, Partial fill upon patient request if the prescription is for a schedule II opioid drug. Start Date: 01/21/25 Status: Ordered Medication Dispense Status: Completed Quantity: 30.0 Unit: tablet Total Allowed Fills: 1 Fills Dispensed: 0 glipiZIDE 10 mg oral tablet 1 tablet = 10 mg, By Mouth, 2 times a day with meals, # 30 tablet, 0 Refills, Maintenance, 01/22/2512:00:00 PM EST, Tablet, Partial fill upon patient request if the prescription is for a schedule IIopioid drug. Start Date: 01/21/25 Status: Ordered Medication Dispense Status: Completed Quantity: 30.0 Unit: tablet Total Allowed Fills: 1 Fills Dispensed: 0 Glucose Test Strips See Instructions, # 1 box, Maintenance, dispence per insurance policy., 02/26/18 11:33:01 AM EST, Compound Start Date: 02/26/18 Status: Ordered Medication Dispense Status: Completed Quantity: 1.0 Unit: box Total Allowed Fills: 1 Fills Dispensed: 0 insulin glargine 100 u/ml subcutaneous solution = 12 units, Subcutaneous Injection, Daily at bedtime, 0 Refills, Maintenance, 02/26/18 11:25:40 AM EST, Injection Start Date: 02/26/18 Status: Ordered Medication Dispense Status: Completed Total Allowed Fills: 1 Fills Dispensed: 0 Insulin Syringe, BD Ultra-Fine 0.3 cc 30 G x 12.7 mm (1/2in) See Instructions, # 300 each, Refills 2, Tot. Refills 2, Maintenance, use as directed for Type 1 Diabetes Mellitus, 02/26/18 11:32:22 AM EST, Compound Start Date: 02/26/18 Stop Date: 11/23/18 Status: Ordered Medication Dispense Status: Completed Quantity: 300.0 Unit: each Total Allowed Fills: 3 Fills Dispensed: 0 Lancet Device, Penlet II Lancet Device See Instructions, # 1 box, Refills 5, Tot. Refills 5, Maintenance, use as directed for Type 1 Diabetes Mellitus, 02/26/18 11:31:15 AM EST, Compound Start Date: 02/26/18 Stop Date: 08/25/18 Status: Ordered Medication Dispense Status: Completed Quantity: 1.0 Unit: box Total Allowed Fills: 6 Fills Dispensed: 0 Lipitor 80 mg oral tablet 1 tablet = 80 mg, By Mouth, Daily, # 30 tablet, 0 Refills, Maintenance, 07/19/14 4:02:43 PM EDT, Tablet Start Date: 07/19/14 Status: Ordered Medication Dispense Status: Completed Quantity: 30.0 Unit: tablet Total Allowed Fills: 1 Fills Dispensed: 0 Losartan = 100 mg, By Mouth, Daily, 0 Refills, Maintenance, 01/21/25 12:00:00 PM EST, Partial fill upon patient request if the prescription is for a schedule II opioid drug. Start Date: 01/21/25 Status: Ordered Medication Dispense Status: Completed Total Allowed Fills: 1 Fills Dispensed: 0 Milk of Magnesia Liquid 30 mL, By Mouth, Daily, PRN Constipation, 0 Refills, Maintenance, 02/26/18 10:58:43 AM EST, Suspension Start Date: 02/26/18 Status: Ordered Medication Dispense Status: Completed Total Allowed Fills: 1 Fills Dispensed: 0 MiraLax oral powder for reconstitution = 17 Gm, By Mouth, Daily, PRN Constipation, dissolve in water before taking, # 255 Gm, 0 Refills, Maintenance, 02/26/18 10:59:04 AM EST, REC Powder Start Date: 02/26/18 Status: Ordered Medication Dispense Status: Completed Quantity: 255.0 Unit: g Total Allowed Fills: 1 Fills Dispensed: 0 spironolactone 25 mg oral tablet 25 mg, 1, tablet, By Mouth, Daily, # 30 tablet, Refills 0, Maintenance, 01/21/25 12:03:00 PM EST, Partial fill upon patient request if the prescription is for a schedule II opioid drug. Start Date: 01/21/25 Status: Ordered Medication Dispense Status: Completed Quantity: 30.0 Unit: tablet Total Allowed Fills: 1 Fills Dispensed: 0 Tylenol 325 mg oral tablet 650 mg, By Mouth, Every 4 hours, Refills 0, Maintenance, 02/26/18 10:58:15 AM EST Start Date: 02/26/18 Status: Ordered Medication Dispense Status: Completed Total Allowed Fills: 1 Fills Dispensed: 0 Problem List Condition Confirmation Course Effective Dates Status Health Status Informant Severe nonproliferative diabetic retinopathy 1 Confirmed Active Hypercholesteremia Confirmed Active HTN (hypertension) Confirmed Active Soft tissue infection/ left dennis anal. Confirmed Active Type 2 diabetes mellitus Confirmed Active 1Follows up with [facility] Dr. Baudilio morales. Status post laser photocoagulation in 2013. Vital Signs Most recent to oldest [Reference Range]: 1 2 3 Height 160.02 cm (01/21/25 10:52 AM) Weight 71.4 kg (01/21/25 10:52 AM) Oxygen Saturation [94-100 %] 98 % (01/21/25 1:16 PM) 97 % (01/21/25 1:00 PM) 97 % (01/21/25 12:45 PM) Pulse Rate [55-90 bpm] 103 bpm *H* (01/21/25 10:52 AM) Body Mass Index [18.5-24.99 kg/m2] 27.88 kg/m2 *H* (01/21/25 10:52 AM) Blood Pressure [90-138/55-84 mm Hg] 105/90mm Hg (01/21/25 1:15 PM) 107/78mm Hg (01/21/25 1:00 PM) 105/58mm Hg (01/21/25 12:45 PM) Respiratory Rate [16-30 br/min] 21 br/min (01/21/25 1:16 PM) 26 br/min (01/21/25 1:15 PM) 23 br/min (01/21/25 1:00 PM) Temperature [96.8-100.4 DegF] 98.4 DegF (01/21/25 10:52 AM) Mode of Delivery (Oxygen) Room air (01/21/25 1:15 PM) Room air (01/21/25 1:00 PM) Room air (01/21/25 12:45 PM) Blood pressure sites Arm, right (01/21/25 10:52 AM) Temperature Route Temporal (01/21/25 10:52 AM) Dry Weight 71.4 kg (01/21/25 10:52 AM) Procedure * Event Display: Hemodynamic Procedure Report Authored Date: History and physical note * Event Display: History and Physical Hospital Authored Date: Note * Majo Camejo RN: PERFORM Event Display: Discharge/Transfer Note Hospital Authored Date: [id number] Nursing Discharge Note Entered On: 01/21/2025 14:05 EST Performed On: 01/21/2025 14:05 EST by Majo Camejo RN Nursing Discharge Note 2 Discharge Level of Care at Discharge : Home/Snf/Foster Care Discharge Time : 01/21/2025 14:00 EST Facs Teacher Utilized : No Patient Left Unit Via : Wheelchair Patient Accompanied Off Unit with : Responsible adult DC Instructions Provided & Signed by Pt : Yes Patient Understands D/C Instructions : Yes Patient Instructions Discharge Signed : Yes Did Pt have Specialty Bed or Wound Vac : No Majo Camejo RN - 01/21/2025 14:05 EST Electronically Signed on 01/21/25 02:05 PM Majo Camejo RN * Majo Camejo RN: PERFORM Event Display: Patient Education/Instruction Authored Date: [id number] Inpatient Adult Discharge Instructions. [address] [address] Name: JON WHEELER : 1960?? Visit: 01/21/2025 09:28?? Current Date: 01/21/2025 12:36 ?? Account: [id number]?? Inpatient Adult Discharge Instructions We would like to thank you for allowing us to assist you with your healthcare needs. The following includes patient education materials and information regarding your injury/illness. Our entire staffstrives to provide an excellent experience for our patients and their families. PLEASE ENSURE YOU FOLLOW-UP PER THE INSTRUCTIONS BELOW! ?? YOUR OPINION IS IMPORTANT TO US! Please complete the survey you may receive by mail or email. Your feedback will be used to make improvements to the healthcare experiences of our patients and their families. Surveys are administered by [employer] ?? If further treatment with your primary care physician or another doctor is recommended, it is important for you to keep the appointment. Call your primary care physician or return to the Emergency Department immediately if your condition worsens, fails to improve, or new symptoms develop. If you need to find a doctor, you can call [facility] Link for a referral at [phone] or toll free at [phone] or log in to [email or web address].. ?? [facility], in keeping with [facility] guidance, no longer requires face masks for staff, patientsor visitors in most situations. Similiar to time spent indoors at other locations, there is the chance that you were exposed to repiratory viruses during your time with us (such as flu or COVID-19). If you develop symptoms concerning for a viral respiratory infection, please seek testing (and treatment if indicated) from your medical provider or home test kit. ?? You can view and manage your care through the patient portal or by using a health care prerna of your choosing. [employer] Out is a website that allows you to securely view your medical information including your hospital discharge summary, office visit summaries, medications and follow-up visits. You can also request appointments, renew medications, and request access to your medical information using a health care prerna of your choosing, or just ask a question. You are entitled to know the individuals who participated in your treatment. This information is available within your medical record and will be provided upon your request. You can enroll at [email or web address] or register d uring your next office visit. You have been discharged from [facility], Patient Care Unit: CARE??. If you have any questions regarding these instructions, including results of studies pending, afteryou leave, please call us and we will be happy to assist you 24/09. [facility] Nursing Unit Direct Phone Number, for 24/09 contact and results of studies pending CARE [address] [place] [address] Your Care Team Attending Physician Jeovany Jurado MD?? Consulting Providers Jeovany Jurado MD?? Discharging Providers Nirav Hanna MD Tests Performed Below is a partial list of the tests performed during your hospitalization. You may have had other tests and procedures not included in this list. Please discuss all test results with your provider. GLUCOSE POC Glucose POC?? Type and Screen?? Primary Care Provider Not on Staff, PCP?? Advance Directive Health Care Proxy on File No Discharge Vitals Temperature: 98.4 DegF Height: 160.02 cm Pulse Rate:??103 bpm??High Weight: 71.4 kg Respiratory Rate: 18 br/min Body Mass Index:??27.88 kg/m2??High Systolic Blood Pressure: 126 mm Hg Body surface area: 1.78 Diastolic Blood Pressure:??109 mm Hg??High ?? Oxygen Saturation: 94 % ?? Studies Pending All studies ordered during this hospital stay have been completed unless listed below. Please discuss all pending results with your provider listed above in these instructions. ?? Type and Screen?? What to do next Instructions From Your Doctor ?? Orders? 01/21/25 11:14:00 EST?? You Need to Schedule the Following Appointments Follow Up with??Diego WILLSON, Alexandre Bee When:Within 1 to 2 weeks Where:[address] [place] [address] [place] [address]- Follow Up with??Jeovany Jurado MD When:Within 2 to 3 weeks Where:[address] [place] [address] [place] [address]- Discharge Medications JON WHEELER :1960 Visit Date:01/21/2025 Medications: Please continue your medications until treatment is completed or stopped by your provider. Medications not listed below should be discontinued. Discuss any questions related to medications with your provider. What How Much When Instructions Next Dose Unchanged Acetaminophen (Tylenol 325 mg oral tablet) 650 Milligram Oral Every 4 hours Ordering Physician: Jd Rahman NP as needed Unchanged Aspirin (aspirin 81 mg oral tablet) 1 tab(s) Oral Daily Duration: 30 Days resume Unchanged Atorvastatin (Lipitor 80 mg oral tablet) 1 tab(s) Oral Daily resume Unchanged dapagliflozin (Farxiga 10 mg oral tablet) 1 tab(s) Oral Daily resume Unchanged Diltiazem (DilTIAZem (Eqv-Cardizem CD) 240 mg/ 24 hours oral capsule, extended release) 1 capsule Oral Daily resume Unchanged Docusate (Colace sodium 100 mg oral capsule) 2 capsule Oral Twice a day Ordering Physician: Jd Rahman NP resume Unchanged GlipiZIDE (glipiZIDE 10 mg oral tablet) 1 tab(s) Oral Two times a day with meals resume Unchanged Insulin Glargine (insulin glargine 100 u/ ml subcutaneous solution) 12 unit(s) Subcutaneous Injection Daily at Bedtime Ordering Physician: Jd Rahman NP resume your usual dose Unchanged Losartan 100 Milligram Oral Daily resume Unchanged Milk of Magnesia (Milk of Magnesia Liquid) 30 Milliliter Oral Daily as needed for Constipation Ordering Physician: Jd Rahman NP as needed Unchanged Polyethylene Glycol 3350 (MiraLax oral powder for reconstitution) 17 gram Oral Daily as needed for Constipation Special Instructions: dissolve in water before taking Ordering Physician: Jd Rahman NP ?? as needed Unchanged Spironolactone (spironolactone 25 mg oral tablet) 1 tab(s) Oral Daily resume Prescription Given During Visit No new medications prescribed at time of discharge.?? Laboratory Results Below is a partial list of the most recent Laboratory test results done prior to this discharge. You may have had other tests and procedures not included in this list. Please discuss all test resultswith your provider. GLUCOSE POC (01/21/2025) ???Glucose, POC - 137 mg/dL Allergies (NKA means No Known Allergies) NKA Problems Active Problems??(5) HTN (hypertension)?? Hypercholesteremia?? Severe nonproliferative diabetic retinopathy?? Soft tissue infection/ left dennis anal.?? Type 2 diabetes mellitus?? Education Materials Below is the list of Educational Leaflet Providered with your Discharge Instructions. [employer] Patient Education - Surgery Radial Cath Approach Discharge Instructions?? [employer] Patient Education - Procedural Sedation?? Valuables and Belongings I fully understand and agree that [facility] accepts no responsibility for all my personal property including clothing, toilet articles, radios, jewelry, dentures, hearing aids, rings, money, or any other property that is in my possession or is brought to me after admission. I understand certain valuables may be placed in a hospital safe for a short period of time. I understand that the hospital is not liable for loss or damage due to accident, fire, or other natural occurrence while said property is in the safe. I accept full responsibility for any personal property that I keep with me, and will not hold the hospital responsible in case of loss or disappearance. I acknowledge that i have been encouraged to send valuables and belongings home. ?? Date for Pt to Sign Valuables/Belongings: 01/21/25 10:52:00 ?? Valuables & Belongings ?? Clothes Electronic devices Jewelry Monetary Items Personal devices Miscellaneous Medications (Valuables) Valuables at Bedside Jacket, Pants, Shirt, Shoes, Undergarments Cell phone ? Glasses ? Valuables Sent Home ? Valuables Sent to Security ? Valuables Sent to Locker ? Other Discharge Information ? Pulmonary Rehab Status?? Pulmonary Rehab Discharge Status?? Respiratory Rate: 18 br/min ? Common Emergency Awareness Tips IS IT A STROKE? Act FAST and Check for these signs: FACE Does the face look uneven? ARM Does one arm drift down? SPEECH Does their speech sound strange? TIME Call at any sign of stroke ?? Heart Attack Signs Chest discomfort: Most heart attacks involve discomfort in the center of the chest and lasts more than a few minutes, or goes away and comes back. It can feel like uncomfortable pressure, squeezing, fullness or pain. Discomfort in upper body: Symptoms can include pain or discomfort in one or both arms, back, neck, jaw or stomach. Shortness of breath: With or without discomfort. Other signs: Breaking out in a cold sweat, nausea, or lightheaded. Remember, MINUTES DO MATTER. If you experience any of these heart attack warning signs, call to get immediate medical attention! ?? Smoking can increase your chances of developing chronic health problems and can cause harmful effects to other family members in your house. If you smoke, you are strongly encouraged to quit. Please call [facility] [employer] at [phone] or [phone] ([phone]) or log in to [email or web address] for referrals to smoking cessation programs. ?? 278 Suicide & Crisis Lifeline is available 24/09 if you or someone you know needs to find a reason to keep living. By calling 293 you'll be connected to a skilled, trained counselor at a crisis center in your area. INPATIENT DISCHARGE INSTRUCTIONS SIGNATURE PAGE JON WHEELER [facility]:[id number] Location:[facility] Registration Date and Time:01/21/2025 09:28 EST Primary Care Physician: Not on Staff, PCP Attending Physician: Adrien WILLSON, [facility], I MAIRA WHEELERL, have received the above patient education materials/instructions and have verbalized understanding. If ambulance or transport services are being used I further acknowledge being given a choice of service. ?? If you need to contact me, please call me at this number: . Patient/Robotics Application Engineer Name: Patient/Robotics Application Engineer Signature: Relationship to Patient: Witness Name/Signature: Date: * Majo Camejo RN: PERFORM Event Display: Patient Education Leaflets Authored Date: Surgery Radial Cath Approach Discharge Instructions ?? 278 Radial Cath Approach Discharge Instructions ?? Activity Take it easy the rest of the day. Limit your activity on the affected side.?? Act as if your arm is broken for 24 hours. No lifting with affected arm for 24 hours. No pushing or pulling with the affected arm. Do not reach or lift with the affected arm. Do not place excessive pressure on the wrist. ?? Precautions Due to intravenous sedation: It is recommended that someone stay with you for the first night after your procedure. Do not drive or operate hazardous machinery for 24 hours. Do not make legal decisions for 24 hours. Avoid alcohol for 24 hours. Unless directed otherwise, keep yourself hydrated. ?? Dressing/Incision Care You may remove the dressing 24 hours after your procedure. Replace with band aid for an additional 24 hours. You may shower and cleanse the site with soap & water then pat dry. Avoid submersion of site in water x 5 days. Cover the with a clean band aid daily until site is healed. If the band aid becomes soiled, replacewith a clean new one. Do not apply any ointments, lotions, gels or powders to the puncture site. ?? When to contact your doctor If any of the following signs of infection occur: Fever greater than 100 degrees F Increased pain Drainage, redness or warmth at puncture site Tingling of the fingers and hand that last longer than 3 days Slight bubble of blood or bleeding from site: apply manual pressure and notify your doctor ?? Emergency situations: Bleeding from the site that will not stop: apply manual pressure and notify your doctor Profuse bleeding streaming from the puncture site: Apply manual pressure and notify your doctor immediately If your hand becomes bluish, cold to the touch, or painful, notify your doctor immediately or go toEmergency Department. For these emergent situations: If unable to contact your physician, call 911. ?? * Majo Camejo RN: PERFORM Event Display: Patient Education Leaflets Authored Date: [id number] Procedural Sedation ?? [address] Procedural Sedation Procedural sedation is medicine to ease discomfort, pain, and anxiety during a procedure. It's often given through an I.V. (intravenous) line in your arm or hand. In some cases, the medicine may be taken by mouth or inhaled. While you are under sedation, you will likely be awake. But you may not remember it afterward. Why procedural sedation is used Sedation is used for many types of procedures. The goal is to reduce pain, anxiety, and stressful memories of a procedure. It can help your doctor treat you. For example, having a broken bone fixed may be easier if you feel relaxed. This type of sedation is used only for short, basic procedures. It's not used for complex surgery. Some procedures that use this type of sedation include: ??? Dental surgery. ??? Breast biopsy to take a sample of breast tissue. ??? Endoscopy to look at gastrointestinal problems. ??? Bronchoscopy tocheck for lung problems. ??? Bone or joint realignment to fix a broken bone or dislocated joint. ??? Minor foot or skin surgery. ??? Electrical cardioversion to restore a normal heart rhythm. ??? Lumbar puncture to check for neurological disease. ?? Risks of procedural sedation Risks and possible side effects include: ??? Headache. ??? Nausea and vomiting. ??? Bad memories of the procedure. ??? Slowed breathing. ???Changes in heart rate and blood pressure (rare). ??? Inhaling of stomach contents into your lungs (rare). Side effects will likely go away shortly after the procedure. Your health care team will watch yourheart rate and breathing during and after sedation. This is to help prevent problems. Your own risks may vary. They can be based on your age and your overall health. They also depend onthe type of sedation you get. Talk with your doctor about the risks that apply most to you. ?? Getting ready for procedural sedation Talk with your doctor about how to get ready for your procedure. Tell them about all the medicines you take. This includes [id number] medicines, such as ibuprofen. It also includes vitamins, herbs, and other supplements. You may need to stop taking some medicines beforehand, such as blood thinners and aspirin. If you smoke, you should stop. This is to reduce the chance of a lung problem. Talk with your doctor if you need help to stop smoking. Some medical conditions, such as seizure disorders, spinal cord injuries, and some metabolic conditions, may change your care needs after the procedure. If you have such a condition, be sure to talk with your doctor about whether your post-procedure care might change. Tell your doctor if you: ??? Have had any problems in the past with sedation or anesthesia. ??? Have had any recent changes in your health, such as an infection or fever. ??? Are or think you could be. Also: ??? Follow any directions you are given for not eating or drinking before procedure. ??? Ask a trusted adult to take you home after the procedure. You can???t drive on the day you have sedation. ??? Ask a trusted adult to stay with you for a few hours while you recover. ??? Don't make any important decisions, such as financial or legal, on the day after you have sedation. ??? Follow all other instructions from your doctor. ?? During your procedural sedation You may have your procedure in a hospital or a clinic. Sedation is done by a trained health care provider. In general, you can expect the following: ??? You will be given medicine through an I.V. line in your arm or hand. Or you may get a shot or take it by mouth. Or you may inhale it through a mask. ??? If you have medicine through an I.V., you may feel the effects very quickly. You will start to feel relaxed and drowsy. ??? During the procedure, your heart rate, breathing, and blood pressure will be closely watched. Your breathing and blood pressure may decrease a little. But you will likely not need help with your breathing. You may get a little extra oxygen. This is done through a mask or some soft plastic prongs under your nose. ??? You will likely be awake the whole time. If you do fall asleep, you should be easy to wake up, if needed. You should feel little or no pain. ??? When your procedure is over, the sedative medicine will be stopped. ?? After your procedural sedation As the sedation wears off, you will start to feel more awake and aware. But you will likely be drowsy for a while. You will be closely watched as you become more alert. You may have a faint memory ofthe procedure. Or you may not remember it at all. You should be able to go home within 1 to 2 hours after your procedure. Plan to have a trusted adult stay with you for a few hours. This person should make sure your condition is not getting worse. They should also watch for problems and keep you safe. You may have side effects such as nausea, fatigue, or unsteadiness for up to 24 hours. You may also feel lightheaded. Tell your doctor if they continue. Don???t drive or operate machines during the next 24 hours. Also, don't make any important businessor personal decisions. And don't drink any alcohol during the next 24 hours. Take extra care when walking and moving, You may be at a higher risk of falling. Follow any instructions you were given for eating and drinking. Be sure to follow all after-care directions. ?? When to contact your doctor Have someone call your doctor right away if: ??? You have drowsiness that gets worse. ??? Your weakness or dizziness gets worse. ??? You vomit repeatedly. ??? Your speech is slurred, and others cannot understand you. ??? You have severe or ongoing pain from the procedure that's not relieved by the pain medicine (if prescribed). ??? You have a fever of 100.4?? F (38??C) or higher, or as advised byyour doctor. ??? You have a new rash. ?? Call 911 Have someone call 911 if: ??? You have trouble breathing. ??? You have trouble swallowing. ??? Youhave chest pain. ??? You lose consciousness or you can't be woken up. ?? Last Reviewed Date: 2024 00:00:00 ?? [id number] [employer]. All rights reserved. This information is not intended as a substitute for professional medical care. Always follow your healthcare professional's instructions. ?? Patient Care team information Care Team Personnel Name: Shelia Galloway RN Position: [facility] RN Member Role: Primary Care Nurse Name: Not on Staff, PCP Position: S Physician (General Medicine) Member Role: PCP Name: Otilia Cruz RN Position: S RN Member Role: Primary Care Nurse Care Team Related Persons Name: JD REYES Name: RENY WHEELER Name: MICHELLE WHEELER Insurance Providers Guarantor name: JUSTIN Health Plan Information #: 1 Payer: [employer] Payer Identifier: NA Member Number: [id number] Group Number: [id number] Subscriber Identifier: [id number] Relationship to Subscriber: self Coverage Type: Managed Care (Private) Coverage Verification Date: JUSTIN Telecom: JUSTIN Address:
--- NOTE | 2025-01-25 11:52 | HO.NEPHOV_ITS ---
Vital Signs 01/25/25 11:54 Height 5 ft 3 in Weight 157 lb BMI 27.8 BP 102/84 Blood Pressure Location Lt brachial Position Sitting Intake Visit Reasons: 1 week f/u w labs Patient Assessment Coordinator Required: No Accompanied by: Self / Same As Patient Allergies No Known Allergies Allergy (Verified 01/25/25 11:55) Medication List - Last Reconciled 01/25/25 by Gene Stout MD aspirin 81 mg PO DAILY atorvastatin 80 mg PO QAM brimonidine 0.2% 1 drp ophthalmic (eye) BID clotrimazole 1% appl topical DAILY dapagliflozin propanediol (Farxiga) 10 mg PO DAILY diltiazem HCl CD 240 mg PO DAILY glipizide 10 mg PO BID latanoprost 0.005% drps ophthalmic (eye) spironolactone 25 mg PO DAILY Held on 01/14/25. Instructions: Doctor's Order timolol maleate 0.5% 1 drp ophthalmic (eye) BID HPI Comments Details: . Jame is a middle-aged man with a history of diabetes mellitus for more than 30 years. He has chronic kidney disease with a baseline creatinine around 2.5 mg/dL. He was found to have significant proteinuria of around 1200 mg and hence this consultation. Currently he is on losartan 100 mg for renal protection. He has history of hypertension and is also on amlodipine. As for the diabetes mellitus he is on Trulicity. He tells me that his blood sugar was poorly controlled in the past while he was in [place]. Today has no specific complaints. No headache nausea vomiting. No shortness of breath. No polyuria polydipsia. No edema no rash no fever. No joint pains. 08/29/23;Home BP has been good ;HR is in the 100s 10/31/23 ;Farxiga and Chlorthalidone have been added ; Creatinine up to 2.6 ; No new issues 12/13/23 ;Doing well;differential BP in both UE 01/28/2024. Tolerating diltiazem. No edema 06/18/24 : Overall doing well. No new issues 09/03/24_ recently hospitalzied. Sustained ORACIO due to hypoperfusion ORACIO resolved 12/03/24 - The patient is a 64-year-old male presenting with chronic kidney disease. - Significant proteinuria noted, possibly related to diabetes mellitus. - Recent labs showed 7,000 mg of proteinuria, - Experiencing hypotension, likely due to chlorthalidone, 01/14/25 The patient is a 64-year-old male presenting with chronic kidney disease. diabetic nephropathy,- based on recent kidney biopsy showing significant damage and scarring due to diabetes. The patient has been recently evaluated by cardiology, and a coronary angiogram is planned The patient has a history of hypertension, with recent blood pressure readings noted to be very low at 90/60 mmHg, The patient is currently on losartan and spironolactone, The patient also has a history of diabetes mellitus, with recent blood sugar levels reported to be around 90 mg/dL in the morning. The patient is managing diabetes with medication and monitoring blood sugar levels regularly. 01/25/25 The patient is a 64 year old individual presenting for a follow-up visit to as [facility] kidney function and response to medication changes. The patient recently stopped two medications - Losartan and Spironolactone - and reports feeling well since the change. Blood pressure has remained low despite discontinuing the medications. The patient denies any lightheadedness when standing or walking and has no trouble with urination. The patient is scheduled for a cardiology appointment on February 08. [facility] Medical History Dyslipidemia HTN (hypertension) Acid reflux Diabetes Surgical History Hx of colonoscopy Hx of appendectomy Family History Father No problems noted. Brother Heart attack Paternal Uncle Heart attack Social History Household Members: Children Alcohol intake: current Alcohol intake frequency: holidays/special occasions only Patient Tobacco Use Status: Never used Tobacco Second Hand Smoke Exposure: No Physical Exam Vital Signs: Last Vital Signs BP 102/84 01/25/25 11:54 BMI result Body Mass Index 27.8 Comfortable Neck supple no JVD. Lungs entry equal no rales. Heart S1-S2 heard no gallop or rub. Abdomen soft nontender. Neuro alert awake oriented. No asterixis. Extremities no edema. Results Reviewed Nephrology Results: Hgb, (14.0-18.0) 12.5 g/dl L Today WBC, (4.8-10.8) 9.0 X10*3/uL Today Plt Count, (160-400) 314 X10*3/uL Today Sodium, (135-145) 138 mmol/L Today Potassium, (3.3-5.1) 5.0 mmol/L Today Chloride, (96-108) 107 mmol/L Today Carbon Dioxide, (22-29) 25 mmol/L Today BUN, (9-16) 51 mg/dL H Today Creatinine, (0.5-1.4) 2.34 mg/dL H Today Calcium, (8.4-10.2) 9.5 mg/dL Today Renal US 08/12/23 Assessment & Plan Assessment & Plan (1) HTN (hypertension): Code(s): I10 - Essential (primary) hypertension Category: Medical (2) CKD (chronic kidney disease) stage 3, GFR 30-59 ml/min: Code(s): N18.30 - Chronic kidney disease, stage 3 unspecified Category: Medical Plan 64-year-old man with chronic kidney disease in the setting of longstanding diabetes mellitus and hypertension with non nephrotic range proteinuria. Chronic kidney disease most likely due to diabetic nephropathy based on biopsy REnal function worsened Creatinine has increased from 1.99 in Aug to 2.5 in December and currently at 3.08 mg/dL ? due to hypoperfsuion form LOW BP HOLD Losartan and Spironolactone due to low BP And ORACIO -since 01/04/25 As of today, Creatinine has improved and back to baseline Hyperkalemia corrected Currently he is at a high risk for ORACIO due to contrast nepropathy However, if the benefits outweigh the risk, we might have to proceed with coronary angiogram Would recommend to hydrate with NS for atleast 4 hours prior to the procedure and use minimal dye load . Orders: Orders Basic Metabolic Panel Today N18.30 - Chronic kidney disease, stage 3 unspecified Coding Level of Care Code Est Pt Level 4 (90405) Diagnoses HTN (hypertension) I10 CKD (chronic kidney disease) stage 3, GFR 30-59 ml/min N18.30
[2025-01-25 11:54] VITALS: BP 102/84; BMI 27.8
--- OUTSIDE RECORDS SUMMARY | 2025-01-25 15:42 | XMS_ITS | Encounter Summary ---
Author Organization [employer] Address [address] [facility] [address] [place] [address] Care Team Providers Care Foreclosure Field Inspector Name Role Phone Tanmay Gore MD Primary Care Prov ider Reason for Visit * Reason Comments Med Change Request Encounter Details Date Type Department Care Team ([facility] Contact Info) Description 01/06/2025 Refill [facility] MED & PEDS [address] [place], [place] [phone] Tanmay Gore MD [address] [place] [address] Social History Tobacco Use Types Packs/Day Years [...] Upcoming Encounters Date Type Department Care Team ([facility] st Contact Info) Description 02/23/2025 1:00 PM EST Telemedicine [facility] MED & PEDS [address] [place] [address] Tanmay Gore MD [address] [place] [address] documented as of this encounter Visit Diagnoses Not on filedocumented in this encounter Additional Health Concerns Assessment Noted Time PHQ-9 Depression Total Score: 0 10/13/19 25 8:53 AM EDT documented as of this encounter Care Teams Foreclosure Field Inspector Relationship Specialty Start Date End Date Tanmay Gore MD [address] [place] [address] PCP - General Internal Medicine 03/19/23 documented as of this encounter
--- OUTSIDE RECORDS SUMMARY | 2025-01-25 15:42 | XMS_ITS | Encounter Summary ---
Author Organization [employer] Address [address] [facility] [address] [place] [address] Care Team Providers Care Natural Resource Officer Name Role Phone Tanmay Gore MD Primary Care Prov ider Reason for Visit * Reason Comments Med Refill Encounter Details Date Type Department Care Team ([facility] Contact Info) Description 02/22/2024 Refill [facility] MED & PEDS [address] [place], [place] [phone] Tanmay Gore MD [address] [place] [address] Social History Tobacco Use Types Packs/Day Years [...] [facility] [address] [place] [address] Tanmay Gore MD [address] [place] [address] documented as of this encounter Visit Diagnoses Not on filedocumented in this encounter Care Teams Natural Resource Officer Relationship Specialty Start Date End Date Tanmay Gore MD [address] [place] [address] PCP - General Internal Medicine 03/19/23 documented as of this encounter
--- OUTSIDE RECORDS SUMMARY | 2025-01-25 15:42 | XMS_ITS | Encounter Summary ---
Author Organization [employer] Address [address] [facility] 7t [place] [address] Care Team Providers Care Sign Hanger Name Role Phone Tanmay Gore MD Primary Care Prov ider Reason for Visit * Reason Comments Med Refill Encounter Details Date Type Department Care Team ([facility] Contact Info) Description 02/27/2024 Refill [facility] CH[facility] MED & PEDS [address] [place], [place] [phone] Tanmay Gore MD [address] [place] [address] Social History Tobacco Use Types Packs/Day Years [...] 02/23/2025 1:00 PM EST Telemedicine [facility] MED & PEDS [address] [place] [address] Tanmay Gore MD [address] [place] [address] documented as of this encounter Visit Diagnoses Not on filedocumented in this encounter Care Teams Sign Hanger Relationship Specialty Start Date End Date Tanmay Gore MD [address] [place] [address] PCP - General Internal Medicine 03/19/23 documented as of this encounter
--- OUTSIDE RECORDS SUMMARY | 2025-01-25 15:43 | XMS_ITS | Encounter Summary ---
Author Organization [employer] Address [address] [place] [address] [address] [address] Care Team Providers Care Rivet Passer Name Role Phone Tanmay Gore MD Primary Care Prov ider Reason for Referral * Consultation (STAT) - Authorized Specialty Diagnoses / Procedures Referred By Ricardo alan Referred To Contact Cardiology Diagnoses Chest pain, unspecified type Tanmay Gore MD [address] [place] [address] Phone: tel: fax: Fidel Hernández MD [address] [place] [address] Phone: tel: fax: Referral ID Status Reason Start Date Expiration Date Visits Requested Visits Authorized [id number] Authorized Specialty Services Required 01/12/2026 1 1 * Imaging (STAT) - Closed Specialty Diagnoses / Procedures Referred By Ricardo alan Referred To Contact Cardiology Diagnoses Chest pain, unspecified type Procedures Transthoracic Echo (TTE) Complete Tanmay Gore MD [address] [place] [address] Phone: tel: fax: [address] [address] Phone: tel: fax: Referral ID Status Reason Start Date Expiration Date V isits Requested Visits Authorized [id number] Closed Perform Procedure 01/12/2025 01/12/2026 1 1 Encounter Details Date Type Department Care Team (Late st Contact Info) Description 01/12/2025 Orders Only [facility] CHC MED & PEDS [address] [place] [address] Tanmay Gore MD [address] [place] [address] Chest pain, unspecified type (Primary Dx) Social [...] Description 02/23/2025 1:00 PM EST Telemedicine [facility] MED & PEDS [address] [place] [address] Tanmay Groe MD [address] [place] [address] Scheduled Orders Name Type Priority Associated Diagnoses [...] documented as of this encounter Care Teams Rivet Passer Relationship Specialty Start Date End Date Tanmay Gore MD [address] [place] [address] PCP - General Internal Medicine 03/19/23 documented as of this encounter
--- OUTSIDE RECORDS SUMMARY | 2025-01-25 15:43 | XMS_ITS | Encounter Summary ---
Author Organization [employer] Address [address] [place] [address] Care Team Providers Care Shop Helper Name Role Phone Tanmay Gore MD Primary Care Prov ider Reason for Visit * Reason Onset Date Comments Medication Question 01/13/2024 Encounter Details Date Type Department Care Team (Late st Contact Info) Description 01/13/2024 Telephone [facility]INE [address] [place] [address] Tanmay Gore MD [address] [place], [place] [phone] Medication Question Social History Tobacco Use Types [...] the past 12 months, has t he [facility], [employer], oil or water company threatened to shut [...] [facility] MED & PEDS [address] [place] [address] Tanmay Gore MD [address] [place] [address] documented as of this encounter Visit Diagnoses Not on filedocumented in this encounter Care Teams Shop Helper Relationship Specialty Start Date End Date Tanmay Gore MD [address] [place] [address] PCP - General Internal Medicine 03/19/23 documented as of this encounter
--- OUTSIDE RECORDS SUMMARY | 2025-01-25 15:43 | XMS_ITS | Encounter Summary ---
Author Organization [employer] Address [address] [place] [address] Care Team Providers Care Hydro Pneumatic Tester Name Role Phone Tanmay Gore MD Primary Care Prov ider Reason for Visit * Reason Onset Date Comments Medication Problem 06/11/2023 Encounter Details Date Type Department Care Team (Late st Contact Info) Description 06/11/2023 Telephone [facility] MED[facility] [address] [place] [address] Tanmay Gore MD [address] [place], [place] [phone] Medication Problem Social History Tobacco Use Types [...] the past 12 months, has t he [employer], [employer], oil or water [employer] threatened to shut off services in your [...] 02/23/2025 1:00 PM EST Telemedicine [facility] MED & PEDS [address] [place] [address] Tanmay Gore MD [address] [place] [address] documented as of this encounter Visit Diagnoses Not on filedocumented in this encounter Care Teams Hydro Pneumatic Tester Relationship Specialty Start Date End Date Tanmay Gore MD [address] [place] [address] PCP - General Internal Medicine 03/19/23 documented as of this encounter
--- OUTSIDE RECORDS SUMMARY | 2025-01-25 15:43 | XMS_ITS | Encounter Summary ---
Author Organization [employer] Address [address] [facility] [address] [place] [address] Care Team Providers Care Water Main Installer Helper Name Role Phone Tanmay Gore MD Primary Care Prov ider Reason for Visit * Reason Comments Med Change Request Encounter Details Date Type Department Care Team ([facility] Contact Info) Description 12/09/2024 Refill [facility] CHC MED & PEDS [address] [place], [place] [phone] Tanmay Gore MD [address] [place] [address] Social History Tobacco Use Types Packs/Day Years [...] Upcoming Encounters Date Type Department Care Team ([facility] st Contact Info) Description 02/23/2025 1:00 PM EST Telemedicine [facility] MED & PEDS [address] [place] [address] Tanmay Gore MD [address] [place] [address] documented as of this encounter Visit Diagnoses Not on filedocumented in this encounter Additional Health Concerns Assessment Noted Time PHQ-9 Depression Total Score: 0 10/13/19 25 8:53 AM EDT documented as of this encounter Care Teams Water Main Installer Helper Relationship Specialty Start Date End Date Tanmay Gore MD [address] [place] [address] PCP - General Internal Medicine 03/19/23 documented as of this encounter
--- OUTSIDE RECORDS SUMMARY | 2025-01-25 15:43 | XMS_ITS | Encounter Summary ---
Author Organization [employer] Address [address] [facility] [address] [place] [address] Care Team Providers Care Shared Services And Outsourcing Manager Name Role Phone Tanmay Gore MD Primary Care Prov ider Tanmay Gore MD Primary Care Prov ider Reason for Visit * Reason Comments Med Refill Encounter Details Date Type Department Care Team (Late Contact Info) Description 06/12/2022 Refill [facility] CHC MED & PEDS [address] [place] [address] Tanmay Gore MD [address] [place] [address] Social History Tobacco Use Types Packs/Day Years [...] Upcoming Encounters Date Type Department Care Team ([facility] Contact Info) Description 02/23/2025 1:00 PM EST Telemedicine [facility] CHC MED & PEDS [address] [place] [address] Tanmay Gore MD [address] [place] [address] documented as of this encounter Visit Diagnoses Not on filedocumented in this encounter Care Teams Shared Services And Outsourcing Manager Relationship Specialty Start Date End Date Tanmay Gore MD [address] [place] [address] PCP - General Internal Medicine 07/29/19 03/10/23 Tanmay Gore MD [address] [place] [address] PCP - General Internal Medicine 03/19/23 documented as of this encounter
--- OUTSIDE RECORDS SUMMARY | 2025-01-25 15:43 | XMS_ITS | Clinical Summary ---
Author Organization [employer] Address [address] [place] [address] Care Team Providers Care Food Porter Name Role Phone Tanmay Gore MD Primary [...] by mouth Once per day. 30 tablet 08/06/19 25 026 Active Dulaglutide (Trulicity) 4.5 MG/0.5ML solution auto-injector Indications:T ype 2 diabetes mellitus with diabetic microalbuminu wayne, without long-term current use of insulin (HCC) Inject 4.5 mg under the skin 1 (one) time per week. 3 mL 08/06/19 25 Active glipiZIDE (Glucotrol) 10 MG tablet Take 1 tablet (10 mg) by mouth before breakfast and before evening meal. 60 tablet 08/15/19 026 Active Insulin Syringe 31G X 5/16 0.3 ML misc For administering insulin daily 100 each 1 08/15/19 25 Active atorvastatin (Lipitor) 80 MG tablet Take 1 tablet (80 mg) by mouth in the morning. 90 tablet 1 08/28/19 25 Active omeprazole (PriLOSEC) [address] Theo tions:Abdomin al pain with vomiting TAKE 1 CAPSULE BY MOUTH EVERY DAY 30 capsule 2 11/18/19 25 Active chlorthalidon e (Hygroton) 25 MG tablet TAKE 1 TABLET BY MOUTH EVERY DAY 30 tablet 2 11/26/19 25 Active Insulin Glargine-yfgn 100 UNIT/ML solution Inject 30 Units under the skin Once per day. 3 mL 11/25/19 Active Continuous Glucose Water Use Inspector (FreeStyle Antionette 3 [place]) device 1 each Once per day. Use as directed for CGM 1 each 12/24/19 Active Continuous Glucose Sensor (FreeStyle Antionette 3 Plus Sensor) misc 1 each every 15 days. Apply 1 every 15 days as directed for CGM 2 each 12/24/19 Active traZODone (Desyrel) 50 MG tablet TAKE 1 TABLET BY MOUTH EVERYDAY AT BEDTIME 90 tablet 01/19/20 25 Active traZODone (Desyrel) 50 MG tablet TAKE 1 TABLET BY MOUTH AT BEDTIME 30 tablet 2 11/26/19 25 025 Discontinued Active Problems Problem Noted Date Diagnosed [...] of call pt had been contacted by parking control officer team and was en route to er [...] Encounters Date Type Department Care Team Description 01/16/2025 Refill [facility] [address] [place] [address] Tanmay Gore MD 01/13/2025 Orders Only GENERIC EXTERNAL DATA DEPARTMENT Provider, Generic External Data 01/12/2025 Orders Only [facility] [address] [place] [address] Tanmay Gore MD Chest pain, unspecified type (Primary Dx) 01/06/2025 Refill [facility] [address] [place] [address] Tanmay Gore MD 12/29/2024 Orders Only GENERIC EXTERNAL DATA DEPARTMENT Provider, Generic External Data 12/23/2024 Orders Only [facility] [address] [place] [address] Tanmay Gore MD 12/09/2024 Telephone [facility] [address] [place] [address] Tanmay Gore MD Med Refill 12/09/2024 Refill [facility] [address] [place] [address] Tanmay Gore MD 11/30/2024 Orders Only GENERIC EXTERNAL DATA DEPARTMENT Provider, Generic External Data 11/24/2024 3:30 PM EDT Office Visit [facility] [address] [place] [address] Tanmay Gore MD Chest pain, unspecified type (Primary Dx); Type 2 diabetes mellitus with diabetic microalbuminuria, without long-term current use of insulin ([facility]) 11/24/2024 Travel 11/24/2024 Refill [facility] [address] [place] [address] Otilia Mancia FNP 11/24/2024 Refill [facility] [address] [place] [address] Tanmay Gore MD 11/23/2024 Telephone [facility] [address] [place] [address] Tanmay Gore MD chart prep 11/14/2024 Refill [facility] [address] [place] [address] Tanmay Gore MD Abdominal pain with vomiting [...] Info) Description 02/23/2025 1:00 PM EST Telemedicine [facility] [address] [place] [address] KeithTanmay Cantrell MD [address] [place] [address] Health Maintenance Due Date Last Done Comments CT Colonography 1960 FIT DNA/Cologuard 1960 FOBT 1960 Sigmoidoscopy 1960 Disability Screening 1960 RSV Patients and Patients Aged 60 years or older (1 - Risk 50-74 years 1-dose series) 2010 FIT 04/10/2021 04/10/2020 Zoster Vaccines (2 of 2) 06/18/2022 04/23/2022 Diabetes: Foot Exam 04/17/2024 04/17/2023, 04/17/2023, 04/17/2023, Additional history exists Eye Exam 06/12/2024 COVID-19 Vaccine ( - season) 2024 08/09/2020, 07/19/2020 Influenza Vaccine (#1) 2024 4, 11/15/2022, 12/06/2021, Additional history exists Diabetes: Hemoglobin [...] Procedure Name Priority Date/Time Associated Diagnosis Comments PROTEIN, TOTAL AND PROTEIN ELECTROPHORESIS Routine 01/13/2025 3:51 PM EST BASIC METABOLIC [...] microalbuminuria, without long-term current use of insulin ([facility]) POCT GLYCATED HEMOGLOBIN, TOTAL Routine 11/24/2024 3:29 PM EDT Type 2 diabetes mellitus with diabetic microalbuminuria, without long-term current use of insulin ([facility]) POCT GLUCOSE Routine 11/24/2024 3:28 PM EDT Type 2 diabetes mellitus with diabetic microalbuminuria, without long-term current use of insulin ([facility]) HM COLONOSCOPY Routine 11/19/2023 ZZZ HISTORICAL FECAL IMMUNOCHEMICAL TEST X1 (FIT) Routine 04/10/2020 10:58 AM EST from Last 3 Months or Most Recently Relevant to Health Maintenance Results * (ABNORMAL) CBC auto differential (01/13/2025 3:51 PM EST) Only the most recent of2 resultswithin the time period is included. White Blood Count 9.0 4.8 - 10.8 X10*3/uL [facility] Red Blood Count 4.36(L) 4.60 - 5.80 X10*6/uL [facility] Hemoglobin 13.3(L) 14.0 - 18.0 g/dl [facility] Hematocrit 39.5(L) 42.0 - 52.0 % [facility] Mean Corpuscular Volume 90.6 80.0 - 98.0 fL [facility] Mean Corpuscular Hemoglobin 30.5 27.0 - 33.0 pg [facility] Mean Corpuscular HGB Conc 33.7 31.0 - 36.0 g/dl [facility] Red Cell Distribution Width 11.9 11.0 - 16.0 % [facility] Platelet Count 393 160 - 400 X10*3/uL [facility] Mean Platelet Volume 10.2 9.4 - 12.4 fL [facility] Neutrophils Percent Auto 74.4(H) 45 - 73 % [facility] Imm Gran Pct Auto 0.4 0.0 - 0.4 % [facility] Lymphocytes Percent Auto 16.2(L) 20 - 40 % [facility] Monocytes Percent Auto 4.7 2 - 11 % [facility] Eosinophils Percent Auto 3.7 0 - 4 % [facility] Basophils Percent Auto 0.6 0 - 2 % [facility] NRBC Pct Auto 0.0 0.0 - 0.2 /100WBC [facility] Neutrophils Absolute Auto 6.7 2.0 - 8.3 x10*3/uL [facility] Imm Gran Abs Auto 0.04(H) 0.00 - 0.03 X10*3/uL [facility] Lymphocytes Absolute Auto 1.5 1.2 - 4.9 X10*3/uL [facility] Monocytes Absolute Auto 0.4 0.1 - 1.2 X10*3/uL [facility] Eosinophils Absolute Auto 0.3 0.0 - 0.4 X10*3/uL [facility] Basophils Absolute Auto 0.1 0.0 - 0.2 X10*3/uL [facility] NRBC Abs Auto 0.000 0.0 - 0.012 X10*3/uL [facility] 01/13/2025 3:51 PM EST 01/13/2025 3:51 PM EST us Generic External Data Provider LAB BLOOD ORDERAB LES Final Result [facility] [address] [place] [address] [phone] * Partial Thromboplastin Time, Activated (APTT) (01/13/2025 3:51 PM EST) Partial Thromboplastin Time 32.0 26.7 - 34.1 SEC [facility] 01/13/2025 3:51 PM EST 01/13/2025 3:51 PM EST Generic External Data Provider LAB BLOOD ORDERAB LES Final Result Performing Organization Address [facility] Co de Phone Number [facility] [address] [place] [phone] * Prothrombin Time-INR (01/13/2025 3:51 PM EST) Pathologist [facility] Prothrombin Time 12.8 11.2 - 13.5 SEC [facility] INTERNATIONAL NORM RATIO 1.0 0.9 - 1.1 [facility] Comment:INTERNATIONAL NORMAL IZED RATIO (INR) [...] ORDERAB LES Final Result Performing Organization Address [facility] de Phone Number [facility] [address] [place] [phone] * (ABNORMAL) Protein, Total and Protein??Electrophoresis (01/13/2025 3:51 PM EST) Pathologist [facility] Prot Elec - Total Protein 7.9 6.1 - 8.1 g/dL [facility] Prot Elec - Albumin 4.3 3.8 - 4.8 g/dL [facility] Prot Elec - Alpha1 0.3 0.2 - 0.3 g/dL [facility] Prot Elec - Alpha2 1.1(A) 0.5 - 0.9 g/dL [facility] Prot Elec - Beta 1 0.5 0.4 - 0.6 g/dL [facility] Prot Elec - Beta 2 0.6(A) 0.2 - 0.5 g/dL [facility] Prot Elec - Gamma 1.1 0.8 - 1.7 g/dL [facility] PES - Abn Protein Band 1 SEE NOTE NONE DETECTED g/dL [facility] Comment:See below PES-Abn Protein Band 2 TNP [facility] PES-Abn Protein Band 3 TNP [facility] Prot Elec - Interpretation SEE NOTE [facility] Comment:Electrophoretic stud ies reveal an elevationof beta-2 globulins. This pattern is suggestive ofacute inflammation; however, the presence of amonoclonal protein cannot be ruled out. Consider serumimmunofixation to rule out monoclonal protein (if notalready ordered).THIS TEST WAS PERFORMED AT:[employer] [place] [phone] ALFORD MD 01/13/2025 3:51 PM EST 01/13/2025 3:51 PM EST us Generic External Data Provider LAB BLOOD ORDERAB LES Final Result [facility] [address] [place] [phone] * (ABNORMAL) Basic Metabolic Panel (01/13/2025 3:51 PM EST) Only the most recent of2 resultswithin the time period is included. Sodium 140 135 - 145 mmol/L [facility] Potassium 5.3(H) 3.3 - 5.1 mmol/L [facility] Chloride 107 96 - 108 mmol/L [facility] Carbon Dioxide 25 22 - 29 mmol/L [facility] Anion Gap 13 12 - 20 [facility] Urea Nitrogen (BUN) 58(H) 9 - 16 mg/dL [facility] Creatinine, Serum 3.08(H) 0.5 - 1.4 mg/dL [facility] Estimated Glomerular Filt Rate 21 [facility] Comment:Chronic Kidney Disea se: Estimated GFR < 60 mL/min/1.59v7Prbyzw Kidney Disease: Estimated GFR < 15 mL/min/1.73m2 Glucose 251(H) 60 - 115 mg/dL [facility] Calcium 9.5 8.4 - 10.2 mg/dL [facility] 01/13/2025 3:51 PM EST 01/13/2025 3:51 PM EST Generic External Data Provider LAB BLOOD ORDERAB LES Final Result Performing Organization Address [facility] de Phone Number [facility] [address] [place] [phone] * Other Reference Test - Misc (12/29/2024 11:01 AM EDT) Other Ref Test Misc See Note [facility] Comment:See the report from [facility] scanned into thePathology reports section of the EMR. 12/29/2024 11:0 1 AM EDT 12/29/2024 11:42 AM EDT [facility] - 01/13/2025 8:45 AM EST RIGHT KIDNEY CORETX LOWER POLE SENT TO [facility] [email or web address]] Generic External Data Provider LAB BLOOD ORDERAB LES Final Result Performing Organization Address [facility] de Phone Number [facility] [address] [place] [phone] * Hematoxylin and Eosin Stain (12/29/2024 11:01 AM EDT) 12/29/2024 11:0 1 AM EDT 12/29/2024 11:40 AM EDT [facility] - 01/13/2025 5:31 PM EST ----- ------- Name: Jame Silva Age/Sex: 64/M : 1960 Unit#: [id number] Attend Dr: Gene Stout MD Re12/29/24 Status: [facility] Location: [facility] Disch: ----- ------- SPEC : [id number] RECD: 12/29/24 STATUS: DANIA IBRAHIM NUM: [id number] CESIA: 12/29/24 [facility] DR: Augie Aquino MD ENTERED: 12/29/24 SP TYPE: Surgical OTHR DR: Gnee Stout MD, Benjamin MD ORDERED: HE Stain/2, Gross Micro L4 Addendum Addendum 1 Entered: 01/13/25 Kidney, right, core biopsy: Diagnosis by [facility] Department of Pathology: -Nodular mesangial (diabetic) [...] cortex lower pole, core biopsy: Sent to [facility] for light microscopy, immunofluorescence, and electron microscopy. Their report is pending; addendum to follow. Clinical History CRF Material Received Right kidney cortex lower pole CONTINUED ON NEXT PAGE ----- ------- Name: Jame Silva Age/Sex: 64/M : 1960 Unit#: [id number] Attend Dr: Gene Stout MD Re12/29/24 Status: [facility] Location: [facility] Disch: ----- ------- SPEC : [id number] RECD: 12/29/24 STATUS: DANIA IBRAHIM NUM: [id number] CESIA: 12/29/24 [facility] DR: Augie Aquino MD ENTERED: 12/29/24 SP [...] cm. The specimen is entirely forwarded to [facility] for further analysis. No sections taken. ([facility]) IHC S/NG Disclaimer NOTE: Unless otherwise stated, all tissue is formalin-fixed and paraffin-embedded. Some or all of the immunohistochemical tests reported herein may have been developed and their performance characteristics determined by [facility]. They have not been cleared or approved by the U.S. Food and Drug Administration (FDA). However, the FDA has determined that such clearance or approval is not necessary. This laboratory is certified under the Clinical Laboratory Improvement Amendments of 1988 (CLIA) as qualified to perform high complexity clinical laboratory testing. Copies To: Gene Stout MD [facility] [address] [place] [address] [address] [place], [place] [phone] [email or web address] Tanmay Gore MD [address] [phone] Augie Aquino MD [address] [place] [phone] ----- ------- Signed (signature on file) Azalia Ponce 12/30/24 1133 ----- ------- END OF REPORT us Generic External Data Provider LAB BLOOD ORDERAB LES Final Result [facility] [address] [place] [address] [phone] * CT Guided Percutaneous Biopsy renal Right (12/29/2024 10:31 AM EDT) Anatomical Region Laterality Modality Kidney Right Computed Tomogra phy 12/29/2024 10:3 1 AM EDT Narrative 12/30/2024 12:20 PM EDT [address] [address] [address] Scan Report Signed Patient: Jame Silva MR#: [id number] 1 : 1960 Acct:[id number] Age/Sex: 64 / M ADM Date: 12/29/24 Loc: .[facility] Attending Dr: Gene Stout MD Ordering Physician: Gene Stout MD Date of Service: 12/29/24 Procedure(s): CT biopsy renal RT Accession Number(s): [id number] cc: Gene Stout MD; Tanmay Gore MD Report Number: [id number]: Total DLP = 309.00 mGy-cm Reason for [...] 12/30/24 1217 DD/ 1031 TD/TT: 12/29/24 1135 Department Supervisor: [facility] Procedure Note Donotuseinterpreter, Image - 12/30/[address] [place] [address] [address] Scan Report Signed Patient: Gillian Silva#: [id number] 1 : 1960cct:[id number] Age/Sex: 64 / MADM Date: 12/29/24 Loc: .[facility] Attending Dr: Gene Stout MD Ordering Physician: Gene Stout MD Date of Service: 12/29/24 Procedure(s): CT biopsy renal RT Accession Number(s): [id number] cc: Gene Stout MD; Tanmay Gore MD Report Number: [id number]: Total DLP = 309.00 mGy-cm Reason for [...] 12/30/24 1217 DD/ 1031 TD/TT: 12/29/24 1135 Department Supervisor: [facility] External Provider IMG CT PROCEDURES Final Result * Type and screen (12/29/2024 9:19 AM EDT) Blood Type ABP [facility] Antibody Screen NEGATIVE [facility] 12/29/2024 9:19 AM EDT 12/29/2024 9:29 AM EDT Generic External Data Provider LAB BLOOD BANK TE ST ORDERABLES Final Result Performing Organization Address [facility]/ZIP Co de Phone Number [facility] [address] [place] [phone] * Hepatitis C Antibody with Reflex to HCV, RNA, Quantitative, Real-Time PCR (11/30/2024 1:19 PM EDT) Hepatitis C Antibody Nonreactive Nonreactive [facility] Comment:Antibodies to HCV no t detected; does not exclude early acuteHCV infection. 11/30/2024 1:19 PM EDT 11/30/2024 5:32 PM EDT Generic External Data Provider LAB BLOOD ORDERAB LES Final Result Performing Organization Address [facility]/ZIP Co de Phone Number [facility] [address] [place] [phone] * Hepatitis B surface antigen, EIA (11/30/2024 1:19 PM EDT) Hepatitis B Surface Ag Negative Negative [facility] 11/30/2024 1:19 PM EDT 11/30/2024 5:32 PM EDT Generic External Data Provider LAB BLOOD ORDERAB LES Final Result Performing Organization Address [facility]/ZIP Co de Phone Number [facility] [address] [place] [phone] * Hepatitis B Core Antibody, Total (11/30/2024 1:19 PM EDT) Hepatitis B Core Antibody Nonreactive Nonreactive [facility] 11/30/2024 1:19 PM EDT 11/30/2024 5:32 PM EDT us Generic External Data Provider LAB BLOOD ORDERAB LES Final Result Performing Organization Address [facility] Co de Phone Number [facility] [address] [place] [phone] * Hepatitis B Surface Antibody, Qualitative (11/30/2024 1:19 PM EDT) ~Hepatitis B Surface Antibody NONREACTIVE Nonreactive [facility] Comment:Nonreactive: < 8.00 mIU/mL 11/30/2024 1:19 PM EDT 11/30/2024 5:32 PM EDT Generic External Data Provider LAB BLOOD ORDERAB LES Final Result Performing Organization Address [facility] de Phone Number [facility] [address] [place] [phone] * (ABNORMAL) Complement Component C3c (11/30/2024 1:19 PM EDT) Complement C3 194(A) 82 - 185 mg/dL [facility] Comment:THIS TEST WAS PERFOR MED AT:[employer] [address] [phone] ALFORD MD 11/30/2024 1:19 PM EDT 11/30/2024 5:32 PM EDT Generic External Data Provider LAB BLOOD ORDERAB LES Final Result Performing Organization Address [facility] Co de Phone Number [facility] [address] [place] [phone] * Complement Component C4c (11/30/2024 1:19 PM EDT) Complement C4 44 15 - 53 mg/dL [facility] Comment:THIS TEST WAS PERFOR MED AT:[employer] [address] [phone] ALFORD MD 11/30/2024 1:19 PM EDT 11/30/2024 5:32 PM EDT us Generic External Data Provider LAB BLOOD ORDERAB LES Final Result Performing Organization Address City/[facility]/ZIP Co de Phone Number [facility] [address] [place] [phone] [phone] * (ABNORMAL) Lipid Panel, Standard (11/30/2024 1:19 PM EDT) Triglycerides 208(H) <150 mg/dL [facility] Comment:Desirable Triglyceri de: less than 150 mg/dLBorderline High Triglyceride 150-199 mg/dLHigh Triglyceride: 200-499 mg/dLVery High Triglyceride: greater than or equal to 5OO mg/dL Cholesterol 290(H) <200 mg/dL [facility] Comment:Desirable Cholestero l: less than 200 mg/dLBorderline High Cholesterol: 200-239 mg/dLHigh Cholesterol: greater than 239 mg/dL LDL Cholesterol Calculated 212(H) <100 mg/dL [facility] Comment:Desirable LDL: less than 100 mg/dLNear Optimal/Above Optimal LDL: 110- 129 mg/dLBorderline High LDL: 130-159 mg/dLHigh LDL: 160-189 mg/dLVery High LDL: greater than or equal to 190 mg/dL HDL Cholesterol 37(L) >40 mg/dL [facility] Comment:Desirable HDL: great er than 40 mg/dL Note: This HDL assay may give artificially low results in patients with liver disease. Blood Venous blood specimen / Unknown 11/30/2024 1:19 PM EDT 11/30/2024 2:07 PM EDT us Tanmay Mello MD LAB BLOOD ORDERABL ES Final Result Performing Organization Address City/[facility]/ZIP Co de Phone Number [facility] [address] [place] [phone] * (ABNORMAL) Comprehensive Metabolic Panel (11/30/2024 1:19 PM EDT) Sodium 145 135 - 145 mmol/L [facility] Potassium 4.8 3.3 - 5.1 mmol/L [facility] Chloride 107 96 - 108 mmol/L [facility] Carbon Dioxide 26 22 - 29 mmol/L [facility] Anion Gap 17 12 - 20 [facility] Urea Nitrogen (BUN) 60(H) 9 - 16 mg/dL [facility] Creatinine, Serum 2.66(H) 0.5 - 1.4 mg/dL [facility] Estimated Glomerular Filt Rate 24 [facility] Comment:Chronic Kidney Disea se: Estimated GFR < 60 mL/min/[id number] Kidney Disease: Estimated GFR < 15 mL/min/1.73m2 Glucose 138(H) 60 - 115 mg/dL [facility] Calcium 10.1 8.4 - 10.2 mg/dL [facility] Bilirubin, Total 0.8 0.0 - 1.0 mg/dL [facility] Aspartate Amino Transferase 27 5 - 37 U/L [facility] Alanine Aminotransferase 24 0 - 40 U/L [facility] Total Protein 8.7(H) 6.5 - 8.0 g/dL [facility] Albumin Level 4.7 3.5 - 5.0 g/dL [facility] Alkaline Phosphatase 122(H) 39 - 117 U/L [facility] Blood Venous blood specimen / Unknown 11/30/2024 1:19 PM EDT 11/30/2024 2:07 PM EDT us Tanmay Mello MD LAB BLOOD ORDERABL ES Final Result [facility] [address] [place] [phone] * (ABNORMAL) POCT Hgb A1c (11/24/2024 [...] ENTER/EDIT ORDERABLES Final Result * Colonoscopy (11/19/2023) Pathologist [facility] Colonoscopy Normal Normal Narrative Radha Angela - 11/19/2023 Colonoscopy order added per GI office note Repeat Colonoscopy in 1-2 years due to fair left sided prep or earlier if clinically indicated --next time use adult scope Historical Provider HEALTH MAINTENANCE Final Result * [...] Final Result [facility] [address] from Last 3 Months or Most Recently Relevant to Health Maintenance Insurance [id number] Care Teams Food Porter Relationship Specialty Start Date End Date Tanmay Gore MD [address] [place] [address] [phone] PCP - General Internal Medicine 03/19/23
== END 2025-01-25 12:03 | disposition home or self-care (01) ==
LOC: HO.HKA 11:47
PROVIDERS: PCP Internal Medicine; Visit Provider Internal Medicine Hypertension Specialist
DX: I10 Essential (primary) hypertension (principal); N18.30 Chronic kidney disease, stage 3 unspecified
CPT/HCPCS: 99214

== ENCOUNTER 2025-01-25 12:21 | Outpatient (REF) | payer OTHER, SELFPAY ==
[2025-01-25 13:19] LABS: MANUAL DIFF FLAG NO
[2025-01-25 13:24] LABS: Hematocrit 37.6 % (42.0-52.0); Hemoglobin 12.5 g/dl (14.0-18.0); Imm Gran Abs Auto 0.03 X10*3/uL (0.00-0.03); Imm Gran Pct Auto 0.3 % (0.0-0.4); Lymphocytes Absolute Auto 1.5 X10*3/uL (1.2-4.9); Mean Corpuscular HGB Conc 33.2 g/dl (31.0-36.0); Mean Corpuscular Hemoglobin 30.0 pg (27.0-33.0); Mean Corpuscular Volume 90.4 fL (80.0-98.0); NRBC Abs Auto 0.000 X10*3/uL (0.0-0.012); NRBC Pct Auto 0.0 /100WBC (0.0-0.2); Platelet Count 314 X10*3/uL (160-400); Red Blood Count 4.16 X10*6/uL (4.60-5.80); White Blood Count 9.0 X10*3/uL (4.8-10.8)
[2025-01-25 14:04] LABS: Anion Gap 11 (12-20); Blood Urea Nitrogen 51 mg/dL (9-16); Calcium 9.5 mg/dL (8.4-10.2); Carbon Dioxide 25 mmol/L (22-29); Chloride 107 mmol/L (96-108); Estimated Glomerular Filt Rate 28; Potassium 5.0 mmol/L (3.3-5.1); Sodium 138 mmol/L (135-145)
== END 2025-01-25 12:22 | disposition home or self-care (01) ==
LOC: HO.10HDL 12:21
PROVIDERS: Visit Provider Internal Medicine Hypertension Specialist
DX: N18.30 Chronic kidney disease, stage 3 unspecified (principal)
CPT/HCPCS: 36415; 80048; 85025

== ENCOUNTER 2025-02-09 14:43 | Outpatient (AMB) | payer OTHER, SELFPAY ==
[2025-02-09 14:55] VITALS: BP 100/72; PULSE 86; BMI 28.7
--- NOTE | 2025-02-09 14:55 | MHC.OFFVIS ---
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 Instructions: Doctor's Order timolol maleate 0.5% 1 drp ophthalmic (eye) BID HPI HPI Follow up after cardiac cath: Details: The patient is a 64 year old male presenting for follow-up of chest discomfort, abnormal stress test and cardiac catheterization. An exercise stress test on 01/12/2025 was positive for ischemia in the inferolateral leads with EKG changes after 4 minutes and 3 seconds of exercise. An echocardiogram on 01/13/2025 showed an ejection fraction of 50-55% with a wall motion abnormality in the RCA territory and a small pericardial effusion near the ventricles. A cardiac catheterization on 01/21/2025 revealed a normal left main artery, 70% stenosis of the LAD, 60% stenosis of the distal LAD, 80% proximal stenosis in a high obtuse marginal branch of the left circumflex, 85% stenosis of the distal circumflex, and a chronic total occlusion of the RCA with [id number] and [id number]-kmbsr collaterals. He was referred for coronary artery bypass grafting and saw a cardiac surgeon, Dr Anne on 02/08/2025, with surgery scheduled for March 11. His past medical history includes hypertension, hyperlipidemia, diabetes, chronic kidney disease. He does follow with Dr. Stout for Nephrology. The patient reports that he has been feeling well with no further chest pain or breathing troubles. he has been doing only light physical activity. 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 He is taking his meds as directed. He has no questions regarding his upcoming surgery. He states he was given a list of instructions. [facility] Medical History (Updated 02/09/25 @ 15:58 by Margo Stone NP-Solange) Dyslipidemia HTN (hypertension) Acid reflux Diabetes Surgical History (Updated 02/09/25 @ 16:02 by Margo Stone NP-C) History of cardiac cath Hx of colonoscopy Hx of appendectomy Family History Father No problems noted. Brother Heart attack Paternal Uncle Heart attack Social History Household Members: Children Alcohol intake: current Alcohol intake frequency: holidays/special occasions only Patient Tobacco Use Status: Never used Tobacco Second Hand Smoke Exposure: No Review of Systems Const All systems reviewed & are unremarkable except as noted in HPI and below ENT Denies dizziness Card Denies chest pain, Denies chest pain at rest, Denies chest pain with activity, Denies rapid heart rate, Denies pedal edema, Denies edema, Denies leg edema, Denies lightheadedness, Denies palpitations, Denies dyspnea, Denies dyspnea on exertion and Denies orthopnea Resp Denies cough, Denies dyspnea and Denies dyspnea on exertion GI Denies hematochezia and Denies change in stool character Musc Denies abnormal gait, Denies limited range of motion, Denies muscle cramps, Denies muscle weakness, Denies numbness, Denies radiating pain into limb, Denies stiffness and Denies tingling Neuro Denies abnormal gait, Denies dizziness, Denies numbness and Denies tingling Endo Denies palpitations Physical Exam Vital Signs: Last Vital Signs Pulse 86 02/09/25 14:55 BP 100/72 02/09/25 14:55 BMI result Body Mass Index 28.7 Const General: cooperative, healthy appearing, comfortable and no acute distress Orientation/consciousness: patient oriented x3 Neck Neck: Yes normal visual inspection Resp Effort & Inspection: normal respiratory effort Auscultation: clear to auscultation bilaterally, no rales, no rhonchi and no wheezes Cardio Rate: regular rate Rhythm: regular rhythm Heart sounds: S1 normal heart sound present, S2 normal heart sound present, no gallops, no murmurs and no rubs Neuro General: patient oriented x3 Extrem Other: Right radial catheterization site with easily palpable radial pulse, right hand assessment normal General: Yes normal to inspection, No no pedal edema and No calf tenderness Psych Appearance: grossly normal Mental Status: mental status grossly normal Speech and movement: Normal speech and movement present Assessment & Plan Assessment & Plan (1) Crescendo angina: Code(s): I20.0 - Unstable angina Category: Medical Plan: Cardiac evaluation for exertional chest discomfort with abnormal exercise stress test and echocardiogram. He ultimately had cardiac catheterization showing significant coronary disease including INSTRUCTIONAL SUPPORT ASSISTANT of the RCA with collaterals. He was evaluated by the cardiac surgeon yesterday and is scheduled to undergo coronary artery bypass grafting on 03/11/2025. Instructed on light physical activity until then. Signs and symptoms of angina reviewed. Continue aspirin. Continue high-dose atorvastatin with ideal LDL goal less than 70. Continue Aldactone and diltiazem for good blood pressure and heart rate control. Cardiology follow-up 2 months, sooner if needed. (2) Abnormal stress test: Code(s): R94.39 - Abnormal result of other cardiovascular function study Category: Medical Plan: As above (3) History of cardiac cath: Comment: cardiac catheterization on 01/21/2025 revealed a normal left main artery, 70% stenosis of the LAD, 60% stenosis of the distal LAD, 80% proximal stenosis in a high obtuse marginal branch of the left circumflex, 85% stenosis of the distal circumflex, and a chronic total occlusion of the RCA with awbzw-pl-wcern and vlnv-dv-idgnx collaterals. Code(s): Z98.890 - Other specified postprocedural states Category: Surgical Plan: Right radial catheterization site well healed (4) CAD (coronary artery disease): Code(s): I25.10 - Atherosclerotic heart disease of [place] coronary artery without angina pectoris Category: Medical Plan: Finding of three-vessel coronary artery disease as above (5) HTN (hypertension): Code(s): I10 - Essential (primary) hypertension Category: Medical Plan: Blood pressure goal less than 130/80. Low normal today, asymptomatic. Continue diltiazem and Aldactone. (6) Dyslipidemia: Code(s): E78.5 - Hyperlipidemia, unspecified Category: Medical Plan: [place] LDL goal less than 70. Recently started on statin therapy. Will plan for fasting lipids around the time of next follow-up. Continue Atorvastatin Plan I discussed the patient's plan for coronary artery bypass grafting surgery scheduled for March 11. We confirmed that he is feeling well, without current chest pain or shortness of breath. I reviewed his medications and confirmed he is taking them as prescribed. 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 I recommended he stay healthy by avoiding crowds, but to continue light activity such as walking to avoid becoming weak. I informed him that his first post-operative follow-up will be with his surgeon, and that we will see him in this clinic approximately one month after his surgery Orders: Orders Lipid Panel 6 Weeks E78.5 - Hyperlipidemia, unspecified Patient Instructions: - Your heart surgery is scheduled for March 11. - Continue taking all of your prescribed medicines. 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 - To stay healthy for surgery, avoid crowds of people to keep from getting sick. - It is okay to do light activity like going for walks. - After your surgery, you will have a follow-up appointment with your surgeon first, and then you will have an appointment in our office. Patient was informed and verbally consented to the use of an ambient scribe for clinic note documentation during this visit. Visit time spent on chart review, interview, assessment, orders, documentation. Coding Level of Care Code Est Pt Level 4 (74893) Complex visit Add On G2211 Diagnoses Crescendo angina I20.0 Abnormal stress test R94.39 History of cardiac cath Z98.890 CAD (coronary artery disease) I25.10 HTN (hypertension) I10 Dyslipidemia E78.5 Time Spent (min) 32
--- OUTSIDE RECORDS SUMMARY | 2025-02-09 20:45 | XMS_ITS | Encounter Summary ---
Author Organization [employer] Address [address] [facility] [address] [place] [address] Care Team Providers Care Raw Finish Mill Operator Name Role Phone Tanmay Gore MD Primary Care Prov ider Reason for Visit * Reason Comments Med Change Request Encounter Details Date Type Department Care Team ([facility] Contact Info) Description 12/09/2024 Refill [facility] CHC MED & PEDS [address] [place], [place] [phone] Tanmay Gore MD [address] [place] [address] Social History Tobacco Use Types Packs/Day Years [...] [facility] MED & PEDS [address] [place] [address] Tanmay Gore MD [address] [place] [address] documented as of this encounter Visit Diagnoses Not on filedocumented in this encounter Additional Health Concerns Assessment Noted Time PHQ-9 Depression Total Score: 0 10/13/19 25 8:53 AM EDT documented as of this encounter Care Teams Raw Finish Mill Operator Relationship Specialty Start Date End Date Tanmay Gore MD [address] [place] [address] PCP - General Internal Medicine 03/19/23 documented as of this encounter
--- OUTSIDE RECORDS SUMMARY | 2025-02-09 20:45 | XMS_ITS | Encounter Summary ---
Author Organization [employer] Address [address] [address] [place] [address] Care Team Providers Care Telephone Sales Agent Name Role Phone Tanmay Gore MD Primary Care Prov ider Reason for Visit * Reason Onset Date Comments Medication Question 01/13/2024 Encounter Details Date Type Department Care Team (Late st Contact Info) Description 01/13/[address] [facility] MEDICINE [address] [place] [address] Tanmay Gore MD [address] [place], [place] [phone] Medication Question Social History Tobacco Use Types [...] the past 12 months, has t he [employer] oil or water company threatened to shut [...] Description 02/23/2025 1:00 PM EST Telemedicine [facility] MED & PEDS [address] [place] [address] Tanmay Gore MD [address] [place] [address] documented as of this encounter Visit Diagnoses Not on filedocumented in this encounter Care Teams Telephone Sales Agent Relationship Specialty Start Date End Date Tanmay Gore MD [address] [place] [address] PCP - General Internal Medicine 03/19/23 documented as of this encounter
--- OUTSIDE RECORDS SUMMARY | 2025-02-09 20:45 | XMS_ITS | Encounter Summary ---
Author Organization [employer] Address [address] [place] [address] [address], [place] [address] Care Team Providers Care Pizza Maker Name Role Phone Tanmay Gore MD Primary Care Prov ider Reason for Referral * Consultation (STAT) - Closed Specialty Diagnoses / Procedures Referred By Ricardo alan Referred To Contact Cardiology Diagnoses Chest pain, unspecified type Tanmay Gore MD [address] [place] [address] Phone: tel: fax: Fidel Hernández MD [address] [place] [address] Phone: tel: fax: Referral ID Status Reason Start Date Expiration Date V isits Requested Visits Authorized [id number] Closed Specialty Services Required 01/12/2025 01/12/2026 1 1 * Imaging (STAT) - Closed Specialty Diagnoses / Procedures Referred By Ricardo alan Referred To Contact Cardiology Diagnoses Chest pain, unspecified type Procedures Transthoracic Echo (TTE) Complete Tanmay Gore MD [address] [place] [address] Phone: tel: fax: [address] [phone] Phone: tel: fax: Referral ID Status Reason Start Date Expiration Date V isits Requested Visits Authorized [id number] Closed Perform Procedure 01/12/2025 01/12/2026 1 1 Encounter Details Date Type Department Care Team (Late st Contact Info) Description 01/12/2025 Orders Only [facility] CHC MED & PEDS [address] [place] [address] Tanmay Gore MD [address] [place] [address] Chest pain, unspecified type (Primary Dx) Social [...] [facility] MED & PEDS [address] [place] [address] Tanmay Gore MD [address] [place] [address] Scheduled Orders Name Type Priority Associated Diagnoses [...] documented as of this encounter Care Teams Pizza Maker Relationship Specialty Start Date End Date Tanmay Gore MD [address] [place] [address] PCP - General Internal Medicine 03/19/23 documented as of this encounter
--- OUTSIDE RECORDS SUMMARY | 2025-02-09 20:45 | XMS_ITS | Encounter Summary ---
Author Organization [employer] Address [address] [facility] [address] [place] [address] Care Team Providers Care Web Architect Name Role Phone Tanmay Gore MD Primary Care Prov ider Tanmay Gore MD Primary Care Prov ider Reason for Visit * Reason Comments Med Refill Encounter Details Date Type Department Care Team (Late Contact Info) Description 06/12/2022 Refill [facility] CHC MED & PEDS [address] [place] [address] Tanmay Gore MD [address] [place] [address] Social History Tobacco Use Types Packs/Day Years [...] Upcoming Encounters Date Type Department Care Team ([facility] Contact Info) Description 02/23/2025 1:00 PM EST Telemedicine [facility] CHC MED & PEDS [address] [place] [address] Tanmay Gore MD [address] [place] [address] documented as of this encounter Visit Diagnoses Not on filedocumented in this encounter Care Teams Web Architect Relationship Specialty Start Date End Date Tanmay Gore MD [address] [place] [address] PCP - General Internal Medicine 07/29/19 03/10/23 Tanmay Gore MD [address] [place] [address] PCP - General Internal Medicine 03/19/23 documented as of this encounter
--- OUTSIDE RECORDS SUMMARY | 2025-02-09 20:45 | XMS_ITS | Encounter Summary ---
Author Organization [employer] Address [address] [facility] [address] [place] [address] Care Team Providers Care Resident Services Coordinator Name Role Phone Tanmay Gore MD Primary Care Prov ider Reason for Visit * Reason Onset Date Comments Medication Problem 06/11/2023 Encounter Details Date Type Department Care Team (Late st Contact Info) Description 06/11/2023 Telephone [facility] MEDICINE [address] [place] [address] Tanmay Gore MD [address] [place], [place] [phone] Medication Problem Social History Tobacco Use Types [...] the past 12 months, has t he [employer], oil or water [employer] threatened to shut off services in your [...] [facility] MED & PEDS [address] [place] [address] Tanmay Gore MD [address] [place] [address] documented as of this encounter Visit Diagnoses Not on filedocumented in this encounter Care Teams Resident Services Coordinator Relationship Specialty Start Date End Date Tanmay Gore MD [address] [place] [address] PCP - General Internal Medicine 03/19/23 documented as of this encounter
--- OUTSIDE RECORDS SUMMARY | 2025-02-09 20:45 | XMS_ITS | Encounter Summary ---
Author Organization [employer] Address [address] [facility] [address]t [place] [address] Care Team Providers Care Air Traffic Instructor Name Role Phone Tanmay Gore MD Primary Care Prov ider Reason for Visit * Reason Comments Med Change Request Encounter Details Date Type Department Care Team ([facility] Contact Info) Description 01/06/2025 Refill [facility] CHC MED & PEDS [address] [place], [place] [phone] Tanmay Gore MD [address] [place] [address] Social History Tobacco Use Types Packs/Day Years [...] Upcoming Encounters Date Type Department Care Team ([facility] st Contact Info) Description 02/23/2025 1:00 PM EST Telemedicine [facility] MED & PEDS [address] [place] [address] Tanmay Gore MD [address] [place] [address] documented as of this encounter Visit Diagnoses Not on filedocumented in this encounter Additional Health Concerns Assessment Noted Time PHQ-9 Depression Total Score: 0 10/13/19 25 8:53 AM EDT documented as of this encounter Care Teams Air Traffic Instructor Relationship Specialty Start Date End Date Tanmay Gore MD [address] [place] [address] PCP - General Internal Medicine 03/19/23 documented as of this encounter
--- OUTSIDE RECORDS SUMMARY | 2025-02-09 20:45 | XMS_ITS | Encounter Summary ---
Author Organization [employer] Address [address] [facility] [address] [place] [address] Care Team Providers Care Foreign Service Officer Name Role Phone Tanmay Gore MD Primary Care Prov ider Reason for Visit * Reason Comments Med Refill Encounter Details Date Type Department Care Team ([facility] Contact Info) Description 02/22/2024 Refill [facility] CHC MED & PEDS [address] [place], [place] [phone] Tanmay Gore MD [address] [place] [address] Social History Tobacco Use Types Packs/Day Years [...] Description 02/23/2025 1:00 PM EST Telemedicine [facility] MED & PEDS [address] [place] [address] Tanamy Gore MD [address] [place] [address] documented as of this encounter Visit Diagnoses Not on filedocumented in this encounter Care Teams Foreign Service Officer Relationship Specialty Start Date End Date Tanmay Gore MD [address] [place] [address] PCP - General Internal Medicine 03/19/23 documented as of this encounter
--- OUTSIDE RECORDS SUMMARY | 2025-02-09 20:45 | XMS_ITS | Encounter Summary ---
Author Organization [employer] Address [address] [facility] [address]t [place] [address] Care Team Providers Care Manager Of Production Name Role Phone Tanmay Gore MD Primary Care Prov ider Reason for Visit * Reason Comments Med Refill Encounter Details Date Type Department Care Team ([facility] Contact Info) Description 02/27/2024 Refill [facility] CHC MED & PEDS [address] [place], [place] [phone] Tanmay Gore MD [address] [place] [address] Social History Tobacco Use Types Packs/Day Years [...] [facility] [address] [place] [address] Tanmay Gore MD [address] [place] [address] documented as of this encounter Visit Diagnoses Not on filedocumented in this encounter Care Teams Manager Of Production Relationship Specialty Start Date End Date Tanmay Gore MD [address] [place] [address] PCP - General Internal Medicine 03/19/23 documented as of this encounter
--- OUTSIDE RECORDS SUMMARY | 2025-02-09 20:45 | XMS_ITS | Clinical Summary ---
Author Organization [employer] Address [address] [place] [address] Care Team Providers Care Head Sampler Name Role Phone Tanmay Gore MD Primary [...] daily 100 each 1 08/15/19 25 Active omeprazole (PriLOSEC) [address] Venegas tions:Abdomin al pain with vomiting TAKE 1 CAPSULE BY MOUTH EVERY DAY 30 capsule 2 11/18/19 25 Active chlorthalidon e (Hygroton) 25 MG tablet TAKE 1 TABLET BY MOUTH EVERY DAY 30 tablet 2 11/26/19 25 Active Insulin Glargine-yfgn 100 UNIT/ML solution Inject 30 Units under the skin Once per day. 3 mL 11 11/25/19 Active Continuous Glucose Beam Worker (FreeStyle Antionette 3 [place]) device 1 each Once per day. Use as directed for CGM 1 each 12/24/19 25 Active Continuous Glucose Sensor (FreeStyle Antionette 3 Plus Sensor) misc 1 each every 15 days. Apply 1 every 15 days as directed for CGM 2 each 12/24/19 Active traZODone (Desyrel) 50 MG tablet TAKE 1 TABLET BY MOUTH EVERYDAY AT BEDTIME 90 tablet 01/19/20 25 Active atorvastatin (Lipitor) 80 MG tablet TAKE 1 TABLET (80 MG) BY MOUTH IN THE MORNING 30 tablet 5 02/03/20 25 Active atorvastatin (Lipitor) 80 MG tablet Take 1 tablet (80 mg) by mouth in the morning. 90 tablet 1 08/28/19 25 025 Discontinued traZODone (Desyrel) 50 MG tablet TAKE [...] of call pt had been contacted by senior data integration developer team and was en route to er [...] Encounters Date Type Department Care Team Description 01/31/2025 Refill [facility] [address] [place] [phone] Tanmay Gore MD 01/16/2025 Refill [facility] [address] [place] [address] Tanmay Gore MD 01/13/2025 Orders Only GENERIC EXTERNAL DATA DEPARTMENT Provider, Generic External Data 01/12/2025 Orders Only [facility] [address] [place] [address] Tanmay Gore MD Chest pain, unspecified type (Primary Dx) 01/06/2025 Refill [facility] [address] [place] [address] Tanmay Gore MD 12/29/2024 Orders Only GENERIC EXTERNAL DATA DEPARTMENT Provider, Generic External Data 12/23/2024 Orders Only [facility] [address] [place] [address] Tanmay Gore MD 12/09/2024 Telephone [facility] [address] [place] [address] Tanmay Gore MD Med Refill 12/09/2024 Refill [facility] [address] [place] [address] Tanmay Gore MD 11/30/2024 Orders Only GENERIC EXTERNAL DATA DEPARTMENT Provider, Generic External Data 11/24/2024 3:30 PM EDT Office Visit [facility] [address] [place] [address] Tanmay Gore MD Chest pain, unspecified type (Primary Dx); Type 2 diabetes mellitus with diabetic microalbuminuria, without long-term current use of insulin ([facility]) 11/24/2024 Travel 11/24/2024 Refill [facility] [address] [place] [address] Otilia Mancia FNP 11/24/2024 Refill [facility] [address] [place] [address] Tanmay Gore MD 11/23/2024 Telephone [facility] [address], [place] [phone] Tanmay Gore MD chart prep 11/14/2024 Refill [facility] [address] [place] [address] Tanmay Gore MD Abdominal pain with vomiting [...] the past 12 months, has t he [employer], gas, oil or water [employer] threatened to shut off services in your [...] Description 02/23/2025 1:00 PM EST Telemedicine [facility] [address] [place] [address] Tanmay Gore MD [address] [place] [address] Health Maintenance Due Date Last Done Comments [...] microalbuminuria, without long-term current use of insulin ([facility]) COMPREHENSIVE METABOLIC PANEL Routine 11/30/2024 1:19 PM EDT Type 2 diabetes mellitus with diabetic microalbuminuria, without long-term current use of insulin ([facility]) POCT GLYCATED HEMOGLOBIN, TOTAL Routine 11/24/2024 3:29 PM EDT Type 2 diabetes mellitus with diabetic microalbuminuria, without long-term current use of insulin ([facility]) POCT GLUCOSE Routine 11/24/2024 3:28 PM EDT Type 2 diabetes mellitus with diabetic microalbuminuria, without long-term current use of insulin ([facility]) HM COLONOSCOPY Routine 11/19/2023 ZZZ HISTORICAL FECAL IMMUNOCHEMICAL TEST X1 (FIT) Routine 04/10/2020 10:58 AM EST from Last 3 Months or Most Recently Relevant to Health Maintenance Results * (ABNORMAL) CBC auto differential (01/13/2025 3:51 PM EST) Only the most recent of2 resultswithin the time period is included. White Blood Count 9.0 4.8 - 10.8 X10*3/uL [facility] Red Blood Count 4.36(L) 4.60 - 5.80 X10*6/uL [facility] Hemoglobin 13.3(L) 14.0 - 18.0 g/dl [facility] Hematocrit 39.5(L) 42.0 - 52.0 % [facility] Mean Corpuscular Volume 90.6 80.0 - 98.0 fL [facility] Mean Corpuscular Hemoglobin 30.5 27.0 - 33.0 pg [facility] Mean Corpuscular HGB Conc 33.7 31.0 - 36.0 g/dl [facility] Red Cell Distribution Width 11.9 11.0 - 16.0 % [facility] Platelet Count 393 160 - 400 X10*3/uL [facility] Mean Platelet Volume 10.2 9.4 - 12.4 fL [facility] Neutrophils Percent Auto 74.4(H) 45 - 73 % [facility] Imm Gran Pct Auto 0.4 0.0 - 0.4 % [facility] Lymphocytes Percent Auto 16.2(L) 20 - 40 % [facility] Monocytes Percent Auto 4.7 2 - 11 % [facility] Eosinophils Percent Auto 3.7 0 - 4 % [facility] Basophils Percent Auto 0.6 0 - 2 % [facility] NRBC Pct Auto 0.0 0.0 - 0.2 /100WBC [facility] Neutrophils Absolute Auto 6.7 2.0 - 8.3 x10*3/uL [facility] Imm Gran Abs Auto 0.04(H) 0.00 - 0.03 X10*3/uL [facility] Lymphocytes Absolute Auto 1.5 1.2 - 4.9 X10*3/uL [facility] Monocytes Absolute Auto 0.4 0.1 - 1.2 X10*3/uL [facility] Eosinophils Absolute Auto 0.3 0.0 - 0.4 X10*3/uL [facility] Basophils Absolute Auto 0.1 0.0 - 0.2 X10*3/uL [facility] NRBC Abs Auto 0.000 0.0 - 0.012 X10*3/uL [facility] 01/13/2025 3:51 PM EST 01/13/2025 3:51 PM EST us Generic External Data Provider LAB BLOOD ORDERAB LES Final Result [facility] [address] [place] [address] [phone] * Partial Thromboplastin Time, Activated (APTT) (01/13/2025 3:51 PM EST) Pathologist [facility] Partial Thromboplastin Time 32.0 26.7 - 34.1 SEC [facility] 01/13/2025 3:51 PM EST 01/13/2025 3:51 PM EST Generic External Data Provider LAB BLOOD ORDERAB LES Final Result Performing Organization Address [facility] de Phone Number [facility] [address] [place] [phone] * Prothrombin Time-INR (01/13/2025 3:51 PM EST) [facility] Prothrombin Time 12.8 11.2 - 13.5 SEC [facility] INTERNATIONAL NORM RATIO 1.0 0.9 - 1.1 [facility] Comment:INTERNATIONAL NORMAL IZED RATIO (INR) [...] 3:51 PM EST 01/13/2025 3:51 PM EST [employer] External Data Provider LAB BLOOD ORDERAB LES Final Result Performing Organization Address [facility] de Phone Number [facility] [address] [place] [phone] * (ABNORMAL) Protein, Total and Protein??Electrophoresis (01/13/2025 3:51 PM EST) Pathologist [facility] Prot Elec - Total Protein 7.9 6.1 - 8.1 g/dL [facility] Prot Elec - Albumin 4.3 3.8 - 4.8 g/dL [facility] Prot Elec - Alpha1 0.3 0.2 - 0.3 g/dL [facility] Prot Elec - Alpha2 1.1(A) 0.5 - 0.9 g/dL [facility] Prot Elec - Beta 1 0.5 0.4 - 0.6 g/dL [facility] Prot Elec - Beta 2 0.6(A) 0.2 - 0.5 g/dL [facility] Prot Elec - Gamma 1.1 0.8 - 1.7 g/dL [facility] PES - Abn Protein Band 1 SEE NOTE NONE DETECTED g/dL [facility] Comment:See below PES-Abn Protein Band 2 TNP [facility] PES-Abn Protein Band 3 TNP [facility] Prot Elec - Interpretation SEE NOTE [facility] Comment:Electrophoretic stud ies reveal an elevationof beta-2 globulins. This pattern is suggestive ofacute inflammation; however, the presence of amonoclonal protein cannot be ruled out. Consider serumimmunofixation to rule out monoclonal protein (if notalready ordered).THIS TEST WAS PERFORMED AT:[facility] [place] [id number] ALFORD MD 01/13/2025 3:51 PM EST 01/13/2025 3:51 PM EST us Generic External Data Provider LAB BLOOD ORDERAB LES Final Result [facility] [address] [place] [phone] * (ABNORMAL) Basic Metabolic Panel (01/13/2025 3:51 PM EST) Only the most recent of2 resultswithin the time period is included. Sodium 140 135 - 145 mmol/L [facility] Potassium 5.3(H) 3.3 - 5.1 mmol/L [facility] Chloride 107 96 - 108 mmol/L [facility] Carbon Dioxide 25 22 - 29 mmol/L [facility] Anion Gap 13 12 - 20 [facility] Urea Nitrogen (BUN) 58(H) 9 - 16 mg/dL [facility] Creatinine, Serum 3.08(H) 0.5 - 1.4 mg/dL [facility] Estimated Glomerular Filt Rate 21 [facility] Comment:Chronic Kidney Disea se: Estimated GFR < 60 mL/min/1.19h1Kteydo Kidney Disease: Estimated GFR < 15 mL/min/1.73m2 Glucose 251(H) 60 - 115 mg/dL [facility] Calcium 9.5 8.4 - 10.2 mg/dL [facility] 01/13/2025 3:51 PM EST 01/13/2025 3:51 PM EST Generic External Data Provider LAB BLOOD ORDERAB LES Final Result Performing Organization Address [facility] de Phone Number [facility] [address] [place] [phone] * Other Reference Test - Misc (12/29/2024 11:01 AM EDT) Other Ref Test Misc See Note [facility] Comment:See the report from [facility] scanned into thePathology reports section of the EMR. 12/29/2024 11:0 1 AM EDT 12/29/2024 11:42 AM EDT Narrative [facility] - 01/13/2025 8:45 AM EST RIGHT KIDNEY CORETX LOWER POLE SENT TO [facility] Generic External Data Provider LAB BLOOD ORDERAB LES Final Result Performing Organization Address [facility] Co de Phone Number [facility] [address] [place] [phone] * Hematoxylin and Eosin Stain (12/29/2024 11:01 AM EDT) 12/29/2024 11:0 1 AM EDT 12/29/2024 11:40 AM EDT Narrative [facility] - 01/13/2025 5:31 PM EST ----- ------- Name: Jame Silva Age/Sex: 64/M : 1960 Unit#: [id number] Attend Dr: Gene Stout MD Re12/29/24 Status: [facility] Location: [facility] Disch: ----- ------- SPEC : [id number] RECD: 12/29/24 STATUS: DANIA IBRAHIM NUM: [id number] CESIA: 12/29/24 [facility] DR: Augie Aquino MD ENTERED: 12/29/24 SP TYPE: Surgical OTHR DR: Gene Stout MD, Benjamin MD ORDERED: HE Stain/2, Gross Micro L4 Addendum Addendum 1 Entered: 01/13/25 Kidney, right, core biopsy: Diagnosis by [facility] Department of Pathology: -Nodular mesangial (diabetic) [...] cortex lower pole, core biopsy: Sent to [facility] for light microscopy, immunofluorescence, and electron microscopy. Their report is pending; addendum to follow. Clinical History CRF Material Received Right kidney cortex lower pole CONTINUED ON NEXT PAGE ----- ------- Name: Jame Silva Age/Sex: 64/M : 1960 Unit#: [id number] Attend Dr: Gene Stout MD Re12/29/24 Status: [facility] Location: [facility] Disch: ----- ------- SPEC : [id number] RECD: 12/29/24 STATUS: DANIA IBRAHIM NUM: [id number] CESIA: 12/29/24 [facility] [...] cm. The specimen is entirely forwarded to [facility] for further analysis. No sections taken. ([facility]) IHC S/NG Disclaimer NOTE: Unless otherwise stated, all tissue is formalin-fixed and paraffin-embedded. Some or all of the immunohistochemical tests reported herein may have been developed and their performance characteristics determined by [facility]. They have not been cleared or approved by the U.S. Food and Drug Administration (FDA). However, the FDA has determined that such clearance or approval is not necessary. This laboratory is certified under the Clinical Laboratory Improvement Amendments of 1988 (CLIA) as qualified to perform high complexity clinical laboratory testing. Copies To: Gene Stout MD [facility] [address] [place] [address] Dr [address] [place], [place] [id number] [email or web address] Tanmay Gore MD [address] [address] Augie Aquino MD [address] [place] [phone] ----- ------- Signed (signature on file) Azalia Ponce 12/30/24 1133 ----- ------- END OF REPORT us Generic External Data Provider LAB BLOOD ORDERAB LES Final Result Performing Organization Address City/State/[facility] Co de Phone Number [facility] [address] [place] [phone] * CT Guided Percutaneous Biopsy renal Right (12/29/2024 10:31 AM EDT) Anatomical Region Laterality Modality Kidney Right Computed Tomogra phy 12/29/2024 10:3 1 AM EDT Narrative 12/30/2024 12:20 PM EDT [address] [address] [address] Scan Report Signed Patient: Jame Silva MR#: [id number] 1 : 1960 Acct:[id number] Age/Sex: 64 / M ADM Date: 12/29/24 Loc: [facility] Attending Dr: Gene Stout MD Ordering Physician: Gene Stout MD Date of Service: 12/29/24 Procedure(s): CT biopsy renal RT Accession Number(s): [id number] cc: Gene Stout MD; Tanmay Gore MD Report Number: [id number]: Total DLP = 309.00 mGy-cm Reason for [...] 12/30/24 1217 DD/ 1031 TD/TT: 12/29/24 1135 Survey Rodman: [facility] Procedure Note Donotuseinterpreter, Image - 12/30/[address] [place] [address] [address] Scan Report Signed Patient: Gillian Silva#: [id number] 1 : 1960cct:[id number] Age/Sex: 64 / MADM Date: 12/29/24 Loc: .[facility] Attending Dr: Gene Stout MD Ordering Physician: Gene Stout MD Date of Service: 12/29/24 Procedure(s): CT biopsy renal RT Accession Number(s): [id number] cc: Gene Stout MD; Tanmay Gore MD Report Number: [id number]: Total DLP = 309.00 mGy-cm Reason for [...] 12/30/24 1217 DD/ 1031 TD/TT: 12/29/24 1135 Survey Rodman: [facility] External Provider IMG CT PROCEDURES Final Result * Type and screen (12/29/2024 9:19 AM EDT) Blood Type ABP [facility] Antibody Screen NEGATIVE [facility] 12/29/2024 9:19 AM EDT 12/29/2024 9:29 AM EDT Generic External Data Provider LAB BLOOD BANK TE ST ORDERABLES Final Result Performing Organization Address [facility] Co de Phone Number [facility] [address] [place] [phone] * Hepatitis C Antibody with Reflex to HCV, RNA, Quantitative, Real-Time PCR (11/30/2024 1:19 PM EDT) Hepatitis C Antibody Nonreactive Nonreactive [facility] Comment:Antibodies to HCV no t detected; does not exclude early acuteHCV infection. 11/30/2024 1:19 PM EDT 11/30/2024 5:32 PM EDT Generic External Data Provider LAB BLOOD ORDERAB LES Final Result Performing Organization Address [facility] Co de Phone Number [facility] [address] [place] [phone] * Hepatitis B surface antigen, EIA (11/30/2024 1:19 PM EDT) Hepatitis B Surface Ag Negative Negative [facility] 11/30/2024 1:19 PM EDT 11/30/2024 5:32 PM EDT Generic External Data Provider LAB BLOOD ORDERAB LES Final Result Performing Organization Address [facility] Co de Phone Number [facility] [address] [place] [phone] * Hepatitis B Core Antibody, Total (11/30/2024 1:19 PM EDT) Pathologist [facility] Hepatitis B Core Antibody Nonreactive Nonreactive [facility] 11/30/2024 1:19 PM EDT 11/30/2024 5:32 PM EDT us Generic External Data Provider LAB BLOOD ORDERAB LES Final Result Performing Organization Address [facility]/ZIP Co de Phone Number [facility] [address] [place] [phone] * Hepatitis B Surface Antibody, Qualitative (11/30/2024 1:19 PM EDT) Pathologist [facility] ~Hepatitis B Surface Antibody NONREACTIVE Nonreactive [facility] Comment:Nonreactive: < 8.00 mIU/mL 11/30/2024 1:19 PM EDT 11/30/2024 5:32 PM EDT us Generic External Data Provider LAB BLOOD ORDERAB LES Final Result Performing Organization Address [facility] de Phone Number [facility] [address] [place] [phone] * (ABNORMAL) Complement Component C3c (11/30/2024 1:19 PM EDT) Pathologist [facility] Complement C3 194(A) 82 - 185 mg/dL [facility] Comment:THIS TEST WAS PERFOR MED AT:[facility] [place] [id number] ALFORD MD 11/30/2024 1:19 PM EDT 11/30/2024 5:32 PM EDT us Generic External Data Provider LAB BLOOD ORDERAB LES Final Result Performing Organization Address [facility]/ZIP Co de Phone Number [facility] [address] [place] [phone] * Complement Component C4c (11/30/2024 1:19 PM EDT) Complement C4 44 15 - 53 mg/dL [facility] Comment:THIS TEST WAS PERFOR MED AT:[facility] [place] [id number] ALFORD MD 11/30/2024 1:19 PM EDT 11/30/2024 5:32 PM EDT us Generic External Data Provider LAB BLOOD ORDERAB LES Final Result [facility] [address] [place] [phone] * (ABNORMAL) Lipid Panel, Standard (11/30/2024 1:19 PM EDT) Triglycerides 208(H) <150 mg/dL [facility] Comment:Desirable Triglyceri de: less than 150 mg/dLBorderline High Triglyceride 150-199 mg/dLHigh Triglyceride: 200-499 mg/dLVery High Triglyceride: greater than or equal to 5OO mg/dL Cholesterol 290(H) <200 mg/dL [facility] Comment:Desirable Cholestero l: less than 200 mg/dLBorderline High Cholesterol: 200-239 mg/dLHigh Cholesterol: greater than 239 mg/dL LDL Cholesterol Calculated 212(H) <100 mg/dL [facility] Comment:Desirable LDL: less than 100 mg/dLNear Optimal/Above Optimal LDL: 110- 129 mg/dLBorderline High LDL: 130-159 mg/dLHigh LDL: 160-189 mg/dLVery High LDL: greater than or equal to 190 mg/dL HDL Cholesterol 37(L) >40 mg/dL [facility] Comment:Desirable HDL: great er than 40 mg/dL Note: This HDL assay may give artificially low results in patients with liver disease. Blood Venous blood specimen / Unknown 11/30/2024 1:19 PM EDT 11/30/2024 2:07 PM EDT us Tanmay Mello MD LAB BLOOD ORDERABL ES Final Result [facility] [address], [place] [phone] * (ABNORMAL) Comprehensive Metabolic Panel (11/30/2024 1:19 PM EDT) Sodium 145 135 - 145 mmol/L [facility] Potassium 4.8 3.3 - 5.1 mmol/L [facility] Chloride 107 96 - 108 mmol/L [facility] Carbon Dioxide 26 22 - 29 mmol/L [facility] Anion Gap 17 12 - 20 [facility] Urea Nitrogen (BUN) 60(H) 9 - 16 mg/dL [facility] Creatinine, Serum 2.66(H) 0.5 - 1.4 mg/dL [facility] Estimated Glomerular Filt Rate 24 [facility] Comment:Chronic Kidney Disea se: Estimated GFR < 60 mL/min/1.60l2Bnitec Kidney Disease: Estimated GFR < 15 mL/min/1.73m2 Glucose 138(H) 60 - 115 mg/dL [facility] Calcium 10.1 8.4 - 10.2 mg/dL [facility] Bilirubin, Total 0.8 0.0 - 1.0 mg/dL [facility] Aspartate Amino Transferase 27 5 - 37 U/L [facility] Alanine Aminotransferase 24 0 - 40 U/L [facility] Total Protein 8.7(H) 6.5 - 8.0 g/dL [facility] Albumin Level 4.7 3.5 - 5.0 g/dL [facility] Alkaline Phosphatase 122(H) 39 - 117 U/L [facility] Blood Venous blood specimen / Unknown 11/30/2024 1:19 PM EDT 11/30/2024 2:07 PM EDT us Tanmay Mello MD LAB BLOOD ORDERABL ES Final Result [facility] [address] [place] [phone] * (ABNORMAL) POCT Hgb A1c (11/24/2024 3:29 PM EDT) [facility] Hemoglobin A1C 8.8(A) 4.0 - 5.7 % QC Media Lot # [id number] Lot# Expiration Date Blood 11/24/2024 3:29 PM EDT Tanmay Mello MD POINT OF CARE TEST ENTER/EDIT ORDERABLES Final Result * POCT Glucose (11/24/2024 3:28 PM EDT) [facility] Glucose Blood, POC 131 60 - 200 mg/dL QC Media Lot # [id number] Lot# Expiration Date Blood Capillary blood specimen / Unknown 11/24/2024 3:28 PM EDT Tanmay Mello MD POINT OF CARE TEST ENTER/EDIT ORDERABLES Final Result * Hm Colonoscopy (11/19/2023) [facility] Colonoscopy Normal Normal Narrative Radha Angela - 11/19/2023 Colonoscopy order added per GI office note Repeat Colonoscopy in 1-2 years due to fair left sided prep or earlier if clinically indicated --next time use adult scope Historical Provider HEALTH MAINTENANCE Final Result * Fecal immunochemical test x1 (FIT) (04/10/2020 10:58 AM EST) [facility] FIT Date 1 [facility] FIT Date 2 [facility] FIT Lot [facility] FIT1 [facility] Comment:NO SPECIMEN ON CARD FIT2 [facility] 04/10/2020 10:5 8 AM EST Historical Provider HISTORICAL/NON ORDERABLE LABS Final Result [facility] [address] from Last 3 Months or Most Recently Relevant to Health Maintenance Insurance [facility] * Guarantor: Silva, Jame Account Type Relation to Patient Date of Phone Billing Address Personal/Family Self [facility] [address] Care Teams Head Sampler Relationship Specialty Start Date End Date Tanmay Gore MD [address] [place] [phone] PCP - General Internal Medicine 03/19/23
== END 2025-02-09 15:28 | disposition home or self-care (01) ==
LOC: HO.HCS 14:44
PROVIDERS: PCP Internal Medicine; Visit Provider Nurse Practitioner Family
DX: I20.0 Unstable angina (principal); R94.39 Abnormal result of other cardiovascular function study; Z98.890 Other specified postprocedural states; I25.10 Atherosclerotic heart disease of native coronary artery without angina pectoris; I10 Essential (primary) hypertension; E78.5 Hyperlipidemia, unspecified
CPT/HCPCS: 99214; G2211

== ENCOUNTER 2025-02-16 13:46 | Outpatient (AMB) | payer OTHER, SELFPAY ==
--- NOTE | 2025-02-16 13:59 | HO.NEPHOV ---
Vital Signs 02/16/25 14:00 Height 5 ft 3 in Weight 158 lb BMI 28.0 BP 102/70 Blood Pressure Location Rt brachial Position Sitting Pulse 96 Pulse Source Pulse Oximeter Pulse Oximetry (%) 100 Oxygen Delivery Method Room Air Intake Visit Reasons: 2-3 wks f/u w/ lab-CONF Data Entry Operator Required: No Data Entry Operator Services: Data Entry Operator Offered & Declined (Patient understands Belarusian ) Accompanied by: Self / Same As Patient Allergies No Known Allergies Allergy (Verified 02/16/25 14:02) Medication List - Last Reconciled 02/16/25 by Gene Stout MD aspirin 81 mg PO DAILY atorvastatin 80 mg PO QAM brimonidine 0.2% 1 drp ophthalmic (eye) BID clotrimazole 1% appl topical DAILY diltiazem HCl CD 240 mg PO DAILY glipizide 10 mg PO BID latanoprost 0.005% drps ophthalmic (eye) spironolactone 25 mg PO DAILY Held on 01/14/25. Instructions: Doctor's Order timolol maleate 0.5% 1 drp ophthalmic (eye) BID HPI Comments Details: History of Present Illness The patient is a 64 year old male presenting for follow-up of his chronic conditions. He has a 30-year history of diabetes mellitus and chronic kidney disease. The patient is scheduled for a cardiac angiogram on March 11. His blood test from January 25 showed improvement from a prior test in January. He denies any breathing difficulties or swelling in his legs. He reports adequate water intake. He reports that his current medications are sufficient and does not require any refills. Results - Labs: A blood test on January 25 showed improvement compared to a previous result in January. [facility] Medical History (Updated 02/09/25 @ 15:58 by JERICHO Cabrera) Dyslipidemia HTN (hypertension) Acid reflux Diabetes Surgical History History of cardiac cath Hx of colonoscopy Hx of appendectomy Family History Father No problems noted. Brother Heart attack Paternal Uncle Heart attack Social History Household Members: Children Alcohol intake: current Alcohol intake frequency: holidays/special occasions only Patient Tobacco Use Status: Never used Tobacco Second Hand Smoke Exposure: No Physical Exam Exam Exam: Physical Exam General: Awake. Comfortable. HENT: Neck supple. Mucosa moist. Pulmonary: Lungs aeration equal. No rales. Cardiology: Heart S1-S2 heard. No gallop. Abdomen: Soft. Non tender. Bowel sounds normal. Neurologic: No involuntary movements. No myoclonus. Extremities: No edema. No rash. Vital Signs: Last Vital Signs Pulse 96 02/16/25 14:00 BP 102/70 02/16/25 14:00 Pulse Ox 100 02/16/25 14:00 Oxygen Delivery Method Room Air 02/16/25 14:00 BMI result Body Mass Index 28.0 Results Reviewed Nephrology Results: Hgb, (14.0-18.0) 12.5 g/dl L 01/25/25 WBC, (4.8-10.8) 9.0 X10*3/uL 01/25/25 Plt Count, (160-400) 314 X10*3/uL 01/25/25 Sodium, (135-145) 138 mmol/L 01/25/25 Potassium, (3.3-5.1) 5.0 mmol/L 01/25/25 Chloride, (96-108) 107 mmol/L 01/25/25 Carbon Dioxide, (22-29) 25 mmol/L 01/25/25 BUN, (9-16) 51 mg/dL H 01/25/25 Creatinine, (0.5-1.4) 2.34 mg/dL H 01/25/25 Calcium, (8.4-10.2) 9.5 mg/dL 01/25/25 Renal US 08/12/23 Assessment & Plan Assessment & Plan (1) HTN (hypertension): Code(s): I10 - Essential (primary) hypertension Category: Medical (2) CKD (chronic kidney disease) stage 3, GFR 30-59 ml/min: Code(s): N18.30 - Chronic kidney disease, stage 3 unspecified Category: Medical Plan 64-year-old man with chronic kidney disease in the setting of longstanding diabetes mellitus and hypertension with non nephrotic range proteinuria. Chronic kidney disease most likely due to diabetic nephropathy based on biopsy REnal function worsened Creatinine has increased from 1.99 in Aug to 2.5 in December and currently at 3.08 mg/dL ? due to hypoperfsuion form LOW BP HOLD Losartan and Spironolactone due to low BP And ORACIO -since 01/04/25 Creatinine has improved and back to baseline Hyperkalemia corrected Repeat labs ordered prior to angiogram Currently he is at risk for ORACIO due to contrast nepropathy However, if the benefits outweigh the risk, we might have to proceed with coronary angiogram Would recommend to hydrate with NS for atleast 4 hours prior to the procedure and use minimal dye load . Orders: Orders Basic Metabolic Panel 10 Days N18.30 - Chronic kidney disease, stage 3 unspecified Coding Level of Care Code Est Pt Level 4 (44642) Diagnoses HTN (hypertension) I10 CKD (chronic kidney disease) stage 3, GFR 30-59 ml/min N18.30
[2025-02-16 14:00] VITALS: BP 102/70; PULSE 96; O2SAT 100; BMI 28.0
--- OUTSIDE RECORDS SUMMARY | 2025-02-16 17:55 | XMS_ITS | Encounter Summary ---
Author Organization [employer] Address [address] [place] [address] Care Team Providers Care Sprayer Hand Name Role Phone Tanmay Gore MD Primary Care Prov ider Reason for Visit * Reason Onset Date Comments Medication Question 01/13/2024 Encounter Details Date Type Department Care Team (Late st Contact Info) Description 01/13/2024 Telephone [facility] MEDICINE [address] [place] [address] Tanmay Gore MD [address] [place], [place] [phone] Medication Question Social History Tobacco Use Types [...] the past 12 months, has t he [employer], oil or water company threatened to shut [...] 02/23/2025 1:00 PM EST Telemedicine [facility] MED & PEDS [address] [place] [address] Tanmay Gore MD [address] [place] [address] documented as of this encounter Visit Diagnoses Not on filedocumented in this encounter Care Teams Sprayer Hand Relationship Specialty Start Date End Date Tanmay Gore MD [address] [place] [address] PCP - General Internal Medicine 03/19/23 documented as of this encounter
--- OUTSIDE RECORDS SUMMARY | 2025-02-16 17:55 | XMS_ITS | Encounter Summary ---
Author Organization [employer] Address [address] [facility] [address] [place] [address] Care Team Providers Care Translator And Interpreter Name Role Phone Tanmay Gore MD Primary Care Prov ider Reason for Visit * Reason Comments Med Refill Encounter Details Date Type Department Care Team ([facility] Contact Info) Description 02/27/2024 Refill [facility] MED & PEDS [address] [place], [place] [phone] Tanmay Gore MD [address] [place] [address] Social History Tobacco Use Types Packs/Day Years [...] 1:00 PM EST Telemedicine [facility] MED & PEDS [address] [place] [address] Tanmay Gore MD [address] [place] [address] documented as of this encounter Visit Diagnoses Not on filedocumented in this encounter Care Teams Translator And Interpreter Relationship Specialty Start Date End Date Tanmay Gore MD [address] [place] [address] PCP - General Internal Medicine 03/19/23 documented as of this encounter
--- OUTSIDE RECORDS SUMMARY | 2025-02-16 17:55 | XMS_ITS | Encounter Summary ---
Author Organization [employer] Address [address] [place] [address] Care Team Providers Care Lens Cutter Name Role Phone Tanmay Gore MD Primary Care Prov ider Reason for Visit * Reason Comments Med Refill Encounter Details Date Type Department Care Team ([facility] st Contact Info) Description 02/16/2025 Refill [facility] [address] [place] [address] Tanmay Gore MD [address] [place] [address] Abdominal pain with vomiting Social History Tobacco Use Types Packs/Day Years [...] Info) Description 02/23/2025 1:00 PM EST Telemedicine [facility] MED & PEDS [address] [place] [address] Tanmay Gore MD [address] [place] [address] documented as of this encounter Visit Diagnoses Diagnosis Abdominal pain with vomiting documented in this encounter Additional Health Concerns Assessment Noted Time PHQ-9 Depression Total Score: 0 10/13/19 25 8:53 AM EDT documented as of this encounter Care Teams Lens Cutter Relationship Specialty Start Date End Date Tanmay Gore MD [address] [place] [address] PCP - General Internal Medicine 03/19/23 documented as of this encounter
--- OUTSIDE RECORDS SUMMARY | 2025-02-16 17:55 | XMS_ITS | Encounter Summary ---
Author Organization [employer] Address [address] [place] [address] [address], [place] [address] Care Team Providers Care Coater Associate Name Role Phone Tanmay Gore MD Primary Care Prov ider Reason for Referral * Consultation (STAT) - Closed Specialty Diagnoses / Procedures Referred By Ricardo alan Referred To Contact Cardiology Diagnoses Chest pain, unspecified type Tanmay Gore MD [address] [place] [address] Phone: tel: fax: Fidel Hernández MD [address] [place] [address] Phone: tel: fax: Referral ID Status Reason Start Date Expiration Date V isits Requested Visits Authorized [id number] Closed Specialty Services Required 01/12/2025 01/12/2026 1 1 * Imaging (STAT) - Closed Specialty Diagnoses / Procedures Referred By Ricardo alan Referred To Contact Cardiology Diagnoses Chest pain, unspecified type Procedures Transthoracic Echo (TTE) Complete Tanmay Gore MD [address] [place] [address] Phone: tel: fax: [address] [address] Phone: tel: fax: Referral ID Status Reason Start Date Expiration Date V isits Requested Visits Authorized [id number] Closed Perform Procedure 01/12/2025 01/12/2026 1 1 Encounter Details Date Type Department Care Team (Late st Contact Info) Description 01/12/2025 Orders Only [facility] CH[facility] MED & PEDS [address] [place] [address] Tanmay Gore MD [address] [place] [address] Chest pain, unspecified type (Primary Dx) Social [...] Info) Description 02/23/2025 1:00 PM EST Telemedicine [facility] MED & PEDS [address] [place] [address] Tanmay Gore MD [address] [place] [address] Scheduled Orders Name Type Priority Associated Diagnoses [...] documented as of this encounter Care Teams Coater Associate Relationship Specialty Start Date End Date Tanmay Gore MD [address] [place] [address] PCP - General Internal Medicine 03/19/23 documented as of this encounter
--- OUTSIDE RECORDS SUMMARY | 2025-02-16 17:55 | XMS_ITS | Encounter Summary ---
Author Organization [employer] Address [address] [place] [address] Care Team Providers Care Offensive Coordinator Name Role Phone Tanmay Gore MD Primary Care Prov ider Reason for Visit * Reason Onset Date Comments Medication Problem 06/11/2023 Encounter Details Date Type Department Care Team (Late st Contact Info) Description 06/11/2023 Telephone [facility] MEDICINE [address] [place] [address] Tanmay Gore MD [address] [place], [place] [phone] Medication Problem Social History Tobacco Use Types [...] the past 12 months, has t he [employer], [employer], oil or water [employer] threatened to shut off services in your [...] 02/23/2025 1:00 PM EST Telemedicine [facility] MED & PEDS [address] [place] [address] Tanamy Gore MD [address] [place] [address] documented as of this encounter Visit Diagnoses Not on filedocumented in this encounter Care Teams Offensive Coordinator Relationship Specialty Start Date End Date Tanmay Gore MD [address] [place] [address] PCP - General Internal Medicine 03/19/23 documented as of this encounter
--- OUTSIDE RECORDS SUMMARY | 2025-02-16 17:55 | XMS_ITS | Encounter Summary ---
Author Organization [employer] Address [address] [facility] [address] [facility] [address] [place] [address] Care Team Providers Care Antiquer Name Role Phone Tanmay Gore MD Primary Care Prov ider Reason for Visit * Reason Comments Med Change Request Encounter Details Date Type Department Care Team ([facility] Contact Info) Description 01/06/2025 Refill [facility] CH[facility] MED & PEDS [address] [place], [place] [phone] Tanmay Gore MD [address] [place] [address] Social History Tobacco Use Types Packs/Day Years [...] Upcoming Encounters Date Type Department Care Team ([facility] st Contact Info) Description 02/23/2025 1:00 PM EST Telemedicine [facility] MED & PEDS [address] [place] [address] Tanmay Gore MD [address] [place] [address] documented as of this encounter Visit Diagnoses Not on filedocumented in this encounter Additional Health Concerns Assessment Noted Time PHQ-9 Depression Total Score: 0 10/13/19 25 8:53 AM EDT documented as of this encounter Care Teams Antiquer Relationship Specialty Start Date End Date Tanmay Gore MD [address] [place] [address] PCP - General Internal Medicine 03/19/23 documented as of this encounter
--- OUTSIDE RECORDS SUMMARY | 2025-02-16 17:55 | XMS_ITS | Encounter Summary ---
Author Organization [employer] Address [address] [facility] [address] [place] [address] Care Team Providers Care Band Maker Name Role Phone Tanmay Gore MD Primary Care Prov ider Tanmay Gore MD Primary Care Prov ider Reason for Visit * Reason Comments Med Refill Encounter Details Date Type Department Care Team (Late Contact Info) Description 06/12/2022 Refill [facility] MED & PEDS [address] [place] [address] Tanmay Gore MD [address] [place] [address] Social History Tobacco Use Types Packs/Day Years [...] Upcoming Encounters Date Type Department Care Team ([facility] Contact Info) Description 02/23/2025 1:00 PM EST Telemedicine [facility] MED & PEDS [address] [place] [address] Tanmay Gore MD [address] [place] [address] documented as of this encounter Visit Diagnoses Not on filedocumented in this encounter Care Teams Band Maker Relationship Specialty Start Date End Date Tanmay Gore MD [address] [place] [address] PCP - General Internal Medicine 07/29/19 03/10/23 Tanmay Gore MD [address] [place] [address] PCP - General Internal Medicine 03/19/23 documented as of this encounter
--- OUTSIDE RECORDS SUMMARY | 2025-02-16 17:55 | XMS_ITS | Encounter Summary ---
Author Organization [employer] Address [address] [facility] [address] [place] [address] Care Team Providers Care Principal Software Architect Name Role Phone Tanmay Gore MD Primary Care Prov ider Reason for Visit * Reason Comments Med Change Request Encounter Details Date Type Department Care Team ([facility] Contact Info) Description 12/09/2024 Refill [facility] CH[facility] MED & PEDS [address] [place], [place] [phone] Tanmay Gore MD [address] [place] [address] Social History Tobacco Use Types Packs/Day Years [...] Upcoming Encounters Date Type Department Care Team ([facility] st Contact Info) Description 02/23/2025 1:00 PM EST Telemedicine [facility] MED & PEDS [address] [place] [address] Tanmay Gore MD [address] [place] [address] documented as of this encounter Visit Diagnoses Not on filedocumented in this encounter Additional Health Concerns Assessment Noted Time PHQ-9 Depression Total Score: 0 10/13/19 25 8:53 AM EDT documented as of this encounter Care Teams Principal Software Architect Relationship Specialty Start Date End Date Tanmay Gore MD [address] [place] [address] PCP - General Internal Medicine 03/19/23 documented as of this encounter
--- OUTSIDE RECORDS SUMMARY | 2025-02-16 17:55 | XMS_ITS | Clinical Summary ---
Author Organization [employer] Address [address] [place] [address] Care Team Providers Care Medical Transcription Supervisor Name Role Phone Tanmay Gore MD [...] 08/15/19 026 Active Insulin Syringe 31G X 07/17 0.3 ML misc For administering insulin daily [...] 3 mL 11 11/25/19 Active Continuous Glucose Shop Firer/Fireman (Free[employer] Antionette 3 [place]) device 1 each Once per day. Use [...] of call pt had been contacted by irrigation equipment remover team and was en route to er [...] Encounters Date Type Department Care Team Description 02/16/2025 Refill [facility] [address] [place] [address] Tanmay Gore MD Abdominal pain with vomiting 01/31/2025 Refill [facility] [address] [place] [address] Tanmay Gore MD 01/16/2025 Refill [facility] [address] [place] [address] Tanmay Gore MD 01/13/2025 Orders Only GENERIC EXTERNAL DATA DEPARTMENT Provider, Generic External Data 01/12/2025 Orders Only [facility] [address] [place] [address] Tanmay Gore MD Chest pain, unspecified type (Primary Dx) 01/06/2025 Refill [facility] [address] [place] [address] Tanmay Gore MD 12/29/2024 Orders Only GENERIC EXTERNAL DATA DEPARTMENT Provider, Generic External Data 12/23/2024 Orders Only [facility] [address] [place] [address] Tanmay Gore MD 12/09/2024 Telephone [facility] [address] [place] [address] Tanmay Gore MD Med Refill 12/09/2024 Refill [facility] [address] [place] [address] Tanmay Gore MD 11/30/2024 Orders Only GENERIC EXTERNAL DATA DEPARTMENT Provider, Generic External Data 11/24/2024 3:30 PM EDT Office Visit [facility] [address] [place] [address] Tanmay Gore MD Chest pain, unspecified type (Primary Dx); Type 2 diabetes mellitus with diabetic microalbuminuria, without long-term current use of insulin ([facility]) 11/24/2024 Travel 11/24/2024 Refill [facility] [address] [place] [address] Otilia Mancia FNP 11/24/2024 Refill [facility] [address] [place] [address] Tanmay Gore MD 11/23/2024 Telephone [facility] [address] [place] [address] Tanmay Gore MD chart prep from Last 3 Months Immunizations Immunization Administration [...] housing situation today? I have ronaldwest anand 10/12/[address] you [...] the past 12 months, has t he [employer], [employer], oil or water [employer] threatened to shut off services in your [...] [facility] [address] [place] [address] Tanmay Gore MD [address] [place] [address] Health Maintenance Due Date Last Done Comments [...] microalbuminuria, without long-term current use of insulin ([facility]) COMPREHENSIVE METABOLIC PANEL Routine 11/30/2024 1:19 PM EDT Type 2 diabetes mellitus with diabetic microalbuminuria, without long-term current use of insulin ([facility]) POCT GLYCATED HEMOGLOBIN, TOTAL Routine 11/24/2024 3:29 PM EDT Type 2 diabetes mellitus with diabetic microalbuminuria, without long-term current use of insulin ([facility]) POCT GLUCOSE Routine 11/24/2024 3:28 PM EDT Type 2 diabetes mellitus with diabetic microalbuminuria, without long-term current use of insulin ([facility]) HM COLONOSCOPY Routine 11/19/2023 ZZZ HISTORICAL FECAL IMMUNOCHEMICAL TEST X1 (FIT) Routine 04/10/2020 10:58 AM EST from Last 3 Months or Most Recently Relevant to Health Maintenance Results * (ABNORMAL) CBC auto differential (01/13/2025 3:51 PM EST) Only the most recent of2 resultswithin the time period is included. White Blood Count 9.0 4.8 - 10.8 X10*3/uL [facility] Red Blood Count 4.36(L) 4.60 - 5.80 X10*6/uL [facility] Hemoglobin 13.3(L) 14.0 - 18.0 g/dl [facility] Hematocrit 39.5(L) 42.0 - 52.0 % [facility] Mean Corpuscular Volume 90.6 80.0 - 98.0 fL [facility] Mean Corpuscular Hemoglobin 30.5 27.0 - 33.0 pg [facility] Mean Corpuscular HGB Conc 33.7 31.0 - 36.0 g/dl [facility] Red Cell Distribution Width 11.9 11.0 - 16.0 % [facility] Platelet Count 393 160 - 400 X10*3/uL [facility] Mean Platelet Volume 10.2 9.4 - 12.4 fL [facility] Neutrophils Percent Auto 74.4(H) 45 - 73 % [facility] Imm Gran Pct Auto 0.4 0.0 - 0.4 % [facility] Lymphocytes Percent Auto 16.2(L) 20 - 40 % [facility] Monocytes Percent Auto 4.7 2 - 11 % [facility] Eosinophils Percent Auto 3.7 0 - 4 % [facility] Basophils Percent Auto 0.6 0 - 2 % [facility] NRBC Pct Auto 0.0 0.0 - 0.2 /100WBC [facility] Neutrophils Absolute Auto 6.7 2.0 - 8.3 x10*3/uL [facility] Imm Gran Abs Auto 0.04(H) 0.00 - 0.03 X10*3/uL [facility] Lymphocytes Absolute Auto 1.5 1.2 - 4.9 X10*3/uL [facility] Monocytes Absolute Auto 0.4 0.1 - 1.2 X10*3/uL [facility] Eosinophils Absolute Auto 0.3 0.0 - 0.4 X10*3/uL [facility] Basophils Absolute Auto 0.1 0.0 - 0.2 X10*3/uL [facility] NRBC Abs Auto 0.000 0.0 - 0.012 X10*3/uL [facility] 01/13/2025 3:51 PM EST 01/13/2025 3:51 PM EST us Generic External Data Provider LAB BLOOD ORDERAB LES Final Result [facility] [address] [place] [address] [phone] * Partial Thromboplastin Time, Activated (APTT) (01/13/2025 3:51 PM EST) Pathologist [facility] Partial Thromboplastin Time 32.0 26.7 - 34.1 SEC [facility] 01/13/2025 3:51 PM EST 01/13/2025 3:51 PM EST Generic External Data Provider LAB BLOOD ORDERAB LES Final Result Performing Organization Address [facility] de Phone Number [facility] [address] [place] [phone] * Prothrombin Time-INR (01/13/2025 3:51 PM EST) [facility] Prothrombin Time 12.8 11.2 - 13.5 SEC [facility] INTERNATIONAL NORM RATIO 1.0 0.9 - 1.1 [facility] Comment:INTERNATIONAL NORMAL IZED RATIO (INR) [...] 3:51 PM EST 01/13/2025 3:51 PM EST [employer] External Data Provider LAB BLOOD ORDERAB LES Final Result Performing Organization Address [facility] de Phone Number [facility] [address] [place] [phone] * (ABNORMAL) Protein, Total and Protein??Electrophoresis (01/13/2025 3:51 PM EST) Pathologist [facility] Prot Elec - Total Protein 7.9 6.1 - 8.1 g/dL [facility] Prot Elec - Albumin 4.3 3.8 - 4.8 g/dL [facility] Prot Elec - Alpha1 0.3 0.2 - 0.3 g/dL [facility] Prot Elec - Alpha2 1.1(A) 0.5 - 0.9 g/dL [facility] Prot Elec - Beta 1 0.5 0.4 - 0.6 g/dL [facility] Prot Elec - Beta 2 0.6(A) 0.2 - 0.5 g/dL [facility] Prot Elec - Gamma 1.1 0.8 - 1.7 g/dL [facility] PES - Abn Protein Band 1 SEE NOTE NONE DETECTED g/dL [facility] Comment:See below PES-Abn Protein Band 2 TNP [facility] PES-Abn Protein Band 3 TNP [facility] Prot Elec - Interpretation SEE NOTE [facility] Comment:Electrophoretic stud ies reveal an elevationof beta-2 globulins. This pattern is suggestive ofacute inflammation; however, the presence of amonoclonal protein cannot be ruled out. Consider serumimmunofixation to rule out monoclonal protein (if notalready ordered).THIS TEST WAS PERFORMED AT:[id number] [place] [id number] ALFORD MD 01/13/2025 3:51 PM EST 01/13/2025 3:51 PM EST us Generic External Data Provider LAB BLOOD ORDERAB LES Final Result [facility] [address] [place] [phone] * (ABNORMAL) Basic Metabolic Panel (01/13/2025 3:51 PM EST) Only the most recent of2 resultswithin the time period is included. Sodium 140 135 - 145 mmol/L [facility] Potassium 5.3(H) 3.3 - 5.1 mmol/L [facility] Chloride 107 96 - 108 mmol/L [facility] Carbon Dioxide 25 22 - 29 mmol/L [facility] Anion Gap 13 12 - 20 [facility] Urea Nitrogen (BUN) 58(H) 9 - 16 mg/dL [facility] Creatinine, Serum 3.08(H) 0.5 - 1.4 mg/dL [facility] Estimated Glomerular Filt Rate 21 [facility] Comment:Chronic Kidney Disea se: Estimated GFR < 60 mL/min/[id number] Kidney Disease: Estimated GFR < 15 mL/min/1.73m2 Glucose 251(H) 60 - 115 mg/dL [facility] Calcium 9.5 8.4 - 10.2 mg/dL [facility] 01/13/2025 3:51 PM EST 01/13/2025 3:51 PM EST Generic External Data Provider LAB BLOOD ORDERAB LES Final Result Performing Organization Address [facility] de Phone Number [facility] [address] [place] [phone] * Other Reference Test - Misc (12/29/2024 11:01 AM EDT) Other Ref Test Misc See Note [facility] Comment:See the report from [facility] scanned into thePathology reports section of the EMR. 12/29/2024 11:0 1 AM EDT 12/29/2024 11:42 AM EDT Narrative [facility] - 01/13/2025 8:45 AM EST RIGHT KIDNEY CORETX LOWER [facility] Generic External Data Provider LAB BLOOD ORDERAB LES Final Result Performing Organization Address [facility] Co de Phone Number [facility] [address] [place] [phone] * Hematoxylin and Eosin Stain (12/29/2024 11:01 AM EDT) 12/29/2024 11:0 1 AM EDT 12/29/2024 11:40 AM EDT Narrative [facility] - 01/13/2025 5:31 PM EST ----- ------- Name: Jame Silva Age/Sex: 64/M : 1960 Unit#: [id number] Attend Dr: Gene Stout MD Re12/29/[address] [facility] Location: [facility] Disch: ----- ------- SPEC : [id number] RECD: 12/29/24 STATUS: DANIA IBRAHIM NUM: [id number] CESIA: 12/29/[address] [facility] [address]: Augie Aquino MD ENTERED: 12/29/24 SP TYPE: Surgical OTHR DR: Gene Stout MD, Benjamin MD ORDERED: HE Stain/2, Gross Micro L4 Addendum Addendum 1 Entered: 01/13/25 Kidney, right, core biopsy: Diagnosis by [facility] Department of Pathology: -Nodular mesangial (diabetic) [...] cortex lower pole, core biopsy: Sent to [facility] for light microscopy, immunofluorescence, and electron microscopy. Their report is pending; addendum to follow. Clinical History CRF Material Received Right kidney cortex lower pole CONTINUED ON NEXT PAGE ----- ------- Name: Jame Silva Age/Sex: 64/M : 1960 Unit#: [id number] Attend Dr: Gene Stout MD Re12/29/24 Status[place] [facility] [place]: [facility] Disch: ----- ------- SPEC : [id number] RECD: 12/29/24 STATUS: DANIA IBRAHIM NUM: [id number] CESIA: 12/29/[address] [facility] [address]: Augie Aquino MD ENTERED: 12/29/24 [...] cm. The specimen is entirely forwarded to [facility] for further analysis. No sections taken. ([facility]) IHC S/NG Disclaimer NOTE: Unless otherwise stated, all tissue is formalin-fixed and paraffin-embedded. Some or all of the immunohistochemical tests reported herein may have been developed and their performance characteristics determined by [facility]. They have not been cleared or approved by the U.S. Food and Drug Administration (FDA). However, the FDA has determined that such clearance or approval is not necessary. This laboratory is certified under the Clinical Laboratory Improvement Amendments of 1988 (CLIA) as qualified to perform high complexity clinical laboratory testing. Copies To: Gene Stout MD [facility] [address] [place] [address] Dr [address] [place], [place] [id number] [email or web address] Tanmay Gore MD [address] [address] Augie Aquino MD [address] [place] [phone] ----- ------- Signed (signature on file) Azalia Ponce 12/30/24 1133 ----- ------- END OF REPORT us Generic External Data Provider LAB BLOOD ORDERAB LES Final Result Performing Organization Address City/State/[facility] Co de Phone Number [facility] [address] [place] [phone] * CT Guided Percutaneous Biopsy renal Right (12/29/2024 10:31 AM EDT) Anatomical Region Laterality Modality Kidney Right Computed Tomogra phy 12/29/2024 10:3 1 AM EDT Narrative 12/30/2024 12:20 PM EDT [address] [address] [address] Scan Report Signed Patient: Jame Silva MR#: [id number] 1 : 1960 Acct:[id number] Age/Sex: 64 / M ADM Date: 12/29/24 Loc: [facility] Attending Dr: Gene Stout MD Ordering Physician: Gene Stout MD Date of Service: 12/29/24 Procedure(s): CT biopsy renal RT Accession Number(s): [id number] cc: Geen Stout MD; Tanmay Gore MD Report Number: [id number]: Total DLP = 309.00 mGy-cm Reason for [...] 12/30/24 1217 DD/ 1031 TD/TT: 12/29/24 1135 Manager Location: [facility] Procedure Note Donotuseinterpreter, Image - 12/30/[address] [place] [address] [address] Scan Report Signed Patient: Gillian Silva#: [id number] 1 : 1960cct:[id number] Age/Sex: 64 / MADM Date: 12/29/24 Loc: [facility] Attending Dr: Gene Stout MD Ordering Physician: Gene Stout MD Date of Service: 12/29/24 Procedure(s): CT biopsy renal RT Accession Number(s): [id number] cc: Gene Stout MD; Tanmay Gore MD Report Number: [id number]: Total DLP = 309.00 mGy-cm Reason for [...] 12/30/24 1217 DD/ 1031 TD/TT: 12/29/24 1135 Manager Location: [facility] External Provider IMG CT PROCEDURES Final Result * Type and screen (12/29/2024 9:19 AM EDT) Blood Type ABP [facility] Antibody Screen NEGATIVE [facility] 12/29/2024 9:19 AM EDT 12/29/2024 9:29 AM EDT Generic External Data Provider LAB BLOOD BANK TE ST ORDERABLES Final Result Performing Organization Address [facility] Co de Phone Number [facility] [address] [place] [phone] * Hepatitis C Antibody with Reflex to HCV, RNA, Quantitative, Real-Time PCR (11/30/2024 1:19 PM EDT) Hepatitis C Antibody Nonreactive Nonreactive [facility] Comment:Antibodies to HCV no t detected; does not exclude early acuteHCV infection. 11/30/2024 1:19 PM EDT 11/30/2024 5:32 PM EDT Generic External Data Provider LAB BLOOD ORDERAB LES Final Result Performing Organization Address [facility] Co de Phone Number [facility] [address] [place] [phone] * Hepatitis B surface antigen, EIA (11/30/2024 1:19 PM EDT) Hepatitis B Surface Ag Negative Negative [facility] 11/30/2024 1:19 PM EDT 11/30/2024 5:32 PM EDT Generic External Data Provider LAB BLOOD ORDERAB LES Final Result Performing Organization Address [facility] Co de Phone Number [facility] [address] [place] [phone] * Hepatitis B Core Antibody, Total (11/30/2024 1:19 PM EDT) Pathologist [facility] Hepatitis B Core Antibody Nonreactive Nonreactive [facility] 11/30/2024 1:19 PM EDT 11/30/2024 5:32 PM EDT us Generic External Data Provider LAB BLOOD ORDERAB LES Final Result Performing Organization Address [facility]/ZIP Co de Phone Number [facility] [address] [place] [phone] * Hepatitis B Surface Antibody, Qualitative (11/30/2024 1:19 PM EDT) Pathologist [facility] ~Hepatitis B Surface Antibody NONREACTIVE Nonreactive [facility] Comment:Nonreactive: < 8.00 mIU/mL 11/30/2024 1:19 PM EDT 11/30/2024 5:32 PM EDT us Generic External Data Provider LAB BLOOD ORDERAB LES Final Result Performing Organization Address [facility] de Phone Number [facility] [address] [place] [phone] * (ABNORMAL) Complement Component C3c (11/30/2024 1:19 PM EDT) Pathologist [facility] Complement C3 194(A) 82 - 185 mg/dL [facility] Comment:THIS TEST WAS PERFOR MED AT:[facility] [place] [id number] ALFORD MD 11/30/2024 1:19 PM EDT 11/30/2024 5:32 PM EDT us Generic External Data Provider LAB BLOOD ORDERAB LES Final Result Performing Organization Address [facility]/ZIP Co de Phone Number [facility] [address] [place] [phone] * Complement Component C4c (11/30/2024 1:19 PM EDT) Complement C4 44 15 - 53 mg/dL [facility] Comment:THIS TEST WAS PERFOR MED AT:[address] [place] [id number] ALFORD MD 11/30/2024 1:19 PM EDT 11/30/2024 5:32 PM EDT us Generic External Data Provider LAB BLOOD ORDERAB LES Final Result [facility] [address] [place] [phone] * (ABNORMAL) Lipid Panel, Standard (11/30/2024 1:19 PM EDT) Triglycerides 208(H) <150 mg/dL [facility] Comment:Desirable Triglyceri de: less than 150 mg/dLBorderline High Triglyceride 150-199 mg/dLHigh Triglyceride: 200-499 mg/dLVery High Triglyceride: greater than or equal to 5OO mg/dL Cholesterol 290(H) <200 mg/dL [facility] Comment:Desirable Cholestero l: less than 200 mg/dLBorderline High Cholesterol: 200-239 mg/dLHigh Cholesterol: greater than 239 mg/dL LDL Cholesterol Calculated 212(H) <100 mg/dL [facility] Comment:Desirable LDL: less than 100 mg/dLNear Optimal/Above Optimal LDL: 110- 129 mg/dLBorderline High LDL: 130-159 mg/dLHigh LDL: 160-189 mg/dLVery High LDL: greater than or equal to 190 mg/dL HDL Cholesterol 37(L) >40 mg/dL [facility] Comment:Desirable HDL: great er than 40 mg/dL Note: This HDL assay may give artificially low results in patients with liver disease. Blood Venous blood specimen / Unknown 11/30/2024 1:19 PM EDT 11/30/2024 2:07 PM EDT us Tanmay Mello MD LAB BLOOD ORDERABL ES Final Result [facility] [address] [place], [place] [phone] * (ABNORMAL) Comprehensive Metabolic Panel (11/30/2024 1:19 PM EDT) Sodium 145 135 - 145 mmol/L [facility] Potassium 4.8 3.3 - 5.1 mmol/L [facility] Chloride 107 96 - 108 mmol/L [facility] Carbon Dioxide 26 22 - 29 mmol/L [facility] Anion Gap 17 12 - 20 [facility] Urea Nitrogen (BUN) 60(H) 9 - 16 mg/dL [facility] Creatinine, Serum 2.66(H) 0.5 - 1.4 mg/dL [facility] Estimated Glomerular Filt Rate 24 [facility] Comment:Chronic Kidney Disea se: Estimated GFR < 60 mL/min/1.06i9Qmukgf Kidney Disease: Estimated GFR < 15 mL/min/1.73m2 Glucose 138(H) 60 - 115 mg/dL [facility] Calcium 10.1 8.4 - 10.2 mg/dL [facility] Bilirubin, Total 0.8 0.0 - 1.0 mg/dL [facility] Aspartate Amino Transferase 27 5 - 37 U/L [facility] Alanine Aminotransferase 24 0 - 40 U/L [facility] Total Protein 8.7(H) 6.5 - 8.0 g/dL [facility] Albumin Level 4.7 3.5 - 5.0 g/dL [facility] Alkaline Phosphatase 122(H) 39 - 117 U/L [facility] Blood Venous blood specimen / Unknown 11/30/2024 1:19 PM EDT 11/30/2024 2:07 PM EDT us Tanmay Mello MD LAB BLOOD ORDERABL ES Final Result [facility] [address] [place] [phone] [phone] * (ABNORMAL) POCT Hgb A1c (11/24/2024 3:29 PM EDT) [facility] Hemoglobin A1C 8.8(A) 4.0 - 5.7 % QC Media Lot # [id number] Lot# Expiration Date Blood 11/24/2024 3:29 PM EDT Tanmay Mello MD POINT OF CARE TEST ENTER/EDIT ORDERABLES Final Result * POCT Glucose (11/24/2024 3:28 PM EDT) [facility] Glucose Blood, POC 131 60 - 200 mg/dL QC Media Lot # [id number] Lot# Expiration Date Blood Capillary blood specimen / Unknown 11/24/2024 3:28 PM EDT Tanmay Mello MD POINT OF CARE TEST ENTER/EDIT ORDERABLES Final Result * Hm Colonoscopy (11/19/2023) [facility] Colonoscopy Normal Normal Narrative Radha Angela - 11/19/2023 Colonoscopy order added per GI office note Repeat Colonoscopy in 1-2 years due to fair left sided prep or earlier if clinically indicated --next time use adult scope Historical Provider HEALTH MAINTENANCE Final Result * Fecal immunochemical test x1 (FIT) (04/10/2020 10:58 AM EST) [facility] FIT Date 1 [facility] FIT Date 2 [facility] FIT Lot [facility] FIT1 [facility]IVE [facility] Comment:NO SPECIMEN ON CARD FIT2 [facility] NEGATIVE [facility] 04/10/2020 10:5 8 AM EST Historical Provider HISTORICAL/NON ORDERABLE LABS Final Result [facility] [address] from Last 3 Months or Most Recently Relevant to Health Maintenance Insurance [employer] Care Teams Medical Transcription Supervisor Relationship Specialty Start Date End Date Tanmay Gore MD [address] [place] [phone] PCP - General Internal Medicine 03/19/23
--- OUTSIDE RECORDS SUMMARY | 2025-02-16 17:55 | XMS_ITS | Encounter Summary ---
Author Organization [employer] Address [address] [facility] [address] [place] [address] Care Team Providers Care Radiology Supervisor Name Role Phone Tanmay Gore MD Primary Care Prov ider Reason for Visit * Reason Comments Med Refill Encounter Details Date Type Department Care Team ([facility] Contact Info) Description 02/22/2024 Refill [facility] [address] [place], [place] [phone] Tanmay Gore MD [address] [place] [address] Social History Tobacco Use Types Packs/Day Years [...] 02/23/2025 1:00 PM EST Telemedicine [facility] [address] [place] [address] Tanmay Gore MD [address] [place] [address] documented as of this encounter Visit Diagnoses Not on filedocumented in this encounter Care Teams Radiology Supervisor Relationship Specialty Start Date End Date Tanmay Gore MD [address] [place] [address] PCP - General Internal Medicine 03/19/23 documented as of this encounter
== END 2025-02-16 14:11 | disposition home or self-care (01) ==
LOC: HO.HKA 13:46
PROVIDERS: PCP Internal Medicine; Visit Provider Internal Medicine Hypertension Specialist
DX: I10 Essential (primary) hypertension (principal); N18.30 Chronic kidney disease, stage 3 unspecified
CPT/HCPCS: 99214

== ENCOUNTER 2025-03-03 14:15 | Outpatient (AMB) | payer OTHER, SELFPAY ==
[2025-03-03 14:17] VITALS: BP 98/78; PULSE 95; O2SAT 90; BMI 28.3
--- NOTE | 2025-03-03 14:17 | HO.NEPHOV ---
Vital Signs 03/03/25 14:17 Height 5 ft 3 in Weight 160 lb BMI 28.3 BP 98/78 Blood Pressure Location Rt brachial Position Sitting Pulse 95 Pulse Source Pulse Oximeter Pulse Oximetry (%) 90 L Oxygen Delivery Method Room Air Intake Visit Reasons: Dr. Stout Lab results concerns Nut Dehydrator Operator Required: No Accompanied by: Self / Same As Patient Allergies No Known Allergies Allergy (Verified 03/03/25 14:18) HPI Comments Details: I had the pleasure of seeing Jame who is a 64-year-old man with chronic kidney disease( from Diabetes Mellitus- biopsy proven) in the setting of longstanding diabetes mellitus and hypertension( Has non nephrotic range proteinuria). He had a coronary angiogram and is due to have CABG soon.His serum potassium has been running high and his Spironolactone has been discontinued. He denies chest pain, shortness of breath, edema, PND or orthopnea. He has not been taking any NSAID's or any over the counter medications. He feels well & his serum creatinine has improved to baseline by the last available blood work. [facility] Medical History (Updated 03/04/25 @ 15:51 by Adolfo Mora MD) Dyslipidemia HTN (hypertension) Acid reflux Diabetes Surgical History History of cardiac cath Hx of colonoscopy Hx of appendectomy Family History Father No problems noted. Brother Heart attack Paternal Uncle Heart attack Social History Household Members: Children Alcohol intake: current Alcohol intake frequency: holidays/special occasions only Patient Tobacco Use Status: Never used Tobacco Second Hand Smoke Exposure: No Review of Systems Const All systems reviewed & are unremarkable except as noted in HPI and below Physical Exam Vital Signs: Last Vital Signs Pulse 95 03/03/25 14:17 BP 98/78 03/03/25 14:17 Pulse Ox 90 L 03/03/25 14:17 Oxygen Delivery Method Room Air 03/03/25 14:17 BMI result Body Mass Index 28.3 Const General: comfortable and no acute distress Orientation/consciousness: patient oriented x3 HEENT Head: Yes normocephalic Mouth: Normal oral and palatal mucosa present Eyes EOM: EOMs intact bilaterally Neck Neck: Yes supple Resp Auscultation: clear to auscultation bilaterally Cardio Jugular venous distension: no JVD Rate: regular rate GI Palpation (GI): Soft to palpation Auscultation: normal bowel sounds General: Yes no CVA tenderness Back/Spine/Pelvis Back: no CVA tenderness Skin General skin exam: no rashes or lesions noted Neuro General: patient oriented x3 and moves all extremities Extrem General: Yes no pedal edema Results Reviewed Nephrology Results: Hgb, (14.0-18.0) 12.5 g/dl L 01/25/25 WBC, (4.8-10.8) 9.0 X10*3/uL 01/25/25 Plt Count, (160-400) 314 X10*3/uL 01/25/25 Sodium, (135-145) 138 mmol/L 01/25/25 Potassium, (3.3-5.1) 5.0 mmol/L 01/25/25 Chloride, (96-108) 107 mmol/L 01/25/25 Carbon Dioxide, (22-29) 25 mmol/L 01/25/25 BUN, (9-16) 51 mg/dL H 01/25/25 Creatinine, (0.5-1.4) 2.34 mg/dL H 01/25/25 Calcium, (8.4-10.2) 9.5 mg/dL 01/25/25 Renal US 08/12/23 Assessment & Plan Assessment & Plan (1) Hyperkalemia: Code(s): E87.5 - Hyperkalemia Category: Medical (2) HTN (hypertension): Code(s): I10 - Essential (primary) hypertension Category: Medical Qualifiers: Hypertension type: primary hypertension Qualified Code(s): I10 - Essential (primary) hypertension (3) 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: Code(s): E11.22 - Type 2 diabetes mellitus with diabetic chronic kidney disease; N18.32 - Chronic kidney disease, stage 3b Category: Medical Plan CKD 3 B from DM( biopsy proven) Recently had ORACIO which has improved Continue to hold losartan and Spironolactone Low potassium diet; Ordered Kionex (Predisposed for Type 4 RTA) F/U repeat blood work ordered Can have CABG( Needs Kidney Care team to see patient when admitted) Orders: Orders Blood Urea Nitrogen 5 Days E87.5 - Hyperkalemia Creatinine 5 Days E87.5 - Hyperkalemia Electrolytes 5 Days E87.5 - Hyperkalemia Medications: New sodium polystyrene sulfonate 30 grams PO DAILY 150 grams 0RF 5 days Coding Level of Care Code Est Pt Level 4 (78519) Diagnoses Hyperkalemia E87.5 Primary hypertension I10 Hypertension type: primary hypertension 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
--- OUTSIDE RECORDS SUMMARY | 2025-03-03 15:28 | XMS_ITS | Encounter Summary ---
Author Organization [employer] Address [address] [facility] [address] [place] [address] Care Team Providers Care Mechanical Sound Technician Name Role Phone Tanmay Gore MD Primary Care Prov ider Reason for Visit * Reason Onset Date Comments FYI 03/01/2025 Encounter Details Date Type Department Care Team (Late st Contact Info) Description 03/01/2025 Telephone [facility] [address] [place] [address] Tanmay Gore MD [address] [place] [address] FYI Social History Tobacco Use Types Packs/Day Years [...] encounter Miscellaneous Notes * Telephone Encounter - Esther Alfred - 03/01/2025 9:19 AM EST Tc from holley with [facility] cardiology pt has appointment next week but his Kidney function was elevated plus A1c is #9 and blood sugar is at 247. Pt will be having open heart surgery but is pt has elevation on everything surgery will be canceled. To contact holley at [phone] Keith documented in this encounter Plan of Treatment Not on file documented as of this encounter Goals Goal Patient Goal Type Associated Problems Recent Progress Patient-Stated? Author Help patients manage their type 2 diabetes Care Plan Help patients manage their type 2 diabetes No Michelle Napoles MA Weekly blood pressure task Care Plan Weekly blood pressure task No Michelle Napoles MA Help patients manage their type 2 diabetes Care Plan Help patients manage their type 2 diabetes No Michelle Napoles MA Patient has chronic kidney disease Care Plan Patient has chronic kidney disease No Michelle Napoles MA Weekly blood pressure task Care Plan Weekly blood pressure task No Michelle Napoles MA Patient has chronic kidney disease Care Plan Patient has chronic kidney disease No Michelle Napoles MA Weekly blood pressure task Care Plan Weekly blood pressure task No Esther Simon Weekly blood pressure task Care Plan Weekly blood pressure task No Esther Simon Patient has chronic kidney disease Care Plan Patient has chronic kidney disease No Esther Simon Patient has chronic kidney disease Care Plan Patient has chronic kidney disease No AlfredEsther documented as of this encounter Visit Diagnoses Not on filedocumented in this encounter Additional Health Concerns Active Problems Noted Date Diagnosed Date Help patients manage their type 2 diabetes 02/23 Weekly blood pressure task 02/23/2025 Help patients manage their type 2 diabetes 02/23 Patient has chronic kidney disease 02/23/2025 Weekly blood pressure task 02/23/2025 Patient has chronic kidney disease 02/23/2025 Weekly blood pressure task 03/01/2025 Weekly blood pressure task 03/01/2025 Patient has chronic kidney disease 03/01/2025 Patient has chronic kidney disease 03/01/2025 Assessment Noted Time PHQ-9 Depression Total Score: 0 10/13/19 25 8:53 AM EDT documented as of this encounter Care Teams Mechanical Sound Technician Relationship Specialty Start Date End Date Tanmay Gore MD [address] [place] [id number] PCP - General Internal Medicine 03/19/23 documented as of this encounter
--- OUTSIDE RECORDS SUMMARY | 2025-03-03 15:28 | XMS_ITS | Encounter Summary ---
Author Organization [employer] Address [address] [place] [address] [place] [address] Care Team Providers Care Care Transition Mgr Name Role Phone Tanmay Gore MD Primary Care Prov ider Reason for Referral * Consultation (STAT) - Closed Specialty Diagnoses / Procedures Referred By Ricardo alan Referred To Contact Cardiology Diagnoses Chest pain, unspecified type Tanmay Gore MD [address] [place] [address] Phone: tel: fax: Fidel Hernández MD [address] [place] [phone] Phone: tel: fax: Referral ID Status Reason Start Date Expiration Date V isits Requested Visits Authorized [id number] Closed Specialty Services Required 01/12/2025 01/12/2026 1 1 * Imaging (STAT) - Closed Specialty Diagnoses / Procedures Referred By Ricardo alan Referred To Contact Cardiology Diagnoses Chest pain, unspecified type Procedures Transthoracic Echo (TTE) Complete Tanmay Gore MD [address] [place] [address] Phone: tel: fax: [address] [phone] Phone: tel: fax: Referral ID Status Reason Start Date Expiration Date V isits Requested Visits Authorized [id number] Closed Perform Procedure 01/12/2025 01/12/2026 1 1 Encounter Details Date Type Department Care Team (Late st Contact Info) Description 01/12/2025 Orders Only [facility] [address] [place] [address] Tanmay Gore MD [address] [place] [address] Chest pain, unspecified type (Primary Dx) Social [...] as of this encounter Plan of Treatment Scheduled Orders Name Type Priority Associated Diagnoses [...] documented as of this encounter Care Teams Care Transition Mgr Relationship Specialty Start Date End Date KeithTanmay Cantrell MD [address] [place] [phone] PCP - General Internal Medicine 03/19/23 documented as of this encounter
--- OUTSIDE RECORDS SUMMARY | 2025-03-03 15:28 | XMS_ITS | Encounter Summary ---
Author Organization [employer] Address [address] [facility] [address] [place] [address] Care Team Providers Care Lathing Supervisor Name Role Phone Tanmay Gore MD Primary Care Prov ider Reason for Visit * Reason Comments Med Refill Encounter Details Date Type Department Care Team ([facility] [address] Contact Info) Description 02/22/2024 Refill [facility]EDS [address] [place], [place] [phone] Tanmay Gore MD [address] [place] [address] Social History Tobacco Use Types Packs/Day Years [...] on filedocumented in this encounter Care Teams Lathing Supervisor Relationship Specialty Start Date End Date Tanmay Gore MD [address] [place] [phone] PCP - General Internal Medicine 03/19/23 documented as of this encounter
--- OUTSIDE RECORDS SUMMARY | 2025-03-03 15:28 | XMS_ITS | Encounter Summary ---
Author Organization [employer] Address [address] [facility] [address] [place] [address] Care Team Providers Care Drilling Assistant Name Role Phone Tanmay Gore MD Primary Care Prov ider Reason for Visit * Reason Comments Med Change Request Encounter Details Date Type Department Care Team ([facility] Contact Info) Description 12/09/2024 Refill [facility]S [address] [place], [place] [phone] Tanmay Gore MD [address] [place] [address] Social History Tobacco Use Types Packs/Day Years [...] documented as of this encounter Care Teams Drilling Assistant Relationship Specialty Start Date End Date Tanmay Gore MD [address] [place] [phone] PCP - General Internal Medicine 03/19/23 documented as of this encounter
--- OUTSIDE RECORDS SUMMARY | 2025-03-03 15:28 | XMS_ITS | Clinical Summary ---
Author Organization [employer] Address [address] [place] [address] Care Team Providers Care Draw Frame Runner Name Role Phone Tanmay Gore MD Primary [...] BLOOD SUGAR TWICE A DAY 100 strip 04/17/19 24 Active dilTIAZem CD (Cardizem CD) 120 MG 24 hr capsule Take 240 mg by mouth Once per day. Active glipiZIDE (Glucotrol) 10 MG tablet Take 1 tablet (10 mg) by mouth before breakfast and before evening meal. 60 tablet 08/15/192025 Active Insulin Syringe 31G X 5/16 0.3 ML misc For administering insulin daily 100 each 08/15/19 25 Active Insulin Glargine-yfgn 100 UNIT/ML solution Inject 30 Units under the skin Once per day. 3 mL 11/25/19 25 Active Continuous Glucose Senior Db2 Systems Programmer (FreeStyle Antionette 3 Lincoln) device 1 each Once per day. Use as directed for CGM 1 each 12/24/19 25 Active Continuous Glucose Sensor (FreeStyle Antionette 3 Plus Sensor) misc 1 each every 15 days. Apply 1 every 15 days as directed for CGM 2 each 12/24/19 25 Active traZODone (Desyrel) 50 MG tablet TAKE 1 TABLET BY MOUTH EVERYDAY AT BEDTIME 90 tablet 01/19/20 25 Active atorvastatin (Lipitor) 80 MG tablet TAKE 1 TABLET (80 MG) BY MOUTH IN THE MORNING 30 tablet 5 02/03/20 Active omeprazole (PriLOSEC) [address] capsuleIndica tions:Abdomin al pain with vomiting TAKE 1 CAPSULE BY MOUTH EVERY DAY 30 capsule 2 02/17/20 Active chlorthalidon e (Hygroton) 25 MG tablet TAKE 1 TABLET BY MOUTH EVERY DAY 30 tablet 2 02/17/20 Active empagliflozin (Jardiance) 25 MG Take 1 tablet (25 mg) by mouth Once per day. 90 tablet 3 02/24/20 25 2025 Active insulin lispro protamine-ins ulin lispro (HumaLOG MIX 75/25) (75-25) 100 UNIT/ML suspension injection INJECT 5 UNITS THREE TIMES A DAY 13.5 mL 3 02/24/20 Active dapagliflozin (Farxiga) 10 MG Take 1 tablet (10 mg) by mouth Once per day. 90 tablet 3 09/18/19 24 2024 Discontinued losartan (Cozaar) 100 MG tablet TAKE 1 TABLET BY MOUTH EVERY DAY IN THE MORNING 90 tablet 3 04/03/19 25 2024 Discontinued empagliflozin (Jardiance) 25 MG Take 1 tablet (25 mg) by mouth Once per day. 30 tablet 11 08/06/192024 Discontinued(R yusuf (will not trigger notification to Pharmacy)) Dulaglutide (Trulicity) 4.5 MG/0.5ML solution auto-injector Indications:T ype 2 diabetes mellitus with diabetic microalbuminu wayne, without long-term current use of insulin (HCC) Inject 4.5 mg under the skin 1 (one) time per week. 3 mL 3 08/06/19 25 2024 Discontinued atorvastatin (Lipitor) 80 MG tablet Take 1 tablet (80 mg) by mouth in the morning. 90 tablet 1 08/28/19 25 2024 Discontinued omeprazole (PriLOSEC) [address] capsuleIndica tions:Abdomin al pain with vomiting TAKE 1 CAPSULE BY MOUTH EVERY DAY 30 capsule 2 11/18/19 25 2024 Discontinued chlorthalidon e (Hygroton) 25 MG tablet TAKE 1 TABLET BY MOUTH EVERY DAY 30 tablet 2 11/26/19 25 2024 Discontinued insulin aspart protamine-ins ulin aspart (NovoLOG Mix 70-30) (70-30) 100 UNIT/ML injection Inject 5 Units under the skin 3 times daily. 13.5 mL 3 02/24/20 25 2024 Discontinued Active Problems Problem Noted [...] of call pt had been contacted by installation and repair technician team and was en route to er [...] Encounters Date Type Department Care Team Description 03/01/2025 Telephone [facility] [address] [place] [address] Tanmay Gore MD FY 02/23/2025 1:00 PM EST Telemedicine [facility] [address] [place] [address] Tanmay Gore MD 02/23/2025 Refill [facility] [address] [place] [address] Tanmay Gore MD 02/23/2025 Travel 02/16/2025 Refill [facility] [address] [place] [address] Tanmay Gore MD Abdominal pain with vomiting 01/31/2025 Refill [facility] [address] [place], [place] [phone] Tanmay Gore MD 01/16/2025 Refill [facility] [address] [place] [address] Tanmay Gore MD 01/13/2025 Orders Only GENERIC EXTERNAL DATA DEPARTMENT Provider, Generic External Data 01/12/2025 Orders Only [facility] [address] [place] [address] Tanmay Gore MD Chest pain, unspecified type (Primary Dx) 01/06/2025 Refill [facility] [address] [place] [address] Tanmay Gore MD 12/29/2024 Orders Only GENERIC EXTERNAL DATA DEPARTMENT Provider, Generic External Data 12/23/2024 Orders Only [facility] [address] [place] [address] Tanmay Gore MD 12/09/2024 Telephone [facility] [address] [place] [address] Tanmay Gore MD Med Refill 12/09/2024 Refill [facility] [address] [place] [address] Tanmay Gore MD from Last 3 Months [...] the past 12 months, has t he [employer], gas, oil or water company threatened to [...] 11/24/2024 3:18 PM EDT Plan of Treatment Health Maintenance Due Date Last Done Comments CT Colonography 1960 FIT DNA/Cologuard 1960 FOBT 1960 Sigmoidoscopy 1960 RSV Patients and Patients Aged 60 [...] Additional history exists Tobacco Screening 12/30/2025 12/30/2024 Disability Screening 02/23/2026 02/23/2025 DTaP/Tdap/Td Vaccines (3 - Td or Tdap) [...] on patient's age to complete this topic Goals Goal Patient Goal Type Associated Problems [...] has chronic kidney disease No Esther Simon Procedures Procedure Name Priority Date/Time Associated Diagnosis [...] AUTO DIFFERENTIAL Routine 12/29/2024 9:19 AM EDT HEPATITIS C AB W/REFL TO HCV RNA, QN, PCR Routine 11/30/2024 1:19 PM EDT LIPID PANEL, [...] Blood Count 9.0 4.8 - 10.8 X10*3/uL [facility] Red Blood Count 4.36(L) 4.60 - 5.80 X10*6/uL [facility] Hemoglobin 13.3(L) 14.0 - 18.0 g/dl [facility] Hematocrit 39.5(L) 42.0 - 52.0 % [facility] Mean Corpuscular Volume 90.6 80.0 - 98.0 fL [facility] Mean Corpuscular Hemoglobin 30.5 27.0 - 33.0 pg [facility] Mean Corpuscular HGB Conc 33.7 31.0 - 36.0 g/dl [facility] Red Cell Distribution Width 11.9 11.0 - 16.0 % [facility] Platelet Count 393 160 - 400 X10*3/uL [facility] Mean Platelet Volume 10.2 9.4 - 12.4 fL [facility] Neutrophils Percent Auto 74.4(H) 45 - 73 % [facility] Imm Gran Pct Auto 0.4 0.0 - 0.4 % [facility] Lymphocytes Percent Auto 16.2(L) 20 - 40 % [facility] Monocytes Percent Auto 4.7 2 - 11 % [facility] Eosinophils Percent Auto 3.7 0 - 4 % [facility] Basophils Percent Auto 0.6 0 - 2 % [facility] NRBC Pct Auto 0.0 0.0 - 0.2 /100WBC [facility] Neutrophils Absolute Auto 6.7 2.0 - 8.3 x10*3/uL [facility] Imm Gran Abs Auto 0.04(H) 0.00 - 0.03 X10*3/uL [facility] Lymphocytes Absolute Auto 1.5 1.2 - 4.9 X10*3/uL [facility] Monocytes Absolute Auto 0.4 0.1 - 1.2 X10*3/uL [facility] Eosinophils Absolute Auto 0.3 0.0 - 0.4 X10*3/uL [facility] Basophils Absolute Auto 0.1 0.0 - 0.2 X10*3/uL [facility] NRBC Abs Auto 0.000 0.0 - 0.012 X10*3/uL [facility] 01/13/2025 3:51 PM EST 01/13/2025 3:51 PM EST us Generic External Data Provider LAB BLOOD ORDERAB LES Final Result [facility] [address] [place] [address] [phone] * Partial Thromboplastin Time, Activated (APTT) (01/13/2025 3:51 PM EST) Pathologist [facility] Partial Thromboplastin Time 32.0 26.7 - 34.1 SEC [facility] 01/13/2025 3:51 PM EST 01/13/2025 3:51 PM EST Generic External Data Provider LAB BLOOD ORDERAB LES Final Result Performing Organization Address [facility] Co de Phone Number [facility] [address] [place] [phone] * Prothrombin Time-INR (01/13/2025 3:51 PM EST) [facility] Prothrombin Time 12.8 11.2 - 13.5 SEC [facility] INTERNATIONAL NORM RATIO 1.0 0.9 - 1.1 [facility] Comment:INTERNATIONAL NORMAL IZED RATIO (INR) [...] ORDERAB LES Final Result Performing Organization Address [facility] Co de Phone Number [facility] [address] [place] [phone] * (ABNORMAL) Protein, Total and Protein??Electrophoresis (01/13/2025 3:51 PM EST) [facility] Prot Elec - Total Protein 7.9 6.1 - 8.1 g/dL [facility] Prot Elec - Albumin 4.3 3.8 - 4.8 g/dL [facility] Prot Elec - Alpha1 0.3 0.2 - 0.3 g/dL [facility] Prot Elec - Alpha2 1.1(A) 0.5 - 0.9 g/dL [facility] Prot Elec - Beta 1 0.5 0.4 - 0.6 g/dL [facility] Prot Elec - Beta 2 0.6(A) 0.2 - 0.5 g/dL [facility] Prot Elec - Gamma 1.1 0.8 - 1.7 g/dL [facility] PES - Abn Protein Band 1 SEE NOTE NONE DETECTED g/dL [facility] Comment:See below PES-Abn Protein Band 2 TNP [facility] PES-Abn Protein Band 3 TNP [facility] Prot Elec - Interpretation SEE NOTE [facility] Comment:Electrophoretic stud ies reveal an elevationof beta-2 globulins. This pattern is suggestive ofacute inflammation; however, the presence of amonoclonal protein cannot be ruled out. Consider serumimmunofixation to rule out monoclonal protein (if notalready ordered).THIS TEST WAS PERFORMED AT:[facility] [place] [phone] ALFORD MD 01/13/2025 3:51 PM EST 01/13/2025 3:51 PM EST us Generic External Data Provider LAB BLOOD ORDERAB LES Final Result [facility] [address] [place] [phone] [phone] * (ABNORMAL) Basic Metabolic Panel (01/13/2025 3:51 PM EST) Only the most recent of2 resultswithin the time period is included. Sodium 140 135 - 145 mmol/L [facility] Potassium 5.3(H) 3.3 - 5.1 mmol/L [facility] Chloride 107 96 - 108 mmol/L [facility] Carbon Dioxide 25 22 - 29 mmol/L [facility] Anion Gap 13 12 - 20 [facility] Urea Nitrogen (BUN) 58(H) 9 - 16 mg/dL [facility] Creatinine, Serum 3.08(H) 0.5 - 1.4 mg/dL [facility] Estimated Glomerular Filt Rate 21 [facility] Comment:Chronic Kidney Disea se: Estimated GFR < 60 mL/min/1.60w2Gcmbvx Kidney Disease: Estimated GFR < 15 mL/min/1.73m2 Glucose 251(H) 60 - 115 mg/dL [facility] Calcium 9.5 8.4 - 10.2 mg/dL [facility] 01/13/2025 3:51 PM EST 01/13/2025 3:51 PM EST Generic External Data Provider LAB BLOOD ORDERAB LES Final Result Performing Organization Address [facility] Co de Phone Number [facility] [address] [place] [phone] * Other Reference Test - Misc (12/29/2024 11:01 AM EDT) Other Ref Test Misc See Note [facility] Comment:See the report from [facility] scanned into thePathology reports section of the EMR. 12/29/2024 11:0 1 AM EDT 12/29/2024 11:42 AM EDT [facility] - 01/13/2025 8:45 AM EST RIGHT KIDNEY CORETX LOWER POLE SENT TO [facility] Generic External Data Provider LAB BLOOD ORDERAB LES Final Result Performing Organization Address [facility] Co de Phone Number [facility] [address] [place] [phone] * Hematoxylin and Eosin Stain (12/29/2024 11:01 AM EDT) 12/29/2024 11:0 1 AM EDT 12/29/2024 11:40 AM EDT [facility] - 01/13/2025 5:31 PM EST ----- ------- Name: Jame Silva Age/Sex: 64/M : 1960 Unit#: [id number] Attend Dr: Gene Stout MD Re12/29/24 Status: [facility] Location: [facility] Disch: ----- ------- SPEC : [id number] RECD: 12/29/24 STATUS: DANIA IBRAHIM NUM: [id number] CESIA: 12/29/24 [facility] DR: Augie Aquino MD ENTERED: 12/29/24 SP TYPE: Surgical OTHR DR: Gene Stout MD, Benjamin MD ORDERED: HE Stain/2, Gross Micro L4 Addendum Addendum 1 Entered: 01/13/25 Kidney, right, core biopsy: Diagnosis by [facility] Department of Pathology: -Nodular mesangial (diabetic) glomerulosclerosis. [...] cortex lower pole, core biopsy: Sent to [facility] for light microscopy, immunofluorescence, and electron microscopy. Their report is pending; addendum to follow. Clinical History CRF Material Received Right kidney cortex lower pole CONTINUED ON NEXT PAGE ----- ------- Name: Jame Silva Age/Sex: 64/M : 1960 Unit#: [id number] Attend Dr: Gene Stout MD Re12/29/24 Status: [facility] Location: [facility] Disch: ----- ------- SPEC : [id number] RECD: 12/29/24 STATUS: DANIA IBRAHIM NUM: [id number] CESIA: 12/29/24 [facility] DR: Augie Aquino MD ENTERED: [...] cm. The specimen is entirely forwarded to [facility] for further analysis. No sections taken. ([facility]) IHC S/NG Disclaimer NOTE: Unless otherwise stated, all tissue is formalin-fixed and paraffin-embedded. Some or all of the immunohistochemical tests reported herein may have been developed and their performance characteristics determined by [facility]. They have not been cleared or approved by the U.S. Food and Drug Administration (FDA). However, the FDA has determined that such clearance or approval is not necessary. This laboratory is certified under the Clinical Laboratory Improvement Amendments of 1988 (CLIA) as qualified to perform high complexity clinical laboratory testing. Copies To: Gene Stout MD [facility] [address] [place] [address] Dr [address] [place], [place] [phone] [email or web address] Tanmay Gore MD [address] [phone] Augie Aquino MD [address] [place] [address] [phone] ----- ------- Signed (signature on file) Azalia Ponce 12/30/24 1133 ----- ------- END OF REPORT us Generic External Data Provider LAB BLOOD ORDERAB LES Final Result [facility] [address] [place] [phone] * CT Guided Percutaneous Biopsy renal Right (12/29/2024 10:31 AM EDT) Anatomical Region Laterality Modality Kidney Right Computed Tomogra phy 12/29/2024 10:3 1 AM EDT Narrative 12/30/2024 12:20 PM EDT [address] [address] [address] Scan Report Signed Patient: Jame Silva MR#: [id number] 1 : 1960 Acct:[id number] Age/Sex: 64 / M ADM Date: 12/29/24 Loc: [facility] Attending Dr: Gene Stout MD Ordering Physician: Gene Stout MD Date of Service: 12/29/24 Procedure(s): CT biopsy renal RT Accession Number(s): [id number] cc: Gene Stout MD; Tanmay Gore MD Report Number: [id number]: Total DLP = 309.00 mGy-cm Reason for [...] 12/30/24 1217 DD/ 1031 TD/TT: 12/29/24 1135 Reclamation Engineer: [facility] Procedure Note Donotuseinterpreter, Image - 12/30/[address] [place] [address] [address] Scan Report Signed Patient: Gillian Silva#: [id number] 1 : 1960cct:[id number] Age/Sex: 64 / MADM Date: 12/29/24 Loc: [facility] Attending Dr: Gene Stout MD Ordering Physician: Gene Stout MD Date of Service: 12/29/24 Procedure(s): CT biopsy renal RT Accession Number(s): [id number] cc: Gene Stout MD; Tanmay Gore MD Report Number: [id number]: Total DLP = 309.00 mGy-cm Reason for [...] 12/30/24 1217 DD/ 1031 TD/TT: 12/29/24 1135 Reclamation Engineer: S[facility] External Provider IMG CT PROCEDURES Final Result * Type and screen (12/29/2024 9:19 AM EDT) Blood Type ABP [facility] Antibody Screen NEGATIVE [facility] 12/29/2024 9:19 AM EDT 12/29/2024 9:29 AM EDT Generic External Data Provider LAB BLOOD BANK TE ST ORDERABLES Final Result Performing Organization Address [facility] Co de Phone Number [facility] [address] [place] [phone] * Hepatitis C Antibody with Reflex to HCV, RNA, Quantitative, Real-Time PCR (11/30/2024 1:19 PM EDT) Hepatitis C Antibody Nonreactive Nonreactive [facility] Comment:Antibodies to HCV no t detected; does not exclude early acuteHCV infection. 11/30/2024 1:19 PM EDT 11/30/2024 5:32 PM EDT Generic External Data Provider LAB BLOOD ORDERAB LES Final Result Performing Organization Address [facility] Co de Phone Number [facility] [address] [place] [phone] * (ABNORMAL) Lipid Panel, Standard (11/30/2024 1:19 PM EDT) Triglycerides 208(H) <150 mg/dL [facility] Comment:Desirable Triglyceri de: less than 150 mg/dLBorderline High Triglyceride 150-199 mg/dLHigh Triglyceride: 200-499 mg/dLVery High Triglyceride: greater than or equal to 5OO mg/dL Cholesterol 290(H) <200 mg/dL [facility] Comment:Desirable Cholestero l: less than 200 mg/dLBorderline High Cholesterol: 200-239 mg/dLHigh Cholesterol: greater than 239 mg/dL LDL Cholesterol Calculated 212(H) <100 mg/dL [facility] Comment:Desirable LDL: less than 100 mg/dLNear Optimal/Above Optimal LDL: 110- 129 mg/dLBorderline High LDL: 130-159 mg/dLHigh LDL: 160-189 mg/dLVery High LDL: greater than or equal to 190 mg/dL HDL Cholesterol 37(L) >40 mg/dL [facility] Comment:Desirable HDL: great er than 40 mg/dL Note: This HDL assay may give artificially low results in patients with liver disease. Blood Venous blood specimen / Unknown 11/30/2024 1:19 PM EDT 11/30/2024 2:07 PM EDT Tanmay Mello MD LAB BLOOD ORDERABL ES Final Result [facility] [address] [place] [phone] * (ABNORMAL) POCT Hgb A1c (11/24/2024 3:29 PM EDT) [facility] Hemoglobin A1C 8.8(A) 4.0 - 5.7 % QC Media Lot # [id number] Lot# Expiration Date ,980,404 Blood 11/24/2024 3:29 PM EDT Tanmay Mello MD POINT OF CARE TEST ENTER/EDIT ORDERABLES Final Result * Hm Colonoscopy (11/19/2023) [facility] Colonoscopy Normal Normal Narrative Radha Angela - 11/19/2023 HM Colonoscopy order added per GI office note Repeat Colonoscopy in 1-2 years due to fair left sided prep or earlier if clinically indicated --next time use adult scope Renu Early MD HEALTH MAINTENANCE Final Result * Fecal immunochemical test x1 (FIT) (04/10/2020 10:58 AM EST) [facility] FIT Date 1 [facility] FIT Date 2 [facility] FIT Lot TNP [facility] FIT1 TNP NEGATIVE [facility] Comment:NO SPECIMEN ON CARD FIT2 TNP NEGATIVE [facility] 04/10/2020 10:5 8 AM EST us Historical Provider HISTORICAL/NON ORDERABLE LABS Final Result [facility] [address] from Last 3 Months or Most Recently Relevant to Health Maintenance Additional Health Concerns Active Problems Noted Date [...] 03/01/2025 Patient has chronic kidney disease 03/01/2025 Insurance Care Teams Draw Frame Runner Relationship Specialty Start Date End Date Tanmay Gore MD [address] [place] [phone] PCP - General Internal Medicine 03/19/23
--- OUTSIDE RECORDS SUMMARY | 2025-03-03 15:28 | XMS_ITS | Encounter Summary ---
Author Organization [employer] Address [address] [place] [address] Care Team Providers Care Supply Chain Logistics Manager Name Role Phone Tanmay Gore MD Primary Care Prov ider Reason for Visit * Reason Onset Date Comments Medication Problem 06/11/2023 Encounter Details Date Type Department Care Team (Late st Contact Info) Description 06/11/2023 Telephone [facility] [address] [place] [address] Tanmay Gore MD [address] [place], [place] [phone] Medication Problem Social History Tobacco Use Types [...] the past 12 months, has t he [employer], oil or water [employer] threatened to shut off services in your [...] on filedocumented in this encounter Care Teams Supply Chain Logistics Manager Relationship Specialty Start Date End Date Tanmay Gore MD [address] [place] [phone] PCP - General Internal Medicine 03/19/23 documented as of this encounter
--- OUTSIDE RECORDS SUMMARY | 2025-03-03 15:28 | XMS_ITS | Encounter Summary ---
Author Organization [employer] Address [address] [place] [address] Care Team Providers Care Brush Machine Setter Name Role Phone Tanmay Gore MD Primary Care Prov ider Reason for Visit * Reason Onset Date Comments Medication Question 01/13/2024 Encounter Details Date Type Department Care Team (Late st Contact Info) Description 01/13/2024 Telephone [facility] [address] [place] [address] Tanmay Gore MD [address] [place], [place] [phone] Medication Question Social History Tobacco Use Types [...] the past 12 months, has t he [employer], [employer], oil or water company threatened to shut [...] on filedocumented in this encounter Care Teams Brush Machine Setter Relationship Specialty Start Date End Date Tanmay Gore MD [address] [place] [phone] PCP - General Internal Medicine 03/19/23 documented as of this encounter
--- OUTSIDE RECORDS SUMMARY | 2025-03-03 15:28 | XMS_ITS | Encounter Summary ---
Author Organization [employer] Address [address] [facility] 7t [place] [address] Care Team Providers Care House Wirer Name Role Phone Tanmay Gore MD Primary Care Prov ider Reason for Visit * Reason Comments Med Change Request Encounter Details Date Type Department Care Team ([facility] Contact Info) Description 01/06/2025 Refill [facility] [address] [place], [place] [phone] Tanmay Goer MD [address] [place] [address] Social History Tobacco Use Types Packs/Day Years [...] documented as of this encounter Care Teams House Wirer Relationship Specialty Start Date End Date Tanmay Gore MD [address] [place] [phone] PCP - General Internal Medicine 03/19/23 documented as of this encounter
--- OUTSIDE RECORDS SUMMARY | 2025-03-03 15:28 | XMS_ITS | Encounter Summary ---
Author Organization [employer] Address [address] [facility] 7t [place] [address] Care Team Providers Care Eating Disorder Specialist Name Role Phone Tanmay Gore MD Primary Care Prov ider Reason for Visit * Reason Comments Med Refill Encounter Details Date Type Department Care Team ([facility] Contact Info) Description 02/27/2024 Refill [facility] [address] [place], [place] [phone] Tanmay Gore MD [address] [place] [address] Social History Tobacco Use Types Packs/Day Years [...] on filedocumented in this encounter Care Teams Eating Disorder Specialist Relationship Specialty Start Date End Date Tanmay Gore MD [address] [place] [phone] PCP - General Internal Medicine 03/19/23 documented as of this encounter
--- OUTSIDE RECORDS SUMMARY | 2025-03-03 15:28 | XMS_ITS | Encounter Summary ---
Author Organization [employer] Address [address] [facility] [address] [place] [address] Care Team Providers Care [employer] [employer] Name Role Phone Tanmay Gore MD Primary Care Prov ider Tanmay Gore MD Primary Care Prov ider Reason for Visit * Reason Comments Med Refill Encounter Details Date Type Department Care Team ([facility] st Contact Info) Description 06/12/2022 Refill [facility] [address] [place] [address] Tanmay Gore MD [address] [place] [address] Social History Tobacco Use Types Packs/Day Years [...] on filedocumented in this encounter Care Teams [employer] Relationship Specialty Start Date End Date Tanmay Gore MD [address] [place] [address] PCP - General Internal Medicine 07/29/19 03/10/23 Tanmay Gore MD [address] [place] [address] PCP - General Internal Medicine 03/19/23 documented as of this encounter
== END 2025-03-03 14:46 | disposition home or self-care (01) ==
LOC: HO.HKA 14:16
PROVIDERS: PCP Internal Medicine; Visit Provider Internal Medicine Nephrology
DX: E87.5 Hyperkalemia (principal); I10 Essential (primary) hypertension; E11.22 Type 2 diabetes mellitus with diabetic chronic kidney disease; N18.32 Chronic kidney disease, stage 3b
CPT/HCPCS: 99214